=== PATIENT | female | born 1955 | race Caucasian/White ===

== ENCOUNTER → 2016-10-24 | Outpatient (CLI) | payer OTHER ==
--- NOTE | 2016-10-25 11:03 | ECHOF ---
Referral Reason:I27.0 Pulmonary Hypertension,R22.41 Juan Jose Leg Swelli MEASUREMENTS -------- HEIGHT: 170.2 cm WEIGHT: 81.6 kg BP: 148/86 RVIDd: 2.7 cm (< 3.3) IVSd: 1.3 cm (0.6 - 1.1) LVIDd: 3.9 cm (3.9 - 5.3) LVPWd: 1.3 cm (0.6 - 1.1) IVSs: 1.7 cm LVIDs: 2.5 cm LVPWs: 1.6 cm LA Diam: 3.2 cm (2.7 - 3.8) LAESV Index (A-L): 19.38 ml/m Ao Diam: 3.1 cm (2.0 - 3.7) AV Cusp: 1.8 cm (1.5 - 2.6) MV E Twan: 0.81 m/s MV DecT: 331 ms MV A Twan: 1.01 m/s MV E/A Ratio: 0.80 FINDINGS -------- Sinus rhythm. This was a technically difficult study with suboptimal views. The left ventricular size is normal. There is borderline concentric left ventricular hypertrophy. Overall left ventricular systolic function is normal with, an EF between 55 - 60 %. The right ventricle is normal in size and function. Normal LA size by volume 22+/-6 ml/m2. The right atrium is normal in size. The aortic valve was not well visualized. Mild mitral annular calcification present. The tricuspid valve was not well visualized. The pulmonic valve was not well visualized. The aortic root size is normal. Echo free space may represent effusion or a pericardial fat pad. CONCLUSIONS -------- 1. Sinus rhythm. 2. Mild mitral annular calcification present. 3. The tricuspid valve was not well visualized. 4. The pulmonic valve was not well visualized. 5. The aortic root size is normal. 6. Echo free space may represent effusion or a pericardial fat pad. 7. This was a technically difficult study with suboptimal views. 8. The left ventricular size is normal. 9. There is borderline concentric left ventricular hypertrophy. 10. Overall left ventricular systolic function is normal with, an EF between 55 - 60 %. 11. The right ventricle is normal in size and function. 12. Normal LA size by volume 22+/-6 ml/m2. 13. The right atrium is normal in size. 14. The aortic valve was not well visualized. LOADER HELPER: Barbie Jackson RDCS
== END | disposition home or self-care (01) ==
LOC: RADECHMAIN 14:57
PROVIDERS: ATTEND Internal Medicine
DX: I05.9 Rheumatic mitral valve disease, unspecified (principal); I27.0 Primary pulmonary hypertension
CPT/HCPCS: 93306

== ENCOUNTER 2016-10-31 00:13 | Emergency (ER) | payer OTHER ==
[2016-10-31] MEDS ORDERED: HYDROcodone/APAP 5-325MG 1 EACH TAB PO STA (01:20)
--- NOTE | 2016-10-31 01:23 | ED ---
Lower Extremity Injury HPI - General Chief Complaint: Extremity Injury, Lower Stated Complaint: Hip/leg pain, swollen feet Time Seen by Provider: 10/31/16 00:34 Source: patient, RN notes reviewed Mode of arrival: wheelchair Limitations: no limitations - History of Present Illness Initial Comments: Patient is a 61-year-old female since emergency room for evaluation. Patient states that about a year ago she fell and injured her left hip. Patient states about 4 weeks ago she began having increasing pain in her left hip. Patient states she went and saw her primary care provider and they told her she had a "cracked hip". Patient states that her primary care provider will not write her for pain medications. Patient states the pain is been getting worse with walking. Patient also states having increased bilateral leg swelling. Patient states that she is on 40 mg of Lasix per day. Patient denies chest pain, shortness of breath, headache, dizziness. Patient states that both of her legs feel very swollen and hard. Patient states it is very uncomfortable to walk. Patient denies any numbness or tingling going down her feet. - Related Data Home Medications Medication Instructions Recorded Confirmed Albuterol Inhaler [Ventolin Hfa 2 puff INHALATION RT-Q6H PRN 12/21/13 10/31/16 Inhaler] metFORMIN HCL 500 mg PO BID 12/21/13 10/31/16 Ranitidine HCl [Zantac] 300 mg PO BID 01/19/14 10/31/16 Gabapentin [Neurontin] 100 mg PO BID 05/30/15 10/31/16 Simvastatin 20 mg PO HS 05/30/15 10/31/16 Furosemide [Lasix] 20 mg PO DAILY 08/02/15 10/31/16 Lisinopril [Zestril] 30 mg PO BID 08/02/15 10/31/16 Previous Rx's Medication Instructions Recorded Ferrous Sulfate [Feosol] 325 mg PO DAILY #30 tab 06/08/15 Folic Acid 1 mg PO DAILY@1200 #30 tab 06/08/15 Multivitamins, Thera [Multivitamin 1 each PO DAILY@1200 #30 tab 06/08/15 (formulary)] Thiamine [Vitamin B-1] 100 mg PO DAILY@1200 #30 tab 06/08/15 traMADol HCl [Ultram] 50 mg PO Q6H PRN #20 tab 06/08/15 Naproxen [Naprosyn] 500 mg PO Q12HR PRN #20 tab 10/31/16 Allergies Allergy/AdvReac Type Severity Reaction Status Date / Time aspirin AdvReac nose bleeds Verified 10/31/16 00:24 Review of Systems ROS Statement: Those systems with pertinent positive or pertinent negative responses have been documented in the HPI. ROS Other: All systems not noted in ROS Statement are negative. 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 She denies any medical marijuana, marijuana or street drug use. She denies any alcohol use. Patient has no pets in the home and she denies any recent travel. Past Drug Use History: None Reported General Exam - General Exam Comments Initial Comments: Sitting in exam room, no distress. Limitations: no limitations General appearance: alert, in no apparent distress Head exam: Present: atraumatic, normocephalic, normal inspection Eye exam: Present: normal appearance ENT exam: Present: normal exam Neck exam: Present: normal inspection Respiratory exam: Present: normal lung sounds bilaterally. Absent: respiratory distress Cardiovascular Exam: Present: regular rate, normal rhythm, normal heart sounds Extremities exam: Present: pedal edema (Bilateral pitting pedal edema) Back exam: Present: normal inspection Neurological exam: Present: alert, oriented X3, CN II-XII intact, normal gait Psychiatric exam: Present: normal affect, normal mood Skin exam: Present: warm, dry, intact, normal color. Absent: rash Course Vital Signs 10/31/16 10/31/16 00:21 03:30 Temperature 98.1 F 97.7 F Pulse Rate 94 76 Respiratory 18 20 Rate Blood Pressure 194/88 167/77 O2 Sat by Pulse 97 96 Oximetry Medical Decision Making - Medical Decision Making Patient is a 61-year-old female presents emergency room for evaluation of chronic left hip pain and bilateral leg edema. Labs show no concerning findings. Chest x-ray shows no acute findings. Will send patient home with Cari and advised her to follow-up with her primary care provider. Advised patient to continue taking Lasix as directed. Advised patient to elevate both of her legs. Patient states she understands everything that was discussed with her. Return parameters discussed. Case discussed with Dr. Wilson. - Lab Data Result diagrams: 10/31/16 01:39 10/31/16 01:39 Lab Results 10/31/16 10/31/16 10/31/16 Range/Units 01:39 01:39 01:39 WBC 7.1 (3.8-10.6) k/uL RBC 4.55 (3.80-5.40) m/uL Hgb 14.1 (11.4-16.0) gm/dL Hct 42.1 (34.0-46.0) % MCV 92.6 (80.0-100.0) fL MCH 31.1 (25.0-35.0) pg MCHC 33.5 (31.0-37.0) g/dL RDW 14.5 (11.5-15.5) % Plt Count 257 (150-450) k/uL Neutrophils % 73 % Lymphocytes % 18 % Monocytes % 5 % Eosinophils % 2 % Basophils % 1 % Neutrophils # 5.2 (1.3-7.7) k/uL Lymphocytes # 1.3 (1.0-4.8) k/uL Monocytes # 0.3 (0-1.0) k/uL Eosinophils # 0.2 (0-0.7) k/uL Basophils # 0.0 (0-0.2) k/uL PT (9.0-12.0) sec INR (<1.1) APTT (22.0-30.0) sec Sodium 134 L (137-145) mmol/L Potassium 4.1 (3.5-5.1) mmol/L Chloride 97 L (98-107) mmol/L Carbon Dioxide 26 (22-30) mmol/L Anion Gap 11 mmol/L BUN 13 (7-17) mg/dL Creatinine 0.70 (0.52-1.04) mg/dL Est GFR (MDRD) Af Amer >60 (>60 ml/min/1.73 sqM) Est GFR (MDRD) Non-Af >60 (>60 ml/min/1.73 sqM) Glucose 298 H (74-99) mg/dL Calcium 9.3 (8.4-10.2) mg/dL Magnesium 1.9 (1.6-2.3) mg/dL Total Bilirubin 0.5 (0.2-1.3) mg/dL AST 12 L (14-36) U/L ALT 27 (9-52) U/L Alkaline Phosphatase 74 (38-126) U/L Total Creatine Kinase 65 (30-135) U/L CK-MB (CK-2) 2.5 H* (0.0-2.4) ng/mL CK-MB (CK-2) Rel Index 3.8 Troponin I <0.012 (0.000-0.034) ng/mL NT-Pro-B Natriuret Pep pg/mL Total Protein 6.8 (6.3-8.2) g/dL Albumin 4.2 (3.5-5.0) g/dL 10/31/16 10/31/16 Range/Units 01:39 01:39 WBC (3.8-10.6) k/uL RBC (3.80-5.40) m/uL Hgb (11.4-16.0) gm/dL Hct (34.0-46.0) % MCV (80.0-100.0) fL MCH (25.0-35.0) pg MCHC (31.0-37.0) g/dL RDW (11.5-15.5) % Plt Count (150-450) k/uL Neutrophils % % Lymphocytes % % Monocytes % % Eosinophils % % Basophils % % Neutrophils # (1.3-7.7) k/uL Lymphocytes # (1.0-4.8) k/uL Monocytes # (0-1.0) k/uL Eosinophils # (0-0.7) k/uL Basophils # (0-0.2) k/uL PT 9.7 (9.0-12.0) sec INR 0.9 (<1.1) APTT 24.1 (22.0-30.0) sec Sodium (137-145) mmol/L Potassium (3.5-5.1) mmol/L Chloride (98-107) mmol/L Carbon Dioxide (22-30) mmol/L Anion Gap mmol/L BUN (7-17) mg/dL Creatinine (0.52-1.04) mg/dL Est GFR (MDRD) Af Amer (>60 ml/min/1.73 sqM) Est GFR (MDRD) Non-Af (>60 ml/min/1.73 sqM) Glucose (74-99) mg/dL Calcium (8.4-10.2) mg/dL Magnesium (1.6-2.3) mg/dL Total Bilirubin (0.2-1.3) mg/dL AST (14-36) U/L ALT (9-52) U/L Alkaline Phosphatase (38-126) U/L Total Creatine Kinase (30-135) U/L CK-MB (CK-2) (0.0-2.4) ng/mL CK-MB (CK-2) Rel Index Troponin I (0.000-0.034) ng/mL NT-Pro-B Natriuret Pep 104 pg/mL Total Protein (6.3-8.2) g/dL Albumin (3.5-5.0) g/dL - Radiology Data Radiology results: report reviewed, image reviewed Disposition Clinical Impression: Left hip pain, Bilateral leg edema Disposition: HOME SELF-CARE Instructions: Leg Edema (ED) Additional Instructions: Continue taking Lasix as directed. Elevate both legs. Please follow up with primary care provider in 1-2 days. If any new symptom arises or symptoms worsen , return to ER as soon as possible. Prescriptions: Naproxen [Naprosyn] 500 mg PO Q12HR PRN #20 tab PRN Reason: Pain Referrals: Huma Edgar MD [Primary Care Provider] - 1-2 days Time of Disposition: 03:01
[2016-10-31 01:50] LABS: Basophils % (A) 1 %; CH 32.6; CHCM 35.4; Eosinophils # (A) 0.2 k/uL (0-0.7); Eosinophils % (A) 2 %; HCT 42.1 % (34.0-46.0); HDW 3.21; HGB 14.1 gm/dL (11.4-16.0); Luc # (Auto) 0.12; Luc % (Auto) 2; Lymphocytes # (A) 1.3 k/uL (1.0-4.8); Lymphocytes % (A) 18 %; MCH 31.1 pg (25.0-35.0); MCHC 33.5 g/dL (31.0-37.0); MCV 92.6 fL (80.0-100.0); Mean Platelet Volume 6.5; Monocytes # (A) 0.3 k/uL (0-1.0); Monocytes % (A) 5 %; Neutrophils # (A) 5.2 k/uL (1.3-7.7); Neutrophils % (A) 73 %; RBC 4.55 m/uL (3.80-5.40); RDW 14.5 % (11.5-15.5); WBC 7.1 k/uL (3.8-10.6); WBC (Perox) 7.18
[2016-10-31 01:59] LABS: ALT 27 U/L (9-52); AST 12 U/L (14-36); Alkaline Phosphatase 74 U/L (38-126); Anion Gap 11 mmol/L; Blood Urea Nitrogen 13 mg/dL (7-17); Calcium 9.3 mg/dL (8.4-10.2); Carbon Dioxide 26 mmol/L (22-30); Chloride 97 mmol/L (98-107); Glucose 298 mg/dL (74-99); INR 0.9 (<1.1); Magnesium 1.9 mg/dL (1.6-2.3); Non-African American GFR(MDRD) >60 (>60 ml/min/1.73 sqM); Partial Thromboplastin Time 24.1 sec (22.0-30.0); Potassium 4.1 mmol/L (3.5-5.1); Prothrombin Time 9.7 sec (9.0-12.0); Sodium 134 mmol/L (137-145); Total Bilirubin 0.5 mg/dL (0.2-1.3); Total Protein 6.8 g/dL (6.3-8.2)
[2016-10-31 02:14] LABS: Creatine Kinase 65 U/L (30-135)
[2016-10-31 02:26] LABS: Creatine Kinase MB 2.5 ng/mL (0.0-2.4); Troponin I <0.012 ng/mL (0.000-0.034)
--- NOTE | 2016-10-31 02:28 | XR ---
EXAM: XR Chest, 2 Views CLINICAL HISTORY: Reason: Chest Pain TECHNIQUE: Frontal and lateral views of the chest. COMPARISON: CXR 06/06/15 FINDINGS: Lungs: Unremarkable. No consolidation. Pleural space: Unremarkable. No pneumothorax. Heart: Unremarkable. Borderline cardiomegaly, unchanged. Mediastinum: Unremarkable. Bones/joints: Unremarkable. IMPRESSION: No acute findings. Borderline cardiomegaly, unchanged.
[2016-10-31 03:32] VITALS: BP 167/77; PULSE 76; RESP 20; TEMP 97.7
== END 2016-10-31 03:32 | disposition home or self-care (01) ==
LOC: EC 00:13
DX: M25.552 Pain in left hip (principal); R60.0 Localized edema; E78.5 Hyperlipidemia, unspecified; I10 Essential (primary) hypertension; E11.40 Type 2 diabetes mellitus with diabetic neuropathy, unspecified; I25.10 Atherosclerotic heart disease of native coronary artery without angina pectoris; K21.9 Gastro-esophageal reflux disease without esophagitis; F17.200 Nicotine dependence, unspecified, uncomplicated; Z79.84 Long term (current) use of oral hypoglycemic drugs; Z79.899 Other long term (current) drug therapy; Z88.6 Allergy status to analgesic agent
CPT/HCPCS: 36415; 71020; 80053; 82550; 82553; 83735; 83880; 84484; 85025; 85610; 85730; 93005; 99284

== ENCOUNTER → 2016-11-11 | Outpatient (CLI) | payer OTHER ==
--- NOTE | 2016-11-11 13:54 | US ---
EXAMINATION TYPE: US venous doppler duplex LE BI DATE OF EXAM: 11/11/2016 1:33 PM COMPARISON: NONE CLINICAL HISTORY: L leg pain M79.662, R leg pain M79.661. Bilateral leg swelling. Patients states nicole ving a type of vaginal surgery with cyst removed resulting in large amount of scar tissue. SIDE PERFORMED: Bilateral TECHNIQUE: The lower extremity deep venous system is examined utilizing real time linear array sonog shayy with graded compression, doppler sonography and color-flow sonography. VESSELS IMAGED: External Iliac Vein (EIV) Common Femoral Vein Deep Femoral Vein Greater Saphenous Vein * Femoral Vein Popliteal Vein Small Saphenous Vein * Proximal Calf Veins (* superficial vessels) Suboptimal exam due to patient unable to lay still due to hip pain Right Leg: Appears negative for DVT, suboptimal visualization of GSV Left Leg: Appears negative for DVT No popliteal fossa lesion was identified. IMPRESSION: THIS EXAMINATION IS NEGATIVE FOR DVT IN BOTH LEGS.
== END | disposition home or self-care (01) ==
LOC: RADUSWWP 12:53
PROVIDERS: ATTEND Internal Medicine
DX: M79.661 Pain in right lower leg (principal); R22.43 Localized swelling, mass and lump, lower limb, bilateral; M79.662 Pain in left lower leg
CPT/HCPCS: 93970

== ENCOUNTER → 2016-12-05 | Outpatient (CLI) | payer OTHER ==
[2016-12-05 14:28] LABS: Blood Urea Nitrogen 12 mg/dL (7-17); Non-African American GFR(MDRD) >60 (>60 ml/min/1.73 sqM)
== END | disposition home or self-care (01) ==
LOC: LABWHC1 13:51
PROVIDERS: ATTEND Orthopaedic Surgery
DX: N28.9 Disorder of kidney and ureter, unspecified (principal)
CPT/HCPCS: 36415; 82565; 84520

== ENCOUNTER 2017-10-27 21:38 | Emergency (ER) | payer OTHER ==
[2017-10-27 21:43] VITALS: RESP 16
--- NOTE | 2017-10-27 21:58 | ED ---
Fall HPI - General Chief Complaint: Fall Stated Complaint: fall/foot pain Time Seen by Provider: 10/27/17 21:45 Source: patient, family, RN notes reviewed Mode of arrival: wheelchair - History of Present Illness Initial Comments: This is a 62-year-old female who presents to the emergency department with chief complaint of fall injury. Patient states that last Friday she fell. She denies any injuries at that time. She states that yesterday she fell down a couple steps but was able to catch herself and since that time has been experiencing right ankle pain. She is unsure if she twisted her ankle. Pain is made worse with bearing weight. She denies any other injuries or trauma. Denies fever, chills, chest pain, shortness of breath, abdominal pain, nausea or vomiting, constipation or diarrhea, dysuria or hematuria, numbness or tingling, headache or vision changes. - Related Data Home Medications Medication Instructions Recorded Confirmed Albuterol Inhaler [Ventolin Hfa 2 puff INHALATION RT-Q6H PRN 12/21/13 10/31/16 Inhaler] metFORMIN HCL 500 mg PO BID 12/21/13 10/31/16 Ranitidine HCl [Zantac] 300 mg PO BID 01/19/14 10/31/16 Gabapentin [Neurontin] 100 mg PO BID 05/30/15 10/31/16 Simvastatin 20 mg PO HS 05/30/15 10/31/16 Furosemide [Lasix] 20 mg PO DAILY 08/02/15 10/31/16 Lisinopril [Zestril] 30 mg PO BID 08/02/15 10/31/16 Previous Rx's Medication Instructions Recorded Ferrous Sulfate [Feosol] 325 mg PO DAILY #30 tab 06/08/15 Folic Acid 1 mg PO DAILY@1200 #30 tab 06/08/15 Multivitamins, Thera [Multivitamin 1 each PO DAILY@1200 #30 tab 06/08/15 (formulary)] Thiamine [Vitamin B-1] 100 mg PO DAILY@1200 #30 tab 06/08/15 traMADol HCl [Ultram] 50 mg PO Q6H PRN #20 tab 06/08/15 Naproxen [Naprosyn] 500 mg PO Q12HR PRN #20 tab 10/31/16 Cephalexin [Keflex] 500 mg PO Q12HR #20 cap 10/27/17 Sulfamethox-Tmp 800-160Mg [Bactrim 1 tab PO Q12HR #20 tab 10/27/17 DS 800-160 mg] Allergies Allergy/AdvReac Type Severity Reaction Status Date / Time aspirin AdvReac nose bleeds Verified 10/27/17 21:43 Review of Systems ROS Statement: Those systems with pertinent positive or pertinent negative responses have been documented in the HPI. ROS Other: All systems not noted in ROS Statement are negative. Past Medical History Past Medical History: Coronary Artery Disease (CAD), Diabetes Mellitus, GERD/ Reflux, Hyperlipidemia, Hypertension Additional Past Medical History / Comment(s): Diabetic neuropathy to bilateral upper and lower extremities, postmenopausal vaginal bleeding, necrotizing fasciitis the right thigh status post skin grafts at [facility] History of Any Multi-Drug Resistant Organisms: None Reported Past Surgical History: Tubal Ligation Additional Past Surgical History / Comment(s): recent skin grafts in nida groin Past Anesthesia/Blood Transfusion Reactions: No Reported Reaction Past Psychological History: No Psychological Hx Reported Smoking Status: Current every day smoker Past Alcohol Use History: None Reported Past Drug Use History: None Reported General Exam - General Exam Comments Initial Comments: General: Awake and alert, well-developed; in no apparent distress. HEENT: Head atraumatic, normocephalic. Pupils are equal, round and reactive to light. Extraocular movements intact. Oropharynx moist without erythema or exudate. Neck: Supple. Normal ROM. Cardiovascular: Regular rate and rhythm. No murmurs, rubs or gallops. Chest symmetrical. Respiratory: Lungs clear to auscultation bilaterally. No wheezes, rales or rhonchi. Normal respiratory effort with no use of accessory muscles. Musculoskeletal: Limited range of motion of the right ankle due to pain. There is soft tissue swelling, erythema, warmth and tenderness medial aspect of the right foot/ankle. Sensation is intact. Pedal pulses are 2+ equal and palpable bilaterally. Skin: [place], warm and dry with redness, warmth and swelling of right foot as noted above. Neurological: Alert and oriented x3. CN II-XII grossly intact. Speech is fluent and answers are appropriate. No focal neuro deficits. Psychiatric: Normal mood and affect. No overt signs of depression or anxiety noted. Limitations: no limitations Course Vital Signs 10/27/17 21:39 Temperature 97.3 F L Pulse Rate 83 Respiratory 16 Rate Blood Pressure 136/62 O2 Sat by Pulse 98 Oximetry Medical Decision Making - Medical Decision Making This is a 62-year-old female who presents to the emergency department chief complaint of right ankle injury. Patient states that she fell down a couple steps yesterday but was able to brace herself. She states that since that time she has been experiencing right ankle pain. X-ray was obtained and revealed no acute fractures or dislocations. No evidence of osteomyelitis. Patient does have a history of diabetic neuropathy. I had patient remove her socks and shoes and noticed an area of erythema, tenderness, swelling and warmth to the medial aspect of the right foot/ankle. Patient will be started on Keflex and Bactrim. Recommended following up with her primary care provider within the next couple of days for close monitoring of resolution. Strongly advised patient to check both of her feet regularly to monitor for any wounds or signs of infection. Patient's vital signs are stable and she is in no acute distress. She'll be discharged home at this time. She is in agreement with plan and voices understanding. All questions were answered. - Radiology Data Radiology results: report reviewed X-ray right ankle impression: No acute abnormality of the right ankle. X-ray right foot impression: Degenerative hypertrophic spurring. No fracture seen. Disposition Clinical Impression: Cellulitis in diabetic foot Disposition: HOME SELF-CARE Condition: Good Instructions: Foot Care for People with Diabetes (ED), Cellulitis (ED) Additional Instructions: Please take medications as prescribed. Please check your feet regularly for any signs of infections or open wounds. Please follow up with primary care provider within 1-2 days. Return to emergency department if symptoms should worsen or any concerns arise. Prescriptions: Cephalexin [Keflex] 500 mg PO Q12HR #20 cap Sulfamethox-Tmp 800-160Mg [Bactrim DS 800-160 mg] 1 tab PO Q12HR #20 tab Is patient prescribed a controlled substance at d/c from ED?: No Referrals: Huma Edgar MD [Primary Care Provider] - 1-2 days Time of Disposition: 22:59
--- NOTE | 2017-10-27 22:38 | XR ---
EXAMINATION TYPE: XR ankle complete RT DATE OF EXAM: 10/27/2017 COMPARISON: NONE HISTORY: Pain TECHNIQUE: 3 views FINDINGS: Ankle mortise is anatomic. There is minor spurring of the posterior malleolus. There is a s mall Achilles calcaneal spur. I see no fracture nor dislocation. IMPRESSION: No acute abnormality of the right ankle.
--- NOTE | 2017-10-27 22:39 | XR ---
EXAMINATION TYPE: XR foot complete RT DATE OF EXAM: 10/27/2017 COMPARISON: NONE HISTORY: Pain TECHNIQUE: 3 views FINDINGS: Metatarsals are intact. I see no fracture nor dislocation. There are no erosions. There is a small Achilles calcaneal spur. There is spurring of the posterior malleolus. IMPRESSION: Degenerative hypertrophic spurring. No fracture seen.
[2017-10-27] MEDS ORDERED: CEPHALEXIN 500 MG CAP PO STA (22:47)
[2017-10-27] MEDS ORDERED: SULFAMETHOX-TMP 800-160MG 1 EACH TAB PO STA (22:47)
[2017-10-27 23:08] VITALS: BP 129/66; PULSE 74; TEMP 97.7
== END 2017-10-27 23:07 | disposition home or self-care (01) ==
LOC: EC 21:38
DX: L03.115 Cellulitis of right lower limb (principal); E11.9 Type 2 diabetes mellitus without complications; E11.40 Type 2 diabetes mellitus with diabetic neuropathy, unspecified; I25.10 Atherosclerotic heart disease of native coronary artery without angina pectoris; K21.9 Gastro-esophageal reflux disease without esophagitis; E78.5 Hyperlipidemia, unspecified; I10 Essential (primary) hypertension; F17.200 Nicotine dependence, unspecified, uncomplicated; Z79.84 Long term (current) use of oral hypoglycemic drugs; Z79.899 Other long term (current) drug therapy; Z88.6 Allergy status to analgesic agent
CPT/HCPCS: 99283

== ENCOUNTER → 2018-12-03 | Outpatient (CLI) | payer MEDICARE, OTHER ==
--- NOTE | 2018-12-03 15:00 | US ---
EXAMINATION TYPE: US venous doppler duplex LE RT DATE OF EXAM: 12/03/2018 2:48 PM COMPARISON: US 2017 CLINICAL HISTORY: M79.661 Pain in right leg; R22.41 Swelling, rt leg. Right leg pain SIDE PERFORMED: Right TECHNIQUE: The lower extremity deep venous system is examined utilizing real time linear array sonog shayy with graded compression, doppler sonography and color-flow sonography. VESSELS IMAGED: External Iliac Vein (EIV) Common Femoral Vein Deep Femoral Vein Greater Saphenous Vein * Femoral Vein Popliteal Vein Small Saphenous Vein * Proximal Calf Veins (* superficial vessels) Right Leg: Appears negative for DVT IMPRESSION: 1. No diagnostic evidence of DVT as visualized.
== END | disposition home or self-care (01) ==
LOC: RADUSWWP 14:25
PROVIDERS: ATTEND Internal Medicine
DX: M79.661 Pain in right lower leg (principal); R22.41 Localized swelling, mass and lump, right lower limb; Z88.5 Allergy status to narcotic agent

== ENCOUNTER 2018-12-31 12:01 | Inpatient (IN) | payer MEDICARE, OTHER ==
[2018-12-31] MEDS ORDERED: SODIUM CHLORIDE 0.9% 500 ML 500 ML IV STA (13:08)
[2018-12-31] MEDS ORDERED: HYDROmorphone 1 MG/ML 1 ML SYRINGE IVP STA (13:08)
[2018-12-31] MEDS ORDERED: KETOROLAC 60 MG/2 ML VIAL IVP STA (13:08)
[2018-12-31 13:18] LABS: Basophils # (A) 0.1 k/uL (0-0.2); Basophils % (A) 1 %; Eosinophils # (A) 0.4 k/uL (0-0.7); Eosinophils % (A) 4 %; HCT 33.8 % (34.0-46.0); HGB 11.6 gm/dL (11.4-16.0); Lymphocytes # (A) 1.2 k/uL (1.0-4.8); Lymphocytes % (A) 14 %; MCH 30.2 pg (25.0-35.0); MCHC 34.4 g/dL (31.0-37.0); Mean Platelet Volume 6.7; Monocytes # (A) 0.5 k/uL (0-1.0); Monocytes % (A) 5 %; Neutrophils # (A) 6.8 k/uL (1.3-7.7); Neutrophils % (A) 75 %; Platelet Count 391 k/uL (150-450); Poikilocytosis Slight; RBC 3.85 m/uL (3.80-5.40); RDW 15.1 % (11.5-15.5); WBC 9.2 k/uL (3.8-10.6)
--- NOTE | 2018-12-31 13:19 | ED ---
General Adult HPI - General Chief complaint: Extremity Injury, Lower Stated complaint: Side/Back pain from fall in july Time Seen by Provider: 12/31/18 12:10 Source: patient, family, RN notes reviewed Mode of arrival: wheelchair Limitations: no limitations - History of Present Illness Initial comments: This is a 63-year-old female presents emergency Department complaining of right hip pain. Patient states she felt a couple times a day because of her neuropathy. Patient states she often lands on the right hip but it is now been hurting for one week and she can barely walk or move because the pain. Patient denies any injury to her head or neck however. Patient denies any chest pain or abdominal pain. Patient denies any back pain. Patient denies any other extremity pain besides her hip. Patient does states she's become weaker and is falling much more frequently. Patient states she has fallen upwards of 2-3 times a day. Patient does not mind being worked up for weakness at this time. According to the granddaughter the granddaughter has had her set up with other appointments but the grandmother refuses to go. Patient denies any chest pain or palpitations patient denies shortness of breath per patient denies any recent fever chills or cough - Related Data Home Medications Medication Instructions Recorded Confirmed metFORMIN HCL 500 mg PO DAILY 12/21/13 12/31/18 Ranitidine HCl [Zantac] 300 mg PO BID 01/19/14 12/31/18 Simvastatin 20 mg PO HS 05/30/15 12/31/18 Furosemide [Lasix] 20 mg PO BID 08/02/15 12/31/18 Cetirizine HCl [Zyrtec] 10 mg PO DAILY 12/31/18 12/31/18 Ferrous Sulfate [Feosol] 325 mg PO DAILY@1200 12/31/18 12/31/18 Furosemide [Lasix] 20 mg PO BID 12/31/18 12/31/18 Gabapentin [Neurontin] 300 mg PO BID 12/31/18 12/31/18 Lisinopril 30 mg PO DAILY 12/31/18 12/31/18 Metolazone [Zaroxolyn] 2.5 mg PO DAILY 12/31/18 12/31/18 Multivitamins, Thera [Multivitamin 1 tab PO DAILY@1200 12/31/18 12/31/18 (formulary)] Potassium Chloride [K-Tab ER] 10 meq PO DAILY 12/31/18 12/31/18 Triamcinolone 0.1% Cream [Kenalog 1 applicatio TOPICAL TID 12/31/18 12/31/18 0.1% Cream] amLODIPine [Norvasc] 5 mg PO DAILY 12/31/18 12/31/18 traZODone HCL 50 - 100 mg PO HS 12/31/18 12/31/18 Previous Rx's Medication Instructions Recorded Folic Acid 1 mg PO DAILY@1200 #30 tab 06/08/15 Thiamine [Vitamin B-1] 100 mg PO DAILY@1200 #30 tab 06/08/15 Naproxen [Naprosyn] 500 mg PO Q12HR PRN #20 tab 10/31/16 Allergies Allergy/AdvReac Type Severity Reaction Status Date / Time aspirin AdvReac nose bleeds Verified 12/31/18 13:17 Review of Systems ROS Statement: Those systems with pertinent positive or pertinent negative responses have been documented in the HPI. ROS Other: All systems not noted in ROS Statement are negative. Past Medical History Past Medical History: Coronary Artery Disease (CAD), Diabetes Mellitus, GERD/Reflux, Hyperlipidemia, Hypertension Additional Past Medical History / Comment(s): Diabetic neuropathy to bilateral upper and lower extremities, postmenopausal vaginal bleeding, necrotizing fasciitis the right thigh status post skin grafts at History of Any Multi-Drug Resistant Organisms: None Reported Past Surgical History: Tubal Ligation Additional Past Surgical History / Comment(s): recent skin grafts in nida groin Past Anesthesia/Blood Transfusion Reactions: No Reported Reaction Past Psychological History: No Psychological Hx Reported Smoking Status: Current every day smoker Past Alcohol Use History: None Reported Past Drug Use History: None Reported General Exam - General Exam Comments Initial Comments: GENERAL: Patient is well-developed and well-nourished. Patient is nontoxic and well- hydrated and is in moderate distress. Patient does look somewhat disheveled. ENT: Neck is soft and supple. No significant lymphadenopathy is noted. Oropharynx is clear. Moist mucous membranes. Neck has full range of motion without eliciting any pain. EYES: The sclera were anicteric and conjunctiva were pink and moist. Extraocular mov ements were intact and pupils were equal round and reactive to light. Eyelids were unremarkable. PULMONARY: Unlabored respirations. Good breath sounds bilaterally. No audible rales rhonchi or wheezing was noted. CARDIOVASCULAR: There is a regular rate and rhythm without any murmurs gallops or rubs. ABDOMEN: Soft and nontender with normal bowel sounds. SKIN: Skin is clear with no lesions or rashes and otherwise unremarkable. NEUROLOGIC: Patient is alert and oriented x3. Cranial nerves II through XII are grossly intact. Motor and sensory are also intact. Normal speech, volume and content. Symmetrical smile. MUSCULOSKELETAL: Patient has significant right lateral and posterior hip pain to palpation. Patient also has significant pain with range of motion of that hip. The leg does not appear shortened. LYMPHATICS: No significant lymphadenopathy is noted PSYCHIATRIC: Normal psychiatric evaluation. Limitations: no limitations Course Vital Signs 12/31/18 12/31/18 12/31/18 12:07 13:30 14:17 Temperature 98.7 F Pulse Rate 92 81 73 Respiratory 18 18 18 Rate Blood Pressure 130/74 127/90 134/68 O2 Sat by Pulse 97 96 98 Oximetry 12/31/18 12/31/18 15:19 16:11 Temperature 97.4 F L Pulse Rate 64 61 Respiratory 18 16 Rate Blood Pressure 128/67 121/63 O2 Sat by Pulse 99 97 Oximetry Medical Decision Making - Medical Decision Making EKG shows sinus rhythm with occasional PAC at 90 bpm CA interval is 178 QRSs 80 QT interval 374 QTC is 457. His EKG shows no ST segment elevation or depression or T wave abnormalities are noted. - Lab Data Result diagrams: 12/31/18 12:48 12/31/18 12:48 Lab Results 12/31/18 12/31/18 12/31/18 Range/Units 12:48 12:48 12:48 WBC 9.2 (3.8-10.6) k/uL RBC 3.85 (3.80-5.40) m/uL Hgb 11.6 (11.4-16.0) gm/dL Hct 33.8 L (34.0-46.0) % MCV 88.0 (80.0-100.0) fL MCH 30.2 (25.0-35.0) pg MCHC 34.4 (31.0-37.0) g/dL RDW 15.1 (11.5-15.5) % Plt Count 391 (150-450) k/uL Neutrophils % 75 % Lymphocytes % 14 % Monocytes % 5 % Eosinophils % 4 % Basophils % 1 % Neutrophils # 6.8 (1.3-7.7) k/uL Lymphocytes # 1.2 (1.0-4.8) k/uL Monocytes # 0.5 (0-1.0) k/uL Eosinophils # 0.4 (0-0.7) k/uL Basophils # 0.1 (0-0.2) k/uL Poikilocytosis Slight PT (9.0-12.0) sec INR (<1.2) APTT (22.0-30.0) sec Sodium 124 L (137-145) mmol/L Potassium 4.1 (3.5-5.1) mmol/L Chloride 80 L (98-107) mmol/L Carbon Dioxide 31 H (22-30) mmol/L Anion Gap 13 mmol/L BUN 40 H (7-17) mg/dL Creatinine 0.94 (0.52-1.04) mg/dL Est GFR (CKD-EPI)AfAm 74 (>60 ml/min/1.73 sqM) Est GFR (CKD-EPI)NonAf 64 (>60 ml/min/1.73 sqM) Glucose 184 H (74-99) mg/dL Plasma Lactic Acid [place] 1.3 (0.7-2.0) mmol/L Calcium 9.9 (8.4-10.2) mg/dL Magnesium 1.6 (1.6-2.3) mg/dL Total Bilirubin 0.7 (0.2-1.3) mg/dL AST 11 L (14-36) U/L ALT 15 (9-52) U/L Alkaline Phosphatase 75 (38-126) U/L Troponin I (0.000-0.034) ng/mL Total Protein 7.6 (6.3-8.2) g/dL Albumin 4.6 (3.5-5.0) g/dL Urine Color Urine Appearance (Clear) Urine pH (5.0-8.0) Ur Specific [place] (1.001-1.035) Urine Protein (Negative) Urine Glucose (UA) (Negative) Urine Ketones (Negative) Urine Blood (Negative) Urine Nitrite (Negative) Urine Bilirubin (Negative) Urine Urobilinogen (<2.0) mg/dL Ur Leukocyte Esterase (Negative) Urine WBC (0-5) /hpf Ur Squamous Epith Cells (0-4) /hpf Urine Bacteria (None) /hpf Urine Mucus (None) /hpf 12/31/18 12/31/18 12/31/18 Range/Units 12:48 12:48 13:46 WBC (3.8-10.6) k/uL RBC (3.80-5.40) m/uL Hgb (11.4-16.0) gm/dL Hct (34.0-46.0) % MCV (80.0-100.0) fL MCH (25.0-35.0) pg MCHC (31.0-37.0) g/dL RDW (11.5-15.5) % Plt Count (150-450) k/uL Neutrophils % % Lymphocytes % % Monocytes % % Eosinophils % % Basophils % % Neutrophils # (1.3-7.7) k/uL Lymphocytes # (1.0-4.8) k/uL Monocytes # (0-1.0) k/uL Eosinophils # (0-0.7) k/uL Basophils # (0-0.2) k/uL Poikilocytosis PT 10.1 (9.0-12.0) sec INR 0.9 (<1.2) APTT 25.4 (22.0-30.0) sec Sodium (137-145) mmol/L Potassium (3.5-5.1) mmol/L Chloride (98-107) mmol/L Carbon Dioxide (22-30) mmol/L Anion Gap mmol/L BUN (7-17) mg/dL Creatinine (0.52-1.04) mg/dL Est GFR (CKD-EPI)AfAm (>60 ml/min/1.73 sqM) Est GFR (CKD-EPI)NonAf (>60 ml/min/1.73 sqM) Glucose (74-99) mg/dL Plasma Lactic Acid [place] (0.7-2.0) mmol/L Calcium (8.4-10.2) mg/dL Magnesium (1.6-2.3) mg/dL Total Bilirubin (0.2-1.3) mg/dL AST (14-36) U/L ALT (9-52) U/L Alkaline Phosphatase (38-126) U/L Troponin I <0.012 (0.000-0.034) ng/mL Total Protein (6.3-8.2) g/dL Albumin (3.5-5.0) g/dL Urine Color Light Yellow Urine Appearance Cloudy H (Clear) Urine pH 6.5 (5.0-8.0) Ur Specific [place] 1.009 (1.001-1.035) Urine Protein Negative (Negative) Urine Glucose (UA) Negative (Negative) Urine Ketones Negative (Negative) Urine Blood Negative (Negative) Urine Nitrite Positive H (Negative) Urine Bilirubin Negative (Negative) Urine Urobilinogen <2.0 (<2.0) mg/dL Ur Leukocyte Esterase Moderate H (Negative) Urine WBC 28 H (0-5) /hpf Ur Squamous Epith Cells 1 (0-4) /hpf Urine Bacteria Moderate H (None) /hpf Urine Mucus Rare H (None) /hpf Disposition Clinical Impression: Hip pain, Multiple falls, Urinary tract infection, Hyponatremia Disposition: ADMITTED IP TO THIS HOSP Referrals: Huma Edgar MD [Primary Care Provider] - 1-2 days Time of Disposition: 16:48
[2018-12-31 13:26] LABS: INR 0.9 (<1.2); Partial Thromboplastin Time 25.4 sec (22.0-30.0); Prothrombin Time 10.1 sec (9.0-12.0)
[2018-12-31] MEDS ORDERED: NYSTATIN 100,000 UNIT/GM POWD 15 GM TOPICAL STA (13:28)
[2018-12-31 13:31] LABS: Albumin 4.6 g/dL (3.5-5.0); Calcium 9.9 mg/dL (8.4-10.2); Magnesium 1.6 mg/dL (1.6-2.3); Potassium 4.1 mmol/L (3.5-5.1); Total Bilirubin 0.7 mg/dL (0.2-1.3); Total Protein 7.6 g/dL (6.3-8.2)
[2018-12-31 14:11] LABS: Appearance,Urine Cloudy (Clear); Bacteria,Urine Moderate /hpf; Bilirubin,Urine Negative (Negative); Blood,Urine Negative (Negative); Color,Urine Light Yellow; Glucose,Urine (UA) Negative (Negative); Ketones,Urine Negative (Negative); Leukocyte Esterase,Urine Moderate (Negative); Mucus,Urine Rare /hpf; Nitrite,Urine Positive (Negative); PH, Urine 6.5 (5.0-8.0); Protein,Urine Negative (Negative); Specific Gravity,Urine 1.009 (1.001-1.035); Squamous Epithelial Cell,Urine 1 /hpf (0-4); Urobilinogen,Urine <2.0 mg/dL (<2.0); WBC,Urine 28 /hpf (0-5)
--- NOTE | 2018-12-31 14:21 | XR ---
EXAMINATION TYPE: XR chest 2V DATE OF EXAM: 12/31/2018 COMPARISON: 10/31/2016 HISTORY: Weakness TECHNIQUE: Frontal and lateral views of the chest are obtained. FINDINGS: There is no focal air space opacity, pleural effusion, or pneumothorax seen. The cardiac silhouette size is within normal limits. The osseous structures are intact. Mild multilevel degener ative changes of the spine. IMPRESSION: No acute cardiopulmonary process.
[2018-12-31] MEDS ORDERED: cefTRIAXone IN SWFI 1,000 MG/10 ML SYRINGE IVP STA (14:23)
--- NOTE | 2018-12-31 14:27 | XR ---
EXAMINATION TYPE: XR Hip RT and AP Pelvis DATE OF EXAM: 12/31/2018 COMPARISON: NONE HISTORY: Right hip pain after fall approximately 4 weeks ago TECHNIQUE: A single AP view of the pelvis is obtained. Two views of the right hip are obtained. FINDINGS: There is no acute fracture/dislocation evident in the pelvis. The hip and sacroiliac join ts appear symmetric with mild joint space narrowing of the femoral acetabular joint and mild degenera tive change of the sacroiliac joints. The overlying soft tissue appears unremarkable. Two views of right hip show no acute fracture or dislocation. No focal lytic or sclerotic lesion see n in the proximal right femur. The overlying soft tissue is unremarkable. Rounded calcified structu re in the right medial proximal femoral soft tissues may relate to a phlebolith, artifact, or benign soft tissue lesion as this is smoothly marginated and well circumscribed. IMPRESSION: There is no acute fracture or dislocation in the pelvis or right hip.
[2018-12-31] MEDS ORDERED: HYDROmorphone 0.5 MG/0.5 ML SYRINGE IVP STA (15:16)
--- NOTE | 2018-12-31 15:52 | CT ---
EXAMINATION TYPE: CT hip RT wo con DATE OF EXAM: 12/31/2018 COMPARISON: 12/31/2018 plain films HISTORY: Fall in July, right hip pain since. CT DLP: 638.9 mGycm Automated exposure control for dose reduction was used. FINDINGS: Attention is paid to the right hip. The proximal right femur within the [id number] appears normal. Femoral neck and femoral head are intact. The femoral head articulates with the acetabulum. Some ana nt space narrowing appears to be present. The remaining osseous structures within the [id number] a ppear unremarkable. The bowel visualized appear unremarkable. Vascular calcification is within the il iac vessels. Urinary bladder is unremarkable. Uterus and ovaries are not identified. Superficial soft tissues appear normal. Muscular density appears unremarkable. IMPRESSION: 1. MILD OSTEOARTHRITIC DEGENERATIVE CHANGE RIGHT HIP.
[2018-12-31] MEDS ORDERED: AZITHROMYCIN 500 MG in SODIUM CHLORIDE 0.9% 250 ML IVPB STA (15:57)
[2018-12-31] MEDS ORDERED: PNEUMONIA PROTOCOL UTILIZED 1 EACH MISC PO PRN (15:57)
[2018-12-31] MEDS: SODIUM CHLORIDE 0.9% 1,000 ML IV SCH ×2 (16:09→21:55)
[2018-12-31] MEDS: HYDROmorphone 0.5 MG/0.5 ML SYRINGE IVP PRN ×2 (18:31→21:58)
[2018-12-31] MEDS: SODIUM CHLORIDE 0.9% 1,000 ML IV ONE ×2 (20:28→22:29)
[2018-12-31 20:37] LABS: Glucose,Whole Blood 150 mg/dL (75-99)
[2018-12-31] MEDS: INSULIN ASPART (NovoLOG) 100 UNIT/ML VIAL SQ SCH (20:55)
[2018-12-31] MEDS: FAMOTIDINE 20 MG TAB PO SCH (20:55)
[2018-12-31] MEDS: ATORVASTATIN 10 MG TAB PO SCH (20:55)
[2018-12-31] MEDS: GABAPENTIN 300 MG CAP PO SCH (20:55)
[2018-12-31] MEDS: TRIAMCINOLONE 0.1% CREAM 80 GM TUBE TOPICAL SCH (22:01)
[2019-01-01] MEDS: HYDROmorphone 0.5 MG/0.5 ML SYRINGE IVP PRN ×3 (04:18→23:07)
[2019-01-01 06:54] LABS: Glucose,Whole Blood 182 mg/dL (75-99)
[2019-01-01 08:17] LABS: Appearance,Urine Clear (Clear); Bacteria,Urine Rare /hpf; Bilirubin,Urine Negative (Negative); Blood,Urine Negative (Negative); Color,Urine Light Yellow; Glucose,Urine (UA) Negative (Negative); Ketones,Urine Negative (Negative); Leukocyte Esterase,Urine Large (Negative); Nitrite,Urine Negative (Negative); PH, Urine 7.5 (5.0-8.0); Protein,Urine Negative (Negative); RBC,Urine 1 /hpf (0-5); Specific Gravity,Urine 1.007 (1.001-1.035); Squamous Epithelial Cell,Urine 1 /hpf (0-4); Urobilinogen,Urine <2.0 mg/dL (<2.0); WBC,Urine 18 /hpf (0-5)
[2019-01-01] MEDS: amLODIPine 5 MG TAB PO SCH (09:06)
[2019-01-01] MEDS: GABAPENTIN 300 MG CAP PO SCH ×2 (09:06→20:05)
[2019-01-01] MEDS: FAMOTIDINE 20 MG TAB PO SCH ×2 (09:06→20:05)
[2019-01-01] MEDS: INSULIN ASPART (NovoLOG) 100 UNIT/ML VIAL SQ SCH ×4 (09:06→23:02)
[2019-01-01] MEDS: TRIAMCINOLONE 0.1% CREAM 80 GM TUBE TOPICAL SCH ×3 (09:33→23:04)
[2019-01-01 11:32] LABS: Calcium 9.4 mg/dL (8.4-10.2); Potassium 4.3 mmol/L (3.5-5.1)
[2019-01-01 11:39] LABS: Anisocytosis Slight; Basophils % (A) 1 %; Eosinophils # (A) 0.2 k/uL (0-0.7); Eosinophils % (A) 3 %; HCT 34.4 % (34.0-46.0); HGB 11.6 gm/dL (11.4-16.0); Lymphocytes # (A) 1.1 k/uL (1.0-4.8); Lymphocytes % (A) 14 %; MCH 30.2 pg (25.0-35.0); MCHC 33.9 g/dL (31.0-37.0); Mean Platelet Volume 6.8; Monocytes # (A) 0.4 k/uL (0-1.0); Monocytes % (A) 5 %; Neutrophils % (A) 76 %; Platelet Count 387 k/uL (150-450); Poikilocytosis Slight; RBC 3.86 m/uL (3.80-5.40); WBC 7.9 k/uL (3.8-10.6)
[2019-01-01 11:40] LABS: Glucose,Whole Blood 161 mg/dL (75-99)
[2019-01-01 12:43] LABS: Hemoglobin A1C 6.1 % (4.0-6.0)
[2019-01-01] MEDS: MULTIVITAMINS, THERA 1 EACH TAB PO SCH (12:43)
[2019-01-01] MEDS: THIAMINE 100 MG TAB PO SCH (12:43)
[2019-01-01] MEDS: FOLIC ACID 1 MG TAB PO SCH (12:43)
[2019-01-01 13:37] VITALS: BMI 29.7
[2019-01-01] MEDS ORDERED: AZITHROMYCIN 500 MG TAB PO SCH (15:58)
[2019-01-01 16:42] LABS: Glucose,Whole Blood 150 mg/dL (75-99)
--- NOTE | 2019-01-01 16:44 | P.HPIM ---
History of Present Illness H&P Date: 12/31/18 Chief Complaint: Fall Patient is 63-year-old female with a known history of hypertension, diabetes, diabetic peripheral neuropathy, GERD and nicotine addiction came to ER with complaints of right hip pain and multiple falls since July this year. Patient has been feeling very weak and unable to walk due to pain. Denied any head injury. Denied any complaints of chest pain or shortness of breath. Denied any back pain. According to the granddaughter the granddaughter has had her set up with other appointments but the grandmother refuses to go. Patient denies any fever chills or cough. No recent illnesses. No sick contacts. Otherwise patient does smoke an daily basis. Patient does take Lasix and Zaroxolyn for leg swelling. Denied any history of CHF. EKG showed sinus rhythm. X-ray right hip showed mild osteoarthritic degenerative change right hip. X-ray of the pelvis showed no acute fracture or dislocation. Chest x-ray showed no acute cardio pulmonary process. Sodium 124, chloride 80, bicarb 31, BUN 40 and creatinine 0.94 his B A1c 6.1 UA showed cloudy and positive nitrate and moderate leukocytes esterase and WBC cells 28. Review of Systems Constitutional: Patient denies any fever or chills . Generalized weakness and malaise. Abdomen: Patient denied nausea vomiting and diarrhea and abdominal pain. Cardiovascular: Patient denies any chest pain or short of breath no palpitations. Respiratory: patient denied any cough is from production. No shortness of breath Neurologic: Patient denied any numbness or tingling headache. Musculoskeletal: Patient denies any complaints of joint swelling or deformity. Right hip pain Skin: Negative Psychiatric: Negative Endocrine: No heat or cold intolerance. No recent weight gain. Genitourinary: No dysuria or hematuria. All other 14 point ROS negative except the above Past Medical History Past Medical History: Coronary Artery Disease (CAD), Diabetes Mellitus, GERD/Reflux, Hyperlipidemia, Hypertension Additional Past Medical History / Comment(s): Diabetic neuropathy to bilateral upper and lower extremities, postmenopausal vaginal bleeding, necrotizing fasciitis the right thigh status post skin grafts at History of Any Multi-Drug Resistant Organisms: None Reported Past Surgical History: Tubal Ligation Additional Past Surgical History / Comment(s): recent skin grafts in nida groin Past Anesthesia/Blood Transfusion Reactions: No Reported Reaction Past Psychological History: No Psychological Hx Reported Smoking Status: Current every day smoker Past Alcohol Use History: None Reported Additional Past Alcohol Use History / Comment(s): Patient is a smoker of 2 packs per day since she was 14 years of age. She denies any medical marijuana, marijuana or street drug use. She denies any alcohol use. Patient has no pets in the home and she denies any recent travel. Past Drug Use History: None Reported - Past Family History Mother Family Medical History: Dementia Medications and Allergies Home Medications Medication Instructions Recorded Confirmed Type metFORMIN HCL 500 mg PO DAILY 12/21/13 12/31/18 History Ranitidine HCl [Zantac] 300 mg PO BID 01/19/14 12/31/18 History Simvastatin 20 mg PO HS 05/30/15 12/31/18 History Folic Acid 1 mg PO DAILY@1200 #30 tab 06/08/15 12/31/18 Rx Thiamine [Vitamin B-1] 100 mg PO DAILY@1200 #30 tab 06/08/15 12/31/18 Rx Furosemide [Lasix] 20 mg PO BID 08/02/15 12/31/18 History Naproxen [Naprosyn] 500 mg PO Q12HR PRN #20 tab 10/31/16 12/31/18 Rx Cetirizine HCl [Zyrtec] 10 mg PO DAILY 12/31/18 12/31/18 History Ferrous Sulfate [Feosol] 325 mg PO DAILY@1200 12/31/18 12/31/18 History Furosemide [Lasix] 20 mg PO BID 12/31/18 12/31/18 History Gabapentin [Neurontin] 300 mg PO BID 12/31/18 12/31/18 History Lisinopril 30 mg PO DAILY 12/31/18 12/31/18 History Metolazone [Zaroxolyn] 2.5 mg PO DAILY 12/31/18 12/31/18 History Multivitamins, Thera [Multivitamin 1 tab PO DAILY@1200 12/31/18 12/31/18 History (formulary)] Potassium Chloride [K-Tab ER] 10 meq PO DAILY 12/31/18 12/31/18 History Triamcinolone 0.1% Cream [Kenalog 1 applicatio TOPICAL TID 12/31/18 12/31/18 History 0.1% Cream] amLODIPine [Norvasc] 5 mg PO DAILY 12/31/18 12/31/18 History traZODone HCL 50 - 100 mg PO HS 12/31/18 12/31/18 History Allergies Allergy/AdvReac Type Severity Reaction Status Date / Time aspirin AdvReac nose bleeds Verified 12/31/18 13:17 Physical Exam Vitals: Vital Signs Temp Pulse Pulse Resp BP BP Pulse Ox 01/01/19 14:24 98.2 F 63 15 123/65 95 01/01/19 07:00 97.6 F 70 16 122/72 94 L 01/01/19 03:53 15 01/01/19 02:40 98.1 F 77 18 141/68 94 L 12/31/18 23:57 16 12/31/18 19:35 98.1 F 71 18 124/66 97 12/31/18 17:41 98.3 F 83 20 144/72 98 12/31/18 17:32 64 18 150/72 98 Intake and Output 01/01/19 01/01/19 01/01/19 06:59 14:59 22:59 Intake Total 1700 420 Output Total 1999 850 Balance -300 -430 Intake: Intake, IV Titration 1650 Amount Sodium Chloride 0.9% 1, 1650 000 ml @ 150 mls/hr IV . Q6H40M [facility] Rx#:[id number] Oral 50 420 Output: Urine 1999 850 Other: Voiding Method Indwelling Catheter Indwelling Catheter # Voids 3 Weight 86.183 kg PHYSICAL EXAMINATION: Patient is lying in the bed comfortably, no acute distress, awake alert and oriented.. HEENT: Normocephalic. Neck is supple. Pupils reactive. Nostrils clear. Oral cavity is moist. Ears reveal no drainage. Neck reveals no JVD, carotid bruits, or thyromegaly. CHEST EXAMINATION: Trachea is central. Symmetrical expansion. Lung bean clear to auscultation and percussion. CARDIAC: Normal S1, S2 with no gallops. No murmurs ABDOMEN: Soft. Bowel sounds normal. No organomegaly. No abdominal bruits. Extremities: reveal no edema. No clubbing or cyanosis Neurologically awake, alert, oriented x3 with well-coordinated movements. No focal deficits noted Skin: No rash or skin lesions. Psychiatric: Coperative. Nonsuicidal Musculoskeletal: No joint swelling or deformity. Normal range of motion. Results CBC & Chem 7: 01/01/19 11:03 01/01/19 11:03 Labs: Abnormal Lab Results - Last 24 Hours (Table) 12/31/18 12/31/18 01/01/19 Range/Units 12:48 20:36 06:52 RDW (11.5-15.5) % Sodium (137-145) mmol/L Chloride (98-107) mmol/L Carbon Dioxide (22-30) mmol/L BUN (7-17) mg/dL Glucose (74-99) mg/dL POC Glucose (mg/dL) 150 H 182 H (75-99) mg/dL Hemoglobin A1c 6.1 H (4.0-6.0) % Ur Leukocyte Esterase (Negative) Urine WBC (0-5) /hpf Urine Bacteria (None) /hpf 01/01/19 01/01/19 01/01/19 Range/Units 07:55 11:03 11:03 RDW 16.0 H (11.5-15.5) % Sodium 130 L (137-145) mmol/L Chloride 91 L (98-107) mmol/L Carbon Dioxide 31 H (22-30) mmol/L BUN 24 H (7-17) mg/dL Glucose 145 H (74-99) mg/dL POC Glucose (mg/dL) (75-99) mg/dL Hemoglobin A1c (4.0-6.0) % Ur Leukocyte Esterase Large H (Negative) Urine WBC 18 H (0-5) /hpf Urine Bacteria Rare H (None) /hpf 01/01/19 Range/Units 11:38 RDW (11.5-15.5) % Sodium (137-145) mmol/L Chloride (98-107) mmol/L Carbon Dioxide (22-30) mmol/L BUN (7-17) mg/dL Glucose (74-99) mg/dL POC Glucose (mg/dL) 161 H (75-99) mg/dL Hemoglobin A1c (4.0-6.0) % Ur Leukocyte Esterase (Negative) Urine WBC (0-5) /hpf Urine Bacteria (None) /hpf Thrombosis Risk Factor Assmnt - DVT/VTE Prophylaxis DVT/VTE Prophylaxis: Pharmacologic Prophylaxis ordered - Choose All That Apply Any of the Below Risk Factors Present?: Yes Each Factor Represents 1 point: Obesity (BMI >25) Other Risk Factors: Yes Each Risk Factor Represents 2 Points: Age 61-74 years Thrombosis Risk Factor Assessment Total Risk Factor Score: 3 Thrombosis Risk Factor Assessment Level: Moderate Risk Assessment and Plan Assessment: Acute urinary tract infection Generalized weakness and falls likely due to dehydration and volume depletion a long with electrolyte imbalance and peripheral neuropathy Hyponatremia 124 Prerenal azotemia Diabetes type 2 with his B A1c 6.1 Diabetic peripheral neuropathy GERD Her bulimia Hypertension DVT prophylaxis Nicotine addiction Plan: Patient be continued on IV hydration with normal saline. Continue with antibiotics in the form of ceftriaxone. Will hold Lasix and Zaroxolyn. Continue with other blood pressure medications. Follow-up urine culture reports. Continue with Neurontin. Further admissions based on the clinical course. Prognosis is guarded. PT OT will be consulted. Follow-up repeat labs tomorrow. Time with Patient: Greater than 30
[2019-01-01] MEDS: ATORVASTATIN 10 MG TAB PO SCH (20:05)
[2019-01-01 20:31] LABS: Glucose,Whole Blood 165 mg/dL (75-99)
[2019-01-01 22:55] LABS: Glucose,Whole Blood 133 mg/dL (75-99)
[2019-01-01] MEDS: HEPARIN SODIUM,PORCINE 5,000 UNIT/ML 1 ML VIAL SQ SCH (23:05)
--- NOTE | 2019-01-02 01:24 | P.PN ---
Subjective Progress Note Date: 12/31/18 Principal diagnosis: Acute urinary tract infection Dehydration and volume depletion Hyponatremia Hypovolemic Patient is 63-year-old female with a known history of hypertension, diabetes, diabetic peripheral neuropathy, GERD and nicotine addiction came to ER with complaints of right hip pain and multiple falls since July this year. Patient has been feeling very weak and unable to walk due to pain. Denied any head injury. Denied any complaints of chest pain or shortness of breath. Denied any back pain. According to the granddaughter the granddaughter has had her set up with other appointments but the grandmother refuses to go. Patient denies any fever chills or cough. No recent illnesses. No sick contacts. Otherwise patient does smoke an daily basis. Patient does take Lasix and Zaroxolyn for leg swelling. Denied any history of CHF. EKG showed sinus rhythm. X-ray right hip showed mild osteoarthritic degenerative change right hip. X-ray of the pelvis showed no acute fracture or dislocation. Chest x-ray showed no acute cardio pulmonary process. Sodium 124, chloride 80, bicarb 31, BUN 40 and creatinine 0.94 his B A1c 6.1 UA showed cloudy and positive nitrate and moderate leukocytes esterase and WBC cells 28. 01/01/2019 Patient denied any complaints of chest pain or shortness of breath. Weakness is better. PT OT will be consulted. Otherwise sodium level improved to 1:30 today. Dehydration is improving. Blood cultures are negative. Patient is being continued on ceftriaxone for urinary tract infection. Urine culture was not sent from ER. Lasix and Zaroxolyn has been held at this time. No complaints of leg swelling. No nausea vomiting or abdominal pain. No diarrhea. Follow-up TSH level. All other review of systems negative except the above. Anticipate discharge in next 24-48 hours. Current medications reviewed. Objective - Vital Signs Vital signs: Vital Signs Temp 98.3 F 12/31/18 17:41 Pulse 83 12/31/18 17:41 Resp 20 12/31/18 17:41 BP 144/72 12/31/18 17:41 Pulse Ox 98 12/31/18 17:41 Intake & Output 12/31/18 12/31/18 01/01/19 06:59 18:59 06:59 Weight 86.183 kg - Exam PHYSICAL EXAMINATION: Patient is lying in the bed comfortably, no acute distress, awake alert and oriented.. HEENT: Normocephalic. Neck is supple. Pupils reactive. Nostrils clear. Oral cavity is moist. Ears reveal no drainage. Neck reveals no JVD, carotid bruits, or thyromegaly. CHEST EXAMINATION: Trachea is central. Symmetrical expansion. Lung bean clear to auscultation and percussion. CARDIAC: Normal S1, S2 with no gallops. No murmurs ABDOMEN: Soft. Bowel sounds normal. No organomegaly. No abdominal bruits. Extremities: reveal no edema. No clubbing or cyanosis Neurologically awake, alert, oriented x3 with well-coordinated movements. No focal deficits noted Skin: No rash or skin lesions. Psychiatric: Coperative. Nonsuicidal Musculoskeletal: No joint swelling or deformity. Normal range of motion. - Labs CBC & Chem 7: 01/01/19 11:03 01/01/19 11:03 Labs: Abnormal Lab Results - Last 24 Hours (Table) 12/31/18 12/31/18 12/31/18 Range/Units 12:48 12:48 13:46 Hct 33.8 L (34.0-46.0) % Sodium 124 L (137-145) mmol/L Chloride 80 L (98-107) mmol/L Carbon Dioxide 31 H (22-30) mmol/L BUN 40 H (7-17) mg/dL Glucose 184 H (74-99) mg/dL POC Glucose (mg/dL) (75-99) mg/dL AST 11 L (14-36) U/L Urine Appearance Cloudy H (Clear) Urine Nitrite Positive H (Negative) Ur Leukocyte Esterase Moderate H (Negative) Urine WBC 28 H (0-5) /hpf Urine Bacteria Moderate H (None) /hpf Urine Mucus Rare H (None) /hpf 12/31/18 Range/Units 20:36 Hct (34.0-46.0) % Sodium (137-145) mmol/L Chloride (98-107) mmol/L Carbon Dioxide (22-30) mmol/L BUN (7-17) mg/dL Glucose (74-99) mg/dL POC Glucose (mg/dL) 150 H (75-99) mg/dL AST (14-36) U/L Urine Appearance (Clear) Urine Nitrite (Negative) Ur Leukocyte Esterase (Negative) Urine WBC (0-5) /hpf Urine Bacteria (None) /hpf Urine Mucus (None) /hpf Assessment and Plan Assessment: Acute urinary tract infection Generalized weakness and falls likely due to dehydration and volume depletion along with electrolyte imbalance and peripheral neuropathy Hyponatremia 124--130 Prerenal azotemia improving Diabetes type 2 with his B A1c 6.1 Diabetic peripheral neuropathy GERD Her bulimia Hypertension DVT prophylaxis Nicotine addiction Plan: Patient be continued on IV hydration with normal saline. Continue with antibiotics in the form of ceftriaxone. Will hold Lasix and Zaroxolyn. Continue with other blood pressure medications. Follow-up urine culture reports. Continue with Neurontin. Further admissions based on the clinical course. Prognosis is guarded. PT OT will be consulted. Follow-up repeat labs tomorrow. Time with Patient: Greater than 30
[2019-01-02] MEDS: HYDROmorphone 0.5 MG/0.5 ML SYRINGE IVP PRN ×5 (02:02→23:11)
[2019-01-02 06:37] LABS: Basophils % (A) 1 %; Eosinophils # (A) 0.3 k/uL (0-0.7); Eosinophils % (A) 5 %; HCT 32.3 % (34.0-46.0); HGB 10.6 gm/dL (11.4-16.0); Lymphocytes # (A) 1.3 k/uL (1.0-4.8); Lymphocytes % (A) 21 %; MCH 29.5 pg (25.0-35.0); MCHC 32.7 g/dL (31.0-37.0); MCV 90.2 fL (80.0-100.0); Mean Platelet Volume 6.3; Monocytes # (A) 0.3 k/uL (0-1.0); Monocytes % (A) 5 %; Neutrophils # (A) 4.2 k/uL (1.3-7.7); Neutrophils % (A) 67 %; Platelet Count 378 k/uL (150-450); Poikilocytosis Slight; RBC 3.59 m/uL (3.80-5.40); RDW 15.3 % (11.5-15.5); WBC 6.3 k/uL (3.8-10.6)
[2019-01-02 07:09] LABS: Glucose,Whole Blood 132 mg/dL (75-99)
[2019-01-02 07:34] LABS: African American GFR (CKD) >90 (>60 ml/min/1.73 sqM); Anion Gap 7 mmol/L; Blood Urea Nitrogen 16 mg/dL (7-17); Calcium 9.2 mg/dL (8.4-10.2); Carbon Dioxide 30 mmol/L (22-30); Chloride 94 mmol/L (98-107); Glucose 131 mg/dL (74-99); Potassium 4.1 mmol/L (3.5-5.1); Sodium 131 mmol/L (137-145)
[2019-01-02] MEDS: INSULIN ASPART (NovoLOG) 100 UNIT/ML VIAL SQ SCH ×4 (07:37→20:16)
[2019-01-02] MEDS: HEPARIN SODIUM,PORCINE 5,000 UNIT/ML 1 ML VIAL SQ SCH ×3 (08:52→23:10)
[2019-01-02] MEDS: FOLIC ACID 1 MG TAB PO SCH (08:53)
[2019-01-02] MEDS: LISINOPRIL 10 MG TAB PO SCH (08:53)
[2019-01-02] MEDS: FAMOTIDINE 20 MG TAB PO SCH ×2 (08:53→20:15)
[2019-01-02] MEDS: MULTIVITAMINS, THERA 1 EACH TAB PO SCH (08:54)
[2019-01-02] MEDS: THIAMINE 100 MG TAB PO SCH (08:56)
[2019-01-02] MEDS: GABAPENTIN 300 MG CAP PO SCH ×2 (08:56→20:14)
[2019-01-02] MEDS: amLODIPine 5 MG TAB PO SCH (08:57)
[2019-01-02] MEDS: TRIAMCINOLONE 0.1% CREAM 80 GM TUBE TOPICAL SCH ×3 (08:57→21:52)
[2019-01-02 12:13] LABS: Glucose,Whole Blood 130 mg/dL (75-99)
--- NOTE | 2019-01-02 13:42 | P.PN ---
Subjective Acute urinary tract infection Dehydration and volume depletion Hyponatremia Hypovolemic Patient is 63-year-old female with a known history of hypertension, diabetes, diabetic peripheral neuropathy, GERD and nicotine addiction came to ER with comp laints of right hip pain and multiple falls since July this year. Patient has been feeling very weak and unable to walk due to pain. Denied any head injury. Denied any complaints of chest pain or shortness of breath. Denied any back pain. According to the granddaughter the granddaughter has had her set up with other appointments but the grandmother refuses to go. Patient denies any fever chills or cough. No recent illnesses. No sick contacts. Otherwise patient does smoke an daily basis. Patient does take Lasix and Zaroxolyn for leg swelling. Denied any history of CHF. EKG showed sinus rhythm. X-ray right hip showed mild osteoarthritic degenerative change right hip. X-ray of the pelvis showed no acute fracture or dislocation. Chest x-ray showed no acute cardio pulmonary process. Sodium 124, chloride 80, bicarb 31, BUN 40 and creatinine 0.94 his B A1c 6.1 UA showed cloudy and positive nitrate and moderate leukocytes esterase and WBC cells 28. 01/01/2019 Patient denied any complaints of chest pain or shortness of breath. Weakness is better. PT OT will be consulted. Otherwise sodium level improved to 1:30 today. Dehydration is improving. Blood cultures are negative. Patient is being continued on ceftriaxone for urinary tract infection. Urine culture was not sent from ER. Lasix and Zaroxolyn has been held at this time. No complaints of leg swelling. No nausea vomiting or abdominal pain. No diarrhea. Follow-up TSH level. All other review of systems negative except the above. 01/02/2019 Patient is awake and oriented. No chest pain or dyspnea. She still have Harris catheter which can be discontinued today and check bladder scan frequently. Then a medically stable. No leukocytosis. TSH within normal limits. Sodium 131. Continue with gentle hydration. Objective - Vital Signs Vital signs: Vital Signs Temp 98.9 F 01/02/19 07:00 Pulse 62 01/02/19 07:00 Resp 16 01/02/19 07:00 BP 136/72 01/02/19 07:00 Pulse Ox 98 01/02/19 07:00 Intake & Output 01/01/19 01/02/19 01/02/19 18:59 06:59 18:59 Intake Total 660 450 240 Output Total 850 3050 Balance -190 -2600 240 Weight 86.183 kg Intake: Intake, IV Titration 450 Amount Sodium Chloride 0.9% 1, 450 000 ml @ 75 mls/hr IV . [id number] ONE Rx#:[id number] Oral 660 240 Output: Urine 850 3050 Other: Voiding Method Indwelling Catheter Indwelling Catheter # Voids 3 3 - Exam GENERAL: The patient is alert and oriented x3, not in any acute distress. Well developed, well nourished. HEENT: Pupils are round and equally reacting to light. EOMI. No scleral icterus. No conjunctival pallor. Normocephalic, atraumatic. No pharyngeal erythema. No thyromegaly. CARDIOVASCULAR: S1 and S2 present. No murmurs, rubs, or gallops. PULMONARY: Chest is clear to auscultation, no wheezing or crackles. ABDOMEN: Soft, nontender, nondistended, normoactive bowel sounds. No palpable organomegaly. Harris catheter is in a Place MUSCULOSKELETAL: No joint swelling or deformity. EXTREMITIES: No cyanosis, clubbing, or pedal edema. Bilateral lower extremity small ulcers. NEUROLOGICAL: Gross neurological examination did not reveal any focal deficits. SKIN: No rashes. - Labs CBC & Chem 7: 01/02/19 06:01 01/02/19 06:01 Labs: Abnormal Lab Results - Last 24 Hours (Table) 01/01/19 01/01/19 01/01/19 Range/Units 16:40 20:29 22:54 RBC (3.80-5.40) m/uL Hgb (11.4-16.0) gm/dL Hct (34.0-46.0) % Sodium (137-145) mmol/L Chloride (98-107) mmol/L Glucose (74-99) mg/dL POC Glucose (mg/dL) 150 H 165 H 133 H (75-99) mg/dL 01/02/19 01/02/19 01/02/19 Range/Units 06:01 06:01 07:05 RBC 3.59 L (3.80-5.40) m/uL Hgb 10.6 L (11.4-16.0) gm/dL Hct 32.3 L (34.0-46.0) % Sodium 131 L (137-145) mmol/L Chloride 94 L (98-107) mmol/L Glucose 131 H (74-99) mg/dL POC Glucose (mg/dL) 132 H (75-99) mg/dL 01/02/19 Range/Units 12:11 RBC (3.80-5.40) m/uL Hgb (11.4-16.0) gm/dL Hct (34.0-46.0) % Sodium (137-145) mmol/L Chloride (98-107) mmol/L Glucose (74-99) mg/dL POC Glucose (mg/dL) 130 H (75-99) mg/dL Microbiology - Last 24 Hours (Table) 12/31/18 14:45 Blood Culture - Preliminary Blood No Growth after 24 hours Assessment and Plan Assessment: Acute urinary tract infection Generalized weakness and falls likely due to dehydration and volume depletion along with electrolyte imbalance and peripheral neuropathy. Improved Hyponatremia 124-131 Prerenal azotemia improving Diabetes type 2 with his B A1c 6.1 Diabetic peripheral neuropathy GERD Her bulimia Hypertension DVT prophylaxis Nicotine addiction Plan: This is a pleasant 63 years old female who presents with UTI and fall. Continue with ceftriaxone. Follow-up blood culture results. Urine culture has not been sent.Labs and medication were reviewed.. Continue same treatment. Continue with symptomatic treatment. Resume home medication. Monitor lytes and vitals. DVT and GI prophylaxis. Further recommendations of the clinical course of the patient DVT prophylaxis: Subcutaneous heparin GI Prophylaxis: Pepcid PT/OT: Home with family versus home health care Prognosis is guarded
[2019-01-02] MEDS: SODIUM CHLORIDE 0.9% 1,000 ML IV SCH (13:54)
[2019-01-02 16:56] LABS: Glucose,Whole Blood 160 mg/dL (75-99)
[2019-01-02 20:12] LABS: Glucose,Whole Blood 132 mg/dL (75-99)
[2019-01-02] MEDS: ATORVASTATIN 10 MG TAB PO SCH (20:14)
[2019-01-02 22:11] LABS: Glucose,Whole Blood 125 mg/dL (75-99)
[2019-01-03] MEDS: HYDROmorphone 0.5 MG/0.5 ML SYRINGE IVP PRN ×2 (02:42→05:45)
[2019-01-03 07:05] LABS: Glucose,Whole Blood 140 mg/dL (75-99)
[2019-01-03] MEDS: INSULIN ASPART (NovoLOG) 100 UNIT/ML VIAL SQ SCH (07:30)
[2019-01-03 07:36] LABS: Calcium 9.2 mg/dL (8.4-10.2); Potassium 4.4 mmol/L (3.5-5.1)
[2019-01-03] MEDS ORDERED: amLODIPine 5 MG TAB PO SCH (09:00)
[2019-01-03] MEDS: THIAMINE 100 MG TAB PO SCH (09:08)
[2019-01-03] MEDS: FOLIC ACID 1 MG TAB PO SCH (09:08)
[2019-01-03] MEDS: MULTIVITAMINS, THERA 1 EACH TAB PO SCH (09:08)
[2019-01-03] MEDS: HEPARIN SODIUM,PORCINE 5,000 UNIT/ML 1 ML VIAL SQ SCH (09:08)
[2019-01-03] MEDS: GABAPENTIN 300 MG CAP PO SCH (09:08)
[2019-01-03] MEDS: TRIAMCINOLONE 0.1% CREAM 80 GM TUBE TOPICAL SCH (09:09)
[2019-01-03] MEDS: FAMOTIDINE 20 MG TAB PO SCH (09:09)
[2019-01-03] MEDS: LISINOPRIL 10 MG TAB PO SCH (09:09)
[2019-01-03] MEDS: SODIUM CHLORIDE 0.9% 1,000 ML IV SCH (09:11)
[2019-01-03 09:48] VITALS: BP 133/72; PULSE 55; RESP 12; TEMP 98.1
--- NOTE | 2019-01-03 10:24 | P.DS ---
Providers Date of admission: 12/31/18 16:54 Attending physician: Chuy Santiago Primary care physician: Herve Salinas [facility] Course: Diagnoses: Acute urinary tract infection Generalized weakness and falls likely due to dehydration and volume depletion along with electrolyte imbalance and peripheral neuropathy. Improved Hyponatremia 124-131 Prerenal azotemia improving Diabetes type 2 with his B A1c 6.1 Diabetic peripheral neuropathy GERD Her bulimia Hypertension DVT prophylaxis Nicotine addiction Hospital course: Patient is 63-year-old female with a known history of hypertension, diabetes, diabetic peripheral neuropathy, GERD and nicotine addiction came to ER with complaints of fall, right hip pain, dehydration and generalized weakness.X-ray right hip showed mild osteoarthritic degenerative change right hip. X-ray of the pelvis showed no acute fracture or dislocation. Patient found to have acute urinary tract infection. Patient Lasix 20 mg twice a day and Zaroxolyn 2.5 mg daily were stopped. Patient was treated with IV hydration, ceftriaxone. Patient was hyponatremic on admission was sodium 124, went up to 132 with hydration. Patient showed interval improvement and she is back to her baseline. Her Harris catheter placed on admission was removed. Post void residual was 0. Patient was able to void with no problems. No suprapubic pain or dysuria or change in frequency. On the day of discharge patient denies chest pain, dyspnea , abdominal pain or nausea vomiting. No weakness or numbness. Physical therapy evaluated the patient and recommended home with possible home care. Problems and management plan were discussed with the patient and he verbalized understanding and acceptance. Patient was found stable and can be discharged home however he needs follow-up as an outpatient. Patient was instructed to follow up with her PCP Dr. Oswald in one week and she agrees. Patient she wants to make her own appointments. Gen: patient is a AAOx3, no distress CVS: S1-S2, RRR, no murmur Lungs: B/L CTA, no wheezing Abdomen: soft, no distention, no tenderness, positive bowel sounds Extremity: no leg edema or induration Time spent more than 35 minutes Plan - Discharge Summary Discharge Rx Participant: No New Discharge Prescriptions: No Action metFORMIN HCL 500 mg PO DAILY Ranitidine HCl [Zantac] 300 mg PO BID Simvastatin 20 mg PO HS Folic Acid 1 mg PO DAILY@1200 #30 tab Thiamine [Vitamin B-1] 100 mg PO DAILY@1200 #30 tab Furosemide [Lasix] 20 mg PO BID Naproxen [Naprosyn] 500 mg PO Q12HR PRN #20 tab PRN Reason: Pain Ferrous Sulfate [Feosol] 325 mg PO DAILY@1200 Gabapentin [Neurontin] 300 mg PO BID Lisinopril 30 mg PO DAILY Multivitamins, Thera [Multivitamin (formulary)] 1 tab PO DAILY@1200 Furosemide [Lasix] 20 mg PO BID amLODIPine [Norvasc] 5 mg PO DAILY Potassium Chloride [K-Tab ER] 10 meq PO DAILY Metolazone [Zaroxolyn] 2.5 mg PO DAILY Cetirizine HCl [Zyrtec] 10 mg PO DAILY traZODone HCL 50 - 100 mg PO HS Triamcinolone 0.1% Cream [Kenalog 0.1% Cream] 1 applicatio TOPICAL TID Discharge Medication List metFORMIN HCL 500 mg PO DAILY 12/21/13 [History] Ranitidine HCl [Zantac] 300 mg PO BID 01/19/14 [History] Simvastatin 20 mg PO HS 05/30/15 [History] Folic Acid 1 mg PO DAILY@1200 #30 tab 06/08/15 [Rx] Thiamine [Vitamin B-1] 100 mg PO DAILY@1200 #30 tab 06/08/15 [Rx] Ferrous Sulfate [Feosol] 325 mg PO DAILY@1200 12/31/18 [History] Gabapentin [Neurontin] 300 mg PO BID 12/31/18 [History] Lisinopril 30 mg PO DAILY 12/31/18 [History] Multivitamins, Thera [Multivitamin (formulary)] 1 tab PO DAILY@1200 12/31/18 [History] Triamcinolone 0.1% Cream [Kenalog 0.1% Cream] 1 applicatio TOPICAL TID 12/31/18 [History] traZODone HCL 50 - 100 mg PO HS 12/31/18 [History] Cefuroxime Axetil [Ceftin] 500 mg PO BID 3 Days #6 tab 01/03/19 [Rx] amLODIPine [Norvasc] 10 mg PO DAILY #60 tab 01/03/19 [Rx] Follow up Appointment(s)/Referral(s): [facility], [NON-STAFF] - Huma Edgar MD [Primary Care Provider] - 1-2 days
== END 2019-01-03 11:50 | disposition home or self-care (01) | DRG 690 ==
LOC: EC 12:01 → 4SSUR 16:54
PROVIDERS: ADMIT Internal Medicine; ATTEND Internal Medicine
DX: N39.0 Urinary tract infection, site not specified (principal); E87.1 Hypo-osmolality and hyponatremia; F50.2 Bulimia nervosa; W19.XXXA Unspecified fall, initial encounter; F17.200 Nicotine dependence, unspecified, uncomplicated; E11.42 Type 2 diabetes mellitus with diabetic polyneuropathy; E78.5 Hyperlipidemia, unspecified; E86.0 Dehydration; E86.1 Hypovolemia; I10 Essential (primary) hypertension; I25.10 Atherosclerotic heart disease of native coronary artery without angina pectoris; K21.9 Gastro-esophageal reflux disease without esophagitis; M19.90 Unspecified osteoarthritis, unspecified site; R29.6 Repeated falls; M25.551 Pain in right hip; Z79.84 Long term (current) use of oral hypoglycemic drugs; Z79.899 Other long term (current) drug therapy; Z91.81 History of falling
CPT/HCPCS: 36415; 71046; 73502; 80048; 80053; 81001; 83036; 83605; 83735; 84443; 84484; 85025; 85610; 85730; 87040; 93005; 96374; 96375; 96376; 99285

== ENCOUNTER → 2019-01-07 | Outpatient (CLI) | payer MEDICARE, OTHER ==
--- NOTE | 2019-01-07 10:15 | ECHOF ---
Referral Reason:R60.9 Edema MEASUREMENTS -------- HEIGHT: 170.2 cm WEIGHT: 86.2 kg BP: RVIDd: 3.3 cm (< 3.3) IVSd: 1.2 cm (0.6 - 1.1) LVIDd: 3.9 cm (3.9 - 5.3) LVPWd: 1.3 cm (0.6 - 1.1) IVSs: 2.2 cm LVIDs: 2.4 cm LVPWs: 1.8 cm LAESV Index (A-L): 23.62 ml/m Ao Diam: 3.3 cm (2.0 - 3.7) AV Cusp: 2.0 cm (1.5 - 2.6) LA Diam: 3.4 cm (2.7 - 3.8) MV EXCURSION: 15.965 mm (> 18.000) MV EF SLOPE: 95 mm/s (70 - 150) EPSS: 0.3 cm MV E Twan: 1.13 m/s MV DecT: 307 ms MV A Twan: 1.10 m/s MV E/A Ratio: 1.02 RAP: 5.00 mmHg RVSP: 10.49 mmHg FINDINGS -------- Sinus rhythm. This was a technically good study. The left ventricular size is normal. There is mild concentric left ventricular hypertrophy. Overa ll left ventricular systolic function is normal with, an EF between 55 - 60 %. The right ventricle is mildly enlarged. The left atrial size is normal. Normal LA size by volume 22+/-6 ml/m2. The right atrial size is normal. Interatrial and interventricular septum intact. The aortic valve is trileaflet and appears structurally normal. The mitral valve is normal. No mitral regurgitation. The tricuspid valve appears structurally normal. Trace tricuspid regurgitation present. Right rd tricular systolic pressure is normal at < 35 mmHg. There is no pulmonic regurgitation present. The aortic root size is normal. IVC Not well visulized. There is no pericardial effusion. CONCLUSIONS -------- 1. Sinus rhythm. 2. This was a technically good study. 3. The left ventricular size is normal. 4. There is mild concentric left ventricular hypertrophy. 5. Overall left ventricular systolic function is normal with, an EF between 55 - 60 %. 6. The right ventricle is mildly enlarged. 7. The left atrial size is normal. 8. Normal LA size by volume 22+/-6 ml/m2. 9. The right atrial size is normal. 10. Interatrial and interventricular septum intact. 11. The aortic valve is trileaflet and appears structurally normal. 12. The mitral valve is normal. 13. No mitral regurgitation. 14. The tricuspid valve appears structurally normal. 15. Trace tricuspid regurgitation present. 16. Right ventricular systolic pressure is normal at < 35 mmHg. 17. There is no pulmonic regurgitation present. 18. The aortic root size is normal. 19. IVC Not well visulized. 20. There is no pericardial effusion. CLASSIFICATION COUNSELOR: Mely Melo RDCS
== END | disposition home or self-care (01) ==
LOC: RADECHMAIN 08:23
PROVIDERS: ATTEND Internal Medicine
DX: I51.7 Cardiomegaly (principal); R60.9 Edema, unspecified; Z88.8 Allergy status to other drugs, medicaments and biological substances
CPT/HCPCS: 93306

== ENCOUNTER 2019-01-15 20:24 | Emergency (ER) | payer MEDICARE, OTHER ==
[2019-01-15 20:52] VITALS: BP 104/64; PULSE 79; RESP 20; TEMP 97.6
[2019-01-15] MEDS ORDERED: KETOROLAC 30 MG/ML 1 ML VIAL IM STA (21:19)
--- NOTE | 2019-01-15 22:51 | XR ---
PROCEDURE: XR Hip Complete RT - 2V DATE AND TIME: 01/15/2019 9:41 PM CLINICAL INDICATION: PHH; Pain TECHNIQUE: Department protocol COMPARISON: None FINDINGS: There is no fracture or malalignment. No focal skeletal lesions. Degenerative joint changes are appreciated. The soft tissues are unremarkable. IMPRESSION: Osteoarthritis.
--- NOTE | 2019-01-15 23:09 | ED ---
Extremity Problem HPI - General Chief complaint: Extremity Problem,Nontraumatic Stated complaint: Hip Pain Source: patient Mode of arrival: wheelchair Limitations: no limitations - History of Present Illness Initial comments: Patient is 63-year-old female presenting to emergency Department with right hip pain. Patient reports the pain started approximately 2 weeks ago and has not resolved. Patient reports the pain is exacerbated with any movement of the right leg and alleviated with rest. Patient reports a traumatic injury to the right hip in July after fall. Patient reports the pain is a 10 and throbbing. Patient reports taking [id number] analgesics with minimal improvement. Patient denies edema, erythema or skin discoloration at the site of tenderness. - Related Data Home Medications Medication Instructions Recorded Confirmed metFORMIN HCL 500 mg PO DAILY 12/21/13 01/15/19 Ranitidine HCl [Zantac] 300 mg PO BID 01/19/14 01/15/19 Simvastatin 20 mg PO HS 05/30/15 01/15/19 Ferrous Sulfate [Feosol] 325 mg PO DAILY@1200 12/31/18 01/15/19 Gabapentin [Neurontin] 300 mg PO BID 12/31/18 01/15/19 Lisinopril 30 mg PO DAILY 12/31/18 01/15/19 Multivitamins, Thera [Multivitamin 1 tab PO DAILY@1200 12/31/18 01/15/19 (formulary)] Triamcinolone 0.1% Cream [Kenalog 1 applicatio TOPICAL TID 12/31/18 01/15/19 0.1% Cream] traZODone HCL 50 - 100 mg PO HS 12/31/18 01/15/19 Previous Rx's Medication Instructions Recorded Folic Acid 1 mg PO DAILY@1200 #30 tab 06/08/15 Thiamine [Vitamin B-1] 100 mg PO DAILY@1200 #30 tab 06/08/15 Cefuroxime Axetil [Ceftin] 500 mg PO BID 3 Days #6 tab 01/03/19 amLODIPine [Norvasc] 10 mg PO DAILY #60 tab 01/03/19 Allergies Allergy/AdvReac Type Severity Reaction Status Date / Time aspirin AdvReac nose bleeds Verified 12/31/18 13:17 Review of Systems ROS Statement: Those systems with pertinent positive or pertinent negative responses have been documented in the HPI. ROS Other: All systems not noted in ROS Statement are negative. Past Medical History Past Medical History: Coronary Artery Disease (CAD), Diabetes Mellitus, GERD/Reflux, Hyperlipidemia, Hypertension Additional Past Medical History / Comment(s): Diabetic neuropathy to bilateral upper and lower extremities, postmenopausal vaginal bleeding, necrotizing fasciitis the right thigh status post skin grafts at [facility] History of Any Multi-Drug Resistant Organisms: None Reported Past Surgical History: Tubal Ligation Additional Past Surgical History / Comment(s): recent skin grafts in nida groin Past Anesthesia/Blood Transfusion Reactions: No Reported Reaction Past Psychological History: No Psychological Hx Reported Smoking Status: Current every day smoker Past Alcohol Use History: None Reported Past Drug Use History: None Reported - Past Family History Mother Family Medical History: Dementia General Exam Limitations: no limitations General appearance: alert, in no apparent distress, obese Head exam: Present: atraumatic, normocephalic, normal inspection Eye exam: Present: normal appearance, PERRL, EOMI Pupils: Present: normal accommodation ENT exam: Present: normal exam, mucous membranes moist, normal external ear exam Neck exam: Present: normal inspection, full ROM Respiratory exam: Present: normal lung sounds bilaterally Cardiovascular Exam: Present: regular rate, normal rhythm, normal heart sounds GI/Abdominal exam: Present: other (Skin graft along the right groin area) Extremities exam: Present: normal inspection, tenderness (Tenderness along the right hip with palpation.), other (+2 dorsalis pedis and posterior tibialis bilaterally). Absent: full ROM (Limited range of motion due to pain. Pain with hip flexion and extension abduction.), calf tenderness Back exam: Present: normal inspection, full ROM Neurological exam: Present: alert, oriented X3 Psychiatric exam: Present: normal affect, normal mood Skin exam: Present: warm, intact, normal color Course Vital Signs 01/15/19 20:48 Temperature 97.6 F Pulse Rate 79 Respiratory 20 Rate Blood Pressure 104/64 O2 Sat by Pulse 98 Oximetry Medical Decision Making - Medical Decision Making Patient is 63-year-old female presents emergency Department with right hip pain. Patient was given Toradol for pain control. X-ray of the right hip is indicative of osteoarthritis, otherwise unremarkable. Based on history, physical examination and imaging I suspect the patient to have an acute flareup of her pre-existing arthritis. Patient advised to alternate Tylenol and ibuprofen for pain control. Patient advised to alternate between cold and warm compress on the right hip. Patient advised to follow-up with orthopedics for further management. Strict return parameters were thoroughly discussed with patient was understanding and agreeable. Case discussed with physician. Disposition Clinical Impression: Osteoarthritis Disposition: HOME SELF-CARE Condition: Stable Instructions (If sedation given, give patient instructions): Osteoarthritis (DC) Additional Instructions: Please follow up with the primary care regarding a referral for physical therapy. Alternate between Tylenol and ibuprofen for pain control. Please return to emergency department if symptoms worsen. Is patient prescribed a controlled substance at d/c from ED?: No Referrals: Huma Edgar MD [Primary Care Provider] - 1-2 days Jamil Gallardo DO [Doctor of Osteopathic Medicine] - 1-2 days Time of Disposition: 23:09
== END 2019-01-15 23:26 | disposition home or self-care (01) ==
LOC: EC 20:24
DX: M16.11 Unilateral primary osteoarthritis, right hip (principal); I25.10 Atherosclerotic heart disease of native coronary artery without angina pectoris; E11.40 Type 2 diabetes mellitus with diabetic neuropathy, unspecified; K21.9 Gastro-esophageal reflux disease without esophagitis; E78.5 Hyperlipidemia, unspecified; I10 Essential (primary) hypertension; F17.200 Nicotine dependence, unspecified, uncomplicated; Z79.84 Long term (current) use of oral hypoglycemic drugs; Z79.899 Other long term (current) drug therapy; Z88.6 Allergy status to analgesic agent
CPT/HCPCS: 73502; 96372; 99283

== ENCOUNTER 2019-03-06 14:50 | Inpatient (IN) | payer MEDICARE, OTHER ==
[2019-03-06] MEDS ORDERED: SODIUM CHLORIDE 0.9% 500 ML 500 ML IV STA ×2 (16:38→19:00)
[2019-03-06] MEDS ORDERED: PANTOPRAZOLE 40 MG/10 ML VIAL IVP STA (16:38)
--- NOTE | 2019-03-06 16:53 | ED ---
General Adult HPI - General Chief complaint: Extremity Injury, Lower Stated complaint: Vaginal bleeding Time Seen by Provider: 03/06/19 16:03 Source: patient, RN notes reviewed Mode of arrival: ambulatory Limitations: no limitations - History of Present Illness Initial comments: 63-year-old female with a past medical history of coronary artery disease, diabetes myelitis, GERD, hyperlipidemia, hypertension, postmenopausal vaginal bleeding, necrotizing fasciitis of the right thigh with skin grafts one year ago presents to the emergency department for a chief complaint of vaginal bleeding. Patient states this started yesterday. States that she has had vaginal bleeding before. Denies any abdominal pain but does admit to right hip pain. States th at this has been consistent since July when she was hospitalized for a fall but and did not break her right hip. States that this worsened a few months ago. States that she saw her doctor who told her nothing was wrong with her hip and it was not broken.Patient has no other complaints at this time including shortness of breath, chest pain, abdominal pain, nausea or vomiting, headache, or visual changes. - Related Data Home Medications Medication Instructions Recorded Confirmed metFORMIN HCL 500 mg PO DAILY 12/21/13 03/06/19 Ranitidine HCl [Zantac] 300 mg PO BID 01/19/14 03/06/19 Simvastatin 20 mg PO HS 05/30/15 03/06/19 Lisinopril 30 mg PO DAILY 12/31/18 03/06/19 Triamcinolone 0.1% Cream [Kenalog 1 applic TOPICAL DAILY PRN 12/31/18 03/06/19 0.1% Cream] traZODone HCL 50 - 100 mg PO HS 12/31/18 03/06/19 Albuterol Inhaler [Ventolin Hfa 2 puff INHALATION RT-QID PRN 03/06/19 03/06/19 Inhaler] Cetirizine HCl [Zyrtec] 10 mg PO DAILY 03/06/19 03/06/19 Furosemide [Lasix] 20 mg PO DAILY 03/06/19 03/06/19 Metolazone [Zaroxolyn] 2.5 mg PO DAILY 03/06/19 03/06/19 Naproxen [Naprosyn] 500 mg PO BID PRN 03/06/19 03/06/19 Nystatin [Nystop] 1 applic TOPICAL BID PRN 03/06/19 03/06/19 Potassium Chloride ER [K-Dur 10] 10 meq PO DAILY 03/06/19 03/06/19 amLODIPine [Norvasc] 5 mg PO DAILY 03/06/19 03/06/19 Allergies Allergy/AdvReac Type Severity Reaction Status Date / Time aspirin AdvReac nose bleeds Verified 03/06/19 17:14 Review of Systems ROS Statement: Those systems with pertinent positive or pertinent negative responses have been documented in the HPI. ROS Other: All systems not noted in ROS Statement are negative. Past Medical History Past Medical History: Coronary Artery Disease (CAD), Diabetes Mellitus, GERD/Reflux, Hyperlipidemia, Hypertension Additional Past Medical History / Comment(s): Diabetic neuropathy to bilateral upper and lower extremities, postmenopausal vaginal bleeding, necrotizing fasciitis the right thigh status post skin grafts at [facility] History of Any Multi-Drug Resistant Organisms: None Reported Past Surgical History: Tubal Ligation Additional Past Surgical History / Comment(s): recent skin grafts in nida groin Past Anesthesia/Blood Transfusion Reactions: No Reported Reaction Past Psychological History: No Psychological Hx Reported Smoking Status: Current every day smoker Past Alcohol Use History: None Reported Past Drug Use History: None Reported - Past Family History Mother Family Medical History: Dementia General Exam Limitations: no limitations General appearance: alert, in no apparent distress Head exam: Present: atraumatic, normocephalic, normal inspection Eye exam: Present: normal appearance, PERRL, EOMI. Absent: scleral icterus, conjunctival injection, periorbital swelling ENT exam: Present: normal exam, mucous membranes moist Neck exam: Present: normal inspection, full ROM. Absent: tenderness, meningismus, lymphadenopathy Respiratory exam: Present: normal lung sounds bilaterally. Absent: respiratory distress, wheezes, rales, rhonchi, stridor Cardiovascular Exam: Present: regular rate, normal rhythm, normal heart sounds. Absent: systolic murmur, diastolic murmur, rubs, gallop, clicks Rectal exam: Present: normal rectal tone, heme (+) stool, bloody stool, hemorrhoids. Absent: mass External exam: Absent: normal external exam (Patient has had surgery for skin grafting in this area.), erythema, swelling, lesions, lacerations, ecchymosis Speculum exam: Present: normal speculum exam. Absent: erythema, vaginal discharge, cervical discharge, vaginal bleeding (No vaginal bleeding noted), foreign body, tissue, laceration Extremities exam: Present: full ROM (Full range of motion of the right hip.), no rmal capillary refill (Capillary refill less than 2 seconds, DP pulse 2+ in the right lower extremity.), other (Patient has skin graft noted to the right groin. This does appear to have a possible overlying fungal component but does not appear infected.). Absent: calf tenderness Course Vital Signs 03/06/19 03/06/19 15:13 18:49 Temperature 97.9 F 97.9 F Pulse Rate 90 82 Respiratory 18 18 Rate Blood Pressure 120/69 108/48 O2 Sat by Pulse 98 98 Oximetry Medical Decision Making - Medical Decision Making 63-year-old female with a past medical history of CAD, DM, GERD, hyperlipidemia, hypertension, necrotizing fasciitis with skin grafts over a year ago presents for vaginal bleeding. However on exam patient does not have any vaginal bleeding but does have rectal bleeding. There are hemorrhoids noted however and do not see bleeding from hemorrhoids specifically. No abdominal pain. Is complaining of right hip pain which is chronic. CT negative for acute fracture and denies any acute falls. CBC is unremarkable. There is a mild cytosis however hemoglobin is within normal limits at 13.3. Occult blood is positive. CMP does show hyponatremia of 114 with a hyperchloremia of 70. Patient was given a 500 mL bag of 0.9% normal saline. Discussed case with Mimi of Dr. Albert's group who will accept patient. Agrees to administer another 500 mL bag of normal saline as well as start patient on a 75 mL maintenance drip. Requests GI be consulted. - Lab Data Result diagrams: 03/06/19 16:58 03/06/19 16:58 Lab Results 03/06/19 03/06/19 03/06/19 Range/Units 16:40 16:58 16:58 WBC 13.7 H (3.8-10.6) k/uL RBC 4.18 (3.80-5.40) m/uL Hgb 13.3 (11.4-16.0) gm/dL Hct 35.0 (34.0-46.0) % MCV 83.7 D (80.0-100.0) fL MCH 31.9 (25.0-35.0) pg MCHC 38.1 H (31.0-37.0) g/dL RDW 15.0 (11.5-15.5) % Plt Count 323 (150-450) k/uL Neutrophils % 90 % Lymphocytes % 3 % Monocytes % 4 % Eosinophils % 1 % Basophils % 2 % Neutrophils # 12.3 H (1.3-7.7) k/uL Lymphocytes # 0.4 L (1.0-4.8) k/uL Monocytes # 0.5 (0-1.0) k/uL Eosinophils # 0.1 (0-0.7) k/uL Basophils # 0.3 H (0-0.2) k/uL Manual Slide Review Performed Hyperchromasia Moderate PT (9.0-12.0) sec INR (<1.2) APTT (22.0-30.0) sec Sodium 114 L* (137-145) mmol/L Potassium 3.8 (3.5-5.1) mmol/L Chloride 70 L* (98-107) mmol/L Carbon Dioxide 28 (22-30) mmol/L Anion Gap 16 mmol/L BUN 36 H (7-17) mg/dL Creatinine 0.93 (0.52-1.04) mg/dL Est GFR (CKD-EPI)AfAm 75 (>60 ml/min/1.73 sqM) Est GFR (CKD-EPI)NonAf 65 (>60 ml/min/1.73 sqM) Glucose 137 H (74-99) mg/dL Calcium 9.7 (8.4-10.2) mg/dL Total Bilirubin 1.3 (0.2-1.3) mg/dL AST 22 (14-36) U/L ALT 11 (9-52) U/L Alkaline Phosphatase 80 (38-126) U/L Troponin I (0.000-0.034) ng/mL Total Protein 8.3 H (6.3-8.2) g/dL Albumin 5.0 (3.5-5.0) g/dL Stool Occult Blood Positive H (Negative) Blood Type Blood Type Recheck Bld Type Recheck Status Antibody Screen Spec Expiration Date 03/06/19 03/06/19 03/06/19 Range/Units 16:58 16:58 16:58 WBC (3.8-10.6) k/uL RBC (3.80-5.40) m/uL Hgb (11.4-16.0) gm/dL Hct (34.0-46.0) % MCV (80.0-100.0) fL MCH (25.0-35.0) pg MCHC (31.0-37.0) g/dL RDW (11.5-15.5) % Plt Count (150-450) k/uL Neutrophils % % Lymphocytes % % Monocytes % % Eosinophils % % Basophils % % Neutrophils # (1.3-7.7) k/uL Lymphocytes # (1.0-4.8) k/uL Monocytes # (0-1.0) k/uL Eosinophils # (0-0.7) k/uL Basophils # (0-0.2) k/uL Manual Slide Review Hyperchromasia PT 10.3 (9.0-12.0) sec INR 1.0 (<1.2) APTT 30.4 H (22.0-30.0) sec Sodium (137-145) mmol/L Potassium (3.5-5.1) mmol/L Chloride (98-107) mmol/L Carbon Dioxide (22-30) mmol/L Anion Gap mmol/L BUN (7-17) mg/dL Creatinine (0.52-1.04) mg/dL Est GFR (CKD-EPI)AfAm (>60 ml/min/1.73 sqM) Est GFR (CKD-EPI)NonAf (>60 ml/min/1.73 sqM) Glucose (74-99) mg/dL Calcium (8.4-10.2) mg/dL Total Bilirubin (0.2-1.3) mg/dL AST (14-36) U/L ALT (9-52) U/L Alkaline Phosphatase (38-126) U/L Troponin I <0.012 (0.000-0.034) ng/mL Total Protein (6.3-8.2) g/dL Albumin (3.5-5.0) g/dL Stool Occult Blood (Negative) Blood Type A Positive Blood Type Recheck A Pos Bld Type Recheck Status No Antibody Screen NEGATIVE Spec Expiration Date 03/09/2019 - 2357 Disposition Clinical Impression: Hyponatremia, Hypochloremia, Chronic pain of right hip, GI bleed Disposition: ADMITTED IP TO THIS HOSP Condition: Good Is patient prescribed a controlled substance at d/c from ED?: No Referrals: Huma Edgar MD [Primary Care Provider] - 1-2 days Time of Disposition: 19:13
[2019-03-06 17:13] LABS: Basophils # (A) 0.3 k/uL (0-0.2); Basophils % (A) 2 %; Eosinophils # (A) 0.1 k/uL (0-0.7); Eosinophils % (A) 1 %; HGB 13.3 gm/dL (11.4-16.0); Hyperchromasia Moderate; Lymphocytes # (A) 0.4 k/uL (1.0-4.8); Lymphocytes % (A) 3 %; MCH 31.9 pg (25.0-35.0); Mean Platelet Volume 6.9; Monocytes # (A) 0.5 k/uL (0-1.0); Monocytes % (A) 4 %; Neutrophils # (A) 12.3 k/uL (1.3-7.7); Neutrophils % (A) 90 %; Platelet Count 323 k/uL (150-450); RBC 4.18 m/uL (3.80-5.40); WBC 13.7 k/uL (3.8-10.6)
--- NOTE | 2019-03-06 17:25 | XR ---
EXAMINATION TYPE: AP view pelvis and 2 views right hip DATE OF EXAM: 03/06/2019 COMPARISON: 12/31/2018 HISTORY: 63 year-old female chronic pain, no recent fall or injury FINDINGS: Marked osteopenia, portable exam, large patient body habitus also limits the evaluation. Mild superol ateral joint space narrowing on both sides. Degenerative changes lower lumbar spine. Suggestion of so me degenerative subarticular sclerosis at both SI joints. Allowing for the above-mentioned limitation s, no discrete fracture is identified. IMPRESSION: Multiple exam limitations. Mild degenerative change of both hips. Suggestion of some underlying osteo arthrosis of the bilateral SI joints as well. No displaced fracture.
[2019-03-06 17:30] LABS: Calcium 9.7 mg/dL (8.4-10.2); Potassium 3.8 mmol/L (3.5-5.1); Total Bilirubin 1.3 mg/dL (0.2-1.3); Total Protein 8.3 g/dL (6.3-8.2)
[2019-03-06 17:35] LABS: Partial Thromboplastin Time 30.4 sec (22.0-30.0); Prothrombin Time 10.3 sec (9.0-12.0)
[2019-03-06 17:45] LABS: MCHC 38.1 g/dL (31.0-37.0); MCV 83.7 fL (80.0-100.0)
[2019-03-06] MEDS ORDERED: NALOXONE 0.4 MG/ML 1 ML VIAL IV PRN (19:01)
[2019-03-06] MEDS ORDERED: NYSTATIN 100,000 UNIT/GM POWD 15 GM TOPICAL PRN (19:08)
[2019-03-06 20:46] LABS: Calcium 9.4 mg/dL (8.4-10.2); Potassium 3.2 mmol/L (3.5-5.1)
[2019-03-06] MEDS ORDERED: MORPHINE SULFATE 4 MG/ML SYRINGE IVP STA (21:09)
[2019-03-06] MEDS ORDERED: MORPHINE SULFATE 4 MG/ML SYRINGE IVP PRN (21:10)
[2019-03-06] MEDS: SODIUM CHLORIDE 0.9% 1,000 ML IV SCH (21:16)
[2019-03-06 23:31] LABS: Anisocytosis Slight; HCT 33.6 % (34.0-46.0); HGB 12.3 gm/dL (11.4-16.0); Hyperchromasia Moderate; MCH 31.3 pg (25.0-35.0); MCHC 36.6 g/dL (31.0-37.0); MCV 85.6 fL (80.0-100.0); Mean Platelet Volume 6.6; Platelet Count 300 k/uL (150-450); RBC 3.92 m/uL (3.80-5.40); RDW 16.6 % (11.5-15.5)
[2019-03-06] MEDS: ATORVASTATIN 10 MG TAB PO SCH (23:48)
[2019-03-06] MEDS: FAMOTIDINE 20 MG TAB PO SCH (23:48)
[2019-03-07 00:23] LABS: Lymphocytes # (M) 0.51 k/uL (1.0-4.8); Monocytes # (M) 0.17 k/uL (0-1.0); Neutrophils % (M) 96 %; Nucleated Red Blood Cells 0 /100 WBC (0-0); Total Cells Counted 100
[2019-03-07 06:14] LABS: Glucose,Whole Blood 159 mg/dL (75-99)
[2019-03-07] MEDS: INSULIN ASPART (NovoLOG) 100 UNIT/ML VIAL SQ SCH ×4 (06:15→20:20)
[2019-03-07 06:38] LABS: Anisocytosis Slight; HCT 30.5 % (34.0-46.0); HGB 10.9 gm/dL (11.4-16.0); Hyperchromasia Moderate; MCH 30.7 pg (25.0-35.0); MCHC 35.7 g/dL (31.0-37.0); Mean Platelet Volume 6.8; Platelet Count 247 k/uL (150-450); RBC 3.55 m/uL (3.80-5.40); RDW 16.8 % (11.5-15.5); WBC 11.4 k/uL (3.8-10.6)
[2019-03-07 06:47] LABS: Calcium 8.7 mg/dL (8.4-10.2)
[2019-03-07 07:11] LABS: Eosinophils # (M) 0.11 k/uL (0-0.7); Lymphocytes # (M) 0.11 k/uL (1.0-4.8); Monocytes # (M) 0.23 k/uL (0-1.0); Neutrophils % (M) 96 %; Nucleated Red Blood Cells 0 /100 WBC (0-0); Total Cells Counted 100
[2019-03-07] MEDS: SODIUM CHLORIDE 0.9% 1,000 ML IV SCH ×2 (08:13→20:23)
[2019-03-07] MEDS: POTASSIUM CHLORIDE ER 10 MEQ TAB.ER.PRT PO SCH (08:14)
[2019-03-07] MEDS: FAMOTIDINE 20 MG TAB PO SCH (08:14)
[2019-03-07] MEDS ORDERED: Potassium Replacement Protocol 1 EACH MISC MISCELLANE PRN (08:38)
[2019-03-07] MEDS ORDERED: LISINOPRIL 10 MG TAB PO SCH (09:00)
[2019-03-07] MEDS ORDERED: metFORMIN 500 MG TAB PO SCH (09:00)
[2019-03-07] MEDS ORDERED: METOLAZONE 2.5 MG TAB PO SCH (09:00)
[2019-03-07] MEDS ORDERED: FUROSEMIDE 20 MG TAB PO SCH (09:00)
[2019-03-07] MEDS ORDERED: amLODIPine 5 MG TAB PO SCH (09:00)
[2019-03-07] MEDS: POTASSIUM CHLORIDE ER 20 MEQ TAB.ER PO SCH ×2 (09:01→09:41)
--- NOTE | 2019-03-07 09:51 | P.HPIM ---
History of Present Illness 63-year-old the female was brought in because of confusion and possible GI bleed although patient denied any GI bleed it was noted from the ER the patient had 3 for episodes of GI bleed patient denied any such episodes patient is alert and oriented 2-3, do not know her baseline mental status patient lives with her boyfriend found to have severe hyponatremia with a serum sodium of 115, patient denied any fever chills nausea vomiting diarrhea patient denied any dysuria patient was noted to have hematuria with nursing staff I'll obtain a UA as per the ER physician exam patient doesn't have any vaginal bleed. Patient appears to have psychiatric issues but not on any antipsychotic medications patient is on diuretic therapy with the metolazone and Lasix. Patient is also on lisinopril has prerenal function with a creatinine of 1.23 baseline 0.7. Review of Systems I REVIEW OF SYSTEMS: CONSTITUTIONAL: No fever, no malaise, no fatigue. HEENT: No recent visual problems or hearing problems. Denied any sore throat. CARDIOVASCULAR: No chest pain, orthopnea, PND, no palpitations, no syncope. PULMONARY: No shortness of breath, no cough, no hemoptysis. GASTROINTESTINAL: No diarrhea, no nausea, no vomiting, no abdominal pain. NEUROLOGICAL: No headaches, no weakness, no numbness. HEMATOLOGICAL: Denies any bleeding or petechiae. GENITOURINARY: Denies any burning micturition, frequency, or urgency. MUSCULOSKELETAL/RHEUMATOLOGICAL: Denies any joint pain, swelling, or any muscle pain. ENDOCRINE: Denies any polyuria or polydipsia. The rest of the 14-point review of systems is negative. Past Medical History Past Medical History: Coronary Artery Disease (CAD), Diabetes Mellitus, GERD/Reflux, Hyperlipidemia, Hypertension Additional Past Medical History / Comment(s): Diabetic neuropathy to bilateral upper and lower extremities, postmenopausal vaginal bleeding, necrotizing fasciitis the right thigh status post skin grafts at [facility] in 2017 History of Any Multi-Drug Resistant Organisms: None Reported Past Surgical History: Tubal Ligation Additional Past Surgical History / Comment(s): recent skin grafts in nida groin Past Anesthesia/Blood Transfusion Reactions: No Reported Reaction Past Psychological History: No Psychological Hx Reported Smoking Status: Current every day smoker Past Alcohol Use History: None Reported Additional Past Alcohol Use History / Comment(s): Patient is a smoker of 1/2 pack per day since she was 14 years of age. She denies any medical marijuana, marijuana or street drug use. She denies any alcohol use. Patient has no pets in the home and she denies any recent travel. Past Drug Use History: None Reported - Past Family History Mother Family Medical History: Dementia Medications and Allergies Home Medications Medication Instructions Recorded Confirmed Type metFORMIN HCL 500 mg PO DAILY 12/21/13 03/06/19 History Ranitidine HCl [Zantac] 300 mg PO BID 01/19/14 03/06/19 History Simvastatin 20 mg PO HS 05/30/15 03/06/19 History Lisinopril 30 mg PO DAILY 12/31/18 03/06/19 History Triamcinolone 0.1% Cream [Kenalog 1 applic TOPICAL DAILY PRN 12/31/18 03/06/19 History 0.1% Cream] traZODone HCL 50 - 100 mg PO HS 12/31/18 03/06/19 History Albuterol Inhaler [Ventolin Hfa 2 puff INHALATION RT-QID PRN 03/06/19 03/06/19 History Inhaler] Cetirizine HCl [Zyrtec] 10 mg PO DAILY 03/06/19 03/06/19 History Furosemide [Lasix] 20 mg PO DAILY 03/06/19 03/06/19 History Metolazone [Zaroxolyn] 2.5 mg PO DAILY 03/06/19 03/06/19 History Naproxen [Naprosyn] 500 mg PO BID PRN 03/06/19 03/06/19 History Nystatin [Nystop] 1 applic TOPICAL BID PRN 03/06/19 03/06/19 History Potassium Chloride ER [K-Dur 10] 10 meq PO DAILY 03/06/19 03/06/19 History amLODIPine [Norvasc] 5 mg PO DAILY 03/06/19 03/06/19 History Allergies Allergy/AdvReac Type Severity Reaction Status Date / Time aspirin AdvReac nose bleeds Verified 03/06/19 17:14 Physical Exam Vitals: Vital Signs Temp Pulse Pulse Resp BP BP Pulse Ox 03/07/19 08:00 98.0 F 81 20 89/47 100 03/07/19 03:46 77 18 03/07/19 03:45 97.6 F 77 18 108/60 97 03/07/19 00:00 97.9 F 63 18 110/64 95 03/06/19 22:56 97.8 F 63 19 98/63 94 L 03/06/19 21:21 78 18 107/52 97 03/06/19 18:49 97.9 F 82 18 108/48 98 03/06/19 17:10 82 16 114/55 99 03/06/19 15:13 97.9 F 90 18 120/69 98 Intake and Output 03/06/19 03/07/19 03/07/19 22:59 06:59 14:59 Intake Total 240 Balance 240 Intake: Oral 240 Other: Voiding Method Toilet # Bowel Movements 1 3 Weight 86.183 kg 80.9 kg PHYSICAL EXAMINATION: GENERAL: The patient is alert and oriented x2-3, not in any acute distress. Well developed, well nourished. HEENT: Pupils are round and equally reacting to light. EOMI. No scleral icterus. No conjunctival pallor. Normocephalic, atraumatic. No pharyngeal erythema. No thyromegaly. CARDIOVASCULAR: S1 and S2 present. No murmurs, rubs, or gallops. PULMONARY: Significant expiratory wheezing with mildly diminished air entry into bilateral lung bean. ABDOMEN: Soft, nontender, nondistended, normoactive bowel sounds. No palpable organomegaly. MUSCULOSKELETAL: No joint swelling or deformity. EXTREMITIES: No cyanosis, clubbing, or pedal edema. NEUROLOGICAL: Gross neurological examination did not reveal any focal deficits. Does have significant generalized weakness SKIN: No rashes. Results CBC & Chem 7: 03/07/19 06:22 03/07/19 06:22 Labs: Abnormal Lab Results - Last 24 Hours (Table) 03/06/19 03/06/19 03/06/19 Range/Units 16:40 16:58 16:58 WBC 13.7 H (3.8-10.6) k/uL RBC (3.80-5.40) m/uL Hgb (11.4-16.0) gm/dL Hct (34.0-46.0) % MCHC 38.1 H (31.0-37.0) g/dL RDW (11.5-15.5) % Neutrophils # 12.3 H (1.3-7.7) k/uL Neutrophils # (Manual) (1.3-7.7) k/uL Lymphocytes # 0.4 L (1.0-4.8) k/uL Lymphocytes # (Manual) (1.0-4.8) k/uL Basophils # 0.3 H (0-0.2) k/uL APTT (22.0-30.0) sec Sodium 114 L* (137-145) mmol/L Potassium (3.5-5.1) mmol/L Chloride 70 L* (98-107) mmol/L BUN 36 H (7-17) mg/dL Creatinine (0.52-1.04) mg/dL Glucose 137 H (74-99) mg/dL POC Glucose (mg/dL) (75-99) mg/dL Total Protein 8.3 H (6.3-8.2) g/dL Stool Occult Blood Positive H (Negative) 03/06/19 03/06/19 03/06/19 Range/Units 16:58 20:22 22:55 WBC 17.0 H (3.8-10.6) k/uL RBC (3.80-5.40) m/uL Hgb (11.4-16.0) gm/dL Hct 33.6 L (34.0-46.0) % MCHC (31.0-37.0) g/dL RDW 16.6 H (11.5-15.5) % Neutrophils # (1.3-7.7) k/uL Neutrophils # (Manual) 16.32 H (1.3-7.7) k/uL Lymphocytes # (1.0-4.8) k/uL Lymphocytes # (Manual) 0.51 L (1.0-4.8) k/uL Basophils # (0-0.2) k/uL APTT 30.4 H (22.0-30.0) sec Sodium 117 L* (137-145) mmol/L Potassium 3.2 L (3.5-5.1) mmol/L Chloride 75 L (98-107) mmol/L BUN 35 H (7-17) mg/dL Creatinine 1.11 H (0.52-1.04) mg/dL Glucose 132 H (74-99) mg/dL POC Glucose (mg/dL) (75-99) mg/dL Total Protein (6.3-8.2) g/dL Stool Occult Blood (Negative) 03/07/19 03/07/19 03/07/19 Range/Units 06:13 06:22 06:22 WBC 11.4 H (3.8-10.6) k/uL RBC 3.55 L (3.80-5.40) m/uL Hgb 10.9 L (11.4-16.0) gm/dL Hct 30.5 L (34.0-46.0) % MCHC (31.0-37.0) g/dL RDW 16.8 H (11.5-15.5) % Neutrophils # (1.3-7.7) k/uL Neutrophils # (Manual) 10.94 H (1.3-7.7) k/uL Lymphocytes # (1.0-4.8) k/uL Lymphocytes # (Manual) 0.11 L (1.0-4.8) k/uL Basophils # (0-0.2) k/uL APTT (22.0-30.0) sec Sodium 117 L* (137-145) mmol/L Potassium 3.0 L (3.5-5.1) mmol/L Chloride 79 L (98-107) mmol/L BUN 36 H (7-17) mg/dL Creatinine 1.23 H (0.52-1.04) mg/dL Glucose 135 H (74-99) mg/dL POC Glucose (mg/dL) 159 H (75-99) mg/dL Total Protein (6.3-8.2) g/dL Stool Occult Blood (Negative) Thrombosis Risk Factor Assmnt - Choose All That Apply Any of the Below Risk Factors Present?: Yes Each Factor Represents 1 point: Obesity (BMI >25) Other Risk Factors: Yes Each Risk Factor Represents 2 Points: Age 61-74 years Other congenital or acquired thrombophilia - If yes, enter type in comment: No Thrombosis Risk Factor Assessment Total Risk Factor Score: 3 Thrombosis Risk Factor Assessment Level: Moderate Risk Assessment and Plan Plan: Metabolic encephalopathy: Secondary to significant electrolyte abnormalities. Morphine will be discontinued. Patient is severely hyponatremic probably hyponatremia from a diuretic therapy patient will be started on IV fluids at 1 25 mL per hour. -Hypovolemic hyponatremia: Management as mentioned above, no further workup for hyponatremia will be done unless patient's serum sodium doesn't improve with IV fluids. Patient had normal ejection fraction the past -Hematuria, possible will monitor and depending and U\A Will opt pain urology consultation if needed -Coronary artery disease -COPD with continued nicotine use patient will be started on inhalational treat ments along with inhaled steroids. She doesn't improve patient will be started on oral steroids Hypogastrics visual reflux disease -Hyperlipidemia -Hypertension patient is presently hypotensive antidepressive medications will be discontinued -Acute renal failure secondary to prerenal azotemia as well as hypotension lisinopril will be discontinued can you with IV fluids monitor kidney function. DVT prophylaxis early ambulation because of her Hematuria will hold on subcutaneous heparin
[2019-03-07] MEDS ORDERED: IPRATROPIUM-ALBUTEROL 3 ML NEB INHALATION PRN (10:18)
[2019-03-07 11:51] LABS: Glucose,Whole Blood 134 mg/dL (75-99)
[2019-03-07 12:17] LABS: Appearance,Urine Turbid (Clear); Bacteria,Urine Many /hpf; Bilirubin,Urine Negative (Negative); Blood,Urine Large (Negative); Color,Urine Red; Glucose,Urine (UA) Negative (Negative); Ketones,Urine Negative (Negative); Leukocyte Esterase,Urine Large (Negative); Nitrite,Urine Negative (Negative); Protein,Urine 2+ (Negative); RBC,Urine 156 /hpf (0-5); Specific Gravity,Urine 1.017 (1.001-1.035); Urobilinogen,Urine <2.0 mg/dL (<2.0)
[2019-03-07 16:27] LABS: Albumin 3.8 g/dL (3.5-5.0); Calcium 8.7 mg/dL (8.4-10.2); Potassium 3.5 mmol/L (3.5-5.1); Total Bilirubin 0.6 mg/dL (0.2-1.3); Total Protein 6.3 g/dL (6.3-8.2)
[2019-03-07 16:54] LABS: Glucose,Whole Blood 121 mg/dL (75-99)
[2019-03-07 20:19] LABS: Glucose,Whole Blood 137 mg/dL (75-99)
[2019-03-07] MEDS: ATORVASTATIN 10 MG TAB PO SCH (20:20)
[2019-03-07] MEDS: IPRATROPIUM-ALBUTEROL 3 ML NEB INHALATION PRN (20:28)
[2019-03-07] MEDS: BUDESONIDE 0.5 MG/2 ML NEBU INHALATION SCH (20:28)
[2019-03-08] MEDS: SODIUM CHLORIDE 0.9% 1,000 ML IV SCH ×3 (02:52→21:25)
[2019-03-08] MEDS: ACETAMINOPHEN TAB 325 MG TAB PO PRN ×3 (02:52→19:44)
[2019-03-08 05:53] LABS: Anisocytosis Slight; HCT 30.9 % (34.0-46.0); HGB 10.9 gm/dL (11.4-16.0); Hyperchromasia Slight; MCH 30.9 pg (25.0-35.0); MCHC 35.3 g/dL (31.0-37.0); MCV 87.5 fL (80.0-100.0); Mean Platelet Volume 6.6; Platelet Count 291 k/uL (150-450); RBC 3.53 m/uL (3.80-5.40); RDW 16.8 % (11.5-15.5); WBC 6.3 k/uL (3.8-10.6)
[2019-03-08 06:04] LABS: African American GFR (CKD) >90 (>60 ml/min/1.73 sqM); Anion Gap 7 mmol/L; Blood Urea Nitrogen 24 mg/dL (7-17); Calcium 9.2 mg/dL (8.4-10.2); Carbon Dioxide 28 mmol/L (22-30); Chloride 88 mmol/L (98-107); Glucose 127 mg/dL (74-99); Potassium 3.9 mmol/L (3.5-5.1); Sodium 123 mmol/L (137-145)
[2019-03-08 06:26] LABS: Glucose,Whole Blood 150 mg/dL (75-99)
[2019-03-08] MEDS: INSULIN ASPART (NovoLOG) 100 UNIT/ML VIAL SQ SCH ×4 (06:33→21:15)
[2019-03-08] MEDS: IPRATROPIUM-ALBUTEROL 3 ML NEB INHALATION PRN (08:23)
[2019-03-08] MEDS: BUDESONIDE 0.5 MG/2 ML NEBU INHALATION SCH ×2 (08:23→19:51)
[2019-03-08] MEDS: POTASSIUM CHLORIDE ER 10 MEQ TAB.ER.PRT PO SCH (08:37)
[2019-03-08 11:22] LABS: Hemoglobin A1C 5.7 % (4.0-6.0)
[2019-03-08 12:14] LABS: Glucose,Whole Blood 140 mg/dL (75-99)
[2019-03-08] MEDS: HYDROPHILIC CREAM 180 GM TUBE TOPICAL SCH (14:18)
[2019-03-08 17:17] LABS: Glucose,Whole Blood 136 mg/dL (75-99)
[2019-03-08] MEDS: ATORVASTATIN 10 MG TAB PO SCH (19:44)
[2019-03-08 21:10] LABS: Glucose,Whole Blood 129 mg/dL (75-99)
[2019-03-08] MEDS: GABAPENTIN 100 MG CAP PO SCH (21:21)
[2019-03-08] MEDS: NICOTINE 21MG/24HR PATCH TRANSDERM SCH (21:21)
[2019-03-08 21:25] LABS: Anisocytosis Slight; HCT 27.6 % (34.0-46.0); HGB 9.9 gm/dL (11.4-16.0); Hyperchromasia Slight; MCH 31.3 pg (25.0-35.0); MCHC 35.8 g/dL (31.0-37.0); MCV 87.5 fL (80.0-100.0); Mean Platelet Volume 7.1; Platelet Count 289 k/uL (150-450); RBC 3.15 m/uL (3.80-5.40); RDW 16.6 % (11.5-15.5); WBC 4.9 k/uL (3.8-10.6)
[2019-03-08 21:51] LABS: Appearance,Urine Cloudy (Clear); Bilirubin,Urine Negative (Negative); Blood,Urine Large (Negative); Color,Urine Light Red; Glucose,Urine (UA) Negative (Negative); Ketones,Urine Negative (Negative); Leukocyte Esterase,Urine Large (Negative); Nitrite,Urine Negative (Negative); PH, Urine 6.5 (5.0-8.0); Protein,Urine 1+ (Negative); RBC,Urine >182 /hpf (0-5); Specific Gravity,Urine 1.014 (1.001-1.035); WBC,Urine >182 /hpf (0-5)
[2019-03-08] MEDS: MELATONIN 5 MG TABLET PO SCH (22:21)
[2019-03-09] MEDS: ACETAMINOPHEN TAB 325 MG TAB PO PRN ×3 (03:26→17:49)
[2019-03-09 05:55] LABS: Anisocytosis Slight; Basophils % (A) 1 %; Eosinophils # (A) 0.3 k/uL (0-0.7); Eosinophils % (A) 6 %; HCT 27.9 % (34.0-46.0); HGB 9.9 gm/dL (11.4-16.0); Lymphocytes # (A) 0.9 k/uL (1.0-4.8); Lymphocytes % (A) 20 %; MCH 31.2 pg (25.0-35.0); MCHC 35.4 g/dL (31.0-37.0); MCV 88.1 fL (80.0-100.0); Monocytes # (A) 0.2 k/uL (0-1.0); Monocytes % (A) 5 %; Neutrophils # (A) 2.9 k/uL (1.3-7.7); Neutrophils % (A) 67 %; Platelet Count 275 k/uL (150-450); RBC 3.17 m/uL (3.80-5.40); RDW 16.3 % (11.5-15.5); WBC 4.3 k/uL (3.8-10.6)
[2019-03-09 06:02] LABS: Glucose,Whole Blood 164 mg/dL (75-99)
[2019-03-09 06:06] LABS: African American GFR (CKD) >90 (>60 ml/min/1.73 sqM); Anion Gap 9 mmol/L; Blood Urea Nitrogen 17 mg/dL (7-17); Calcium 8.9 mg/dL (8.4-10.2); Carbon Dioxide 26 mmol/L (22-30); Chloride 90 mmol/L (98-107); Glucose 164 mg/dL (74-99); Potassium 3.6 mmol/L (3.5-5.1); Sodium 125 mmol/L (137-145)
[2019-03-09] MEDS: INSULIN ASPART (NovoLOG) 100 UNIT/ML VIAL SQ SCH ×4 (06:23→21:50)
[2019-03-09] MEDS: BUDESONIDE 0.5 MG/2 ML NEBU INHALATION SCH ×2 (07:51→19:04)
--- NOTE | 2019-03-09 08:03 | P.CON ---
Consult Note - . Consult date: 03/08/19 Assessment/Plan:: This is a 63-year-old pleasant female with a nonhealing ulceration to the sacrum. Patient states that the ulcerations started at home she has been utilizing barrier cream that her home care nurse instructed her to apply to sit e. Patient states that she has seen wound care in the past for the same ulceration however she did not like that they scraped the wound at each visit. Patient denies any drainage from the site fever or chills. Patient does complain of tenderness to the area. She utilizes a cushion at home to sit on. Patient's past medical history includes coronary artery disease, diabetes mellitus, acid reflux, hyperlipidemia, hypertension, diabetic neuropathy to bilateral upper and lower extremities, necrotizing fasciitis to the right thigh status post skin grafts at [facility] in 2017. Patient is a current every day smoker she smokes currently half a pack a day since she was 14. Review Of Systems: Constitutional: No fever, no chills, no night sweats. No weight change. No weakness, fatigue or lethargy. No daytime sleepiness. Integumentary: Reports wounds, no lesions. No rash or pruritus. No unusual bruising. No change in hair or nails. General Appearance: Alert, cooperative, no distress, appears older stated age. Skin: Nonhealing ulceration to coccyx approximately 0.5 x 0.3 x 0.1 cm, nonhealing ulceration to right gluteus approximately 0.8 x 0.8 x 0.1 cm, nonhealing ulceration to the left gluteus approximately 0.6 x 0.5 x 0.1 cm, wound that shows granulation minimal exudate border and skin is attached. No redness or drainage noted. Skin turgor is decreased. Assessment/plan: 1. Nonhealing ulceration with pressure component Limited to skin breakdown stage II. Apply triad and foam border dressing daily. Continue to offload utilizing a Roho like cushion. Turn every 2 hours as needed. Increase protein. Discussed with patient coming to the wound care center on outpatient basis once discharged from the hospital. Thank you for the consultation. Any questions please contact the wound care center. DNP note has been reviewed and discussed with Dr. Marshall and the impression and plan of care has been directed as dictated.
[2019-03-09] MEDS: GABAPENTIN 100 MG CAP PO SCH ×3 (08:41→20:06)
[2019-03-09] MEDS: HYDROPHILIC CREAM 180 GM TUBE TOPICAL SCH (08:41)
[2019-03-09] MEDS: POTASSIUM CHLORIDE ER 10 MEQ TAB.ER.PRT PO SCH (08:41)
[2019-03-09] MEDS: NICOTINE 21MG/24HR PATCH TRANSDERM SCH (08:41)
[2019-03-09 11:45] LABS: Glucose,Whole Blood 139 mg/dL (75-99)
[2019-03-09 16:46] LABS: Glucose,Whole Blood 147 mg/dL (75-99)
[2019-03-09] MEDS: SODIUM CHLORIDE 0.9% 1,000 ML IV SCH (17:48)
[2019-03-09] MEDS: ATORVASTATIN 10 MG TAB PO SCH (20:06)
[2019-03-09] MEDS: MELATONIN 5 MG TABLET PO SCH (20:07)
[2019-03-09 21:04] LABS: Glucose,Whole Blood 142 mg/dL (75-99)
--- NOTE | 2019-03-09 21:54 | CONS ---
CONSULTATION DATE OF DICTATION: 03/09/2019 REASON FOR CONSULTATION: GI bleed. HISTORY OF PRESENT ILLNESS: The patient is a 63-year-old white female who was admitted to the hospital because of hematuria. Apparently while in the hospital she had a couple of episodes of bright red blood per rectum, and hence we were consulted because of this issue. The patient is a very poor historian. She states that she has been having intermittent rectal bleeding on and off for the last several months' duration. She had hemorrhoid surgery about 2 years ago and since then she thinks her bleeding has been more consistent. She denies any rectal pain. She also has been having hematuria intermittently Following admission to the hospital she had some mild confusion and was subsequently diagnosed with severe hyponatremia/electrolyte abnormalities and is being treated for that. She reports no abdominal pain. No nausea, no vomiting. No prior history of EGD or colonoscopy in the past. She takes Motrin on a regular basis. PAST MEDICAL HISTORY: Past medical history is significant for: 1. Coronary artery disease. 2. Diabetes mellitus. 3. GERD. 4. Hypertension. 5. Hyperlipidemia. 6. Diabetic neuropathy. PAST SURGICAL HISTORY: 1. Tubal ligation. 2. Surgery for necrotizing fasciitis of the right thigh at [facility] in 2017. MEDICATIONS: Medications at home include: 1. Metformin. 2. Zantac. 3. Simvastatin. 4. Lisinopril. 5. Trazodone. 6. Ventolin. 7. Zyrtec. 8. Lasix. 9. Zaroxolyn. 10.Naproxen. 11.Nystatin. 12.Potassium chloride. 13.Amlodipine. ALLERGIES: ASPIRIN. SOCIAL HISTORY: No smoking. No alcohol use. FAMILY HISTORY: Unremarkable. REVIEW OF SYSTEMS: CARDIOPULMONARY: She denies any chest pain or shortness of breath. GENITOURINARY: No dysuria or hematuria. MUSCULOSKELETAL: Unremarkable. SKIN: Unremarkable. ENDOCRINE: Unremarkable. PSYCHIATRIC: Unremarkable. NEUROLOGY: Unremarkable. ENT/VISION: Unremarkable. CONSTITUTIONAL: No recent weight loss. No fever, chills, night sweats. PHYSICAL EXAMINATION: She appears comfortable. No apparent distress. VITAL SIGNS: Stable. Blood pressure is 138/61, pulse rate 60, temperature 97.7. HEENT examination unremarkable. Conjunctivae pink. Sclerae anicteric. Oral cavity no lesions. NECK: No JVD or lymph node enlargement. CHEST: Clear to auscultation. HEART: Regular rate and rhythm. ABDOMEN: Soft. Bowel sounds are positive. No organomegaly. EXTREMITIES: No pedal edema. SKIN: No rashes. NEUROLOGIC: Alert and oriented x3. No focal deficits. LABS: Labs done at the time of admission to the hospital showed that hemoglobin was 12.3, WBC 17, platelets normal. Today hemoglobin is 9.9, WBC 4.3. Platelets are 275. Sodium has improved to 125. Originally it was 117. Basic metabolic panel is within normal limits. Stool occult blood was positive. IMPRESSION: 1. Intermittent rectal bleeding on and off for the last several months' duration. She was told she had hemorrhoids several years ago, for which she underwent surgery a couple of years ago. No prior history of colonoscopy in the past. Hemoglobin dropped from 12.2 to 9.9 g/dL. 2. Electrolyte abnormalities with severe hyponatremia, gradually improving. 3. Hematuria. 4. History of coronary artery disease. RECOMMENDATIONS: 1. I had a lengthy discussion with the patient regarding endoscopic evaluation with a colonoscopy on an outpatient basis as part of evaluation of intermittent rectal bleeding for the last several months' duration. At this time the patient refuses to have any endoscopic intervention. 2. Continue with symptomatic and supportive care. 3. Patient was advised to follow up in the office in case she changes her mind to have any outpatient evaluation. Thank you for this consultation. GARRETT / NIYA: [id number] /
--- NOTE | 2019-03-09 23:22 | P.PN ---
Subjective Progress Note Date: 03/08/19 Principal diagnosis: Acute metabolic encephalopathy Hyponatremia 63-year-old the female was brought in because of confusion and possible GI bleed although patient denied any GI bleed it was noted from the ER the patient had 3 for episodes of GI bleed patient denied any such episodes patient is alert and oriented 2-3, do not know her baseline mental status patient lives with her boyfriend found to have severe hyponatremia with a serum sodium of 115, patient denied any fever chills nausea vomiting diarrhea patient denied any dysuria patient was noted to have hematuria with nursing staff I'll obtain a UA as per the ER physician exam patient doesn't have any vaginal bleed. Patient appears to have psychiatric issues but not on any antipsychotic medications patient is on diuretic therapy with the metolazone and Lasix. Patient is also on lisinopril has prerenal function with a creatinine of 1.23 baseline 0.7. 03/08/2019 Patient is complaining of rectal bleeding. Hemoglobin is 9.9 dropped from 10.3 yesterday. Otherwise sodium level improved to 123 today. Patient is being Treated on IV hydration normal saline. Encourage oral intake. Urinalysis showed greater than 182 of WBC and RBC. Follow-up urine culture report. Patient does not have any fever or chills. No leukocytosis. No complaints of abdominal pain. Mentation is improving and patient is able to sit on the side of the bed today. No complaints of chest pain or shortness of breath. Gastroenterology service will be consulted if the patient continues to have rectal bleeding, most likely from hemorrhoids. Current medications reviewed. Objective - Vital Signs Vital signs: Vital Signs Temp 98.4 F 03/08/19 19:48 Pulse 73 03/08/19 19:48 Resp 19 03/08/19 19:48 BP 127/70 03/08/19 19:48 Pulse Ox 97 03/08/19 19:48 Intake & Output 03/08/19 03/08/19 03/09/19 06:59 18:59 06:59 Intake Total 10 1180 Output Total 1550 1050 Balance -1540 130 Weight 81 kg Intake: IV 10 Invasive Line 1 10 Oral 1180 Output: Urine 1550 1050 Other: Voiding Method Toilet Bedside Commode Bedside Commode # Voids 2 1 - Exam PHYSICAL EXAMINATION: GENERAL: The patient is alert and oriented x2-3, not in any acute distress. Well developed, well nourished. HEENT: Pupils are round and equally reacting to light. EOMI. No scleral icterus. No conjunctival pallor. Normocephalic, atraumatic. No pharyngeal erythema. No thyromegaly. CARDIOVASCULAR: S1 and S2 present. No murmurs, rubs, or gallops. PULMONARY: Significant expiratory wheezing with mildly diminished air entry into bilateral lung bean. ABDOMEN: Soft, nontender, nondistended, normoactive bowel sounds. No palpable organomegaly. MUSCULOSKELETAL: No joint swelling or deformity. EXTREMITIES: No cyanosis, clubbing, or pedal edema. NEUROLOGICAL: Gross neurological examination did not reveal any focal deficits. Does have significant generalized weakness SKIN: No rashes. - Labs CBC & Chem 7: 03/09/19 05:40 03/09/19 05:40 Labs: Abnormal Lab Results - Last 24 Hours (Table) 03/08/19 03/08/19 03/08/19 Range/Units 05:25 05:25 06:20 RBC 3.53 L (3.80-5.40) m/uL Hgb 10.9 L (11.4-16.0) gm/dL Hct 30.9 L (34.0-46.0) % RDW 16.8 H (11.5-15.5) % Sodium 123 L (137-145) mmol/L Chloride 88 L (98-107) mmol/L BUN 24 H (7-17) mg/dL Glucose 127 H (74-99) mg/dL POC Glucose (mg/dL) 150 H (75-99) mg/dL Urine Appearance (Clear) Urine Protein (Negative) Urine Blood (Negative) Ur Leukocyte Esterase (Negative) Urine RBC (0-5) /hpf Urine WBC (0-5) /hpf 03/08/19 03/08/19 03/08/19 Range/Units 12:01 17:16 20:57 RBC 3.15 L (3.80-5.40) m/uL Hgb 9.9 L (11.4-16.0) gm/dL Hct 27.6 L (34.0-46.0) % RDW 16.6 H (11.5-15.5) % Sodium (137-145) mmol/L Chloride (98-107) mmol/L BUN (7-17) mg/dL Glucose (74-99) mg/dL POC Glucose (mg/dL) 140 H 136 H (75-99) mg/dL Urine Appearance (Clear) Urine Protein (Negative) Urine Blood (Negative) Ur Leukocyte Esterase (Negative) Urine RBC (0-5) /hpf Urine WBC (0-5) /hpf 03/08/19 03/08/19 Range/Units 21:08 21:40 RBC (3.80-5.40) m/uL Hgb (11.4-16.0) gm/dL Hct (34.0-46.0) % RDW (11.5-15.5) % Sodium (137-145) mmol/L Chloride (98-107) mmol/L BUN (7-17) mg/dL Glucose (74-99) mg/dL POC Glucose (mg/dL) 129 H (75-99) mg/dL Urine Appearance Cloudy H (Clear) Urine Protein 1+ H (Negative) Urine Blood Large H (Negative) Ur Leukocyte Esterase Large H (Negative) Urine RBC >182 H (0-5) /hpf Urine WBC >182 H (0-5) /hpf Microbiology - Last 24 Hours (Table) 03/07/19 11:30 Urine Culture - Preliminary Urine,Voided Gram Neg Bacilli Assessment and Plan Assessment: Acute Metabolic encephalopathy: Secondary to significant electrolyte abnormalities. Morphine was discontinued. Patient is severely hyponatremic probably hyponatremia from a diuretic therapy patient will be started on IV fluids at 125 mL---75 ml per hour. -Hypovolemic hyponatremia: Management as mentioned above, no further workup for hyponatremia will be done unless patient's serum sodium doesn't improve with IV fluids. Patient had normal ejection fraction the past -Rectal bleeding likely due to hemorrhoidal bleed. Patient is having intermittent bright red blood per rectum. -Acute blood loss anemia secondary to above -Coronary artery disease -COPD with continued nicotine use patient will be started on inhalational treatments along with inhaled steroids. She doesn't improve patient will be started on oral steroids -GERD -Hyperlipidemia -Hypertension patient is presently hypotensive. Hypertension medications will be discontinued -Acute renal failure secondary to prerenal azotemia as well as hypotension and lisinopril will be discontinued. Improved now. DVT prophylaxis early ambulation because of her Time with Patient: Greater than 30
--- NOTE | 2019-03-09 23:27 | P.PN ---
Subjective Progress Note Date: 03/09/19 Principal diagnosis: Acute metabolic encephalopathy Hyponatremia 63-year-old the female was brought in because of confusion and possible GI bleed although patient denied any GI bleed it was noted from the ER the patient had 3 for episodes of GI bleed patient denied any such episodes patient is alert and oriented 2-3, do not know her baseline mental status patient lives with her boyfriend found to have severe hyponatremia with a serum sodium of 115, patient denied any fever chills nausea vomiting diarrhea patient denied any dysuria patient was noted to have hematuria with nursing staff I'll obtain a UA as per the ER physician exam patient doesn't have any vaginal bleed. Patient appears to have psychiatric issues but not on any antipsychotic medications patient is on diuretic therapy with the metolazone and Lasix. Patient is also on lisinopril has prerenal function with a creatinine of 1.23 baseline 0.7. 03/08/2019 Patient is complaining of rectal bleeding. Hemoglobin is 9.9 dropped from 10.3 yesterday. Otherwise sodium level improved to 123 today. Patient is being Treated on IV hydration normal saline. Encourage oral intake. Urinalysis showed greater than 182 of WBC and RBC. Follow-up urine culture report. Patient does not have any fever or chills. No leukocytosis. No complaints of abdominal pain. Mentation is improving and patient is able to sit on the side of the bed today. No complaints of chest pain or shortness of breath. Gastroenterology service will be consulted if the patient continues to have rectal bleeding, most likely from hemorrhoids. 03/09/2019 Patient is more awake and alert and oriented today. Denied any rectal bleeding today. Hemoglobin is fairly stable at 9.9. GI recommends outpatient follow-up for colonoscopy. Otherwise urine culture showed ESBL E. coli. ID service will be consulted. No complaints of fever or chills. No nausea vomiting or abdominal pain. No leukocytosis. Patient will be continued on PT OT. IV hydration. Sodium level improved to 125 today. Potassium was is following as well. plans of chest pain or shortness of breath. no diarrhea. no nausea vomiting. Current medications reviewed. Objective - Vital Signs Vital signs: Vital Signs Temp 97.2 F L 03/09/19 08:00 Pulse 71 03/09/19 15:00 Resp 18 03/09/19 04:00 BP 180/70 03/09/19 15:00 Pulse Ox 97 03/09/19 15:00 Intake & Output 03/09/19 03/09/19 03/10/19 06:59 18:59 06:59 Intake Total 3000 Output Total 300 Balance 3000 -300 Weight 83.1 kg Intake: Intake, IV Titration 600 Amount Sodium Chloride 0.9% 1, 600 000 ml @ 75 mls/hr IV . [id number] [facility] Rx#:[id number] Oral 2400 Output: Urine 300 Other: Voiding Method Toilet Toilet Bedside Commode Bedside Commode # Voids 2 1 1 - Exam PHYSICAL EXAMINATION: GENERAL: The patient is alert and oriented x2-3, not in any acute distress. Well developed, well nourished. HEENT: Pupils are round and equally reacting to light. EOMI. No scleral icterus. No conjunctival pallor. Normocephalic, atraumatic. No pharyngeal erythema. No thyromegaly. CARDIOVASCULAR: S1 and S2 present. No murmurs, rubs, or gallops. PULMONARY: Significant expiratory wheezing with mildly diminished air entry into bilateral lung bean. ABDOMEN: Soft, nontender, nondistended, normoactive bowel sounds. No palpable organomegaly. MUSCULOSKELETAL: No joint swelling or deformity. EXTREMITIES: No cyanosis, clubbing, or pedal edema. NEUROLOGICAL: Gross neurological examination did not reveal any focal deficits. Does have significant generalized weakness SKIN: No rashes. - Labs CBC & Chem 7: 03/09/19 05:40 03/09/19 05:40 Labs: Abnormal Lab Results - Last 24 Hours (Table) 03/08/19 03/08/19 03/08/19 Range/Units 20:57 21:08 21:40 RBC 3.15 L (3.80-5.40) m/uL Hgb 9.9 L (11.4-16.0) gm/dL Hct 27.6 L (34.0-46.0) % RDW 16.6 H (11.5-15.5) % Lymphocytes # (1.0-4.8) k/uL Sodium (137-145) mmol/L Chloride (98-107) mmol/L Glucose (74-99) mg/dL POC Glucose (mg/dL) 129 H (75-99) mg/dL Urine Appearance Cloudy H (Clear) Urine Protein 1+ H (Negative) Urine Blood Large H (Negative) Ur Leukocyte Esterase Large H (Negative) Urine RBC >182 H (0-5) /hpf Urine WBC >182 H (0-5) /hpf 03/09/19 03/09/19 03/09/19 Range/Units 05:40 05:40 06:01 RBC 3.17 L (3.80-5.40) m/uL Hgb 9.9 L (11.4-16.0) gm/dL Hct 27.9 L (34.0-46.0) % RDW 16.3 H (11.5-15.5) % Lymphocytes # 0.9 L (1.0-4.8) k/uL Sodium 125 L (137-145) mmol/L Chloride 90 L (98-107) mmol/L Glucose 164 H (74-99) mg/dL POC Glucose (mg/dL) 164 H (75-99) mg/dL Urine Appearance (Clear) Urine Protein (Negative) Urine Blood (Negative) Ur Leukocyte Esterase (Negative) Urine RBC (0-5) /hpf Urine WBC (0-5) /hpf 03/09/19 03/09/19 Range/Units 11:43 16:44 RBC (3.80-5.40) m/uL Hgb (11.4-16.0) gm/dL Hct (34.0-46.0) % RDW (11.5-15.5) % Lymphocytes # (1.0-4.8) k/uL Sodium (137-145) mmol/L Chloride (98-107) mmol/L Glucose (74-99) mg/dL POC Glucose (mg/dL) 139 H 147 H (75-99) mg/dL Urine Appearance (Clear) Urine Protein (Negative) Urine Blood (Negative) Ur Leukocyte Esterase (Negative) Urine RBC (0-5) /hpf Urine WBC (0-5) /hpf Microbiology - Last 24 Hours (Table) 03/07/19 11:30 Urine Culture - Final Urine,Voided Escherichia coli Assessment and Plan Assessment: - Acute urinary tract infection with ESBL E. coli Acute Metabolic encephalopathy: Secondary to significant electrolyte abnormalities and infection. Morphine was discontinued. Patient is severely hyponatremic probably hyponatremia from a diuretic therapy patient will be started on IV fluids at 125 mL---75 ml per hour. -Hypovolemic hyponatremia: Management as mentioned above, no further workup for hyponatremia will be done unless patient's serum sodium doesn't improve with IV fluids. Patient had normal ejection fraction the past -Rectal bleeding likely due to hemorrhoidal bleed. Patient is having inter mittent bright red blood per rectum. -Acute blood loss anemia secondary to above -Coronary artery disease -COPD with continued nicotine use patient will be started on inhalational treatments along with inhaled steroids. She doesn't improve patient will be started on oral steroids -GERD -Hyperlipidemia -Hypertension patient is presently hypotensive. Hypertension medications will be discontinued -Acute renal failure secondary to prerenal azotemia as well as hypotension and lisinopril will be discontinued. Improved now. DVT prophylaxis early ambulation because of her Time with Patient: Greater than 30
[2019-03-10] MEDS ORDERED: LEVOFLOXACIN 500MG-D5W PMX 500 MG in DEXTROSE/WATER 1 100ML.BAG IVPB SCH
[2019-03-10] MEDS: ACETAMINOPHEN TAB 325 MG TAB PO PRN ×4 (00:15→17:28)
[2019-03-10 02:04] LABS: Glucose,Whole Blood 244 mg/dL (75-99)
[2019-03-10] MEDS ORDERED: ONDANSETRON 4 MG/2 ML VIAL IVP PRN (05:31)
[2019-03-10] MEDS: amLODIPine 5 MG TAB PO SCH ×2 (05:55→09:33)
[2019-03-10] MEDS: SODIUM CHLORIDE 0.9% 1,000 ML IV SCH ×2 (05:55→16:04)
[2019-03-10 06:16] LABS: Basophils # (A) 0.1 k/uL (0-0.2); Basophils % (A) 1 %; Eosinophils # (A) 0.2 k/uL (0-0.7); Eosinophils % (A) 4 %; HCT 29.2 % (34.0-46.0); HGB 10.1 gm/dL (11.4-16.0); Lymphocytes # (A) 0.9 k/uL (1.0-4.8); Lymphocytes % (A) 18 %; MCH 30.5 pg (25.0-35.0); MCHC 34.7 g/dL (31.0-37.0); MCV 87.7 fL (80.0-100.0); Mean Platelet Volume 6.9; Monocytes # (A) 0.3 k/uL (0-1.0); Monocytes % (A) 6 %; Neutrophils # (A) 3.5 k/uL (1.3-7.7); Neutrophils % (A) 68 %; Platelet Count 311 k/uL (150-450); RBC 3.33 m/uL (3.80-5.40); RDW 15.1 % (11.5-15.5); WBC 5.2 k/uL (3.8-10.6)
[2019-03-10 06:28] LABS: African American GFR (CKD) >90 (>60 ml/min/1.73 sqM); Anion Gap 10 mmol/L; Blood Urea Nitrogen 14 mg/dL (7-17); Carbon Dioxide 27 mmol/L (22-30); Chloride 89 mmol/L (98-107); Glucose 141 mg/dL (74-99); Sodium 126 mmol/L (137-145)
[2019-03-10 06:29] LABS: Glucose,Whole Blood 159 mg/dL (75-99)
[2019-03-10] MEDS: INSULIN ASPART (NovoLOG) 100 UNIT/ML VIAL SQ SCH ×4 (07:00→20:49)
[2019-03-10] MEDS: BUDESONIDE 0.5 MG/2 ML NEBU INHALATION SCH ×2 (07:47→20:35)
[2019-03-10] MEDS: HYDROPHILIC CREAM 180 GM TUBE TOPICAL SCH (09:30)
[2019-03-10] MEDS: POTASSIUM CHLORIDE ER 10 MEQ TAB.ER.PRT PO SCH (09:30)
[2019-03-10] MEDS: GABAPENTIN 100 MG CAP PO SCH ×3 (09:30→20:49)
[2019-03-10] MEDS: NICOTINE 21MG/24HR PATCH TRANSDERM SCH (09:31)
[2019-03-10 11:53] LABS: Glucose,Whole Blood 174 mg/dL (75-99)
[2019-03-10] MEDS: PHENAZOPYRIDINE 100 MG TAB PO SCH ×3 (12:45→20:49)
[2019-03-10 14:12] VITALS: BMI 29.0
[2019-03-10] MEDS: ERTAPENEM 1 GM in SODIUM CHLORIDE 0.9% 50 ML IVPB SCH (15:20)
[2019-03-10 17:05] LABS: Glucose,Whole Blood 132 mg/dL (75-99)
[2019-03-10] MEDS: MELATONIN 5 MG TABLET PO SCH (20:32)
[2019-03-10] MEDS: ATORVASTATIN 10 MG TAB PO SCH (20:33)
[2019-03-10 20:42] LABS: Glucose,Whole Blood 213 mg/dL (75-99)
[2019-03-10] MEDS ORDERED: LEVOFLOXACIN 500 MG TAB PO SCH (22:00)
[2019-03-10] MEDS ORDERED: HYDROcodone/APAP 5-325MG 1 EACH TAB PO STA (23:34)
[2019-03-11 07:07] LABS: Glucose,Whole Blood 165 mg/dL (75-99)
[2019-03-11] MEDS: PHENAZOPYRIDINE 100 MG TAB PO SCH ×3 (07:31→21:34)
[2019-03-11] MEDS: NICOTINE 21MG/24HR PATCH TRANSDERM SCH (07:32)
[2019-03-11] MEDS: GABAPENTIN 100 MG CAP PO SCH ×3 (07:32→21:34)
[2019-03-11] MEDS: POTASSIUM CHLORIDE ER 10 MEQ TAB.ER.PRT PO SCH (07:32)
[2019-03-11] MEDS: amLODIPine 5 MG TAB PO SCH (07:32)
[2019-03-11] MEDS: SODIUM CHLORIDE 0.9% 1,000 ML IV SCH ×2 (07:33→21:33)
[2019-03-11] MEDS: INSULIN ASPART (NovoLOG) 100 UNIT/ML VIAL SQ SCH ×4 (07:33→21:36)
[2019-03-11] MEDS: ACETAMINOPHEN TAB 325 MG TAB PO PRN ×3 (07:40→22:44)
[2019-03-11] MEDS: BUDESONIDE 0.5 MG/2 ML NEBU INHALATION SCH ×2 (07:55→20:07)
[2019-03-11] MEDS: IPRATROPIUM-ALBUTEROL 3 ML NEB INHALATION PRN (07:55)
[2019-03-11] MEDS: HYDROPHILIC CREAM 180 GM TUBE TOPICAL SCH (10:44)
[2019-03-11] MEDS: ERTAPENEM 1 GM in SODIUM CHLORIDE 0.9% 50 ML IVPB SCH (10:44)
[2019-03-11 11:43] LABS: Glucose,Whole Blood 168 mg/dL (75-99)
--- NOTE | 2019-03-11 13:08 | P.CONS ---
History of Present Illness - Reason for Consult Consult date: 03/10/19 ESBL E.coli UTI Requesting physician: Chuy Santiago - Chief Complaint Blood in her pads x 1 day - History of Present Illness Patient is a 63-year female presented to the ER at [facility] on 03/06/2019 after apparently the patient noticed blood clots in her parents thought to be more of a vagina bleeding the patient denies having any suprapubic or flank pain no nausea no vomiting no abdominal pain and no diarrhea with the symptoms and the patient was evaluated by their physician on arrival to the ER the patient was afebrile patient did have elevated white count of 17,000 patient white count has subsequent normalized and is down to 6.3 as of 03/08/2019 patient did have a positive UA with large blood large leukocyte Estrace and more than 182 WBC, the patient did not receive an antibiotics initially, though she was started on Levaquin 03/09/2019, after the urine culture finalized with ESBL E. coli infectious was consulted for further recommendation regarding antibiotic therapy. At the time of my evaluation today the patient is afebrile patient has any further bleeding vaginally and no hematuria occasional burning but no suprapubic or flank pain no nausea no vomiting no abdominal pain and no diarrhea Review of Systems Positive point has been mentioned in HPI rest of the systems are negative Past Medical History Past Medical History: Coronary Artery Disease (CAD), Diabetes Mellitus, GERD/Reflux, Hyperlipidemia, Hypertension Additional Past Medical History / Comment(s): Diabetic neuropathy to bilateral upper and lower extremities, postmenopausal vaginal bleeding, necrotizing fasciitis the right thigh status post skin grafts at [facility] in 2017 History of Any Multi-Drug Resistant Organisms: ESBL Year Discovered:: 03/07/19 MDRO Source:: ESBL URINE Past Surgical History: Tubal Ligation Additional Past Surgical History / Comment(s): recent skin grafts in nida groin Past Anesthesia/Blood Transfusion Reactions: No Reported Reaction Past Psychological History: No Psychological Hx Reported Smoking Status: Current every day smoker Past Alcohol Use History: None Reported Additional Past Alcohol Use History / Comment(s): Patient is a smoker of 1/2 pack per day since she was 14 years of age. She denies any medical marijuana, marijuana or street drug use. She denies any alcohol use. Patient has no pets in the home and she denies any recent travel. Past Drug Use History: None Reported - Past Family History Mother Family Medical History: Dementia Medications and Allergies Home Medications Medication Instructions Recorded Confirmed Type metFORMIN HCL 500 mg PO DAILY 12/21/13 03/06/19 History Ranitidine HCl [Zantac] 300 mg PO BID 01/19/14 03/06/19 History Simvastatin 20 mg PO HS 05/30/15 03/06/19 History Lisinopril 30 mg PO DAILY 12/31/18 03/06/19 History Triamcinolone 0.1% Cream [Kenalog 1 applic TOPICAL DAILY PRN 12/31/18 03/06/19 History 0.1% Cream] traZODone HCL 50 - 100 mg PO HS 12/31/18 03/06/19 History Albuterol Inhaler [Ventolin Hfa 2 puff INHALATION RT-QID PRN 03/06/19 03/06/19 History Inhaler] Cetirizine HCl [Zyrtec] 10 mg PO DAILY 03/06/19 03/06/19 History Furosemide [Lasix] 20 mg PO DAILY 03/06/19 03/06/19 History Metolazone [Zaroxolyn] 2.5 mg PO DAILY 03/06/19 03/06/19 History Naproxen [Naprosyn] 500 mg PO BID PRN 03/06/19 03/06/19 History Nystatin [Nystop] 1 applic TOPICAL BID PRN 03/06/19 03/06/19 History Potassium Chloride ER [K-Dur 10] 10 meq PO DAILY 03/06/19 03/06/19 History amLODIPine [Norvasc] 5 mg PO DAILY 03/06/19 03/06/19 History Allergies Allergy/AdvReac Type Severity Reaction Status Date / Time aspirin AdvReac nose bleeds Verified 03/06/19 17:14 Physical Exam Vitals: Vital Signs Temp Pulse Pulse Resp BP Pulse Ox 03/10/19 07:58 66 03/10/19 07:47 62 03/10/19 07:00 97.8 F 58 L 130/60 96 03/10/19 00:00 64 16 03/09/19 23:00 98.6 F 81 16 148/68 100 03/09/19 15:00 71 180/70 97 Intake and Output 03/09/19 03/10/19 03/10/19 22:59 06:59 14:59 Intake Total 1200 1660 Output Total 300 1900 Balance 900 -240 Intake: Intake, IV Titration 700 Amount Levofloxacin 500Mg-D5w 100 Pmx 500 mg In Dextrose/ Water 1 100ml.bag @ 100 mls/hr IVPB Q24H [facility] Rx#: [id number] Sodium Chloride 0.9% 1, 600 000 ml @ 75 mls/hr IV . [id number] [facility] Rx#:[id number] Oral 1200 960 Output: Urine 300 1900 Other: Voiding Method Toilet Toilet Toilet Bedside Commode Bedside Commode Bedside Commode # Voids 1 10 Weight 84 kg 84 kg GENERAL DESCRIPTION: Elderly female lying in bed, no distress. No tachypnea or accessory muscle of respiration use. HEENT: Shows Pallor , no scleral icterus. Oral mucous membrane is dry. No pharyngeal erythema or thrush NECK: Trachea central, no thyromegaly. LUNGS: Unlabored breathing. Clear to auscultation anteriorly. No wheeze or crackle. HEART: S1, S2, regular rate and rhythm. No loud murmur ABDOMEN: Soft, no tenderness , guarding or rigidity, no organomegaly EXTREMITIES: No edema of feet. SKIN: No rash, no masses palpable. NEUROLOGICAL: The patient is awake, alert, oriented x3, mood and affect normal. Results CBC & Chem 7: 03/10/19 05:49 03/10/19 05:49 Labs: Abnormal Lab Results - Last 24 Hours (Table) 03/09/19 03/09/19 03/10/19 Range/Units 16:44 21:02 02:03 RBC (3.80-5.40) m/uL Hgb (11.4-16.0) gm/dL Hct (34.0-46.0) % Lymphocytes # (1.0-4.8) k/uL Sodium (137-145) mmol/L Chloride (98-107) mmol/L Glucose (74-99) mg/dL POC Glucose (mg/dL) 147 H 142 H 244 H (75-99) mg/dL 03/10/19 03/10/19 03/10/19 Range/Units 05:49 05:49 06:18 RBC 3.33 L (3.80-5.40) m/uL Hgb 10.1 L (11.4-16.0) gm/dL Hct 29.2 L (34.0-46.0) % Lymphocytes # 0.9 L (1.0-4.8) k/uL Sodium 126 L (137-145) mmol/L Chloride 89 L (98-107) mmol/L Glucose 141 H (74-99) mg/dL POC Glucose (mg/dL) 159 H (75-99) mg/dL 03/10/19 Range/Units 11:52 RBC (3.80-5.40) m/uL Hgb (11.4-16.0) gm/dL Hct (34.0-46.0) % Lymphocytes # (1.0-4.8) k/uL Sodium (137-145) mmol/L Chloride (98-107) mmol/L Glucose (74-99) mg/dL POC Glucose (mg/dL) 174 H (75-99) mg/dL Microbiology - Last 24 Hours (Table) 03/07/19 11:30 Urine Culture - Final Urine,Voided Escherichia coli Assessment and Plan Assessment: 1-patient who did have a positive urine culture with ESBL E. coli with a question of possible colonizer versus mild cystitis in this patient who did have a mild urinary symptoms clinically doubt deep infection such as pyelonephritis the patient is nontoxic with no flank or suprapubic pain and no fever white count admission elevated could have been reactive as a white count did improve without getting treatment for this UTI (1) UTI due to extended-spectrum beta lactamase (ESBL) producing Escherichia coli Current Visit: Yes Status: Acute Code(s): N39.0 - URINARY TRACT INFECTION, SITE NOT SPECIFIED; B96.29 - OTH ESCHERICHIA COLI THE CAUSE OF DISEASES CLASSD ELSWHR; Z16.12 - EXTENDED SPECTRUM BETA LACTAMASE (ESBL) RESISTANCE SNOMED Code(s): 312726875 Plan: 1-discontinue the Levaquin 2-Invanz 1 g daily while waiting for the repeat urine culture to finalize We will follow on clinical condition and cultures to further adjust medication if needed Thank you for this consultation will follow this patient along with you Time with Patient: Greater than 30
[2019-03-11 17:11] LABS: Glucose,Whole Blood 128 mg/dL (75-99)
[2019-03-11 21:01] LABS: Glucose,Whole Blood 160 mg/dL (75-99)
[2019-03-11] MEDS: MELATONIN 5 MG TABLET PO SCH (21:34)
[2019-03-11] MEDS: ATORVASTATIN 10 MG TAB PO SCH (21:34)
--- NOTE | 2019-03-11 22:51 | P.PN ---
Subjective Progress Note Date: 03/10/19 Principal diagnosis: Acute metabolic encephalopathy Hyponatremia 63-year-old the female was brought in because of confusion and possible GI bleed although patient denied any GI bleed it was noted from the ER the patient had 3 for episodes of GI bleed patient denied any such episodes patient is alert and oriented 2-3, do not know her baseline mental status patient lives with her boyfriend found to have severe hyponatremia with a serum sodium of 115, patient denied any fever chills nausea vomiting diarrhea patient denied any dysuria patient was noted to have hematuria with nursing staff I'll obtain a UA as per the ER physician exam patient doesn't have any vaginal bleed. Patient appears to have psychiatric issues but not on any antipsychotic medications patient is on diuretic therapy with the metolazone and Lasix. Patient is also on lisinopril has prerenal function with a creatinine of 1.23 baseline 0.7. 03/08/2019 Patient is complaining of rectal bleeding. Hemoglobin is 9.9 dropped from 10.3 yesterday. Otherwise sodium level improved to 123 today. Patient is being Treated on IV hydration normal saline. Encourage oral intake. Urinalysis showed greater than 182 of WBC and RBC. Follow-up urine culture report. Patient does not have any fever or chills. No leukocytosis. No complaints of abdominal pain. Mentation is improving and patient is able to sit on the side of the bed today. No complaints of chest pain or shortness of breath. Gastroenterology service will be consulted if the patient continues to have rectal bleeding, most likely from hemorrhoids. 03/09/2019 Patient is more awake and alert and oriented today. Denied any rectal bleeding today. Hemoglobin is fairly stable at 9.9. GI recommends outpatient follow-up for colonoscopy. Otherwise urine culture showed ESBL E. coli. ID service will be consulted. No complaints of fever or chills. No nausea vomiting or abdominal pain. No leukocytosis. Patient will be continued on PT OT. IV hydration. Sodium level improved to 125 today. Potassium was is following as well. plans of chest pain or shortness of breath. no diarrhea. no nausea vomiting. 03/10/2019 Patient is awake alert and oriented 3. Currently tolerating oral diet. Patient is being continued on ertapenem due to ESBL E. coli urinary tract infection. No fever no chills. No leukocytosis. Patient is still having increased frequency of urination. Sodium level is 126. Patient is encouraged with solid diet increase. IV fluids have been discontinued. No chest pain or shortness of breath. No headache or dizziness or lightheadedness. No abdominal pain nausea vomiting Current medications reviewed. Objective - Vital Signs Vital signs: Vital Signs Temp 97.4 F L 03/10/19 20:28 Pulse 68 03/10/19 20:28 Resp 16 03/10/19 20:28 BP 131/68 03/10/19 20:28 Pulse Ox 95 03/10/19 20:28 Intake & Output 03/10/19 03/10/19 03/11/19 06:59 18:59 06:59 Intake Total 1900 180 Output Total 2200 1000 Balance -300 -820 Weight 84 kg 84 kg Intake: Intake, IV Titration 700 Amount Levofloxacin 500Mg-D5w 100 Pmx 500 mg In Dextrose/ Water 1 100ml.bag @ 100 mls/hr IVPB Q24H [facility] Rx#: [id number] Sodium Chloride 0.9% 1, 600 000 ml @ 75 mls/hr IV . [id number] [facility] Rx#:[id number] Oral 1200 180 Output: Urine 2200 1000 Other: Voiding Method Toilet Toilet Bedside Commode # Voids 10 # Bowel Movements 1 - Exam PHYSICAL EXAMINATION: GENERAL: The patient is alert and oriented x2-3, not in any acute distress. Well developed, well nourished. HEENT: Pupils are round and equally reacting to light. EOMI. No scleral icterus. No conjunctival pallor. Normocephalic, atraumatic. No pharyngeal erythema. No thyromegaly. CARDIOVASCULAR: S1 and S2 present. No murmurs, rubs, or gallops. PULMONARY: Significant expiratory wheezing with mildly diminished air entry into bilateral lung bean. ABDOMEN: Soft, nontender, nondistended, normoactive bowel sounds. No palpable organomegaly. MUSCULOSKELETAL: No joint swelling or deformity. EXTREMITIES: No cyanosis, clubbing, or pedal edema. NEUROLOGICAL: Gross neurological examination did not reveal any focal deficits. Does have significant generalized weakness SKIN: No rashes. - Labs CBC & Chem 7: 03/10/19 05:49 03/10/19 05:49 Labs: Abnormal Lab Results - Last 24 Hours (Table) 03/09/19 03/10/1919 Range/Units 21:02 02:03 05:49 RBC 3.33 L (3.80-5.40) m/uL Hgb 10.1 L (11.4-16.0) gm/dL Hct 29.2 L (34.0-46.0) % Lymphocytes # 0.9 L (1.0-4.8) k/uL Sodium (137-145) mmol/L Chloride (98-107) mmol/L Glucose (74-99) mg/dL POC Glucose (mg/dL) 142 H 244 H (75-99) mg/dL 03/10/19 03/10/19 03/10/19 Range/Units 05:49 06:18 11:52 RBC (3.80-5.40) m/uL Hgb (11.4-16.0) gm/dL Hct (34.0-46.0) % Lymphocytes # (1.0-4.8) k/uL Sodium 126 L (137-145) mmol/L Chloride 89 L (98-107) mmol/L Glucose 141 H (74-99) mg/dL POC Glucose (mg/dL) 159 H 174 H (75-99) mg/dL 03/10/19 03/10/19 Range/Units 17:03 20:41 RBC (3.80-5.40) m/uL Hgb (11.4-16.0) gm/dL Hct (34.0-46.0) % Lymphocytes # (1.0-4.8) k/uL Sodium (137-145) mmol/L Chloride (98-107) mmol/L Glucose (74-99) mg/dL POC Glucose (mg/dL) 132 H 213 H (75-99) mg/dL Microbiology - Last 24 Hours (Table) 03/07/19 11:30 Urine Culture - Final Urine,Voided Escherichia coli Assessment and Plan Assessment: - Acute urinary tract infection with ESBL E. coli Acute Metabolic encephalopathy: Secondary to significant electrolyte abnormalities and infection. Morphine was discontinued. Patient is severely hyponatremic probably hyponatremia from a diuretic therapy patient will be started on IV fluids at 125 mL---75 ml per hour. IV fluids have been discontinued currently. -Hypovolemic hyponatremia: Management as mentioned above, no further workup for hyponatremia will be done unless patient's serum sodium doesn't improve with IV fluids. Patient had normal ejection fraction the past -Rectal bleeding likely due to hemorrhoidal bleed. Patient is having int ermittent bright red blood per rectum. -Acute blood loss anemia secondary to above -Coronary artery disease -COPD with continued nicotine use patient will be started on inhalational treatments along with inhaled steroids. She doesn't improve patient will be started on oral steroids -GERD -Hyperlipidemia -Hypertension patient is presently hypotensive. Hypertension medications will be discontinued -Acute renal failure secondary to prerenal azotemia as well as hypotension and lisinopril will be discontinued. Improved now. DVT prophylaxis early ambulation because of her Time with Patient: Greater than 30
--- NOTE | 2019-03-11 22:56 | P.PN ---
Subjective Progress Note Date: 03/11/19 Principal diagnosis: Acute metabolic encephalopathy Hyponatremia 63-year-old the female was brought in because of confusion and possible GI bleed although patient denied any GI bleed it was noted from the ER the patient had 3 for episodes of GI bleed patient denied any such episodes patient is alert and oriented 2-3, do not know her baseline mental status patient lives with her boyfriend found to have severe hyponatremia with a serum sodium of 115, patient denied any fever chills nausea vomiting diarrhea patient denied any dysuria patient was noted to have hematuria with nursing staff I'll obtain a UA as per the ER physician exam patient doesn't have any vaginal bleed. Patient appears to have psychiatric issues but not on any antipsychotic medications patient is on diuretic therapy with the metolazone and Lasix. Patient is also on lisinopril has prerenal function with a creatinine of 1.23 baseline 0.7. 03/08/2019 Patient is complaining of rectal bleeding. Hemoglobin is 9.9 dropped from 10.3 yesterday. Otherwise sodium level improved to 123 today. Patient is being Treated on IV hydration normal saline. Encourage oral intake. Urinalysis showed greater than 182 of WBC and RBC. Follow-up urine culture report. Patient does not have any fever or chills. No leukocytosis. No complaints of abdominal pain. Mentation is improving and patient is able to sit on the side of the bed today. No complaints of chest pain or shortness of breath. Gastroenterology service will be consulted if the patient continues to have rectal bleeding, most likely from hemorrhoids. 03/09/2019 Patient is more awake and alert and oriented today. Denied any rectal bleeding today. Hemoglobin is fairly stable at 9.9. GI recommends outpatient follow-up for colonoscopy. Otherwise urine culture showed ESBL E. coli. ID service will be consulted. No complaints of fever or chills. No nausea vomiting or abdominal pain. No leukocytosis. Patient will be continued on PT OT. IV hydration. Sodium level improved to 125 today. Potassium was is following as well. plans of chest pain or shortness of breath. no diarrhea. no nausea vomiting. 03/10/2019 Patient is awake alert and oriented 3. Currently tolerating oral diet. Patient is being continued on ertapenem due to ESBL E. coli urinary tract infection. No fever no chills. No leukocytosis. Patient is still having increased frequency of urination. Sodium level is 126. Patient is encouraged with solid diet increase. IV fluids have been discontinued. No chest pain or shortness of breath. No headache or dizziness or lightheadedness. No abdominal pain nausea vomiting 03/11/2019 Patient is awake alert oriented 3. Tolerating oral diet. Will recheck. Sodium level tomorrow. Otherwise patient is being continued on antibiotics in the form of ertapenem. ID is on board. Encourage oral diet. PT OT. Final ID recommendations regarding antibiotic course. Urinary frequency improved compared to yesterday. No fever no chills. No chest pain or shortness of breath. No nausea vomiting or abdominal pain. No other acute overnight issues. Current medications reviewed. Active Medications Acetaminophen (Tylenol Tab) 650 mg PO Q6HR PRN PRN Reason: Fever and/ or Pain Last Admin: 03/11/19 22:44 Dose: 650 mg Documented by: Albuterol/Ipratropium (Duoneb 0.5 Mg-3 Mg/3 Ml Soln) 3 ml INHALATION RT-Q4H PRN PRN Reason: Cough Last Admin: 03/11/19 07:55 Dose: 3 ml Documented by: Amlodipine Besylate (Norvasc) 5 mg PO DAILY [facility] Last Admin: 03/11/19 07:32 Dose: 5 mg Documented by: Atorvastatin Calcium (Lipitor) 10 mg PO HS [facility] Last Admin: 03/11/19 21:34 Dose: 10 mg Documented by: Budesonide (Pulmicort) 0.5 mg INHALATION RT-BID [facility] Last Admin: 03/11/19 20:07 Dose: Not Given Documented by: Gabapentin (Neurontin) 100 mg PO TID [facility] Last Admin: 03/11/19 21:34 Dose: 100 mg Documented by: Ertapenem 1 gm/ Sodium (Chloride) 50 mls @ 100 mls/hr IVPB DAILY [facility]; Protocol Last Admin: 03/11/19 10:44 Dose: 100 mls/hr Documented by: Insulin Aspart (Novolog) 0 unit SQ ACHS [facility]; Protocol Last Admin: 03/11/19 21:36 Dose: 1 unit Documented by: Melatonin (Melatonin) 5 mg PO HS [facility] Last Admin: 03/11/19 21:34 Dose: 5 mg Documented by: Miscellaneous Information (Potassium Per Protocol) 1 each MISCELLANE DAILY PRN; Protocol PRN Reason: Per Protocol Multi-Ingred Cream/Lotion/Oil/Oint (Triad Cream) 1 applic TOPICAL DAILY [facility] Last Admin: 03/11/19 10:44 Dose: 1 applic Documented by: Naloxone HCl (Narcan) 0.2 mg IV Q2M PRN PRN Reason: Opioid Reversal Nicotine (Habitrol 21mg/24hr Patch) 1 patch TRANSDERM DAILY [facility] Last Admin: 03/11/19 07:32 Dose: 1 patch Documented by: Nystatin (Mycostatin Powder) 1 applic TOPICAL BID PRN PRN Reason: Skin Irritation Last Admin: 03/11/19 07:37 Dose: 1 applic Documented by: Ondansetron HCl (Zofran) 4 mg IVP Q6HR PRN PRN Reason: Nausea And Vomiting Last Admin: 03/10/19 05:55 Dose: 4 mg Documented by: Phenazopyridine HCl (Pyridium) 100 mg PO TID [facility] Last Admin: 03/11/19 21:34 Dose: 100 mg Documented by: Potassium Chloride (K-Dur 10) 10 meq PO DAILY [facility] Last Admin: 03/11/19 07:32 Dose: 10 meq Documented by: Objective - Vital Signs Vital signs: Vital Signs Temp 99.8 F H 03/11/19 14:43 Pulse 90 03/11/19 14:43 Resp 17 03/11/19 14:43 BP 158/73 03/11/19 14:43 Pulse Ox 97 03/11/19 14:43 Intake & Output 03/11/19 03/11/19 03/12/19 06:59 18:59 06:59 Intake Total 236 Output Total 100 Balance -100 236 Intake: Oral 236 Output: Urine 100 Other: Voiding Method Bedside Commode Bedside Commode # Voids 1 1 # Bowel Movements 1 - Exam PHYSICAL EXAMINATION: GENERAL: The patient is alert and oriented x2-3, not in any acute distress. Well developed, well nourished. HEENT: Pupils are round and equally reacting to light. EOMI. No scleral icterus. No conjunctival pallor. Normocephalic, atraumatic. No pharyngeal erythema. No thyromegaly. CARDIOVASCULAR: S1 and S2 present. No murmurs, rubs, or gallops. PULMONARY: Significant expiratory wheezing with mildly diminished air entry into bilateral lung bean. ABDOMEN: Soft, nontender, nondistended, normoactive bowel sounds. No palpable organomegaly. MUSCULOSKELETAL: No joint swelling or deformity. EXTREMITIES: No cyanosis, clubbing, or pedal edema. NEUROLOGICAL: Gross neurological examination did not reveal any focal deficits. Does have significant generalized weakness SKIN: No rashes. - Labs CBC & Chem 7: 03/10/19 05:49 03/10/19 05:49 Labs: Abnormal Lab Results - Last 24 Hours (Table) 03/11/19 03/11/19 03/11/19 Range/Units 07:05 11:41 17:08 POC Glucose (mg/dL) 165 H 168 H 128 H (75-99) mg/dL 03/11/19 Range/Units 21:00 POC Glucose (mg/dL) 160 H (75-99) mg/dL Microbiology - Last 24 Hours (Table) 03/10/19 14:34 Blood Culture - Preliminary Blood No Growth after 24 hours Assessment and Plan Assessment: - Acute urinary tract infection with ESBL E. coli Acute Metabolic encephalopathy: Secondary to significant electrolyte abnormalities and infection. Morphine was discontinued. Patient is severely hyponatremic probably hyponatremia from a diuretic therapy patient will be started on IV fluids at 125 mL---75 ml per hour. IV fluids have been disc ontinued currently. -Hypovolemic hyponatremia: Management as mentioned above, no further workup for hyponatremia will be done unless patient's serum sodium doesn't improve with IV fluids. Patient had normal ejection fraction the past -Rectal bleeding likely due to hemorrhoidal bleed. Patient is having intermittent bright red blood per rectum. -Acute blood loss anemia secondary to above -Coronary artery disease -COPD with continued nicotine use patient will be started on inhalational treatments along with inhaled steroids. She doesn't improve patient will be started on oral steroids -GERD -Hyperlipidemia -Hypertension patient is presently hypotensive. Hypertension medications will be discontinued -Acute renal failure secondary to prerenal azotemia as well as hypotension and lisinopril will be discontinued. Improved now. DVT prophylaxis early ambulation because of her Time with Patient: Greater than 30
--- NOTE | 2019-03-11 23:59 | PN ---
PROGRESS NOTE DATE OF SERVICE: 03/11/2019 REASON FOR FOLLOWUP: ESBL E coli urinary tract infection. INTERVAL HISTORY: The patient is currently afebrile. The patient has been breathing comfortably. Denies having any chest pain or any cough. No abdominal pain. No further hematuria or bleeding per rectum. No diarrhea. PHYSICAL EXAMINATION: Blood pressure is 158/73 with a pulse of 90, temperature 99.8. She is 97% on room air. General description is an elderly female lying in bed in no distress. RESPIRATORY SYSTEM: Unlabored breathing. Clear to auscultation anteriorly. HEART: S1, S2. Regular rate and rhythm. ABDOMEN: Soft. No tenderness. LABS: No new labs have been obtained today. Repeat UA was positive culture apparently not done. DIAGNOSTIC IMPRESSION AND PLAN: Patient with extended-spectrum beta-lactamase Escherichia coli urinary tract infection, possible cystitis. She will receive her third dose of Invanz tomorrow, which should be more than enough. No need for any systemic antibiotic therapy at discharge. Continue with supportive care. MMODL / IJN: [id number] /
[2019-03-12] MEDS: HYDROcodone/APAP 5-325MG 1 EACH TAB PO PRN ×2 (01:42→07:27)
[2019-03-12 07:00] LABS: Glucose,Whole Blood 150 mg/dL (75-99)
[2019-03-12] MEDS: BUDESONIDE 0.5 MG/2 ML NEBU INHALATION SCH (07:13)
[2019-03-12] MEDS: PHENAZOPYRIDINE 100 MG TAB PO SCH (07:26)
[2019-03-12] MEDS: NICOTINE 21MG/24HR PATCH TRANSDERM SCH (07:26)
[2019-03-12] MEDS: amLODIPine 5 MG TAB PO SCH (07:27)
[2019-03-12] MEDS: GABAPENTIN 100 MG CAP PO SCH (07:27)
[2019-03-12] MEDS: POTASSIUM CHLORIDE ER 10 MEQ TAB.ER.PRT PO SCH (07:28)
[2019-03-12] MEDS: ERTAPENEM 1 GM in SODIUM CHLORIDE 0.9% 50 ML IVPB SCH (07:28)
[2019-03-12] MEDS: INSULIN ASPART (NovoLOG) 100 UNIT/ML VIAL SQ SCH ×2 (07:28→13:14)
[2019-03-12] MEDS: HYDROPHILIC CREAM 180 GM TUBE TOPICAL SCH (07:35)
[2019-03-12 11:36] LABS: Glucose,Whole Blood 159 mg/dL (75-99)
[2019-03-12 12:07] LABS: African American GFR (CKD) >90 (>60 ml/min/1.73 sqM); Anion Gap 10 mmol/L; Blood Urea Nitrogen 15 mg/dL (7-17); Calcium 9.6 mg/dL (8.4-10.2); Carbon Dioxide 25 mmol/L (22-30); Chloride 94 mmol/L (98-107); Glucose 115 mg/dL (74-99); Potassium 5.2 mmol/L (3.5-5.1); Sodium 129 mmol/L (137-145)
[2019-03-12 13:03] LABS: Anisocytosis Slight; Basophils # (A) 0.1 k/uL (0-0.2); Basophils % (A) 2 %; Eosinophils # (A) 0.3 k/uL (0-0.7); Eosinophils % (A) 4 %; HCT 29.6 % (34.0-46.0); HGB 10.3 gm/dL (11.4-16.0); Lymphocytes # (A) 1.3 k/uL (1.0-4.8); Lymphocytes % (A) 19 %; MCH 31.4 pg (25.0-35.0); MCHC 34.8 g/dL (31.0-37.0); MCV 90.4 fL (80.0-100.0); Mean Platelet Volume 7.2; Monocytes # (A) 0.5 k/uL (0-1.0); Monocytes % (A) 7 %; Neutrophils # (A) 4.5 k/uL (1.3-7.7); Neutrophils % (A) 66 %; Platelet Count 376 k/uL (150-450); RBC 3.28 m/uL (3.80-5.40); RDW 16.7 % (11.5-15.5); WBC 6.7 k/uL (3.8-10.6)
[2019-03-12 14:01] VITALS: BP 159/70; PULSE 80; RESP 16; TEMP 98.1
--- NOTE | 2019-03-12 16:42 | PN ---
PROGRESS NOTE DATE OF SERVICE: 03/12/2019 REASON FOR FOLLOWUP: ESBL E coli urinary tract infection. INTERVAL HISTORY: The patient is currently afebrile. The patient has been breathing comfortably. Denies having any chest pain or shortness of breath or cough. No nausea, vomiting, abdominal pain or diarrhea. She has been insisting on going home. PHYSICAL EXAMINATION: Her blood pressure is 159/70 with a pulse of 80, temperature 98.1. She is 97% on room air. General description is an elderly female up in the bed in no distress. RESPIRATORY SYSTEM: Unlabored breathing. Clear to auscultation anteriorly. HEART: S1, S2. Regular rate and rhythm. ABDOMEN: Soft. No tenderness. LABS: Hemoglobin is 10.8, white count 6.7, BUN of 15, creatinine 0.49. Blood cultures have been negative. DIAGNOSTIC IMPRESSION AND PLAN: Patient with a positive blood culture with extended-spectrum beta-lactamase Escherichia coli cystitis, adequately treated. She has received about 3 days of IV Invanz. No need for antibiotic on discharge. Continue supportive care. MMODL / IJN: [id number] /
== END 2019-03-12 15:18 | disposition home health service (06) | DRG 640 ==
LOC: EC 14:50 → 3SCARD 19:40 → 4MS4W 03-10 15:27
PROVIDERS: ADMIT Hospitalist; ATTEND Hospitalist
DX: E87.1 Hypo-osmolality and hyponatremia (principal); G93.41 Metabolic encephalopathy; D62 Acute posthemorrhagic anemia; N17.9 Acute kidney failure, unspecified; N30.91 Cystitis, unspecified with hematuria; B96.20 Unspecified Escherichia coli [E. coli] as the cause of diseases classified elsewhere; E11.40 Type 2 diabetes mellitus with diabetic neuropathy, unspecified; E78.5 Hyperlipidemia, unspecified; E86.1 Hypovolemia; E87.8 Other disorders of electrolyte and fluid balance, not elsewhere classified; F17.210 Nicotine dependence, cigarettes, uncomplicated; G89.29 Other chronic pain; I10 Essential (primary) hypertension; I25.10 Atherosclerotic heart disease of native coronary artery without angina pectoris; J44.9 Chronic obstructive pulmonary disease, unspecified; K21.9 Gastro-esophageal reflux disease without esophagitis; K64.9 Unspecified hemorrhoids; Z16.12 Extended spectrum beta lactamase (ESBL) resistance; Z79.84 Long term (current) use of oral hypoglycemic drugs; Z79.899 Other long term (current) drug therapy; Z88.6 Allergy status to analgesic agent; T50.2X5A Adverse effect of carbonic-anhydrase inhibitors, benzothiadiazides and other diuretics, initial encounter; L89.152 Pressure ulcer of sacral region, stage 2
CPT/HCPCS: 36415; 73502; 80048; 80053; 81001; 82272; 83036; 83605; 84484; 85025; 85027; 85610; 85730; 86850; 86900; 86901; 87040; 87077; 87086; 87186; 93005; 94640; 96361; 96374; 96375; 99285

== ENCOUNTER 2019-05-23 19:23 | Emergency (ER) | payer MEDICARE, OTHER ==
[2019-05-23 19:28] VITALS: TEMP 98.7
[2019-05-23] MEDS ORDERED: LIDOCAINE 5% PATCH TOPICAL STA (19:52)
[2019-05-23] MEDS ORDERED: Acetaminophen-Codeine 300-30mg TAB PO STA (19:52)
--- NOTE | 2019-05-23 20:25 | XR ---
EXAMINATION TYPE: XR pelvis AP view DATE OF EXAM: 05/23/2019 COMPARISON: 03/06/2019 HISTORY: Pain TECHNIQUE: Single view FINDINGS: Pelvic ring is intact. The proximal femurs are intact. Sacroiliac joints appear intact. IMPRESSION: No fracture seen.
--- NOTE | 2019-05-23 21:20 | ED ---
Back Pain HPI - General Source: EMS Limitations: no limitations <Charles Morfin - Last Filed: 05/24/19 00:48> <Debra Yoo - Last Filed: 05/31/19 20:51> - General Chief Complaint: Back Pain/Injury Stated Complaint: Rt Buttock Pain Time Seen by Provider: 05/23/19 19:29 - History of Present Illness Initial Comments: Patient is 63-year-old female presenting to the emergency room with a chief complaint of sacral pain. Patient reports 10 months ago she injured her sacral after fall. She had imaging performed that yielded no fractures although her pain continues to prevail. Patient reports the pain comes on and off since the incident occurred. He states the pain has been exacerbated over the last week as it radiates along the posterior aspect of her right upper leg. Patient also reports it caused her to limit her ambulation which eventually created a pressure ulcer in the region. She states a home nurse has been taking care of her for the last several weeks. Patient states the nurse stopped coming for the last 2 weeks because the ulcer had healed. Patient denies any night sweats fevers or chills. Patient denies saddle anesthesia, urinary bowel incontinence. (Charles Morfin) - Related Data Home Medications Medication Instructions Recorded Confirmed metFORMIN HCL 500 mg PO DAILY 12/21/13 05/31/19 Ranitidine HCl [Zantac] 300 mg PO BID 01/19/14 05/31/19 Simvastatin 20 mg PO HS 05/30/15 05/31/19 Lisinopril 30 mg PO DAILY 12/31/18 05/31/19 Triamcinolone 0.1% Cream [Kenalog 1 applic TOPICAL DAILY PRN 12/31/18 05/31/19 0.1% Cream] traZODone HCL 50 - 100 mg PO HS 12/31/18 05/31/19 Albuterol Inhaler [Ventolin Hfa 2 puff INHALATION RT-QID PRN 03/06/19 05/31/19 Inhaler] amLODIPine [Norvasc] 5 mg PO DAILY 03/06/19 05/31/19 Ferrous Sulfate [Feosol] 325 mg PO DAILY 05/31/19 05/31/19 Folic Acid 1 mg PO DAILY 05/31/19 05/31/19 Gabapentin [Neurontin] 300 mg PO BID 05/31/19 05/31/19 Multivitamins, Thera [Multivitamin 1 tab PO DAILY 05/31/19 05/31/19 (formulary)] Thiamine [Vitamin B-1] 100 mg PO DAILY 05/31/19 05/31/19 Allergies Allergy/AdvReac Type Severity Reaction Status Date / Time aspirin AdvReac nose bleeds Verified 05/31/19 10:42 Review of Systems ROS Other: All systems not noted in ROS Statement are negative. <Charles Morfin - Last Filed: 05/24/19 00:48> ROS Other: All systems not noted in ROS Statement are negative. <Debra Yoo - Last Filed: 05/31/19 20:51> ROS Statement: Those systems with pertinent positive or pertinent negative responses have been documented in the HPI. Past Medical History Past Medical History: Coronary Artery Disease (CAD), Diabetes Mellitus, GERD/Reflux, Hyperlipidemia, Hypertension Additional Past Medical History / Comment(s): Diabetic neuropathy to bilateral upper and lower extremities, postmenopausal vaginal bleeding, necrotizing fasciitis the right thigh status post skin grafts at [facility] in 2017 History of Any Multi-Drug Resistant Organisms: ESBL Date of last positivie culture/infection: 03/07/19 MDRO Source:: ESBL URINE Past Surgical History: Tubal Ligation Additional Past Surgical History / Comment(s): recent skin grafts in nida groin Past Anesthesia/Blood Transfusion Reactions: No Reported Reaction Past Psychological History: No Psychological Hx Reported Smoking Status: Current every day smoker Past Alcohol Use History: None Reported Past Drug Use History: None Reported - Past Family History Mother Family Medical History: Dementia <Charles Morfin - Last Filed: 05/24/19 00:48> General Exam Limitations: no limitations General appearance: alert, in no apparent distress Head exam: Present: atraumatic, normocephalic, normal inspection Eye exam: Present: normal appearance Pupils: Present: normal accommodation ENT exam: Present: normal exam, mucous membranes moist Neck exam: Present: normal inspection, full ROM Respiratory exam: Present: normal lung sounds bilaterally Cardiovascular Exam: Present: regular rate, normal rhythm, normal heart sounds Extremities exam: Present: normal inspection, full ROM Back exam: Present: full ROM, tenderness (Tenderness at the coccyx. Positive leg raise test). Absent: normal inspection (Pressure ulcer that is healing well. No apparent trauma to the sacrum.), CVA tenderness (R), CVA tenderness (L) Neurological exam: Present: alert, oriented X3 Psychiatric exam: Present: normal affect, normal mood Skin exam: Present: warm, dry, intact, normal color <Charles Morfin - Last Filed: 05/24/19 00:48> Course Vital Signs 05/23/19 05/23/19 19:24 21:57 Temperature 98.7 F Pulse Rate 80 Respiratory 22 Rate Blood Pressure 159/93 139/79 O2 Sat by Pulse 99 Oximetry Medical Decision Making <Charles Morfin - Last Filed: 05/24/19 00:48> <Debra Yoo - Last Filed: 05/31/19 20:51> - Medical Decision Making Patient is 63-year-old female presenting to emergency Department with a chief complaint of sacral pain. X-ray of the region is negative. On exam patient does have tenderness at the coccyx appears to be radiating along the posterior aspect of the right leg. Patient does have a positive leg raise test. Also a healing pressure ulcer is evident on exam. No signs of infection. Patient given a Tylenol 3 tablet and a Lidoderm patch. Patient reports improvement of symptoms. I suspect the symptoms to be related to a sacral radiculopathy which is causing radiation of the pain along the posterior aspect of the right leg. Patient advised to follow-up with orthopedics and further management. Strict return parameters were thoroughly discussed the patient was understanding and agreeable. Patient advised to take [id number] analgesics for improvement. Case discussed with physician. (Charles Morfin) I was available for consultation in the emergency department. The history and physical exam were done by the midlevel provider. I was consulted for this patients care. I reviewed the case with the midlevel provider and based on their presentation of the patient, I agree with the assessment, medical decision making and plan of care as documented. The patient did not demonstrate any signs of cauda equina or focal neurologic deficit throughout evaluation. Patient was able to ambulate upon discharge. Return parameters were discussed. Chart was dictated using Canvas dictation software. Attempts were made to correct any dictation errors however some typographical errors may persist. (Debra Yoo) Disposition Is patient prescribed a controlled substance at d/c from ED?: No Time of Disposition: 21:20 <Charles Morfin - Last Filed: 05/24/19 00:48> <Debra Yoo - Last Filed: 05/31/19 20:51> Clinical Impression: Coccygeal pain, chronic Disposition: HOME SELF-CARE Condition: Stable Instructions (If sedation given, give patient instructions): Acute Low Back Pain (ED) Additional Instructions: Please follow up with primary care and obtain referral for physical therapy. Please return to emergency department if symptoms worsen. Alternate between Tylenol and ibuprofen every 4-6 hours for pain control. Please return to emergency department if symptoms worsen. Referrals: Huma Edgar MD [Primary Care Provider] - 1-2 days Colin Dewey PAC [PHYSICIAN LINE LEAD] - 1-2 days
[2019-05-23 21:59] VITALS: BP 139/79; PULSE 80; RESP 22
== END 2019-05-23 21:58 | disposition home or self-care (01) ==
LOC: EC 19:23
DX: M53.3 Sacrococcygeal disorders, not elsewhere classified (principal); G89.29 Other chronic pain; L89.159 Pressure ulcer of sacral region, unspecified stage; I25.10 Atherosclerotic heart disease of native coronary artery without angina pectoris; E11.42 Type 2 diabetes mellitus with diabetic polyneuropathy; K21.9 Gastro-esophageal reflux disease without esophagitis; E78.5 Hyperlipidemia, unspecified; I10 Essential (primary) hypertension; F17.200 Nicotine dependence, unspecified, uncomplicated; Z88.6 Allergy status to analgesic agent; Z79.84 Long term (current) use of oral hypoglycemic drugs; Z79.899 Other long term (current) drug therapy; Z87.828 Personal history of other (healed) physical injury and trauma
CPT/HCPCS: 72170; 99283

== ENCOUNTER 2019-05-30 15:31 | Inpatient (IN) | payer MEDICARE, OTHER ==
[2019-05-30] MEDS ORDERED: SODIUM CHLORIDE 0.9% 1,000 ML IV STA (16:32)
[2019-05-30] MEDS ORDERED: ONDANSETRON 4 MG/2 ML VIAL IVP STA (16:32)
[2019-05-30] MEDS ORDERED: MORPHINE SULFATE 4 MG/ML SYRINGE IV STA (16:32)
[2019-05-30] MEDS ORDERED: KETOROLAC 30 MG/ML 1 ML VIAL IVP STA (16:32)
--- NOTE | 2019-05-30 16:55 | ED ---
Back Pain HPI - General Chief Complaint: Back Pain/Injury Stated Complaint: Back Pain Time Seen by Provider: 05/30/19 16:09 Source: patient, EMS, RN notes reviewed, old records reviewed Limitations: no limitations - History of Present Illness Initial Comments: Patient is a 63-year-old female presents emergency department today with inability to take care of himself at home. She's been dealing with some back pain and right-sided leg pain. She reports unable to walk due to the pain and numbness in her bilateral lower extremities. She denies any septic falls but feels that she is weak on her legs and her boyfriend's house and help carry her. Patient is a heavy smoker. She reports she's had a history of infection in her legs which required skin grafts in the past. She also states that she's had no saddle anesthesias. She does report a history of incontinence in the past and does have to wear depends. - Related Data Home Medications Medication Instructions Recorded Confirmed metFORMIN HCL 500 mg PO DAILY 12/21/13 03/06/19 Ranitidine HCl [Zantac] 300 mg PO BID 01/19/14 03/06/19 Simvastatin 20 mg PO HS 05/30/15 03/06/19 Lisinopril 30 mg PO DAILY 12/31/18 03/06/19 Triamcinolone 0.1% Cream [Kenalog 1 applic TOPICAL DAILY PRN 12/31/18 03/06/19 0.1% Cream] traZODone HCL 50 - 100 mg PO HS 12/31/18 03/06/19 Albuterol Inhaler [Ventolin Hfa 2 puff INHALATION RT-QID PRN 03/06/19 03/06/19 Inhaler] Cetirizine HCl [Zyrtec] 10 mg PO DAILY 03/06/19 03/06/19 Nystatin [Nystop] 1 applic TOPICAL BID PRN 03/06/19 03/06/19 amLODIPine [Norvasc] 5 mg PO DAILY 03/06/19 03/06/19 Allergies Allergy/AdvReac Type Severity Reaction Status Date / Time aspirin AdvReac nose bleeds Verified 03/06/19 17:14 Review of Systems ROS Statement: Those systems with pertinent positive or pertinent negative responses have been documented in the HPI. ROS Other: All systems not noted in ROS Statement are negative. Past Medical History Past Medical History: Coronary Artery Disease (CAD), Diabetes Mellitus, GERD/Reflux, Hyperlipidemia, Hypertension Additional Past Medical History / Comment(s): Diabetic neuropathy to bilateral upper and lower extremities, postmenopausal vaginal bleeding, necrotizing fasciitis the right thigh status post skin grafts at [facility] in 2017 History of Any Multi-Drug Resistant Organisms: ESBL Date of last positivie culture/infection: 03/07/19 MDRO Source:: ESBL URINE Past Surgical History: Tubal Ligation Additional Past Surgical History / Comment(s): recent skin grafts in nida groin Past Anesthesia/Blood Transfusion Reactions: No Reported Reaction Past Psychological History: No Psychological Hx Reported Smoking Status: Current every day smoker Past Alcohol Use History: None Reported Past Drug Use History: None Reported - Past Family History Mother Family Medical History: Dementia General Exam Limitations: no limitations Head exam: Present: atraumatic Eye exam: Present: normal appearance, PERRL, EOMI. Absent: scleral icterus, conjunctival injection, periorbital swelling ENT exam: Present: normal exam, mucous membranes moist Neck exam: Present: normal inspection. Absent: tenderness, meningismus, lymphadenopathy Respiratory exam: Present: normal lung sounds bilaterally. Absent: respiratory distress, wheezes, rales, rhonchi, stridor Cardiovascular Exam: Present: regular rate, normal rhythm, normal heart sounds. Absent: systolic murmur, diastolic murmur, rubs, gallop, clicks GI/Abdominal exam: Present: soft, normal bowel sounds. Absent: distended, tenderness, guarding, rebound, rigid Extremities exam: Present: normal inspection, full ROM, normal capillary refill, other (Reports history of neuropathy. She does have dorsalis pedis pulses bilaterally. Patient has tenderness over her lumbar spine and right buttocks.). Absent: tenderness, pedal edema, joint swelling, calf tenderness Back exam: Present: normal inspection Neurological exam: Present: alert, oriented X3, CN II-XII intact Course Vital Signs 05/30/19 15:34 Temperature 98.0 F Pulse Rate 98 Respiratory 18 Rate Blood Pressure 160/89 O2 Sat by Pulse 100 Oximetry Medical Decision Making - Medical Decision Making Patient is a 63-year-old female presents for his pharmacy of failure to thrive, multiple falls due to back pain. She seen her determine one week ago but has not been able to follow-up with back specialist. This Was performed today due to this right-sided back pain with complaints of numbness and tingling down the leg and there is evidence of L3 compression fracture age indeterminate. She reports she's never been told this before. Patient's labwork was reviewed relatively unremarkable. Urinalysis is pending. Patient's family states she is unable to walk at home or report daily activities due to this back pain. She denies any saddle anesthesia this time but does wear depends for chronic inc ontinence. Rectal tone is normal. - Lab Data Result diagrams: 05/30/19 16:58 05/30/19 16:58 Lab Results 05/30/19 05/30/19 05/30/19 Range/Units 16:58 16:58 16:58 WBC 7.8 (3.8-10.6) k/uL RBC 4.24 (3.80-5.40) m/uL Hgb 11.8 (11.4-16.0) gm/dL Hct 36.0 (34.0-46.0) % MCV 84.9 (80.0-100.0) fL MCH 27.9 (25.0-35.0) pg MCHC 32.9 (31.0-37.0) g/dL RDW 15.2 (11.5-15.5) % Plt Count 432 (150-450) k/uL Neutrophils % 75 % Lymphocytes % 14 % Monocytes % 5 % Eosinophils % 4 % Basophils % 1 % Neutrophils # 5.9 (1.3-7.7) k/uL Lymphocytes # 1.1 (1.0-4.8) k/uL Monocytes # 0.4 (0-1.0) k/uL Eosinophils # 0.3 (0-0.7) k/uL Basophils # 0.0 (0-0.2) k/uL Poikilocytosis Slight PT 10.2 (9.0-12.0) sec INR 0.9 (<1.2) APTT 25.6 (22.0-30.0) sec Sodium 133 L (137-145) mmol/L Potassium 3.5 (3.5-5.1) mmol/L Chloride 96 L (98-107) mmol/L Carbon Dioxide 27 (22-30) mmol/L Anion Gap 10 mmol/L BUN 20 H (7-17) mg/dL Creatinine 0.85 (0.52-1.04) mg/dL Est GFR (CKD-EPI)AfAm 84 (>60 ml/min/1.73 sqM) Est GFR (CKD-EPI)NonAf 72 (>60 ml/min/1.73 sqM) Glucose 115 H (74-99) mg/dL Calcium 10.0 (8.4-10.2) mg/dL Total Bilirubin 0.7 (0.2-1.3) mg/dL AST 12 L (14-36) U/L ALT 8 L (9-52) U/L Alkaline Phosphatase 104 (38-126) U/L Total Protein 7.7 (6.3-8.2) g/dL Albumin 4.5 (3.5-5.0) g/dL Amylase 41 (30-110) U/L Lipase 40 (23-300) U/L - Radiology Data Radiology results: report reviewed CT of lumbar spine shows age-indeterminate compression fracture of L3 without retropulsion. Mild height loss at T11 is also noted. Multilevel degenerative changes within L2 through L3 and L3-L4 with there is 7 grade anterolisthesis and likely severe spinal Stenosis due to distant ration of acid arthropathy. Multilevel neural foraminal impingement. CT of the pelvis shows mild bilateral femoral acetabular arthropathy. Sent fluid level in from the umbilical pole measuring area. Sigmoid diverticulosis without evidence of diverticulitis. Chest x-ray shows diffuse interstitial prominence is mildly exaggerated by low lung volumes. This can be seen and bronchitis reactive airway disease or atypical pneumonia. Fluid overload is possible but less likely. Disposition Clinical Impression: Hip pain, Compression fracture of L3 vertebra, Intractable pain, Multiple falls Disposition: ADMITTED IP TO THIS HOSP Condition: Stable Is patient prescribed a controlled substance at d/c from ED?: No Referrals: Huma Edgar MD [Primary Care Provider] - 1-2 days Time of Disposition: 19:08
[2019-05-30 17:13] LABS: Basophils % (A) 1 %; Eosinophils # (A) 0.3 k/uL (0-0.7); Eosinophils % (A) 4 %; HGB 11.8 gm/dL (11.4-16.0); Lymphocytes # (A) 1.1 k/uL (1.0-4.8); Lymphocytes % (A) 14 %; MCH 27.9 pg (25.0-35.0); MCHC 32.9 g/dL (31.0-37.0); MCV 84.9 fL (80.0-100.0); Mean Platelet Volume 6.4; Monocytes # (A) 0.4 k/uL (0-1.0); Monocytes % (A) 5 %; Neutrophils # (A) 5.9 k/uL (1.3-7.7); Neutrophils % (A) 75 %; Platelet Count 432 k/uL (150-450); Poikilocytosis Slight; RBC 4.24 m/uL (3.80-5.40); RDW 15.2 % (11.5-15.5); WBC 7.8 k/uL (3.8-10.6)
[2019-05-30 17:22] LABS: INR 0.9 (<1.2); Partial Thromboplastin Time 25.6 sec (22.0-30.0); Prothrombin Time 10.2 sec (9.0-12.0)
[2019-05-30 17:28] LABS: Albumin 4.5 g/dL (3.5-5.0); Potassium 3.5 mmol/L (3.5-5.1); Total Bilirubin 0.7 mg/dL (0.2-1.3); Total Protein 7.7 g/dL (6.3-8.2)
--- NOTE | 2019-05-30 18:01 | XR ---
EXAMINATION TYPE: XR chest 2V DATE OF EXAM: 05/30/2019 COMPARISON: 12/31/2018 HISTORY: Cough. History of tobacco abuse. TECHNIQUE: Frontal and lateral views of the chest are obtained. FINDINGS: Low lung volumes exaggerate the pulmonary vasculature. Slight diffuse interstitial prominen ce. There is no focal air space opacity, pleural effusion, or pneumothorax seen. The cardiac silhoue tte size is within normal limits. The osseous structures are intact. Mild multilevel degenerative c hanges of the spine. IMPRESSION: Diffuse interstitial prominence is mild and exaggerated by low lung volumes. This can be seen in bronchitis, reactive airway disease or atypical pneumonia. Fluid overload is possible but le ss likely.
--- NOTE | 2019-05-30 18:11 | CT ---
EXAMINATION TYPE: CT pelvis wo con DATE OF EXAM: 05/30/2019 COMPARISON: CT of the right hip dated 12/31/2018 HISTORY: back pain, no known injury CT DLP: 369.7 mGycm Automated exposure control for dose reduction was used. FINDINGS: There is an infraumbilical fat filled hernia also containing a small amount of fluid. No bowel enters the hernia defect. Numerous sigmoid diverticula are seen without pericolonic fat stranding. No dilat ed large or small bowel. Atheromatous changes of the abdominal aorta and its branches. Gluteal muscul ar atrophy is seen. Sacroiliac joints demonstrate mild opposing surface sclerosis from degenerative c hange without widening or fracture. There is mild cephalad joint space narrowing and acetabular roof sclerosis of the hips. Degenerative disc disease of the lumbar spine will be discussed in the lumbar spine radiograph of the same date. IMPRESSION: 1. MILD BILATERAL FEMORAL ACETABULAR ARTHROPATHY. 2. FAT AND FLUID-FILLED INFRAUMBILICAL POLE VENTRAL HERNIA. 3. SIGMOID DIVERTICULOSIS WITHOUT EVIDENCE OF DIVERTICULITIS.
--- NOTE | 2019-05-30 18:23 | CT ---
EXAMINATION TYPE: CT lumbar spine wo con DATE OF EXAM: 05/30/2019 5:51 PM COMPARISON: None HISTORY: Back pain CT DLP: 1375.8 mGycm Automated exposure control for dose reduction was used. Unenhanced CT of the lumbar spine was performed. Bone and soft tissue window settings are submitted as well as coronal and sagittal reconstructions. Findings: 5 lumbar type vertebral bodies. Grade 1 anterolisthesis of L2 over L3 and L3 over L4 is likely degene rative in etiology. There is mild age-indeterminate loss of L3 along the anterior superior endplates; no fracture line extension through the posterior cortex, to the posterior elements, or osseous retro pulsion. There is also mild height loss of T11 anteriorly, also age indeterminate. Multilevel disc degeneration with vacuum disc phenomenon at L2-L3 and L3-L4 and intradiscal calcifica tion at L4-L5; mild disc height loss at these levels. Advanced facet arthropathy from L2-S1. Combinat ion of disc bulge with facet arthropathy and ligamentum flavum hypertrophy/calcification contributes to severe spinal canal stenosis at L2-L3 and L3-L4. Multilevel neural foraminal impingement, at least moderate in degree at L4-L5 and L5-S1 on the left. Aortoiliac vascular calcifications. IMPRESSION: 1. Age-indeterminate compression fracture of L3 without retropulsion. Mild height loss of T11 is also noted, age indeterminate. 2. Multilevel degenerative changes, greatest in degree at L2-L3 and L3-L4 where there is degenerative grade 1 anterolisthesis and likely severe spinal canal stenosis due to disc degeneration and facet a rthropathy. Multilevel neural foraminal impingement.
[2019-05-30] MEDS ORDERED: IBUPROFEN 400 MG TAB PO PRN (19:08)
[2019-05-30] MEDS ORDERED: NALOXONE 0.4 MG/ML 1 ML VIAL IV PRN (19:08)
[2019-05-30] MEDS ORDERED: ONDANSETRON 4 MG/2 ML VIAL IVP PRN (19:08)
[2019-05-30] MEDS ORDERED: ACETAMINOPHEN TAB 325 MG TAB PO PRN (19:08)
[2019-05-30] MEDS ORDERED: HYDROmorphone 1 MG/ML 1 ML SYRINGE IVP STA (19:10)
[2019-05-30] MEDS ORDERED: methylPREDNISolone SOD SUCCI 125 MG/2 ML VIAL IV STA (19:10)
[2019-05-30] MEDS: SODIUM CHLORIDE 0.9% 1,000 ML IV SCH (19:29)
[2019-05-30 19:37] LABS: Appearance,Urine Turbid (Clear); Bacteria,Urine Moderate /hpf; Bilirubin,Urine Negative (Negative); Blood,Urine Moderate (Negative); Color,Urine Yellow; Glucose,Urine (UA) Negative (Negative); Ketones,Urine Negative (Negative); Leukocyte Esterase,Urine Large (Negative); Nitrite,Urine Positive (Negative); PH, Urine 6.5 (5.0-8.0); Protein,Urine 1+ (Negative); RBC,Urine 30 /hpf (0-5); Specific Gravity,Urine 1.018 (1.001-1.035); Squamous Epithelial Cell,Urine 47 /hpf (0-4)
[2019-05-31] MEDS: MORPHINE SULFATE 4 MG/ML SYRINGE IV PRN ×5 (00:28→21:43)
[2019-05-31] MEDS: SODIUM CHLORIDE 0.9% 1,000 ML IV SCH ×2 (05:13→17:54)
[2019-05-31] MEDS ORDERED: DIAZEPAM 5 MG TAB PO PRN (07:47)
[2019-05-31] MEDS ORDERED: PANTOPRAZOLE 40 MG/10 ML VIAL IV SCH (09:00)
--- NOTE | 2019-05-31 11:07 | MR ---
EXAMINATION TYPE: MR lumbar spine wo con DATE OF EXAM: 05/31/2019 COMPARISON: CT scan 05/30/2019 HISTORY: Back pain TECHNIQUE: T1 and T2 axial and sagittal images of the lumbar spine are submitted. FINDINGS: There is no abnormal signal seen within the visualized spinal cord or paraspinal soft tissu es. Bladder is markedly distended mild thickening of the adrenal glands is a nonspecific finding. Aor ta of normal caliber. Multilevel severe degenerative disc disease with vacuum disc at L2-3 and L3-4. Severe degenerative disc disease L4-5 and moderate changes at L5-S1. Simple appearing right renal cys t noted. Cortical loss involving the right kidney noted. At L1-2 there is no disc herniation or canal stenosis. No foraminal encroachment. Mild hypertrophic c hanges facets. At L2-3 there is severe degenerative disc disease with advanced facet arthropathy and ligamentum flav um hypertrophy. Central disc broad-based protrusion results in severe canal stenosis. There is severe right-sided foraminal encroachment Moderate left foraminal encroachment. Greater disc protrusion laterally to the right. Minimal anterol isthesis L2 on L3. At L3-4 there is advanced facet arthropathy with broad-based disc protrusion and ligamentum flavum hy pertrophy result in moderate to severe canal stenosis and bilateral foraminal encroachment. Grade 1 a nterolisthesis L3 on L4. Chronic superior endplate compression fracture of L3 stable. At L4-5 there is marked facet arthropathy. No evidence of disc herniation. No Canal stenosis. Moderat e left foraminal encroachment. Mild broad-based central disc bulging. At L5-S1 there is facet arthropathy. There is disc bulging greater paracentrally and laterally to lef t with mild to moderate left foraminal encroachment. IMPRESSION: 1. Chronic appearing mild superior endplate compression fracture L3 with advanced hypertrophic change s and facet arthropathy and disc bulging resulting in moderate to severe canal stenosis. Grade 1 ante rolisthesis. 2. Severe canal stenosis severe right-sided foraminal encroachment and moderate left foraminal encroa chment L2-L3 due to hypertrophic changes and central broad-based disc protrusion. 3. Multilevel severe degenerative disc disease and facet arthropathy. 4. Multilevel foraminal encroachment. 5. Bladder is markedly distended.
[2019-05-31 11:28] LABS: Glucose,Whole Blood 120 mg/dL (75-99)
[2019-05-31] MEDS: INSULIN ASPART (NovoLOG) 100 UNIT/ML VIAL SQ SCH ×3 (11:45→21:41)
--- NOTE | 2019-05-31 12:40 | P.CNOR ---
History of Present Illness - HPI Consult date: 05/31/19 Consult reason: low back pain, other History of present illness: Patient is a 63-year-old female with multiple medical issues in his hospital in regards to intractable low back pain and lower extremity radiculopathy. The patient says that she has had back pain for years but it worsened after she fell back in July. She says she has pain primarily at her lower back and into her lower extremities bilaterally. She says is slightly worse on the right and left. The pain extends over her thighs and lateral thighs and down to her shins. She says she has not had any treatment for this at all in the past. She denies taking any anti-inflammatories or medications. She says that over the past few weeks she has been having significant worsening with any sort of mobilization particularly over the past 2 weeks. She says that she is essentially unable to ambulate at this point. She feels that she is weak but is mainly due to her pain. She normally lives at home and ambulate with her boyfriend's walker but she has been having decreased ability to do this. She denies any changes in bowel bladder function. Denies any nausea or vomiting. Denies any chest pain shortness of breath. This has falling at home back in July she denies any other trauma or injury. Review of Systems As stated in HPI. Denies any bowel or bladder changes. Denies any fevers chills. Denies any trauma other than falling at home in July. Denies any chest pain shortness breath Past Medical History Past Medical History: Coronary Artery Disease (CAD), Diabetes Mellitus, GERD/Reflux, Hyperlipidemia, Hypertension Additional Past Medical History / Comment(s): Diabetic neuropathy to bilateral upper and lower extremities, postmenopausal vaginal bleeding, necrotizing fasciitis the right thigh status post skin grafts at [facility] in 2017 History of Any Multi-Drug Resistant Organisms: ESBL Year Discovered:: 03/07/19 MDRO Source:: ESBL URINE Past Surgical History: Hysterectomy, Tubal Ligation Additional Past Surgical History / Comment(s): recent skin grafts in nida groin Past Anesthesia/Blood Transfusion Reactions: No Reported Reaction Past Psychological History: No Psychological Hx Reported Smoking Status: Current every day smoker Past Alcohol Use History: None Reported Additional Past Alcohol Use History / Comment(s): Patient is a smoker of 1/2 pack per day since she was 14 years of age. She denies any medical marijuana, marijuana or street drug use. She denies any alcohol use. Patient has no pets in the home and she denies any recent travel. Past Drug Use History: None Reported - Past Family History Mother Family Medical History: Dementia Medications and Allergies Home Medications Medication Instructions Recorded Confirmed Type metFORMIN HCL 500 mg PO DAILY 12/21/13 05/31/19 History Ranitidine HCl [Zantac] 300 mg PO BID 01/19/14 05/31/19 History Simvastatin 20 mg PO HS 05/30/15 05/31/19 History Lisinopril 30 mg PO DAILY 12/31/18 05/31/19 History Triamcinolone 0.1% Cream [Kenalog 1 applic TOPICAL DAILY PRN 12/31/18 05/31/19 History 0.1% Cream] traZODone HCL 50 - 100 mg PO HS 12/31/18 05/31/19 History Albuterol Inhaler [Ventolin Hfa 2 puff INHALATION RT-QID PRN 03/06/19 05/31/19 History Inhaler] amLODIPine [Norvasc] 5 mg PO DAILY 03/06/19 05/31/19 History Ferrous Sulfate [Feosol] 325 mg PO DAILY 05/31/19 05/31/19 History Folic Acid 1 mg PO DAILY 05/31/19 05/31/19 History Gabapentin [Neurontin] 300 mg PO BID 05/31/19 05/31/19 History Multivitamins, Thera [Multivitamin 1 tab PO DAILY 05/31/19 05/31/19 History (formulary)] Thiamine [Vitamin B-1] 100 mg PO DAILY 05/31/19 05/31/19 History Allergies Allergy/AdvReac Type Severity Reaction Status Date / Time aspirin AdvReac nose bleeds Verified 05/31/19 10:42 Physical Examination Osteopathic Statement: *. No significant issues noted on an osteopathic structural exam other than those noted in the History and Physical/Consult. - L Spine: dermatomal strength & reflexes bilateral Strength: hip flexion: 5/5 (At her back she has pain with motion and mobilization in her back but she is able to turn to her side. Her lower extremity is she is able to lift her legs up off the bed independently though she is somewhat reluctant to do so. She has 5 out of 5 strength with dorsi flexion plantar flexion and EHL hip flexion and knee extension. Calves and thighs soft nontender. Her hips are nontender with internal and external rotation. Sensory is intact.) Results - Labs Labs: Abnormal Lab Results - Last 24 Hours (Table) 05/30/19 05/30/19 12 Range/Units 16:58 19:18 11:26 Sodium 133 L (137-145) mmol/L Chloride 96 L (98-107) mmol/L BUN 20 H (7-17) mg/dL Glucose 115 H (74-99) mg/dL POC Glucose (mg/dL) 120 H (75-99) mg/dL AST 12 L (14-36) U/L ALT 8 L (9-52) U/L Urine Appearance Turbid H (Clear) Urine Protein 1+ H (Negative) Urine Blood Moderate H (Negative) Urine Nitrite Positive H (Negative) Ur Leukocyte Esterase Large H (Negative) Urine RBC 30 H (0-5) /hpf Urine WBC 150 H (0-5) /hpf Ur Squamous Epith Cells 47 H (0-4) /hpf Urine Bacteria Moderate H (None) /hpf Microbiology - Last 24 Hours (Table) 05/30/19 19:18 Urine Culture - Preliminary Urine,Voided H & H 05/30/19 Range/Units 16:58 Hgb 11.8 (11.4-16.0) gm/dL Hct 36.0 (34.0-46.0) % Coagulation 05/30/19 Range/Units 16:58 INR 0.9 (<1.2) Result Diagrams: 05/30/19 16:58 05/30/19 16:58 - Diagnostic results Lumbar MRI with/without contrast: report reviewed, image reviewed (Lumbar MRI without contrast and lumbar CT are reviewed. I reviewed the reports as well. She has evidence of chronic compression deformity at L3 with about 25% height loss shows has evidence of spondylolisthesis grade 1 at L3 4 she has evidence of severe stenosis L2-3 and L3 4 with bilateral foraminal stenosis. There are some degenerative disc disease L4 5 as well. And some facet arthrosis L4 5 L5-S1.) CT Scan - lumbar: report reviewed Assessment and Plan Assessment: Acute on chronic exacerbation of low back pain and lower extremity radiculopathy Severe spinal stenosis with neurogenic claudication Subjective lower extremity weakness due to pain Chronic compression deformity L3 due to a fall in July Degenerative spondylosis Global deconditioning History of coronary artery disease hypertension and diabetes Plan: Acute on chronic exacerbation of low back pain and lower extremity radiculopathy Severe spinal stenosis with neurogenic claudication Subjective lower extremity weakness due to pain Chronic compression deformity L3 due to a fall in July Degenerative spondylosis Global deconditioning History of coronary artery disease hypertension and diabetes The patient has had worsening of her ability to mobilize and ambulate due to her spinal stenosis and radiculopathy. She is still having the ability to use her legs but she has significant pain with it. She does not seem to have a focal neurologic deficit. She does have severe stenosis L2-3 and L3 4 which are the primary cause of her symptoms. There is a compression deformity at L3 which appears to be chronic and I think it is stable. The time of her fracture may have exacerbated her spondylosis in her lumbar spine leading to further deconditioning and decreased mobility. She may have some benefit with acute conservative treatment. I would like to see if she has some benefit with IV steroid medication. This may be followed with oral tapering dose. We will start her on Friday medical today. She can have some benefit with formal physical therapy we will have therapy see her to increase her mobilization and ambulation. I do not think she requires lumbar spine brace at this point as the fracture appears to be chronic. She may have some benefit with interventional pain management. This may give her the most quick improvement and would like to have interventional pain management see her for the possibly of epidural steroid injections. I discussed this with her and her and they seem agreeable. I tried to answer the questions best my ability. The patient would be a candidate for surgical intervention if all other conservative measures were to fail. We would not plan acute surgical intervention on this admission if she can avoid it. We will see if conservative measures and interventional pain management allows her to have some improvement prior to considering acute surgical intervention. Time with Patient: Greater than 30
[2019-05-31] MEDS ORDERED: TRIAMCINOLONE 0.1% CREAM 80 GM TUBE TOPICAL PRN (12:46)
[2019-05-31] MEDS ORDERED: ALBUTEROL NEBULIZED 2.5 MG/3 ML INHALATION PRN (12:46)
[2019-05-31] MEDS: metFORMIN 500 MG TAB PO SCH (13:11)
[2019-05-31] MEDS: NICOTINE 21MG/24HR PATCH TRANSDERM SCH (13:11)
--- NOTE | 2019-05-31 13:34 | P.CNOR ---
History of Present Illness - [facility] Consult date: 05/31/19 Requesting physician: Lisa Griggs Consult reason: fracture (Age-indeterminate T11 and L3 fractures), low back dilcia n, other (Inability ambulate due to weakness) History of present illness: Patient is a very pleasant 63-year-old female who is seen at bedside for intractable low back pain and bilateral lower extremity weakness. Patient states since July 2018 she has continued to worsen in terms of ambulation. She is unable to perform active range of motion without a walking aid. She has been using a walker. She has significant weakness with the bilateral lower extremities greater on the right than the left. She has sustained numerous falls. She presented to the hospital due to her significant difficulty with ambulation and weakness. She states she has significant changes in sensation over the right lower extremity to wear her whole leg feels numb. She has a history of previous skin grafting over the left thigh. She has had CT imaging of the lumbar spine performed. She does admit to claustrophobia. She states she would be willing to try a lumbar MRI if her head does not have to be closed within a machine. She does admit to significant skin changes due to chronic picking over the upper extremities and lower extremities. She also has a history of incontinence which she states has been ongoing for the past couple years. Patient has a medical history which includes coronary artery disease, diabetes mellitus, hyperlipidemia, hypertension, diabetic neuropathy, and current every day smoker. Past Medical History Past Medical History: Coronary Artery Disease (CAD), Diabetes Mellitus, GERD/Reflux, Hyperlipidemia, Hypertension Additional Past Medical History / Comment(s): Diabetic neuropathy to bilateral upper and lower extremities, postmenopausal vaginal bleeding, necrotizing fasciitis the right thigh status post skin grafts at [facility] in 2017 History of Any Multi-Drug Resistant Organisms: ESBL Year Discovered:: 03/07/19 MDRO Source:: ESBL URINE Past Surgical History: Hysterectomy, Tubal Ligation Additional Past Surgical History / Comment(s): recent skin grafts in nida groin Past Anesthesia/Blood Transfusion Reactions: No Reported Reaction Past Psychological History: No Psychological Hx Reported Smoking Status: Current every day smoker Past Alcohol Use History: None Reported Additional Past Alcohol Use History / Comment(s): Patient is a smoker of 1/2 pack per day since she was 14 years of age. She denies any medical marijuana, marijuana or street drug use. She denies any alcohol use. Patient has no pets in the home and she denies any recent travel. Past Drug Use History: None Reported - Past Family History Mother Family Medical History: Dementia Medications and Allergies Home Medications Medication Instructions Recorded Confirmed Type metFORMIN HCL 500 mg PO DAILY 12/21/13 05/31/19 History Ranitidine HCl [Zantac] 300 mg PO BID 01/19/14 05/31/19 History Simvastatin 20 mg PO HS 05/30/15 05/31/19 History Lisinopril 30 mg PO DAILY 12/31/18 05/31/19 History Triamcinolone 0.1% Cream [Kenalog 1 applic TOPICAL DAILY PRN 12/31/18 05/31/19 History 0.1% Cream] traZODone HCL 50 - 100 mg PO HS 12/31/18 05/31/19 History Albuterol Inhaler [Ventolin Hfa 2 puff INHALATION RT-QID PRN 03/06/19 05/31/19 History Inhaler] amLODIPine [Norvasc] 5 mg PO DAILY 03/06/19 05/31/19 History Ferrous Sulfate [Feosol] 325 mg PO DAILY 05/31/19 05/31/19 History Folic Acid 1 mg PO DAILY 05/31/19 05/31/19 History Gabapentin [Neurontin] 300 mg PO BID 05/31/19 05/31/19 History Multivitamins, Thera [Multivitamin 1 tab PO DAILY 05/31/19 05/31/19 History (formulary)] Thiamine [Vitamin B-1] 100 mg PO DAILY 05/31/19 05/31/19 History Allergies Allergy/AdvReac Type Severity Reaction Status Date / Time aspirin AdvReac nose bleeds Verified 05/31/19 10:42 Physical Examination Physical exam: Patient is awake, alert, and oriented 3 Vital signs stable Good chest excursion with deep inspiration and expiration Abdomen soft nontender Examination of lumbar spine reveals skin is intact with no abrasions, lacerations, or bruises; no erythema, purulence or signs of infection Evidence of significant weakness of bilateral lower extremities Patient is unable to perform active dorsiflexion, plantarflexion, and extensor hallucis longus on the right Patient is unable to perform active dorsiflexion and extensor hallucis longus on the left Patient is able to perform limited hip flexion bilaterally with weakness greater on the right than the left Evidence of skin changes over the left anterior thigh following previous skin grafting Evidence of multiple scars and scant over the bilateral upper extremities and lower extremities from chronic picking of skin No lower extremity hyperreflexia bilaterally Changes in sensation to palpation over the right lower extremity over the thigh, knee, calf, ankle, and foot No signs or symptoms of DVT; no calf pain No pain with internal and external rotation of the hips bilaterally Results Pertinent studies: CT of the lumbar spine taken on 05/30/2019: Indeterminate compression fracture deformities of T11 and L3; L2-3 and L3 4 spondylolisthesis with degenerative disc disease, facet arthropathy, ligamentum flavum hypertrophy resulting in severe spinal canal stenosis; L4-5 intradiscal calcification with left neural foraminal impingement; L5-S1 left neural foraminal impingement CT of the pelvis taken on 05/30/2019: Mild bilateral femoral acetabular arthropathy; fat and fluid filled infraumbilical pole ventral hernia; sigmoid diverticulosis without evidence of diverticulitis - Labs Labs: Abnormal Lab Results - Last 24 Hours (Table) 05/30/19 05/30/19 Range/Units 16:58 19:18 Sodium 133 L (137-145) mmol/L Chloride 96 L (98-107) mmol/L BUN 20 H (7-17) mg/dL Glucose 115 H (74-99) mg/dL AST 12 L (14-36) U/L ALT 8 L (9-52) U/L Urine Appearance Turbid H (Clear) Urine Protein 1+ H (Negative) Urine Blood Moderate H (Negative) Urine Nitrite Positive H (Negative) Ur Leukocyte Esterase Large H (Negative) Urine RBC 30 H (0-5) /hpf Urine WBC 150 H (0-5) /hpf Ur Squamous Epith Cells 47 H (0-4) /hpf Urine Bacteria Moderate H (None) /hpf Microbiology - Last 24 Hours (Table) 05/30/19 19:18 Urine Culture - Preliminary Urine,Voided H & H 05/30/19 Range/Units 16:58 Hgb 11.8 (11.4-16.0) gm/dL Hct 36.0 (34.0-46.0) % Coagulation 05/30/19 Range/Units 16:58 INR 0.9 (<1.2) Result Diagrams: 05/30/19 16:58 05/30/19 16:58 Assessment and Plan Assessment: Assessment: Intractable low back pain T11 and L3 compression fracture deformities of indeterminate age Significant bilateral lower extremity weakness L2-3 and L3-4 spinal canal stenosis and spondylolisthesis Lumbar facet arthropathy Chronic bladder incontinence Inability to ambulate due to weakness Coronary artery disease Diabetes mellitus Hyperlipidemia Hypertension Diabetic neuropathy Current every day smoker (1) Wedge compression fracture of eleventh thoracic vertebra Current Visit: Yes Status: Acute Code(s): S22.080A - WEDGE COMPRESSION FRACTURE OF T11-T12 VERTEBRA, INIT SNOMED Code(s): 155130303 (2) Lumbar spinal stenosis Current Visit: Yes Status: Acute Code(s): M48.061 - SPINAL STENOSIS, LUMBAR REGION WITHOUT NEUROGENIC DONTE SNOMED Code(s): 13064559 (3) Spondylolisthesis, lumbar region Current Visit: Yes Status: Acute Code(s): M43.16 - SPONDYLOLISTHESIS, LUMBAR REGION SNOMED Code(s): 988248416682737 (4) Lower extremity weakness Current Visit: Yes Status: Acute Code(s): R29.898 - OTH SYMPTOMS AND SIGNS INVOLVING THE MUSCULOSKELETAL SYSTEM SNOMED Code(s): 979838667 (5) Lumbar facet arthropathy Current Visit: Yes Status: Acute Code(s): M47.816 - SPONDYLOSIS W/O MYELOPATHY OR RADICULOPATHY, LUMBAR REGION SNOMED Code(s): 262876471 (6) Bladder incontinence Current Visit: Yes Status: Acute Code(s): R32 - UNSPECIFIED URINARY INCONTINENCE SNOMED Code(s): 765989179 (7) Coronary artery disease Current Visit: Yes Status: Acute Code(s): I25.10 - ATHSCL HEART DISEASE OF [place] CORONARY ARTERY W/O ANG PCTRS SNOMED Code(s): 74276498 (8) Unable to ambulate Current Visit: Yes Status: Acute Code(s): R26.2 - DIFFICULTY IN WALKING, NOT ELSEWHERE CLASSIFIED SNOMED Code(s): 131110241 (9) Diabetic neuropathy Current Visit: Yes Status: Acute Code(s): E11.40 - TYPE 2 DIABETES MELLITUS WITH DIABETIC NEUROPATHY, UNSP SNOMED Code(s): 807527928 (10) Current every day smoker Current Visit: Yes Status: Acute Code(s): F17.200 - NICOTINE DEPENDENCE, UNSPECIFIED, UNCOMPLICATED SNOMED Code(s): 164051781 (11) Compression fracture of L3 vertebra Current Visit: Yes Status: Acute Code(s): S32.030A - WEDGE COMPRESSION FRACTURE OF THIRD LUMBAR VERTEBRA, INIT SNOMED Code(s): 398346454 (12) Intractable pain Current Visit: Yes Status: Acute Code(s): R52 - PAIN, UNSPECIFIED SNOMED Code(s): 77105240 (13) Multiple falls Current Visit: Yes Status: Acute Code(s): R29.6 - REPEATED FALLS SNOMED Code(s): 604956682 (14) Diabetes Current Visit: No Status: Acute Code(s): E11.9 - TYPE 2 DIABETES MELLITUS WITHOUT COMPLICATIONS SNOMED Code(s): 58843735 Plan: Plan: 1. After physical examination the patient, further discussion the patient, reviewing imaging, we currently planned to obtain an MRI of the lumbar spine for further evaluation. Patient does have significant bilateral lower extremity weakness which she is unable to perform any active dorsiflexion, plantarflexion, extensor hallucis longus on the right and is unable to perform dorsiflexion and extensor hallucis longus on the left. Patient also has significant changes in sensation over the lower extremities greater on the right and left she also has intractable low back pain and has a history of multiple falls. Reviewing imaging also shows evidence of age-indeterminate T11 and L3 compression fracture deformities. Patient does admit to difficulty with claustrophobia. We'll plan order Valium 5 mg 1-2 tabs prior to her scheduled lumbar MRI. Following the completion of the MRI, we will discuss further treatment options including possible bracing for fracture, consultation with pain management, we've the possibility of surgical intervention. 2. Patient will continue be seen by medicine and other medical providers for her other medical diagnoses Time with Patient: Greater than 30 (Including obtaining history, physical examination, reviewing of imaging, and dictation.)
[2019-05-31] MEDS: KETOROLAC 30 MG/ML 1 ML VIAL IVP PRN (15:41)
--- NOTE | 2019-05-31 15:45 | P.HPIM ---
History of Present Illness 63-year-old female came in at the complaints of severe low back pain like sensation radiating to both legs and some bilateral lower extremity weakness going on for some time. Patient denied any loss of bowel or bladder continence. Patient had numerous falls because of this and patient had MRI which showed severe lumbar spinal stenosis. Patient is admitted for pain management patient is receiving nonsteroidal anti-inflammatories along with steroids for inflammation in the back along with opiates for severe back pain, patient director of event management is being consulted for possible epidural steroid injection. Physical therapy outpatient Therapy were consulted. Patient probably will need placement to subacute rehabilitation patient lives with her who is also sick and can't take care of. Patient denied any fever ch ills dysuria. Review of Systems REVIEW OF SYSTEMS: CONSTITUTIONAL: No fever, no malaise, no fatigue. HEENT: No recent visual problems or hearing problems. Denied any sore throat. CARDIOVASCULAR: No chest pain, orthopnea, PND, no palpitations, no syncope. PULMONARY: No shortness of breath, no cough, no hemoptysis. GASTROINTESTINAL: No diarrhea, no nausea, no vomiting, no abdominal pain. NEUROLOGICAL: No headaches, no weakness, no numbness. HEMATOLOGICAL: Denies any bleeding or petechiae. GENITOURINARY: Denies any burning micturition, frequency, or urgency. MUSCULOSKELETAL/RHEUMATOLOGICAL: As mentioned in HPI ENDOCRINE: Denies any polyuria or polydipsia. The rest of the 14-point review of systems is negative. Past Medical History Past Medical History: Coronary Artery Disease (CAD), Diabetes Mellitus, GERD/Re flux, Hyperlipidemia, Hypertension Additional Past Medical History / Comment(s): Diabetic neuropathy to bilateral upper and lower extremities, postmenopausal vaginal bleeding, necrotizing fasciitis the right thigh status post skin grafts at [facility] in 2017 History of Any Multi-Drug Resistant Organisms: ESBL Date of last positivie culture/infection: 03/07/19 MDRO Source:: ESBL URINE Past Surgical History: Hysterectomy, Tubal Ligation Additional Past Surgical History / Comment(s): recent skin grafts in nida groin Past Anesthesia/Blood Transfusion Reactions: No Reported Reaction Past Psychological History: No Psychological Hx Reported Smoking Status: Current every day smoker Past Alcohol Use History: None Reported Additional Past Alcohol Use History / Comment(s): Patient is a smoker of 1/2 pack per day since she was 14 years of age. She denies any medical marijuana, marijuana or street drug use. She denies any alcohol use. Patient has no pets in the home and she denies any recent travel. Past Drug Use History: None Reported - Past Family History Mother Family Medical History: Dementia Medications and Allergies Home Medications Medication Instructions Recorded Confirmed Type metFORMIN HCL 500 mg PO DAILY 12/21/13 05/31/19 History Ranitidine HCl [Zantac] 300 mg PO BID 01/19/14 05/31/19 History Simvastatin 20 mg PO HS 05/30/15 05/31/19 History Lisinopril 30 mg PO DAILY 12/31/18 05/31/19 History Triamcinolone 0.1% Cream [Kenalog 1 applic TOPICAL DAILY PRN 12/31/18 05/31/19 History 0.1% Cream] traZODone HCL 50 - 100 mg PO HS 12/31/18 05/31/19 History Albuterol Inhaler [Ventolin Hfa 2 puff INHALATION RT-QID PRN 03/06/19 05/31/19 History Inhaler] amLODIPine [Norvasc] 5 mg PO DAILY 03/06/19 05/31/19 History Ferrous Sulfate [Feosol] 325 mg PO DAILY 05/31/19 05/31/19 History Folic Acid 1 mg PO DAILY 05/31/19 05/31/19 History Gabapentin [Neurontin] 300 mg PO BID 05/31/19 05/31/19 History Multivitamins, Thera [Multivitamin 1 tab PO DAILY 05/31/19 05/31/19 History (formulary)] Thiamine [Vitamin B-1] 100 mg PO DAILY 05/31/19 05/31/19 History Allergies Allergy/AdvReac Type Severity Reaction Status Date / Time aspirin AdvReac nose bleeds Verified 05/31/19 10:42 Physical Exam Vitals: Vital Signs Temp Pulse Pulse Resp BP BP Pulse Ox 05/31/19 14:43 98.1 F 70 16 146/64 94 L 05/31/19 07:00 98.1 F 66 17 150/66 94 L 05/31/19 00:20 97.5 F L 65 135/61 92 L 05/30/19 20:45 97.9 F 71 18 147/63 99 05/30/19 19:40 69 18 129/69 97 Intake and Output 05/31/19 05/31/19 05/31/19 06:59 14:59 22:59 Intake Total 100 800 Output Total 600 Balance 100 200 Intake: IV 800 Sodium Chloride 0.9% 1, 800 000 ml @ 100 mls/hr IV . Q10H [facility] Rx#:[id number] Oral 100 Output: Urine 600 Other: Weight 81.647 kg PHYSICAL EXAMINATION: GENERAL: The patient is alert and oriented x3, not in any acute distress. Well developed, well nourished. HEENT: Pupils are round and equally reacting to light. EOMI. No scleral icterus. No conjunctival pallor. Normocephalic, atraumatic. No pharyngeal erythema. No thyromegaly. CARDIOVASCULAR: S1 and S2 present. No murmurs, rubs, or gallops. PULMONARY: Chest is clear to auscultation, no wheezing or crackles. ABDOMEN: Soft, nontender, nondistended, normoactive bowel sounds. No palpable organomegaly. MUSCULOSKELETAL: Deferred to orthopedic surgery EXTREMITIES: No cyanosis, clubbing, or pedal edema. NEUROLOGICAL: Gross neurological examination did not reveal any focal deficits. SKIN: No rashes. Results CBC & Chem 7: 05/30/19 16:58 05/30/19 16:58 Labs: Abnormal Lab Results - Last 24 Hours (Table) 05/30/19 05/30/19 05/31/19 Range/Units 16:58 19:18 11:26 Sodium 133 L (137-145) mmol/L Chloride 96 L (98-107) mmol/L BUN 20 H (7-17) mg/dL Glucose 115 H (74-99) mg/dL POC Glucose (mg/dL) 120 H (75-99) mg/dL AST 12 L (14-36) U/L ALT 8 L (9-52) U/L Urine Appearance Turbid H (Clear) Urine Protein 1+ H (Negative) Urine Blood Moderate H (Negative) Urine Nitrite Positive H (Negative) Ur Leukocyte Esterase Large H (Negative) Urine RBC 30 H (0-5) /hpf Urine WBC 150 H (0-5) /hpf Ur Squamous Epith Cells 47 H (0-4) /hpf Urine Bacteria Moderate H (None) /hpf Microbiology - Last 24 Hours (Table) 05/30/19 19:18 Urine Culture - Preliminary Urine,Voided Thrombosis Risk Factor Assmnt - Choose All That Apply Each Risk Factor Represents 2 Points: Age 61-74 years Thrombosis Risk Factor Assessment Total Risk Factor Score: 2 Thrombosis Risk Factor Assessment Level: Low Risk Assessment and Plan Plan: Abdomen intractable lower back pain with severe radiculopathy and lumbar spinal stenosis 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 -Coronary artery disease: Resume her home medications -Type 2 diabetes mellitus patient is on metformin which will be resumed patient on systemic steroids because of which have blood sugars are expected to follow- up which relieved treated with sliding scale insulin -Gastroesophageal reflux disease -Hypertension -Hyperlipidemia 5 continued nicotine use: Counseling was provided Above-mentioned chronic medical problems patient will resume and continue Appropriate home medications
--- NOTE | 2019-05-31 15:55 | P.PAINCN ---
History of Present Illness - Reason for Consult Consult date: 05/31/19 - History of Present Illness This is a 63-year-old patient referred by Dr. Madden with a chief complaint of chronic pain in low back radiating to bilateral lower extremities. Pain has been present since the patient slipped and landed on her left side in July 2018. Since then, the pain has been worsening and over the last few days she has been unable to ambulate. She has been using a cane at home and her boyfriend often helps her ambulate. She has not sought treatment for this before. Pain is located in middle of low back, radiating to bilateral legsthighs, calves and feet, right worse than left, in a nondermatomal distribution. She also endorses bilateral lower extremity numbness, again a nondermatomal distribution. She does state that she has neuropathy in her feet. She does endorse subjective right leg weakness, primarily pain limited. Patient denies bowel/bladder incontinence, or any other signs or symptoms of cauda equina syndrome. There are no signs of acute intoxication, and no indications of medication diversion or overuse. Pain is rated as 9/10, down from 10/10 on admission. Patient states that current medications are helping somewhat. In addition to above, 13-point review of systems is also negative for chest pain, shortness of breath, changes in vision, changes in hearing, new onset weakness, abdominal pain, diarrhea, extreme fatigue, malaise, fever, skin changes or bowel or bladder incontinence. Past Medical History Past Medical History: Coronary Artery Disease (CAD), Diabetes Mellitus, GERD/Reflux, Hyperlipidemia, Hypertension Additional Past Medical History / Comment(s): Diabetic neuropathy to bilateral upper and lower extremities, postmenopausal vaginal bleeding, necrotizing fasciitis the right thigh status post skin grafts at [facility] in 2017 History of Any Multi-Drug Resistant Organisms: ESBL Year Discovered:: 03/07/19 MDRO Source:: ESBL URINE Past Surgical History: Hysterectomy, Tubal Ligation Additional Past Surgical History / Comment(s): recent skin grafts in nida groin Past Anesthesia/Blood Transfusion Reactions: No Reported Reaction Past Psychological History: No Psychological Hx Reported Smoking Status: Current every day smoker Past Alcohol Use History: None Reported Additional Past Alcohol Use History / Comment(s): Patient is a smoker of 1/2 pack per day since she was 14 years of age. She denies any medical marijuana, marijuana or street drug use. She denies any alcohol use. Patient has no pets in the home and she denies any recent travel. Past Drug Use History: None Reported - Past Family History Mother Family Medical History: Dementia Medications and Allergies Home Medications Medication Instructions Recorded Confirmed Type metFORMIN HCL 500 mg PO DAILY 12/21/13 05/31/19 History Ranitidine HCl [Zantac] 300 mg PO BID 01/19/14 05/31/19 History Simvastatin 20 mg PO HS 05/30/15 05/31/19 History Lisinopril 30 mg PO DAILY 12/31/18 05/31/19 History Triamcinolone 0.1% Cream [Kenalog 1 applic TOPICAL DAILY PRN 12/31/18 05/31/19 History 0.1% Cream] traZODone HCL 50 - 100 mg PO HS 12/31/18 05/31/19 History Albuterol Inhaler [Ventolin Hfa 2 puff INHALATION RT-QID PRN 03/06/19 05/31/19 History Inhaler] amLODIPine [Norvasc] 5 mg PO DAILY 03/06/19 05/31/19 History Ferrous Sulfate [Feosol] 325 mg PO DAILY 05/31/19 05/31/19 History Folic Acid 1 mg PO DAILY 05/31/19 05/31/19 History Gabapentin [Neurontin] 300 mg PO BID 05/31/19 05/31/19 History Multivitamins, Thera [Multivitamin 1 tab PO DAILY 05/31/19 05/31/19 History (formulary)] Thiamine [Vitamin B-1] 100 mg PO DAILY 05/31/19 05/31/19 History Allergies Allergy/AdvReac Type Severity Reaction Status Date / Time aspirin AdvReac nose bleeds Verified 05/31/19 10:42 Physical Exam Vitals: Vital Signs Temp Pulse Pulse Resp BP BP Pulse Ox 05/31/19 14:43 98.1 F 70 16 146/64 94 L 05/31/19 07:00 98.1 F 66 17 150/66 94 L 05/31/19 00:20 97.5 F L 65 135/61 92 L 05/30/19 20:45 97.9 F 71 18 147/63 99 05/30/19 19:40 69 18 129/69 97 Intake and Output 05/31/19 05/31/19 05/31/19 06:59 14:59 22:59 Intake Total 100 800 Output Total 600 Balance 100 200 Intake: IV 800 Sodium Chloride 0.9% 1, 800 000 ml @ 100 mls/hr IV . Q10H [facility] Rx#:[id number] Oral 100 Output: Urine 600 Other: Weight 81.647 kg Physical exam: Vital Signs: Reviewed in EMR GENERAL: Well appearing, lying in bed PSYCH: Mood and affect is appropriate. Awake, alert, and oriented SKIN: Skin color, texture, turgor normal, no rashes or lesions HEENT: Normocephalic, atraumatic. EOM intact CV: No pedal edema RESP: Respirations are unlabored, no audible wheezing GI: Abdomen non-distended MUSCULOSKELETAL: Right-sided lower extremity strength is reduced throughout, 4/5, seems to be pain limited. Left lower extremity strength is intact. No atrophy or tone abnormalities are noted. Lumbar spine: Straight leg raising in the sitting position is negative for radicular pain. Tenderness to palpation over the lumbar spine and paraspinous muscles, right greater than left. Extremities: Peripheral joint ROM is full and pain free without obvious instability or laxity in all four extremities. No edema or skin discolorations noted. NEUR: Reduced sensation to light touch noted in entire right lower extremity. Cranial nerves are grossly intact. Results Results: Imaging: MRI lumbar spine done at [facility] on 05/31/2019 shows chronic appearing mild superior endplate compression fractures of L3 with advanced hypertrophic changes resulting in moderate to severe canal stenosis at L3-4. Severe canal stenosis with severe right and moderate left neuroforaminal encroachment at L2-3. Multilevel severe degenerative disc disease and facet arthropathy, multilevel foraminal encroachment. CBC & Chem 7: 05/30/19 16:58 05/30/19 16:58 Labs: Abnormal Lab Results - Last 24 Hours (Table) 05/30/19 05/30/19 05/31/19 Range/Units 16:58 19:18 11:26 Sodium 133 L (137-145) mmol/L Chloride 96 L (98-107) mmol/L BUN 20 H (7-17) mg/dL Glucose 115 H (74-99) mg/dL POC Glucose (mg/dL) 120 H (75-99) mg/dL AST 12 L (14-36) U/L ALT 8 L (9-52) U/L Urine Appearance Turbid H (Clear) Urine Protein 1+ H (Negative) Urine Blood Moderate H (Negative) Urine Nitrite Positive H (Negative) Ur Leukocyte Esterase Large H (Negative) Urine RBC 30 H (0-5) /hpf Urine WBC 150 H (0-5) /hpf Ur Squamous Epith Cells 47 H (0-4) /hpf Urine Bacteria Moderate H (None) /hpf Microbiology - Last 24 Hours (Table) 05/30/19 19:18 Urine Culture - Preliminary Urine,Voided Assessment and Plan Assessment: Assessment: 1. Spinal stenosis 2. Degenerative disc disease lumbar spine 3. Lumbar spondylosis 4. Chronic compression fracture of L3 vertebra 5. Lumbar radiculopathy Plan: Plan: 1. Procedures: We will schedule the patient to have an L3-4 lumbar epidural steroid injection, right paramedian approach. This [facility] done while the [facility], on 06/01/2019. Please hold prophylactic anticoagulation and nothing by mouth midnight. 2. Investigations: MRI lumbar spine reviewed 3. Medications: Per primary care physician. Continue current regimen. Disposition: For above-mentioned procedure Thank you for allowing us to participate in the care of this patient. Time with Patient: Less than 30 PQRS Measure Charge Sheet PQRS Narrative: Smoking Status Current every day smoker Blood Pressure [Right Arm] 146/64 Blood Pressure 129/69 Pain Intensity [Generalized] 5 Pain Intensity 9 Pain Scale Used Non Verbal Pain Indicator Scale Used Non Verbal Pain Indicator Home Medications: Ambulatory Orders metFORMIN HCL 500 mg PO DAILY 12/21/13 Ranitidine HCl [Zantac] 300 mg PO BID 01/19/14 Simvastatin 20 mg PO HS 05/30/15 Lisinopril 30 mg PO DAILY 12/31/18 Triamcinolone 0.1% Cream [Kenalog 0.1% Cream] 1 applic TOPICAL DAILY PRN 12/31/18 traZODone HCL 50 - 100 mg PO HS 12/31/18 Albuterol Inhaler [Ventolin Hfa Inhaler] 2 puff INHALATION RT-QID PRN 03/06/19 amLODIPine [Norvasc] 5 mg PO DAILY 03/06/19 Ferrous Sulfate [Feosol] 325 mg PO DAILY 05/31/19 Folic Acid 1 mg PO DAILY 05/31/19 Gabapentin [Neurontin] 300 mg PO BID 05/31/19 Multivitamins, Thera [Multivitamin (formulary)] 1 tab PO DAILY 05/31/19 Thiamine [Vitamin B-1] 100 mg PO DAILY 05/31/19
[2019-05-31 16:36] LABS: Glucose,Whole Blood 170 mg/dL (75-99)
[2019-05-31] MEDS: HEPARIN SODIUM,PORCINE 5,000 UNIT/ML 1 ML VIAL SQ SCH ×2 (16:39→16:50)
[2019-05-31 20:23] LABS: Glucose,Whole Blood 146 mg/dL (75-99)
[2019-05-31] MEDS: FAMOTIDINE 20 MG TAB PO SCH ×2 (21:35→21:41)
[2019-05-31] MEDS: ATORVASTATIN 10 MG TAB PO SCH (21:39)
[2019-05-31] MEDS: GABAPENTIN 300 MG CAP PO SCH (21:39)
[2019-05-31] MEDS: methylPREDNISolone SOD SUCCI 125 MG/2 ML VIAL IV SCH (21:45)
[2019-06-01 07:07] LABS: Glucose,Whole Blood 151 mg/dL (75-99)
[2019-06-01 07:39] LABS: African American GFR (CKD) >90 (>60 ml/min/1.73 sqM); Anion Gap 8 mmol/L; Blood Urea Nitrogen 15 mg/dL (7-17); Calcium 9.2 mg/dL (8.4-10.2); Carbon Dioxide 22 mmol/L (22-30); Chloride 105 mmol/L (98-107); Glucose 137 mg/dL (74-99); Non-African American GFR(CKD) >90 (>60 ml/min/1.73 sqM); Potassium 4.1 mmol/L (3.5-5.1); Sodium 135 mmol/L (137-145)
[2019-06-01] MEDS: SODIUM CHLORIDE 0.9% 1,000 ML IV SCH ×3 (08:26→23:50)
[2019-06-01] MEDS: INSULIN ASPART (NovoLOG) 100 UNIT/ML VIAL SQ SCH ×5 (08:37→20:22)
[2019-06-01] MEDS: THIAMINE 100 MG TAB PO SCH (08:39)
[2019-06-01] MEDS: MORPHINE SULFATE 4 MG/ML SYRINGE IV PRN ×4 (08:43→22:13)
[2019-06-01] MEDS: PANTOPRAZOLE 40 MG TABLET PO SCH (08:43)
[2019-06-01] MEDS: LACTATED RINGERS 1,000 ML IV SCH (08:53)
[2019-06-01] MEDS: FAMOTIDINE 20 MG TAB PO SCH ×2 (08:53→20:23)
[2019-06-01] MEDS: GABAPENTIN 300 MG CAP PO SCH ×2 (08:54→20:22)
[2019-06-01] MEDS: FOLIC ACID 1 MG TAB PO SCH (08:54)
[2019-06-01] MEDS: metFORMIN 500 MG TAB PO SCH (10:25)
[2019-06-01] MEDS: methylPREDNISolone SOD SUCCI 125 MG/2 ML VIAL IV SCH ×2 (10:32→20:22)
[2019-06-01] MEDS: amLODIPine 5 MG TAB PO SCH (10:33)
[2019-06-01] MEDS: NICOTINE 21MG/24HR PATCH TRANSDERM SCH (10:33)
[2019-06-01] MEDS: LISINOPRIL 20 MG TAB PO SCH (10:33)
[2019-06-01 11:22] LABS: Glucose,Whole Blood 101 mg/dL (75-99)
--- NOTE | 2019-06-01 11:41 | P.PCN ---
Date of Procedure: 06/01/19 Procedure(s) Performed: PREOPERATIVE DIAGNOSIS: 1- Lumbar Degenerative Disc Diseases 2-Lumbar spondylosis with Facet arthropathy without myelopathy. 3-lumbar spinal stenosis. 4-lumbar radiculopathy. 5-lumbar compression fracture POSTOPERATIVE DIAGNOSIS: Same as preop diagnosis PROCEDURE 1. Lumbar epidural steroid injection under fluoroscopic guidance at the L3-4 level. (Fluoroscopy imaging was available in radiology department) 2. Lumbar epidurogram. ANESTHESIA: Local with 1% lidocaine 3 ml and , moderate sedation with intravenous Versed 1 mg ,and fentanyle 100 Mcg EBL: Minimal PROCEDURE INDICATION: The patient with low back pain and radiculitis symptoms un responsive to conservative treatment. Fluoroscopy was used to optimize visualization of the needle placement and to maximize safety. PROCEDURE DESCRIPTION / TECHNIQUE: The patient was seen and identified in the preoperative area. Risks, benefits, complications including but not limited to infections ,bleeding ,allergic reaction to the medications ,nerve damage and not complete pain releife , and alternatives were discussed with the patient. The patient agreed to proceed with the procedure and signed the consent. IV was started, and vital signs were stable. Patient was taken to the OR and time out was completed. The patient was placed in the prone position on procedure table and a pillow was placed under the abdomen to reduce lumbar lordosis. The lumbosacral area was prepped and draped in the usual sterile fashion.ere closely monitored during the procedure. Conscious sedation was used during the procedure to decrease patients anxiety. Vital signs was monitered during the entire procedure. Using anterior-posterior fluoroscopy, the L3-4 interlaminar space was identified and the skin over this site was marked and then infiltrated with 1% lidocaine subcutaneously. Subsequently, a 20-gauge Tuohy epidural needle was inserted and advanced toward the epidural space using the ``Loss of resistance technique and guided by AP and lateral fluoroscopy. The correct needle position in the epidural space was verified with the injection of 2 mL of the water soluble contrast dye Isovue 200 contrast and observing an excellent epidurogram with the epidural spread of the dye, after negative aspiration for blood and CSF and in the absence of paresthesias. Again after negative aspiration, a 5 ml mixture containing 40 mg of Depo-medrol , and 2 ml of preservative free Normal Saline, and 2 ml of preservative free lidocaine 1% solution was injected and a washout of epidurogram was seen. Needle was withdrawn intact, skin was cleansed, and bandages were applied. COMPLICATIONS: None DISPOSITION / PLANS: The patient was placed in a supine position and transferred to the recovery area in a stable condition for observation. There was no evidence of lower extremity motor or sensory deficit after the procedure. Patient was discharged from the recovery room after meeting discharge criteria. Home discharge instructions were given to the patient by the staff. The patient was reexamined prior to discharge. The patient will schedule a follow up in the clinic in 2-4 weeks.
--- NOTE | 2019-06-01 11:55 | FL ---
EXAMINATION TYPE: FL guided pain mgmt statistic DATE OF EXAM: 06/01/2019 HISTORY: Flouroscopy time 5 seconds of fluoroscopy provided. IMPRESSION: 1. Fluoroscopy time.
[2019-06-01 12:10] LABS: Glucose,Whole Blood 100 mg/dL (75-99)
[2019-06-01] MEDS: KETOROLAC 30 MG/ML 1 ML VIAL IVP PRN (14:26)
[2019-06-01] MEDS: HEPARIN SODIUM,PORCINE 5,000 UNIT/ML 1 ML VIAL SQ SCH ×2 (15:46→23:57)
--- NOTE | 2019-06-01 15:49 | P.PN ---
Subjective 63-year-old female came in at the complaints of severe low back pain like sensation radiating to both legs and some bilateral lower extremity weakness going on for some time. Patient denied any loss of bowel or bladder continence. Patient had numerous falls because of this and patient had MRI which showed severe lumbar spinal stenosis. 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 Physical therapy outpatient Therapy were consulted. Patient probably will need placement to subacute rehabilitation patient lives with her who is also sick and can't take care of. Patient denied any fever chills dysuria. 06/01/2019 Patient had an epidural injection with which her symptoms significantly improved patient remains on IV steroids which we probably can cut down tomorrow patient will be discharged to subacute rehabilitation on . Patient pain is much better now still has some pain Constitutional: Denied any fatigue denied any fever. Cardio vascular: denied any chest pain, palpitations Gastrointestinal denied any nausea vomiting Pulmonary: Denied any shortness of breath cough Neurologic denied any new focal deficits All inpatient medications were reviewed and appropriate changes in these med ications as dictated in the interval history and assessment and plan. Objective - Vital Signs Vital signs: Vital Signs Temp 98.5 F 06/01/19 12:05 Pulse 60 06/01/19 13:50 Resp 16 06/01/19 12:05 BP 189/73 06/01/19 13:50 Pulse Ox 92 L 06/01/19 13:50 Intake & Output 05/31/19 06/01/19 06/01/19 18:59 06:59 18:59 Intake Total 800 Output Total 1200 700 Balance -400 -700 Intake: IV 800 Sodium Chloride 0.9% 1, 800 000 ml @ 100 mls/hr IV . Q10H [facility]CLUDES THE [facility] Rx#:[id number] Output: Urine 1200 700 Other: Voiding Method Bedside Commode # Voids 1 - Exam PHYSICAL EXAMINATION: GENERAL: The patient is alert and oriented x3, not in any acute distress. Well developed, well nourished. HEENT: Pupils are round and equally reacting to light. EOMI. No scleral icterus. No conjunctival pallor. Normocephalic, atraumatic. No pharyngeal erythema. No thyromegaly. CARDIOVASCULAR: S1 and S2 present. No murmurs, rubs, or gallops. PULMONARY: Chest is clear to auscultation, no wheezing or crackles. ABDOMEN: Soft, nontender, nondistended, normoactive bowel sounds. No palpable organomegaly. MUSCULOSKELETAL: Deferred to orthopedic surgery EXTREMITIES: No cyanosis, clubbing, or pedal edema. NEUROLOGICAL: Gross neurological examination did not reveal any focal deficits. SKIN: No rashes. - Labs CBC & Chem 7: 05/30/19 16:58 06/01/19 07:00 Labs: Abnormal Lab Results - Last 24 Hours (Table) 05/31/19 05/31/19 06/01/19 Range/Units 16:34 20:21 06:55 Sodium (137-145) mmol/L Glucose (74-99) mg/dL POC Glucose (mg/dL) 170 H 146 H 151 H (75-99) mg/dL 06/01/19 06/01/19 06/01/19 Range/Units 07:00 11:20 11:58 Sodium 135 L (137-145) mmol/L Glucose 137 H (74-99) mg/dL POC Glucose (mg/dL) 101 H 100 H (75-99) mg/dL Microbiology - Last 24 Hours (Table) 05/30/19 19:18 Urine Culture - Preliminary Urine,Voided Gram Neg Bacilli Assessment and Plan Plan: Abdomen intractable lower back pain with severe radiculopathy and lumbar spinal stenosis 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 continue with the IV steroids along with nonsteroidal anti-inflammatories along with GI prophylaxis patient will be started on DVT prophylaxis as well physical therapy and occupational therapy evaluated the patient patient was discharged to subacute rehabilitation on Friday patient received epidural steroid injection -Coronary artery disease: Resumed her home medications -Type 2 diabetes mellitus patient is on metformin which will be resumed patient on systemic steroids because of which have blood sugars are expected to follow- up which relieved treated with sliding scale insulin -Gastroesophageal reflux disease -Hypertension -Hyperlipidemia 5 continued nicotine use: Counseling was provided Above-mentioned chronic medical problems patient will resume and continue Appropriate home medications
[2019-06-01 17:04] LABS: Glucose,Whole Blood 188 mg/dL (75-99)
[2019-06-01 20:05] LABS: Glucose,Whole Blood 181 mg/dL (75-99)
[2019-06-01] MEDS: ATORVASTATIN 10 MG TAB PO SCH (20:22)
[2019-06-01] MEDS: ERTAPENEM 1 GM in SODIUM CHLORIDE 0.9% 50 ML IVPB SCH (21:29)
[2019-06-02] MEDS ORDERED: amLODIPine 5 MG TAB PO STA (00:16)
[2019-06-02] MEDS: MORPHINE SULFATE 4 MG/ML SYRINGE IV PRN ×5 (02:35→20:41)
[2019-06-02] MEDS: KETOROLAC 30 MG/ML 1 ML VIAL IVP PRN ×2 (04:14→10:26)
[2019-06-02 07:30] LABS: Glucose,Whole Blood 139 mg/dL (75-99)
[2019-06-02] MEDS: FOLIC ACID 1 MG TAB PO SCH (07:58)
[2019-06-02] MEDS: THIAMINE 100 MG TAB PO SCH (07:58)
[2019-06-02] MEDS: FAMOTIDINE 20 MG TAB PO SCH ×2 (07:58→20:38)
[2019-06-02] MEDS: PANTOPRAZOLE 40 MG TABLET PO SCH (07:58)
[2019-06-02] MEDS: methylPREDNISolone SOD SUCCI 125 MG/2 ML VIAL IV SCH ×2 (07:58→20:39)
[2019-06-02] MEDS: GABAPENTIN 300 MG CAP PO SCH ×2 (07:58→20:38)
[2019-06-02] MEDS: LISINOPRIL 20 MG TAB PO SCH (07:58)
[2019-06-02] MEDS: amLODIPine 5 MG TAB PO SCH (07:58)
[2019-06-02] MEDS: metFORMIN 500 MG TAB PO SCH (07:58)
[2019-06-02] MEDS: LACTATED RINGERS 1,000 ML IV SCH (07:59)
[2019-06-02] MEDS: INSULIN ASPART (NovoLOG) 100 UNIT/ML VIAL SQ SCH ×4 (07:59→20:39)
[2019-06-02] MEDS: NICOTINE 21MG/24HR PATCH TRANSDERM SCH (07:59)
[2019-06-02] MEDS: HEPARIN SODIUM,PORCINE 5,000 UNIT/ML 1 ML VIAL SQ SCH ×2 (08:06→17:29)
[2019-06-02] MEDS: SODIUM CHLORIDE 0.9% 1,000 ML IV SCH ×2 (08:08→17:26)
[2019-06-02 12:05] LABS: Glucose,Whole Blood 167 mg/dL (75-99)
--- NOTE | 2019-06-02 15:27 | P.PN ---
Subjective Progress Note Date: 06/02/19 Principal diagnosis: 63-year-old female came in at the complaints of severe low back pain like sensation radiating to both legs and some bilateral lower extremity weakness going on for some time. Patient denied any loss of bowel or bladder continence. Patient had numerous falls because of this and patient had MRI which showed severe lumbar spinal stenosis. Patient is admitted for pain management patient is receiving nonsteroidal anti-inflammatories along with steroids for inflammation in the back along with opiates for severe back pain, patient asset management lead is being consulted for possible epidural steroid injection. Physical therapy outpatient Therapy were consulted. Patient probably will need placement to subacute rehabilitation patient lives with her who is also sick and can't take care of. Patient denied any fever chills dysuria. 06/01/2019 Patient had an epidural injection with which her symptoms significantly improved patient remains on IV steroids which we probably can cut down tomorrow patient will be discharged to subacute rehabilitation on . Patient pain is much better now still has some pain Constitutional: Denied any fatigue denied any fever. Cardio vascular: denied any chest pain, palpitations Gastrointestinal denied any nausea vomiting Pulmonary: Denied any shortness of breath cough Neurologic denied any new focal deficits All inpatient medications were reviewed and appropriate changes in these medications as dictated in the interval history and assessment and plan. 06/02/2019 Patient is lying in bed and appears to be in some mild acute distress. Patient continues to have lower back pain and states that she has had no relief after the steroid injection. Patient states that she gets minor relief with the Ultram. [place] [facility] [place] will continue with steroids at this time and will transition to oral as she will continue with the prednisone taper in the outpatient setting. Discussed with the patient at length about getting up with physical therapy and getting out of bed and patient states that the pain is too severe to sit in the chair. Discussed with the patient that lying in bed will escalate the pain and she should be increasing her activity. Patient denies any chest pain, shortness of breath, or palpitations. Patient is afebrile. She denies any nausea or vomiting and has been tolerating diet. Patient denies any urinary symptoms such as burning or frequency. Urine culture showing ESBL which is most likely due to contamination as the patient is clinically not having any symptoms of urinary tract infection. Will repeat urinalysis. Infectious disease was consulted and appreciate the input. Objective - Vital Signs Vital signs: Vital Signs Temp 98.5 F 06/02/19 07:33 Pulse 61 06/02/19 07:33 Resp 16 06/02/19 07:33 BP 173/83 06/02/19 07:33 Pulse Ox 97 06/02/19 07:33 Intake & Output 06/01/19 06/02/19 06/02/19 18:59 06:59 18:59 Intake Total 240 740 Output Total 1400 Balance -1160 740 Intake: Intake, IV Titration 500 Amount Sodium Chloride 0.9% 1, 500 000 ml @ 100 mls/hr IV . Q10H TILA Rx#:[id number] Oral 240 240 Output: Urine 1400 Other: Voiding Method Bedside Commode Bedside Commode # Voids 2 - Exam GENERAL: The patient is alert and oriented x3, not in any acute distress. Well developed, well nourished. HEENT: Pupils are round and equally reacting to light. EOMI. No scleral icterus. No conjunctival pallor. Normocephalic, atraumatic. No pharyngeal erythema. No thyromegaly. CARDIOVASCULAR: S1 and S2 present. No murmurs, rubs, or gallops. PULMONARY: Chest is clear to auscultation, no wheezing or crackles. ABDOMEN: Soft, nontender, nondistended, normoactive bowel sounds. No palpable organomegaly. MUSCULOSKELETAL: Deferred to orthopedic surgery EXTREMITIES: No cyanosis, clubbing, or pedal edema. NEUROLOGICAL: Gross neurological examination did not reveal any focal deficits. SKIN: No rashes. - Labs CBC & Chem 7: 05/30/19 16:58 06/01/19 07:00 Labs: Abnormal Lab Results - Last 24 Hours (Table) 06/01/19 06/01/19 06/02/19 Range/Units 16:53 20:03 07:18 POC Glucose (mg/dL) 188 H 181 H 139 H (75-99) mg/dL 06/02/19 Range/Units 11:54 POC Glucose (mg/dL) 167 H (75-99) mg/dL Microbiology - Last 24 Hours (Table) 05/30/19 19:18 Urine Culture - Final Urine,Voided Escherichia coli Assessment and Plan Assessment: - intractable lower back pain with severe radiculopathy and lumbar spinal stenosis high-grade: medicaid eligibility specialist as mentioned above continue with the IV steroids along with nonsteroidal anti-inflammatories along with GI prophylaxis patient will be started on DVT prophylaxis as well physical therapy and occupational therapy evaluated the patient patient was discharged to subacute rehabilitation. on Friday patient received epidural steroid injection -Coronary artery disease: Resumed her home medications -Type 2 diabetes mellitus patient is on metformin which will be resumed. patient is on systemic steroids because of which have blood sugars are expected to follow-up and will treat with sliding scale insulin -Gastroesophageal reflux disease -Hypertension -Hyperlipidemia -continued nicotine use: Counseling was provided Above-mentioned chronic medical problems patient will resume and continue Appropriate home medications
[2019-06-02 15:45] LABS: Appearance,Urine Cloudy (Clear); Bacteria,Urine Rare /hpf; Bilirubin,Urine Negative (Negative); Blood,Urine Moderate (Negative); Color,Urine Yellow; Glucose,Urine (UA) 1+ (Negative); Ketones,Urine Negative (Negative); Leukocyte Esterase,Urine Large (Negative); Mucus,Urine Rare /hpf; Nitrite,Urine Negative (Negative); PH, Urine 6.5 (5.0-8.0); Protein,Urine 1+ (Negative); RBC,Urine 5 /hpf (0-5); Squamous Epithelial Cell,Urine 2 /hpf (0-4); Urobilinogen,Urine <2.0 mg/dL (<2.0)
[2019-06-02 17:31] LABS: Glucose,Whole Blood 238 mg/dL (75-99)
[2019-06-02 20:24] LABS: Glucose,Whole Blood 207 mg/dL (75-99)
[2019-06-02] MEDS: ATORVASTATIN 10 MG TAB PO SCH (20:38)
[2019-06-02] MEDS: ERTAPENEM 1 GM in SODIUM CHLORIDE 0.9% 50 ML IVPB SCH (20:39)
[2019-06-03] MEDS: HEPARIN SODIUM,PORCINE 5,000 UNIT/ML 1 ML VIAL SQ SCH ×2 (00:19→08:02)
[2019-06-03] MEDS: MORPHINE SULFATE 4 MG/ML SYRINGE IV PRN ×3 (00:20→12:00)
[2019-06-03] MEDS: KETOROLAC 30 MG/ML 1 ML VIAL IVP PRN (02:10)
[2019-06-03] MEDS: SODIUM CHLORIDE 0.9% 1,000 ML IV SCH (02:57)
[2019-06-03 07:34] LABS: Glucose,Whole Blood 162 mg/dL (75-99)
[2019-06-03] MEDS: LACTATED RINGERS 1,000 ML IV SCH (07:42)
[2019-06-03] MEDS: methylPREDNISolone SOD SUCCI 125 MG/2 ML VIAL IV SCH (08:00)
[2019-06-03] MEDS: INSULIN ASPART (NovoLOG) 100 UNIT/ML VIAL SQ SCH ×2 (08:04→12:19)
[2019-06-03] MEDS: FAMOTIDINE 20 MG TAB PO SCH (08:05)
[2019-06-03] MEDS: NICOTINE 21MG/24HR PATCH TRANSDERM SCH (08:05)
[2019-06-03] MEDS: GABAPENTIN 300 MG CAP PO SCH (08:05)
[2019-06-03] MEDS: LISINOPRIL 20 MG TAB PO SCH (08:06)
[2019-06-03] MEDS: THIAMINE 100 MG TAB PO SCH (08:06)
[2019-06-03] MEDS: amLODIPine 5 MG TAB PO SCH (08:06)
[2019-06-03] MEDS: PANTOPRAZOLE 40 MG TABLET PO SCH (08:06)
[2019-06-03] MEDS: metFORMIN 500 MG TAB PO SCH (08:06)
[2019-06-03] MEDS: FOLIC ACID 1 MG TAB PO SCH (08:06)
[2019-06-03 08:32] VITALS: BP 162/80; PULSE 58; RESP 16; TEMP 98.7
--- NOTE | 2019-06-03 11:28 | P.DS ---
Providers Date of admission: 05/31/19 13:52 Expected date of discharge: 06/03/19 Attending physician: Glenys Albert Consults: 05/30/19 19:08 Consult Physician Stat Consulting Provider: Patricia Madden Consult Reason/Comments: L3 compression fx, intractable back pain Do you want consulting provider notified?: Yes 05/31/19 12:31 Consult Physician Urgent Consulting Provider: Justice Archer Consult Reason/Comments: Possible epidural steroid injection for spinal stenosis lower extremity rad Do you want consulting provider notified?: Yes 05/31/19 12:32 Consult to Anesthesia Routine Consulting Provider: Anesthesia,Services Consult Reason/Comments: Regarding possible epidural steroid injection with pain management 06/01/19 21:23 Consult Physician Routine Consulting Provider: Veronica Rodriguez Consult Reason/Comments: echoli esbl in urine Do you want consulting provider notified?: Yes, Notify in am Primary care physician: Herve Salinas [facility] Course: Final diagnosis - intractable lower back pain with severe radiculopathy and lumbar spinal stenosis high-grade -Coronary artery disease -Type 2 diabetes mellitus -Gastroesophageal reflux disease -Hypertension -Hyperlipidemia -continued nicotine use: Counseling was provided Discharge disposition Patient is being discharged in a stable condition with guarded prognosis to [facility] for continued PT/OT therapy. Patient will continue a prednisone taper along with pain management in the outpatient setting. She will follow-up with primary care provider upon discharge. Total time taken is 35 minutes. History of present illness 63-year-old female came in at the complaints of severe low back pain like sensation radiating to both legs and some bilateral lower extremity weakness going on for some time. Patient denied any loss of bowel or bladder continence. Patient had numerous falls because of this and patient had MRI which showed severe lumbar spinal stenosis. Patient is admitted for pain management patient is receiving nonsteroidal anti-inflammatories along with steroids for inflammation in the back along with opiates for severe back pain, patient case management social worker is being consulted for possible epidural steroid injection. Physical therapy outpatient Therapy were consulted. Patient probably will need placement to subacute rehabilitation patient lives with her who is also sick and can't take care of. Patient denied any fever chills dysuria. 06/01/2019 Patient had an epidural injection with which her symptoms significantly improved patient remains on IV steroids which we probably can cut down tomorrow patient will be discharged to subacute rehabilitation on . Patient pain is much better now still has some pain Constitutional: Denied any fatigue denied any fever. Cardio vascular: denied any chest pain, palpitations Gastrointestinal denied any nausea vomiting Pulmonary: Denied any shortness of breath cough Neurologic denied any new focal deficits All inpatient medications were reviewed and appropriate changes in these medications as dictated in the interval history and assessment and plan. 06/02/2019 Patient is lying in bed and appears to be in some mild acute distress. Patient continues to have lower back pain and states that she has had no relief after the steroid injection. Patient states that she gets minor relief with the Ultram. Patient awaiting authorization for rehab at [facility] or [facility]. Patient will continue with steroids at this time and will transition to oral as she will continue with the prednisone taper in the outpatient setting. Discussed with the patient at length about getting up with physical therapy and getting out of bed and patient states that the pain is too severe to sit in the chair. Discussed with the patient that lying in bed will escalate the pain and she should be increasing her activity. Patient denies any chest pain, shortness of breath, or palpitations. Patient is afebrile. She denies any nausea or vomiting and has been tolerating diet. Patient denies any urinary symptoms such as burning or frequency. Urine culture showing ESBL which is most likely due to contamination as the patient is clinically not having any symptoms of urinary tract infection. Will repeat urinalysis. Infectious disease was consulted and appreciate the input. 06/03/2019 Patient is sitting up in the chair in no acute distress. Family is at the bedside. Patient will be going to [facility] on the [address] for continued PT/OT therapy. Patient will continue on a prednisone taper in the outpatient setting and will follow-up with her primary care provider upon discharge. [facility] in the outpatient setting. Patient received a steroid injection and states that she will not be returning for another one as it did not help at all. Discussed with the patient again about continuing to increase her activity as tolerated and that this will help with the back pain. Currently patient denies any chest pain, shortness of breath, or palpitations. Patient is afebrile. Patient denies any nausea or vomiting and has been tolerating diet. Patient will continue to have blood glucose monitored before meals at bedtime and treat with sliding scale accordingly. Patient's condition is stable and is ready for discharge today. On exam vital signs are stable. Temp is 98.7F, pulse 58, respirations are 16, blood pressure is 162/80, oxygen saturation is 96% on room air. Cardio S1, S2 are present. Respiratory system shows diminished breath sounds at the bases otherwise clear to auscultation. Abdomen is soft, obese, nontender. Nervous system shows no focal deficits and gait is steady. Please refer to medication reconciliation sheet for a list of medications. Patient Condition at Discharge: Stable Plan - Discharge Summary Discharge Rx Participant: Yes New Discharge Prescriptions: New Nicotine 21Mg/24Hr Patch [Habitrol] 1 patch TRANSDERM DAILY patch Ibuprofen [Motrin] 400 mg PO Q6HR PRN tab PRN Reason: Mild Pain Or Fever > 100.5 INSULIN ASPART (NovoLOG) [NovoLOG (formulary)] 0 unit SQ ACHS vial predniSONE 10 mg PO DIRECTED #30 tab Pantoprazole [Protonix] 40 mg PO AC-BRKFST tablet. Acetaminophen Tab [Tylenol] 650 mg PO Q6HR PRN tab PRN Reason: Mild Pain Or Fever > 100.5 traMADol HCL [Ultram] 50 mg PO Q6HR PRN 1 Days #12 tab PRN Reason: Pain Lisinopril [Zestril] 20 mg PO DAILY tab Continue metFORMIN HCL 500 mg PO DAILY Ranitidine HCl [Zantac] 300 mg PO BID Simvastatin 20 mg PO HS traZODone HCL 50 - 100 mg PO HS Triamcinolone 0.1% Cream [Kenalog 0.1% Cream] 1 applic TOPICAL DAILY PRN PRN Reason: Skin Irritation Albuterol Inhaler [Ventolin Hfa Inhaler] 2 puff INHALATION RT-QID PRN PRN Reason: Shortness Of Breath amLODIPine [Norvasc] 5 mg PO DAILY Multivitamins, Thera [Multivitamin (formulary)] 1 tab PO DAILY Thiamine [Vitamin B-1] 100 mg PO DAILY Ferrous Sulfate [Iron (65 MG Elemental)] 325 mg PO DAILY Folic Acid 1 mg PO DAILY Gabapentin [Neurontin] 300 mg PO BID #6 cap Discontinued Lisinopril 30 mg PO DAILY Discharge Medication List metFORMIN HCL 500 mg PO DAILY 12/21/13 [History] Ranitidine HCl [Zantac] 300 mg PO BID 01/19/14 [History] Simvastatin 20 mg PO HS 05/30/15 [History] Triamcinolone 0.1% Cream [Kenalog 0.1% Cream] 1 applic TOPICAL DAILY PRN 12/31/18 [History] traZODone HCL 50 - 100 mg PO HS 12/31/18 [History] Albuterol Inhaler [Ventolin Hfa Inhaler] 2 puff INHALATION RT-QID PRN 03/06/19 [History] amLODIPine [Norvasc] 5 mg PO DAILY 03/06/19 [History] Ferrous Sulfate [Iron (65 MG Elemental)] 325 mg PO DAILY 05/31/19 [History] Folic Acid 1 mg PO DAILY 05/31/19 [History] Multivitamins, Thera [Multivitamin (formulary)] 1 tab PO DAILY 05/31/19 [History] Thiamine [Vitamin B-1] 100 mg PO DAILY 05/31/19 [History] Acetaminophen Tab [Tylenol] 650 mg PO Q6HR PRN tab 06/03/19 [Rx] Gabapentin [Neurontin] 300 mg PO BID #6 cap 06/03/19 [Rx] INSULIN ASPART (NovoLOG) [NovoLOG (formulary)] 0 unit SQ ACHS vial 06/03/19 [Rx] Ibuprofen [Motrin] 400 mg PO Q6HR PRN tab 06/03/19 [Rx] Lisinopril [Zestril] 20 mg PO DAILY tab 06/03/19 [Rx] Nicotine 21Mg/24Hr Patch [Habitrol] 1 patch TRANSDERM DAILY patch 06/03/19 [Rx] Pantoprazole [Protonix] 40 mg PO AC-BRKFST tablet. 06/03/19 [Rx] predniSONE 10 mg PO DIRECTED #30 tab 06/03/19 [Rx] traMADol HCL [Ultram] 50 mg PO Q6HR PRN 1 Days #12 tab 06/03/19 [Rx] Follow up Appointment(s)/Referral(s): Huma Edgar MD [Primary Care Provider] - 1-2 days Winston Cervantes PAC [PHYSICIAN [facility] [employer]] - 07/16/19 10:30 am (Patient may follow-up with Winston Cervantes PA-C or Dr. Tej Madden at [facility] in 4-6 weeks following discharge. ) [facility] [place], [NON-STAFF] - As Needed Patient Instructions/Handouts: Epidural Steroid Injection (DC) Activity/Diet/Wound Care/Special Instructions: Patient is going to [facility] [place] activity as tolerated continue current diet continue monitoring blood sugars before meals at bedtime and treat with sliding scale Continue PT/OT Follow up with primary care provider upon discharge Discharge/Stand Alone Forms: [facility] Diary, [facility] Instructions Discharge Disposition: TRANSFER TO SNF/ECF
[2019-06-03] MEDS: ERTAPENEM 1 GM in SODIUM CHLORIDE 0.9% 50 ML IVPB SCH (11:57)
[2019-06-03 12:05] LABS: Glucose,Whole Blood 204 mg/dL (75-99)
--- NOTE | 2019-06-03 12:44 | PN ---
PROGRESS NOTE DATE OF SERVICE: 06/03/2019 REASON FOR FOLLOWUP: Positive urine culture with ESBL E coli. INTERVAL HISTORY: The patient is currently afebrile. Patient is breathing comfortably. The patient denies having any chest pain or any cough. Complaining of low back pain, no worsening. No burning or frequency of urine. No diarrhea. PHYSICAL EXAMINATION: Blood pressure 162/80 with the pulse of 58, temperature 98.7. She is 96% on room air. General description is an elderly female up in the chair in no distress. RESPIRATORY SYSTEM: Unlabored breathing, clear to auscultation anteriorly. HEART: S1, S2. Regular rate and rhythm. ABDOMEN: Soft, no tenderness. LABS: Repeat urine shows large leukocyte esterase though white count is down. DIAGNOSTIC IMPRESSION AND PLAN: Patient with positive culture with ESBL and Escherichia coli with question of possible contamination versus mild cystitis. She will receive her third dose of IV that should be more than enough for a cystitis as clinically doubt deep infection and no antibiotic on discharge. MMODL / IJN: [id number] /
--- NOTE | 2019-06-04 14:54 | P.CONS ---
History of Present Illness - Reason for Consult Consult date: 06/02/19 Positive urine culture was ESBL Requesting physician: Israel Hong - Chief Complaint Intractable back pain 2 days - History of Present Illness Patient is a 63 year female presented to the ER at [facility] on 05/30/2019 with a chief complaints of worsening back pain and inability to take care of herself at home patient described the pain to the back area has significantly increased intensity of almost 10 out of 10 with radiation to the right leg patient been complaining of unable to walk due to the pain and numbness in bilateral lower extremity the patient denies any history of any trauma or any fever or chills, patient had did have a lumbar spine CT, followed by MRI which shows chronic-appearing mild superior endplate compression fracture L3 with advanced hypertrophic trophic changes and facet arthroplasty this pulsating severe canal stenosis and severe right-sided foraminal encroachment at L2-L3 level patient does have mildly distended bladder, patient also noticed a markedly distended bladder, patient has been evaluated by orthopedic services patient did have a normal white count on admission 7.89 has been repeated since then and no fever during this admission, the patient did have a UA obtained on admission which shows large leukocyte esterase 150 WBC and moderate bacteria, and his cultures have been finalized last night with ESBL E. coli patient was started on intravenous infection disease was consulted for further recommendation regarding antibiotic therapy. Patient currently denies having any fever or any chills the patient denies having any suprapubic or flank pain patient denies having any burning today has slight frequency but no urgency or hesitancy and no hematuria no diarrhea Review of Systems Positive point has been mentioned in the HPI rest of the systems are negative Past Medical History Past Medical History: Coronary Artery Disease (CAD), Diabetes Mellitus, GERD/Reflux, Hyperlipidemia, Hypertension Additional Past Medical History / Comment(s): Diabetic neuropathy to bilateral upper and lower extremities, postmenopausal vaginal bleeding, necrotizing fasciitis the right thigh status post skin grafts at [facility] in 2017 History of Any Multi-Drug Resistant Organisms: ESBL Year Discovered:: 05/30/19 ESBL E.coli MDRO Source:: ESBL URINE Past Surgical History: Hysterectomy, Tubal Ligation Additional Past Surgical History / Comment(s): recent skin grafts in [place] groin Past Anesthesia/Blood Transfusion Reactions: No Reported Reaction Past Psychological History: No Psychological Hx Reported Smoking Status: Current every day smoker Past Alcohol Use History: None Reported Additional Past Alcohol Use History / Comment(s): Patient is a smoker of 1/2 pack per day since she was 14 years of age. She denies any medical marijuana, marijuana or street drug use. She denies any alcohol use. Patient has no pets in the home and she denies any recent travel. Past Drug Use History: None Reported - Past Family History Mother Family Medical History: Dementia Medications and Allergies Home Medications Medication Instructions Recorded Confirmed Type metFORMIN HCL 500 mg PO DAILY 12/21/13 05/31/19 History Ranitidine HCl [Zantac] 300 mg PO BID 01/19/14 05/31/19 History Simvastatin 20 mg PO HS 05/30/15 05/31/19 History Triamcinolone 0.1% Cream [Kenalog 1 applic TOPICAL DAILY PRN 12/31/18 05/31/19 History 0.1% Cream] traZODone HCL 50 - 100 mg PO HS 12/31/18 05/31/19 History Albuterol Inhaler [Ventolin Hfa 2 puff INHALATION RT-QID PRN 03/06/19 05/31/19 History Inhaler] amLODIPine [Norvasc] 5 mg PO DAILY 03/06/19 05/31/19 History Ferrous Sulfate [Iron (65 MG 325 mg PO DAILY 05/31/19 05/31/19 History Elemental)] Folic Acid 1 mg PO DAILY 05/31/19 05/31/19 History Multivitamins, Thera [Multivitamin 1 tab PO DAILY 05/31/19 05/31/19 History (formulary)] Thiamine [Vitamin B-1] 100 mg PO DAILY 05/31/19 05/31/19 History Acetaminophen Tab [Tylenol] 650 mg PO Q6HR PRN tab 06/03/19 Rx Gabapentin [Neurontin] 300 mg PO BID #6 cap 06/03/19 Rx INSULIN ASPART (NovoLOG) [NovoLOG 0 unit SQ ACHS vial 06/03/19 Rx (formulary)] Ibuprofen [Motrin] 400 mg PO Q6HR PRN tab 06/03/19 Rx Lisinopril [Zestril] 20 mg PO DAILY tab 06/03/19 Rx Nicotine 21Mg/24Hr Patch [Habitrol] 1 patch TRANSDERM DAILY patch 06/03/19 Rx Pantoprazole [Protonix] 40 mg PO AC-BRKFST tablet. 06/03/19 Rx predniSONE 10 mg PO DIRECTED #30 tab 06/03/19 Rx traMADol HCL [Ultram] 50 mg PO Q6HR PRN 1 Days #12 tab 06/03/19 Rx Allergies Allergy/AdvReac Type Severity Reaction Status Date / Time aspirin AdvReac nose bleeds Verified 05/31/19 10:42 Physical Exam Vitals: Vital Signs Temp Pulse Resp BP Pulse Ox 06/02/19 07:33 98.5 F 61 16 173/83 97 06/02/19 00:09 98.2 F 67 14 194/81 95 06/01/19 19:20 98.5 F 74 16 172/73 98 06/01/19 16:18 97.9 F 70 17 170/75 96 06/01/19 13:50 60 189/73 92 L 06/01/19 13:35 65 190/84 94 L 06/01/19 13:20 54 L 187/75 94 L 06/01/19 13:05 64 182/82 93 L 06/01/19 12:50 57 L 190/77 89 L 06/01/19 12:35 64 168/84 92 L 06/01/19 12:20 54 L 183/81 92 L 06/01/19 12:05 98.5 F 58 L 16 181/77 95 Intake and Output 06/01/19 06/02/19 06/02/19 22:59 06:59 14:59 Intake Total 240 Output Total 600 800 Balance -360 -800 Intake: Oral 240 Output: Urine 600 800 Other: Voiding Method Bedside Commode Bedside Commode GENERAL DESCRIPTION: An elderly female up in the chair, no distress. No tachypnea or accessory muscle of respiration use. HEENT: Shows Pallor , no scleral icterus. Oral mucous membrane is dry. No pharyngeal erythema or thrush NECK: Trachea central, no thyromegaly. LUNGS: Unlabored breathing. Clear to auscultation anteriorly. No wheeze or crackle. HEART: S1, S2, regular rate and rhythm. No loud murmur ABDOMEN: Soft, no tenderness , guarding or rigidity, no organomegaly EXTREMITIES: No edema of feet. SKIN: No rash, no masses palpable. NEUROLOGICAL: The patient is awake, alert, oriented x3, mood and affect normal. Results CBC & Chem 7: 05/30/19 16:58 06/01/19 07:00 Labs: Abnormal Lab Results - Last 24 Hours (Table) 06/01/19 06/01/19 06/01/19 Range/Units 11:58 16:53 20:03 POC Glucose (mg/dL) 100 H 188 H 181 H (75-99) mg/dL 06/02/19 Range/Units 07:18 POC Glucose (mg/dL) 139 H (75-99) mg/dL Microbiology - Last 24 Hours (Table) 05/30/19 19:18 Urine Culture - Final Urine,Voided Escherichia coli Assessment and Plan Assessment: 1-patient with positive urine culture with ESBL E. coli in this patient who did has significant urinary symptoms except slight frequency but denies having any suprapubic or flank pain with no fever or white count with a question of possible contamination versus mild cystitis (1) UTI due to extended-spectrum beta lactamase (ESBL) producing Escherichia coli Status: Acute Code(s): N39.0 - URINARY TRACT INFECTION, SITE NOT SPECIFIED; B96.29 - OTH ESCHERICHIA COLI THE CAUSE OF DISEASES CLASSD ELSWHR; Z16.12 - EXTENDED SPECTRUM BETA LACTAMASE (ESBL) RESISTANCE SNOMED Code(s): 944091900 Plan: 1-we will try to obtain a clean catch UA and urine culture 2-Invanz 1 g daily while waiting for the cultures to finalize We will follow on clinical condition and cultures to further adjust medication if needed Thank you for this consultation will follow this patient with you
== END 2019-06-03 13:21 | DRG 552 ==
LOC: EC 15:31 → 4SSUR 18:44 → OBSVTOIN 05-31 13:52
PROVIDERS: ADMIT Hospitalist; ATTEND Hospitalist
PROC: 3E0S33Z Introduction of Anti-inflammatory into Epidural Space, Percutaneous Approach (ICD-10-PCS; principal; 2019-06-01 11:00)
PROC: 3E0S3BZ Introduction of Anesthetic Agent into Epidural Space, Percutaneous Approach (ICD-10-PCS; principal; 2019-06-01 11:00)
DX: M47.16 Other spondylosis with myelopathy, lumbar region (principal); S22.080A Wedge compression fracture of T11-T12 vertebra, initial encounter for closed fracture; N39.0 Urinary tract infection, site not specified; Z16.12 Extended spectrum beta lactamase (ESBL) resistance; M48.061 Spinal stenosis, lumbar region without neurogenic claudication; B96.20 Unspecified Escherichia coli [E. coli] as the cause of diseases classified elsewhere; E11.40 Type 2 diabetes mellitus with diabetic neuropathy, unspecified; E66.9 Obesity, unspecified; Z68.28 Body mass index [BMI] 28.0-28.9, adult; E78.5 Hyperlipidemia, unspecified; F17.200 Nicotine dependence, unspecified, uncomplicated; F40.240 Claustrophobia; I10 Essential (primary) hypertension; I25.10 Atherosclerotic heart disease of native coronary artery without angina pectoris; K21.9 Gastro-esophageal reflux disease without esophagitis; M43.16 Spondylolisthesis, lumbar region; M47.26 Other spondylosis with radiculopathy, lumbar region; M51.16 Intervertebral disc disorders with radiculopathy, lumbar region; R29.6 Repeated falls; R32 Unspecified urinary incontinence; R62.7 Adult failure to thrive; Z79.4 Long term (current) use of insulin; Z79.899 Other long term (current) drug therapy; Z90.710 Acquired absence of both cervix and uterus; Z91.81 History of falling; Z71.6 Tobacco abuse counseling
CPT/HCPCS: 36415; 62323; 71046; 72131; 72148; 72192; 80048; 80053; 81001; 82150; 83690; 85025; 85610; 85730; 87077; 87086; 87186; 96361; 96374; 96375; 99152; 99285

== ENCOUNTER 2020-11-14 20:35 | Emergency (ER) | payer MEDICARE, OTHER ==
[2020-11-14 20:44] VITALS: BP 174/76; PULSE 71; RESP 18; TEMP 98.1
[2020-11-14] MEDS ORDERED: CEPHALEXIN 500MG STARTER PACK 4 CAP BTL PO STA (20:58)
[2020-11-14] MEDS ORDERED: NYSTATIN 100,000 UNIT/GM POWD 15 GM TOPICAL STA (20:58)
--- NOTE | 2020-11-14 21:01 | ED ---
Skin/Abscess/FB HPI - General Chief complaint: Skin/Abscess/Foreign Body Stated complaint: R Leg injury Time Seen by Provider: 11/14/20 20:46 Source: patient Mode of arrival: ambulatory Limitations: no limitations - History of Present Illness Initial comments: 65-year-old female patient presents to the emergency department today for evaluation of wound to the right lower leg. Patient states on Friday she hit it on her wheelchair causing a skin tear. States for the last 24 hours the wound has been draining clear fluid. States that this morning he did seem like there was pus collection over the wound. She denies any fever or chills. She has neuropathy and does not feel her lower legs. Denies nausea or vomiting. States she feels well otherwise. She is also reporting rash to the right groin region. States it has been red and itchy. States there is also a smell. Patient denies any recent rash, cough, shortness of breath, chest pain, abdominal pain, diarrhea, constipation, back pain, numbness, tingling, dizziness, weakness, hematuria, dysuria, urinary urgency, urinary frequency, headache, visual changes, or any other complaints. - Related Data Home Medications Medication Instructions Recorded Confirmed metFORMIN HCL 500 mg PO DAILY 12/21/13 05/31/19 Ranitidine HCl [Zantac] 300 mg PO BID 01/19/14 05/31/19 Simvastatin 20 mg PO HS 05/30/15 05/31/19 Triamcinolone 0.1% Cream [Kenalog 1 applic TOPICAL DAILY PRN 12/31/18 05/31/19 0.1% Cream] traZODone HCL 50 - 100 mg PO HS 12/31/18 05/31/19 Albuterol Inhaler (Mhu) [Ventolin 2 puff INHALATION RT-QID PRN 03/06/19 05/31/19 Hfa Inhaler (Mhu)] amLODIPine [Norvasc] 5 mg PO DAILY 03/06/19 05/31/19 Ferrous Sulfate [Iron (65 MG 325 mg PO DAILY 05/31/19 05/31/19 Elemental)] Folic Acid 1 mg PO DAILY 05/31/19 05/31/19 Multivitamins, Thera [Multivitamin 1 tab PO DAILY 05/31/19 05/31/19 (formulary)] Thiamine [Vitamin B-1] 100 mg PO DAILY 05/31/19 05/31/19 Previous Rx's Medication Instructions Recorded Acetaminophen Tab [Tylenol] 650 mg PO Q6HR PRN tab 06/03/19 Gabapentin [Neurontin] 300 mg PO BID #6 cap 06/03/19 INSULIN ASPART (NovoLOG) [NovoLOG 0 unit SQ ACHS vial 06/03/19 (formulary)] Ibuprofen [Motrin] 400 mg PO Q6HR PRN tab 06/03/19 Nicotine 21Mg/24Hr Patch [Habitrol] 1 patch TRANSDERM DAILY patch 06/03/19 Pantoprazole [Protonix] 40 mg PO AC-BRKFST tablet. 06/03/19 lisinopriL [Zestril] 20 mg PO DAILY tab 06/03/19 predniSONE 10 mg PO DIRECTED #30 tab 06/03/19 traMADol HCL [Ultram] 50 mg PO Q6HR PRN 1 Days #12 tab 06/03/19 Cephalexin [Keflex] 500 mg PO Q6H #40 cap 11/14/20 Nystatin 100,000 Unit/gm Powd 1 applic TOPICAL TID #15 gm 11/14/20 [Mycostatin Powder] Allergies Allergy/AdvReac Type Severity Reaction Status Date / Time aspirin AdvReac nose bleeds Verified 11/14/20 20:44 Review of Systems ROS Statement: Those systems with pertinent positive or pertinent negative responses have been documented in the HPI. ROS Other: All systems not noted in ROS Statement are negative. Past Medical History Past Medical History: Coronary Artery Disease (CAD), Diabetes Mellitus, GERD/Reflux, Hyperlipidemia, Hypertension Additional Past Medical History / Comment(s): Diabetic neuropathy to bilateral upper and lower extremities, postmenopausal vaginal bleeding, necrotizing fasciitis the right thigh status post skin grafts at in 2017 History of Any Multi-Drug Resistant Organisms: MRSA Date of last positivie culture/infection: 03/07/19 MDRO Source:: ESBL URINE Past Surgical History: Hysterectomy, Tubal Ligation Additional Past Surgical History / Comment(s): recent skin grafts in nida groin Past Anesthesia/Blood Transfusion Reactions: No Reported Reaction Past Psychological History: No Psychological Hx Reported Smoking Status: Current every day smoker Past Alcohol Use History: None Reported Past Drug Use History: None Reported - Past Family History Mother Family Medical History: Dementia General Exam Limitations: no limitations General appearance: alert, in no apparent distress, other (This is a well- developed, well-nourished adult female patient in no acute distress. Vital signs upon presentation temperature 98.1F, pulse 71, respirations 18, blood pressure 174/76, pulse ox 97% on room air.) Eye exam: Present: normal appearance, PERRL, EOMI. Absent: scleral icterus, conjunctival injection, periorbital swelling ENT exam: Present: normal exam, normal oropharynx, mucous membranes moist Respiratory exam: Present: normal lung sounds bilaterally. Absent: respiratory distress, wheezes, rales, rhonchi, stridor Cardiovascular Exam: Present: regular rate, normal rhythm, normal heart sounds. Absent: systolic murmur, diastolic murmur, rubs, gallop, clicks Extremities exam: Present: full ROM, normal capillary refill, other (Right lower leg skin tear, drainage of serous fluid. mild surrounding erythema. No warmth. No purulent drainage.). Absent: tenderness, pedal edema, joint swelling, calf tenderness Neurological exam: Present: alert, oriented X3, CN II-XII intact Psychiatric exam: Present: normal affect, normal mood Skin exam: Present: warm, dry, intact, normal color. Absent: rash Course Vital Signs 11/14/20 20:42 Temperature 98.1 F Pulse Rate 71 Respiratory 18 Rate Blood Pressure 174/76 O2 Sat by Pulse 97 Oximetry Medical Decision Making - Medical Decision Making 65-year-old female patient presented to the emergency department today for evaluation of draining wound to the right lower leg. Physical examination did reveal skin tear with serous drainage. Mild surrounding erythema. She is afebrile, vitals. Examination of the right groin did reveal erythema and moist skin. This is consistent with yeast infection. She'll be treated with Keflex for infection to the right leg wound and then nystatin for the East infection. She is instructed to follow-up the primary care physician for recheck in 1-2 days. Return parameters were discussed in detail. She verbalizes understanding and agrees with this plan. My attending is Dr. Wang. Disposition Clinical Impression: Skin tear, Leg wound, right, Cutaneous candidiasis Disposition: HOME SELF-CARE Condition: Good Instructions (If sedation given, give patient instructions): Skin Tear (ED), Skin Yeast Infection (ED) Additional Instructions: Take medications as directed. Use powder to the right abdominal fold twice daily. Follow-up with the primary care physician for recheck in 1-2 days. Return for any new, worsening, or concerning symptoms. Prescriptions: Cephalexin [Keflex] 500 mg PO Q6H #40 cap Nystatin 100,000 Unit/gm Powd [Mycostatin Powder] 1 applic TOPICAL TID #15 gm Is patient prescribed a controlled substance at d/c from ED?: No Referrals: Huma Edgar MD [REFERRING] - 1-2 days Time of Disposition: 21:01
== END 2020-11-14 21:25 | disposition home or self-care (01) ==
LOC: EC 20:35
DX: S81.801A Unspecified open wound, right lower leg, initial encounter (principal); B37.2 Candidiasis of skin and nail; E11.40 Type 2 diabetes mellitus with diabetic neuropathy, unspecified; E78.5 Hyperlipidemia, unspecified; F17.200 Nicotine dependence, unspecified, uncomplicated; I10 Essential (primary) hypertension; I25.10 Atherosclerotic heart disease of native coronary artery without angina pectoris; Z79.4 Long term (current) use of insulin; Z90.710 Acquired absence of both cervix and uterus; Z98.51 Tubal ligation status; X58.XXXA Exposure to other specified factors, initial encounter
CPT/HCPCS: 87070; 87205; 99283

== ENCOUNTER 2021-01-08 20:32 | Inpatient (IN) | payer MEDICARE, OTHER ==
--- NOTE | 2021-01-08 21:46 | ED ---
Chest Pain HPI - General Chief Complaint: Chest Pain Stated Complaint: Chest pain,SOB Time Seen by Provider: 01/08/21 21:22 Source: patient, RN notes reviewed, old records reviewed Mode of arrival: ambulatory Limitations: no limitations - History of Present Illness Initial Comments: This is a 65-year-old female to the ER for evaluation. Patient history of debility and frequent falls. Patient of fall today and experienced some chest pain after some shortness of breath. Patient has strong history of COPD denies heart history does continue to smoke. No significant trauma nor falls. Patient does have increased swelling over lower extremities. No recent fevers cough or congestion. Patient nursing travel history or recent inpatient hospitalization MD Complaint: chest pain, other (Chest pain shortness of breath after fall) -: hour(s) Onset: during exertion Pain Location: substernal Pain Radiation: none Severity: moderate Severity scale (1-10): 4 Quality: tightness Consistency: intermittent Improves With: nothing Worsens With: exertion, inspiration, palpation Anginal Symptoms: dyspnea Other Symptoms: cough, palpitations Treatments Prior to Arrival: none - Related Data Home Medications Medication Instructions Recorded Confirmed Albuterol Sulfate [Ventolin HFA] 2 puff INHALATION RT-DAILY PRN 01/08/21 01/08/21 Atorvastatin Calcium [Lipitor] 40 mg PO DAILY 01/08/21 01/08/21 Carvedilol [Coreg] 12.5 mg PO BID 01/08/21 01/08/21 FLUoxetine HCL [Sarafem] 20 mg PO DAILY 01/08/21 01/08/21 Furosemide [Lasix] 40 mg PO DAILY 01/08/21 01/08/21 Ibuprofen [Advil] 400 mg PO Q8HR PRN 01/08/21 01/08/21 Omeprazole 20 mg PO DAILY 01/08/21 01/08/21 Ticagrelor [Brilinta] 90 mg PO BID 01/08/21 01/08/21 Zzzquil 1 tab PO HS PRN 01/08/21 01/08/21 amLODIPine [Norvasc] 10 mg PO DAILY 01/08/21 01/08/21 lisinopriL 40 mg PO DAILY 01/08/21 01/08/21 metFORMIN HCL ER [Glucophage Xr] 500 mg PO DAILY 01/08/21 01/08/21 Allergies Allergy/AdvReac Type Severity Reaction Status Date / Time aspirin AdvReac nose bleeds Verified 01/08/21 22:06 Review of Systems ROS Statement: Those systems with pertinent positive or pertinent negative responses have been documented in the HPI. ROS Other: All systems not noted in ROS Statement are negative. EKG Findings - EKG Comments: EKG Findings:: EKG is sinus rhythm 65 OH 106 QRS 82 QTC 461 Past Medical History Past Medical History: Coronary Artery Disease (CAD), Diabetes Mellitus, GERD/Reflux, Hyperlipidemia, Hypertension Additional Past Medical History / Comment(s): Diabetic neuropathy to bilateral upper and lower extremities, postmenopausal vaginal bleeding, necrotizing fasciitis the right thigh status post skin grafts at [facility] in 2017 History of Any Multi-Drug Resistant Organisms: MRSA Date of last positivie culture/infection: 03/07/19 MDRO Source:: ESBL URINE Past Surgical History: Hysterectomy, Tubal Ligation Additional Past Surgical History / Comment(s): recent skin grafts in nida groin Past Anesthesia/Blood Transfusion Reactions: No Reported Reaction Past Psychological History: No Psychological Hx Reported Smoking Status: Current every day smoker Past Alcohol Use History: None Reported Past Drug Use History: None Reported - Past Family History Mother Family Medical History: Dementia General Exam Limitations: no limitations General appearance: alert, in no apparent distress, anxious Head exam: Present: atraumatic, normocephalic, normal inspection Eye exam: Present: normal appearance, PERRL, EOMI. Absent: scleral icterus, conjunctival injection, periorbital swelling ENT exam: Present: normal exam, mucous membranes moist Neck exam: Present: normal inspection. Absent: tenderness, meningismus, lymphadenopathy Respiratory exam: Present: wheezes, decreased breath sounds, prolonged expiratory. Absent: respiratory distress, rales, rhonchi, stridor Cardiovascular Exam: Present: regular rate, normal rhythm, normal heart sounds. Absent: systolic murmur, diastolic murmur, rubs, gallop, clicks GI/Abdominal exam: Present: soft, normal bowel sounds. Absent: distended, tenderness, guarding, rebound, rigid Extremities exam: Present: normal inspection, full ROM, normal capillary refill. Absent: tenderness, pedal edema, joint swelling, calf tenderness Back exam: Present: normal inspection Neurological exam: Present: alert, oriented X3, CN II-XII intact Psychiatric exam: Present: normal affect, normal mood Skin exam: Present: warm, dry, intact, normal color. Absent: rash Course Vital Signs 01/08/21 01/08/21 01/08/21 20:54 21:18 21:59 Temperature 98.0 F Pulse Rate 63 65 Pulse Rate [ 62 Pulse Oximetery ] Respiratory 17 18 Rate Blood Pressure 177/68 177/88 O2 Sat by Pulse 95 98 Oximetry 01/08/21 01/08/21 01/08/21 23:07 23:14 23:26 Temperature Pulse Rate 63 65 71 Pulse Rate [ Pulse Oximetery ] Respiratory 23 18 Rate Blood Pressure 168/58 O2 Sat by Pulse 97 Oximetry - Reevaluation(s) Reevaluation #1: 01/08/21 23:42 Medical records reviewed Reevaluation #2: 01/08/21 23:42 Patient does have some improvement pain control and management Reevaluation #3: 01/08/21 23:42 Patient still shortness of breath Reevaluation #4: 01/08/21 23:42 Informed results and questions answered - Consultations Consultation #1: Spoke with Dr. Singh who agrees to admit patient Chest Pain MDM - MDM 65 female mechanical fall chest pain after. Patient be admitted for chest pain observation with COPD complicated by interstitial pneumonia. Disposition Clinical Impression: Multiple falls, COPD with exacerbation, Lower extremity weakness, Community acquired pneumonia Disposition: ADMITTED IP TO THIS HOSP Condition: Fair Is patient prescribed a controlled substance at d/c from ED?: No Referrals: Briana Mcgrath DO [Primary Care Provider] - 1-2 days
[2021-01-08 21:55] LABS: ALT 8 U/L (4-34); AST 14 U/L (14-36); African American GFR (CKD) >90 (>60 ml/min/1.73 sqM); Albumin 4.6 g/dL (3.5-5.0); Alkaline Phosphatase 134 U/L (38-126); Anion Gap 12 mmol/L; Blood Urea Nitrogen 11 mg/dL (7-17); Calcium 9.3 mg/dL (8.4-10.2); Carbon Dioxide 25 mmol/L (22-30); Chloride 101 mmol/L (98-107); Glucose 126 mg/dL (74-99); Magnesium 1.5 mg/dL (1.6-2.3); Non-African American GFR(CKD) 88 (>60 ml/min/1.73 sqM); Potassium 3.4 mmol/L (3.5-5.1); Sodium 138 mmol/L (137-145); Total Bilirubin 0.6 mg/dL (0.2-1.3); Total Protein 7.6 g/dL (6.3-8.2)
--- NOTE | 2021-01-08 21:59 | XR ---
EXAMINATION TYPE: XR chest 2V DATE OF EXAM: 01/08/2021 COMPARISON: 05/30/2019 HISTORY: Abdominal pain TECHNIQUE: 2 views FINDINGS: There is no heart failure nor confluent pneumonic infiltrate. There is some coarsening of t he interstitial markings. There is no pleural effusion. Bony thorax is intact. Pulmonary vascularity is normal. IMPRESSION: Increased interstitial markings compared to old exam could relate to some mild interstiti al pneumonia. No obvious heart failure.
[2021-01-08 22:06] LABS: Anisocytosis Slight; Basophils # (A) 0.1 k/uL (0-0.2); Basophils % (A) 1 %; Eosinophils # (A) 0.2 k/uL (0-0.7); Eosinophils % (A) 2 %; HCT 37.3 % (34.0-46.0); HGB 12.3 gm/dL (11.4-16.0); Lymphocytes # (A) 1.3 k/uL (1.0-4.8); Lymphocytes % (A) 19 %; MCH 25.9 pg (25.0-35.0); MCV 78.4 fL (80.0-100.0); Mean Platelet Volume 7.2; Microcytosis Slight; Monocytes # (A) 0.4 k/uL (0-1.0); Monocytes % (A) 6 %; Neutrophils # (A) 4.6 k/uL (1.3-7.7); Neutrophils % (A) 71 %; Platelet Count 341 k/uL (150-450); RBC 4.75 m/uL (3.80-5.40); RDW 17.6 % (11.5-15.5); WBC 6.6 k/uL (3.8-10.6)
[2021-01-08 22:11] LABS: INR 0.9 (<1.2); Prothrombin Time 10.2 sec (9.0-12.0)
[2021-01-08 22:22] LABS: Partial Thromboplastin Time 20.6 sec (22.0-30.0)
[2021-01-08] MEDS ORDERED: IPRATROPIUM-ALBUTEROL 3 ML NEB INHALATION STA (22:34)
[2021-01-08] MEDS ORDERED: POTASSIUM BICARBONATE/CIT AC 20 MEQ TABLET.EFF PO ONE (22:34)
[2021-01-08] MEDS ORDERED: MORPHINE SULFATE 2 MG/ML SYRINGE IVP PRN (22:34)
[2021-01-08] MEDS ORDERED: methylPREDNISolone SOD SUCCI 125 MG/2 ML VIAL IV STA (22:34)
[2021-01-08] MEDS ORDERED: MAGNESIUM OXIDE 400 MG TAB PO STA (22:34)
[2021-01-08] MEDS ORDERED: MORPHINE SULFATE 2 MG/ML SYRINGE IVP STA (22:34)
[2021-01-08] MEDS: MAGNESIUM SULFATE-D5W PMX 1 GM in DEXTROSE/WATER 1 100ML.BAG IVPB SCH (23:10)
[2021-01-09] MEDS: methylPREDNISolone SOD SUCCI 125 MG/2 ML VIAL IV SCH ×4 (00:22→20:47)
[2021-01-09] MEDS: MAGNESIUM SULFATE-D5W PMX 1 GM in DEXTROSE/WATER 1 100ML.BAG IVPB SCH (00:24)
[2021-01-09] MEDS: SODIUM CHLORIDE 0.9% 1,000 ML IV SCH ×3 (00:36→20:46)
[2021-01-09 07:29] LABS: Glucose,Whole Blood 210 mg/dL (75-99)
[2021-01-09] MEDS: ALBUTEROL NEBULIZED 2.5 MG/3 ML INHALATION SCH ×4 (07:53→19:47)
[2021-01-09] MEDS: amLODIPine 10 MG TAB PO SCH (09:50)
[2021-01-09] MEDS: lisinopriL 20 MG TAB PO SCH (09:50)
[2021-01-09] MEDS: PANTOPRAZOLE 40 MG TABLET PO SCH (09:50)
[2021-01-09] MEDS: FUROSEMIDE 40 MG TAB PO SCH (09:51)
[2021-01-09] MEDS: ATORVASTATIN 40 MG TAB PO SCH (09:51)
[2021-01-09] MEDS: TICAGRELOR 90 MG TAB PO SCH ×2 (09:52→20:49)
[2021-01-09] MEDS: FLUoxetine HCL 20 MG CAP PO SCH (09:52)
[2021-01-09] MEDS: carvediloL 12.5 MG TAB PO SCH ×2 (10:39→17:47)
[2021-01-09] MEDS ORDERED: Magnesium Replacement Protocol 1 EACH MISC MISCELLANE PRN (11:02)
[2021-01-09] MEDS ORDERED: Potassium Replacement Protocol 1 EACH MISC MISCELLANE PRN (11:02)
[2021-01-09 11:31] LABS: Potassium 3.7 mmol/L (3.5-5.1)
[2021-01-09 11:54] LABS: Glucose,Whole Blood 210 mg/dL (75-99)
[2021-01-09] MEDS: IPRATROPIUM-ALBUTEROL 3 ML NEB INHALATION PRN ×2 (13:43→23:18)
[2021-01-09 17:06] LABS: Glucose,Whole Blood 186 mg/dL (75-99)
[2021-01-09] MEDS: INSULIN ASPART (NovoLOG) 100 UNIT/ML VIAL SQ SCH ×2 (17:47→20:47)
[2021-01-09] MEDS ORDERED: cloNIDine HCL 0.1 MG TAB PO STA (19:46)
[2021-01-09 20:33] LABS: Glucose,Whole Blood 176 mg/dL (75-99)
--- NOTE | 2021-01-09 23:13 | P.HPIM ---
History of Present Illness H&P Date: 01/09/21 Chief Complaint: chest pain Melany Desir is a 65 yo F with PMH of COPD, HTN, HLD, neuropathy and leg weakness who presented to the ED with chest tightness and pain. She states that she has been very weak and trying to see her PCP to discuss options for her rehab. She complains that over the past few days she has developed a cough and then the day of admission she tripped and fell and subsequently had chest pain. Thus she came to the ED. On presentation BP 177/68, labs unremarkable, trop negative, EKG NSR. CXR with increased interstitial markings. Review of Systems All systems: negative Constitutional: Reports weakness, Denies chills, Denies fever Eyes: denies blurred vision, denies pain Ears, nose, mouth and throat: Denies headache, Denies sore throat Cardiovascular: Reports chest pain, Denies shortness of breath Respiratory: Denies cough Gastrointestinal: Denies abdominal pain, Denies diarrhea, Denies nausea, Denies vomiting Genitourinary: Denies dysuria, Denies hematuria Musculoskeletal: Denies myalgias Integumentary: Denies pruritus, Denies rash Neurological: Denies numbness, Denies weakness Psychiatric: Denies anxiety, Denies depression Endocrine: Denies fatigue, Denies weight change Past Medical History Past Medical History: Coronary Artery Disease (CAD), Diabetes Mellitus, GERD/Reflux, Hyperlipidemia, Hypertension Additional Past Medical History / Comment(s): Diabetic neuropathy to bilateral upper and lower extremities, postmenopausal vaginal bleeding, necrotizing fasciitis the right thigh status post skin grafts at [facility] in [facility] History of Any Multi-Drug Resistant Organisms: MRSA Date of last positivie culture/infection: 03/07/19 MDRO Source:: ESBL URINE Past Surgical History: Hysterectomy, Tubal Ligation Additional Past Surgical History / Comment(s): recent skin grafts in nida groin/thigh areas Past Anesthesia/Blood Transfusion Reactions: No Reported Reaction Past Psychological History: No Psychological Hx Reported Smoking Status: Current every day smoker Past Alcohol Use History: None Reported Additional Past Alcohol Use History / Comment(s): Patient is a smoker of 1/2 pack per day since she was 14 years of age. She denies any medical marijuana, marijuana or street drug use. She denies any alcohol use. Patient has no pets in the home and she denies any recent travel. Past Drug Use History: None Reported - Past Family History Mother Family Medical History: Dementia Medications and Allergies Home Medications Medication Instructions Recorded Confirmed Type Albuterol Sulfate [Ventolin HFA] 2 puff INHALATION RT-DAILY PRN 01/08/21 01/08/21 History Atorvastatin Calcium [Lipitor] 40 mg PO DAILY 01/08/21 01/08/21 History Carvedilol [Coreg] 12.5 mg PO BID 01/08/21 01/08/21 History FLUoxetine HCL [Sarafem] 20 mg PO DAILY 01/08/21 01/08/21 History Furosemide [Lasix] 40 mg PO DAILY 01/08/21 01/08/21 History Ibuprofen [Advil] 400 mg PO Q8HR PRN 01/08/21 01/08/21 History Omeprazole 20 mg PO DAILY 01/08/21 01/08/21 History Ticagrelor [Brilinta] 90 mg PO BID 01/08/21 01/08/21 History Zzzquil 1 tab PO HS PRN 01/08/21 01/08/21 History amLODIPine [Norvasc] 10 mg PO DAILY 01/08/21 01/08/21 History lisinopriL 40 mg PO DAILY 01/08/21 01/08/21 History metFORMIN HCL ER [Glucophage Xr] 500 mg PO DAILY 01/08/21 01/08/21 History Gabapentin [Neurontin] 400 mg PO TID 01/09/21 01/09/21 History Allergies Allergy/AdvReac Type Severity Reaction Status Date / Time aspirin AdvReac nose bleeds Verified 01/08/21 22:06 Physical Exam Vitals: Vital Signs Temp Pulse Pulse Resp BP BP Pulse Ox 01/09/21 19:59 70 01/09/21 19:47 68 01/09/21 18:47 98.3 F 61 18 174/74 95 01/09/21 14:41 97.9 F 68 17 175/76 97 01/09/21 14:00 22 01/09/21 13:50 71 01/09/21 13:43 70 01/09/21 08:00 69 20 01/09/21 07:53 67 01/09/21 07:00 97.9 F 70 16 178/75 94 L 01/09/21 05:45 65 18 97 01/09/21 05:35 64 20 01/09/21 01:05 97.9 F 60 16 167/69 95 01/09/21 00:32 97.9 F 67 18 185/69 96 01/08/21 23:26 71 01/08/21 23:14 65 18 168/58 97 01/08/21 23:07 63 23 Intake and Output 01/09/21 01/09/21 01/09/21 06:59 14:59 22:59 Intake Total 236 Balance 236 Intake: Oral 236 Other: # Voids 1 4 Weight 81.647 kg General: well nourished, well developed, NAD. Vitals reviewed Eyes: PERRL, EOMI, conjunctiva normal HENT: normocephalic, mucus membranes moist Neck: supple, no JVD Lungs: normal respiratory effort, no wheezes or rales CV: Regular rate and rhythm, no murmur. Peripheral pulses 2+ Abdomen: soft, nondistended, no organomegaly Lymph: no cervical or axillary LAD Skin: warm and dry. Neuro: A&Ox3, normal mood and affect Results CBC & Chem 7: 01/08/21 21:36 01/09/21 08:57 Labs: Abnormal Lab Results - Last 24 Hours (Table) 01/09/21 01/09/21 01/09/21 Range/Units 07:27 11:52 17:04 POC Glucose (mg/dL) 210 H 210 H 186 H (75-99) mg/dL 01/09/21 Range/Units 20:32 POC Glucose (mg/dL) 176 H (75-99) mg/dL Thrombosis Risk Factor Assmnt - Choose All That Apply Each Risk Factor Represents 2 Points: Age 61-74 years Thrombosis Risk Factor Assessment Total Risk Factor Score: 2 Thrombosis Risk Factor Assessment Level: Low Risk Assessment and Plan (1) Chest pain Current Visit: Yes Status: Acute Code(s): R07.9 - CHEST PAIN, UNSPECIFIED SNOMED Code(s): 39325072 (2) COPD (chronic obstructive pulmonary disease) Current Visit: Yes Status: Acute Code(s): J44.9 - CHRONIC OBSTRUCTIVE PULMONARY DISEASE, UNSPECIFIED SNOMED Code(s): 59680722 (3) Lower extremity weakness Current Visit: Yes Status: Acute Code(s): R29.898 - OTH SYMPTOMS AND SIGNS INVOLVING THE MUSCULOSKELETAL SYSTEM SNOMED Code(s): 237365206 Plan: 1. Chest pain. ACS ruled out. Cardiology consulted for further evaluation. Continue home antihyertensives 2. Possible interstitial pneumonia. Continue empiric antibiotics at this time. Check procalcitonin 3. Lower extremity weakness and neuropathy. Consult to PT and OT 3. HTN. Continue norvasc, lisinopril, coreg 4. Tobacco abuse
[2021-01-10] MEDS: methylPREDNISolone SOD SUCCI 125 MG/2 ML VIAL IV SCH ×2 (01:15→05:53)
[2021-01-10] MEDS: SODIUM CHLORIDE 0.9% 1,000 ML IV SCH ×2 (06:04→19:16)
[2021-01-10 07:08] LABS: Glucose,Whole Blood 194 mg/dL (75-99)
[2021-01-10] MEDS: PANTOPRAZOLE 40 MG TABLET PO SCH (08:03)
[2021-01-10] MEDS: ATORVASTATIN 40 MG TAB PO SCH (08:03)
[2021-01-10] MEDS: amLODIPine 10 MG TAB PO SCH (08:03)
[2021-01-10] MEDS: INSULIN ASPART (NovoLOG) 100 UNIT/ML VIAL SQ SCH ×4 (08:04→21:41)
[2021-01-10] MEDS: FUROSEMIDE 40 MG TAB PO SCH (08:04)
[2021-01-10] MEDS: INSULIN DETEMIR (LEVEMIR) 100 UNIT/ML SYR SQ SCH (08:04)
[2021-01-10] MEDS: lisinopriL 20 MG TAB PO SCH (08:04)
[2021-01-10] MEDS: carvediloL 12.5 MG TAB PO SCH ×2 (08:05→18:00)
[2021-01-10] MEDS: TICAGRELOR 90 MG TAB PO SCH ×2 (08:05→20:47)
[2021-01-10] MEDS: FLUoxetine HCL 20 MG CAP PO SCH (08:05)
[2021-01-10] MEDS: ALBUTEROL NEBULIZED 2.5 MG/3 ML INHALATION SCH ×2 (08:35→11:57)
--- NOTE | 2021-01-10 11:48 | P.CRDCN ---
History of Present Illness History of present illness: HISTORY OF PRESENTING ILLNESS This is a pleasant 65-year-old female past medical history significant for hypertension, diabetes mellitus, CVA, COPD and chronic nicotine dependence. 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 We have been asked to see in consultation for chest pain. She states on Friday evening she noticed worsening shortness of breath that was not improving with home oxygen for updraft treatments. She also was having a burning sensation in the midsternal region exacerbated by deep breathing and panting. The chest discomfort only lasted for a couple of minutes. She had no radiation to the arm, back, neck or jaw. She has been coughing significantly. She is currently being treated for pneumonia. She has had no further symptoms of chest discomfort. Blood pressure was elevated last night and she was given a one-time dose of clonidine per the primary care team. DIAGNOSTICS EKG reveals sinus mechanism with sinus arrhythmia. Chest xray increased interstitial markings with some mild interstitial pneumonia, no evidence of heart failure. Laboratory reviewed, pro-calcitonin 0.23, cardiac enzymes negative 2, WBC 6.6, hemoglobin 12.3, platelets 341, sodium 138, potassium 3.4, creatinine 0.72 and magnesium 1.5. Current cardiac medications include atorvastatin 40 mg daily, amlodipine 10 mg daily, Correctol 0.5 mg twice a day, Lasix 40 mg daily and lisinopril 40 mg daily. She is also on Brilinta 90 mg twice a day that she states she's been on for the past 5 years secondary to a CVA. Most recent echocardiogram obtained in 2019 reveals preserved LV systolic function with ejection fraction 55-60% and mildly enlarged right ventricle. REVIEW OF SYSTEMS At the time of my exam: CONSTITUTIONAL: Denies fever or chills. CARDIOVASCULAR: Denies chest pain, shortness of breath, orthopnea, PND or palpitations. RESPIRATORY: Denies cough. GASTROINTESTINAL: Denies abdominal pain, diarrhea, constipation, nausea or vomiting. MUSCULOSKELETAL: Denies myalgias. NEUROLOGIC: Denies numbness, tingling, headacbe or weakness. ENDOCRINE: Denies fatigue, weight change, polydipsia or polyurina. GENITOURINARY: Denies burning, hematuria or urgency with micturation. HEMATOLOGIC: Denies history of anemia or bleeding. PHYSICAL EXAMINATION Blood pressure 126/61 heart rate 49 afebrile and maintaining oxygen saturation on nasal cannula. CONSTITUTIONAL: No apparent distress. HEENT: Head is normocephalic. Pupils are equal, round. Sclerae anicteric. Mucous membranes of the mouth are moist. No JVD. No carotid bruit. CHEST EXAMINATION: Expiratory wheezes, scattered rhonchi and diminished bilat erally. No rales. No chest wall tenderness is noted on palpation or with deep breathing. HEART EXAMINATION: Regular rate and rhythm. S1, S2 heard. No murmurs, gallops or rub. ABDOMEN: Soft, nontender. Positive bowel sounds. EXTREMITIES: 2+ peripheral pulses, no lower extremity edema and no calf t enderness. NEUROLOGIC EXAMINATION: Patient is awake, alert and oriented x3. ASSESSMENT Chest pain, atypical COPD Pneumonia Hypokalemia Hypomagnesemia Hypertension CVA Diabetes mellitus Chronic nicotine dependence PLAN Replace magnesium and potassium per protocol. Obtain 2D echocardiogram and doppler study to assess cardiac structure and function. Pain is atypical for angina likely related to underlying pulmonary illness. Ongoing medical management and treatment of pneumonia and COPD. Thank you kindly for this consultation. Nurse Practitioner note has been reviewed, I agree with a documented findings and plan of care. Patient was seen and examined. Past Medical History Past Medical History: Coronary Artery Disease (CAD), Diabetes Mellitus, KAYLA D/Reflux, Hyperlipidemia, Hypertension Additional Past Medical History / Comment(s): Diabetic neuropathy to bilateral upper and lower extremities, postmenopausal vaginal bleeding, necrotizing fasciitis the right thigh status post skin grafts at [facility] in 2017 History of Any Multi-Drug Resistant Organisms: MRSA Date of last positivie culture/infection: 03/07/19 MDRO Source:: ESBL URINE Past Surgical History: Hysterectomy, Tubal Ligation Additional Past Surgical History / Comment(s): recent skin grafts in nida groin/thigh areas Past Anesthesia/Blood Transfusion Reactions: No Reported Reaction Past Psychological History: No Psychological Hx Reported Smoking Status: Current every day smoker Past Alcohol Use History: None Reported Additional Past Alcohol Use History / Comment(s): Patient is a smoker of 1/2 pac k per day since she was 14 years of age. She denies any medical marijuana, marijuana or street drug use. She denies any alcohol use. Patient has no pets in the home and she denies any recent travel. Past Drug Use History: None Reported - Past Family History Mother Family Medical History: Dementia Medications and Allergies Home Medications Medication Instructions Recorded Confirmed Type Albuterol Sulfate [Ventolin HFA] 2 puff INHALATION RT-DAILY PRN 01/08/21 History Atorvastatin Calcium [Lipitor] 40 mg PO DAILY 01/08/21 01/08/21 History Carvedilol [Coreg] 12.5 mg PO BID 01/08/21 01/08/21 History FLUoxetine HCL [Sarafem] 20 mg PO DAILY 01/08/21 01/08/21 History Furosemide [Lasix] 40 mg PO DAILY 01/08/21 01/08/21 History Ibuprofen [Advil] 400 mg PO Q8HR PRN 01/08/21 01/08/21 History Omeprazole 20 mg PO DAILY 01/08/21 01/08/21 History Ticagrelor [Brilinta] 90 mg PO BID 01/08/21 01/08/21 History Zzzquil 1 tab PO HS PRN 01/08/21 01/08/21 History amLODIPine [Norvasc] 10 mg PO DAILY 01/08/21 01/08/21 History lisinopriL 40 mg PO DAILY 01/08/21 01/08/21 History metFORMIN HCL ER [Glucophage Xr] 500 mg PO DAILY 01/08/21 01/08/21 History Gabapentin [Neurontin] 400 mg PO TID 01/09/21 01/09/21 History Allergies Allergy/AdvReac Type Severity Reaction Status Date / Time aspirin AdvReac nose bleeds Verified 01/08/21 22:06 Physical Exam Vitals: Vital Signs Temp Pulse Pulse Resp BP Pulse Ox 01/10/21 08:35 47 L 01/10/21 07:00 98.2 F 53 L 16 126/61 97 01/10/21 03:00 98.1 F 54 L 16 162/73 96 01/10/21 02:00 22 01/09/21 23:29 89 22 01/09/21 23:18 84 22 01/09/21 20:00 22 01/09/21 19:59 70 01/09/21 19:47 68 01/09/21 18:47 98.3 F 61 18 174/74 95 01/09/21 14:41 97.9 F 68 17 175/76 97 01/09/21 14:00 22 01/09/21 13:50 71 01/09/21 13:43 70 Results 01/08/21 21:36 01/09/21 08:57 Comprehensive Metabolic Panel 01/09/21 Range/Units 08:57 Potassium 3.7 (3.5-5.1) mmol/L Current Medications Generic Name Dose Route Start Last Admin Trade Name Freq PRN Reason Stop Dose Admin Albuterol Sulfate 2.5 mg 01/09/21 08:00 01/10/21 08:35 Albuterol Nebulized 2.5 Mg/3 Ml INHALATION 2.5 mg RT-QID TILA Administration Albuterol/Ipratropium 3 ml 01/08/21 23:38 01/09/21 23:18 Ipratropium-Albuterol 3 Ml Neb INHALATION 3 ml RT-Q4H PRN Administration Shortness Of Breath Or Wheezing Amlodipine Besylate 10 mg 01/09/21 09:00 01/10/21 08:03 Amlodipine 10 Mg Tab PO 10 mg DAILY TILA Administration Atorvastatin Calcium 40 mg 01/09/21 09:00 01/10/21 08:03 Atorvastatin 40 Mg Tab PO 40 mg DAILY TILA Administration Carvedilol 12.5 mg 01/09/21 09:00 01/10/21 08:05 Carvedilol 12.5 Mg Tab PO Not Given BID-W/MEALS TILA Fluoxetine HCl 20 mg 01/09/21 09:00 01/10/21 08:05 Fluoxetine Hcl 20 Mg Cap PO 20 mg DAILY TILA Administration Furosemide 40 mg 01/09/21 09:00 01/10/21 08:04 Furosemide 40 Mg Tab PO 40 mg DAILY TILA Administration Sodium Chloride 1,000 mls @ 100 mls/hr 01/08/21 23:45 01/10/21 06:04 Saline 0.9% IV Not Given .Q10H TILA Ceftriaxone Sodium 1 gm/ 50 mls @ 100 mls/hr 01/09/21 14:00 01/10/21 01:25 Sodium Chloride IVPB 100 mls/hr Q12H TILA Administration Insulin Aspart 0 unit 01/09/21 17:30 01/10/21 08:04 Insulin Aspart (Novolog) 100 Unit/Ml Vial SQ 5 unit ACHS TILA Administration Protocol Insulin Detemir 20 unit 01/10/21 07:00 01/10/21 08:04 Insulin Detemir (Levemir) 100 Unit/Ml Syr SQ 20 unit DAILY@0700 TILA Administration Lisinopril 40 mg 01/09/21 09:00 01/10/21 08:04 Lisinopril 20 Mg Tab PO 40 mg DAILY TILA Administration Methylprednisolone Sodium Succinate 60 mg 01/09/21 00:00 01/10/21 05:53 Methylprednisolone Sod Succi 125 Mg/2 Ml Vial IV 60 mg Q6HR TILA Administration Miscellaneous Information 1 each 01/09/21 11:02 Potassium Replacement Protocol 1 Each Misc MISCELLANE DAILY PRN Per Protocol Protocol Miscellaneous Information 1 each 01/09/21 11:02 Magnesium Replacement Protocol 1 Each Misc MISCELLANE DAILY PRN Per Protocol Protocol Morphine Sulfate 2 mg 01/08/21 22:34 01/09/21 09:51 Morphine Sulfate 2 Mg/Ml Syringe IVP 2 mg Q4H PRN Administration Pain/Discomfort Pantoprazole Sodium 40 mg 01/09/21 09:00 01/10/21 08:03 Pantoprazole 40 Mg Tablet PO 40 mg DAILY TILA Administration Ticagrelor 90 mg 01/09/21 09:00 01/10/21 08:05 Ticagrelor 90 Mg Tab PO 90 mg BID TILA Administration 01/08/21 21:36 01/09/21 08:57
[2021-01-10 11:56] LABS: Glucose,Whole Blood 160 mg/dL (75-99)
--- NOTE | 2021-01-10 13:01 | ECHOF ---
Referral Reason:cp, copd MEASUREMENTS -------- HEIGHT: 162.6 cm WEIGHT: 81.6 kg BP: 126/81 RVIDd: 3.9 cm (< 3.3) IVSd: 1.3 cm (0.6 - 1.1) LVIDd: 4.3 cm (3.9 - 5.3) LVPWd: 1.4 cm (0.6 - 1.1) IVSs: 1.9 cm LVIDs: 2.4 cm LVPWs: 1.8 cm LAESV Index (A-L): 50.26 ml/m Ao Diam: 3.2 cm (2.0 - 3.7) AV Cusp: 1.8 cm (1.5 - 2.6) LA Diam: 4.7 cm (2.7 - 3.8) MV E Twan: 1.44 m/s MV DecT: 264 ms MV A Twan: 1.07 m/s MV E/A Ratio: 1.35 RAP: 5.00 mmHg RVSP: 14.66 mmHg FINDINGS -------- Resting bradycardia (HR<60bpm). This was a technically difficult study with suboptimal views. The left ventricular size is normal. There is mild concentric left ventricular hypertrophy. Overa ll left ventricular systolic function is normal with, an EF between 55 - 60 %. The right ventricle is moderately enlarged. LA is severely dilated >40 ml/m2 The right atrial size is normal. 5.0mg of Lumason was utilized for enhancement of images Interatrial and interventricular septum intact. The aortic valve was not well visualized. There is no evidence of aortic regurgitation. There is no evidence of aortic stenosis. The mitral valve was not well visualized. Mild mitral regurgitation is present. The tricuspid valve was not well visualized. Mild tricuspid regurgitation present. There is no ev idence of pulmonary hypertension. The right ventricular systolic pressure, as measured by Doppler, is 14.66mmHg. The pulmonic valve was not well visualized. There is no pulmonic regurgitation present. The aortic root size is normal. IVC Not well visulized. There is no pericardial effusion. CONCLUSIONS -------- 1. The left ventricular size is normal. 2. There is mild concentric left ventricular hypertrophy. 3. Overall left ventricular systolic function is normal with, an EF between 55 - 60 %. 4. The right ventricle is moderately enlarged. 5. LA is severely dilated >40 ml/m2 6. Mild mitral regurgitation is present. 7. Mild tricuspid regurgitation present. REGISTERED PHLEBOTOMIST PART TIME: Geovanna Purvis RDCS
--- NOTE | 2021-01-10 15:02 | P.PN ---
Subjective Progress Note Date: 01/10/21 Melany Desir is a 65 yo F with PMH of COPD, HTN, HLD, neuropathy and leg weakness who presented to the ED with chest tightness and pain. She states that she has been very weak and trying to see her PCP to discuss options for her rehab. She complains that over the past few days she has developed a cough and then the day of admission she tripped and fell and subsequently had chest pain. Thus she came to the ED. On presentation BP 177/68, labs unremarkable, trop negative, EKG NSR. CXR with increased interstitial markings. 01/10/2021 Procalcitonin elevated. Maintained on nebulized bronchodilators, IV a ntibiotics, IV steroids. Maintaining O2 sats in the high 90s on 2 L nasal cannula. Blood sugars controlled. Hypertensive during the night, received a dose of clonidine, blood pressure better controlled this morning. Asymptomatic bradycardia. Afebrile. Evaluated by Cardiology. Echo completed, suboptimal, reporting normal LV function, EF 55-60%, severely dilated LA. Objective - Vital Signs Vital signs: Vital Signs Temp 98.2 F 01/10/21 07:00 Pulse 52 L 01/10/21 12:08 Resp 16 01/10/21 08:00 BP 126/61 01/10/21 07:00 Pulse Ox 97 01/10/21 07:00 Intake & Output 01/09/21 01/10/21 01/10/21 18:59 06:59 18:59 Intake Total 236 Balance 236 Intake: Oral 236 Other: Voiding Method External Catheter # Voids 4 - Exam General: Sitting up in bed, NAD.Vitals reviewed. Eyes: PERRL, EOMI, conjunctiva normal. HENT: normocephalic, mucus membranes moist. Neck: supple, no JVD Lungs: normal respiratory effort, bilateral bases diminished, expiratory wheezing CV: Regular rate and rhythm, no murmur. Peripheral pulses 2+ Abdomen: soft, nondistended, no organomegaly, positive bowel sounds Skin: warm and dry. Neuro: A&Ox3, normal mood and affect. - Labs CBC & Chem 7: 01/08/21 21:36 01/09/21 08:57 Labs: Abnormal Lab Results - Last 24 Hours (Table) 07/20/21 07/20/21 07/20/21 Range/Units 08:57 17:04 20:32 POC Glucose (mg/dL) 186 H 176 H (75-99) mg/dL Procalcitonin 0.23 H (0.02-0.09) ng/mL 01/10/21 01/10/21 Range/Units 07:07 11:55 POC Glucose (mg/dL) 194 H 160 H (75-99) mg/dL Procalcitonin (0.02-0.09) ng/mL Assessment and Plan Assessment: Chest pain, atypical, suspect related to pulmonary infection, cardiology following Possible acute interstitial pneumonia, secondary to Acute COPD exacerbation Hypoxic respiratory failure secondary to the above Lower extremity weakness with diabetic neuropathy Diabetes mellitus Hypertension Nicotine dependence Plan: Continue on current medication regime ,monitoring and symptomatic treatment. ProCalcitonin elevated, maintain IV antibiotics, nebulized bronchodilators with tapering of IV steroids. Follow-up chest x-ray in a.m. evaluated by PT, recommending subacute rehab. Discharge planning in progress for [facility] subacute rehab tomorrow. The impression and plan of care has been dictated as directed. : I performed a history and examination of this patient, discussed the same with the dictator. I agree with the dictator's note ,documented as a scribe. Any additional findings or plans will be noted.
[2021-01-10] MEDS: methylPREDNISolone SOD SUCCI 40 MG/ML 1 ML VIAL IV SCH ×2 (15:28→20:47)
[2021-01-10] MEDS: IPRATROPIUM-ALBUTEROL 3 ML NEB INHALATION SCH ×2 (16:15→20:38)
[2021-01-10 17:16] LABS: Glucose,Whole Blood 138 mg/dL (75-99)
[2021-01-10 21:12] LABS: Glucose,Whole Blood 167 mg/dL (75-99)
[2021-01-11] MEDS: SODIUM CHLORIDE 0.9% 1,000 ML IV SCH ×2 (02:14→13:38)
[2021-01-11] MEDS: methylPREDNISolone SOD SUCCI 40 MG/ML 1 ML VIAL IV SCH ×2 (05:33→15:39)
--- NOTE | 2021-01-11 07:31 | XR ---
EXAMINATION TYPE: XR chest 2V DATE OF EXAM: 01/11/2021 COMPARISON: 01/08/2021 HISTORY: Short of breath TECHNIQUE: Frontal and lateral views of the chest are obtained. FINDINGS: Examination is underpenetrated due to body habitus. No obvious airspace disease or pneumothorax is seen. Cardiac silhouette is unchanged in size. IMPRESSION: No acute cardiopulmonary process.
[2021-01-11 07:45] LABS: Glucose,Whole Blood 178 mg/dL (75-99)
[2021-01-11 08:07] VITALS: BP 165/84; RESP 14; TEMP 98
[2021-01-11] MEDS: IPRATROPIUM-ALBUTEROL 3 ML NEB INHALATION SCH ×2 (08:40→12:19)
[2021-01-11] MEDS: INSULIN ASPART (NovoLOG) 100 UNIT/ML VIAL SQ SCH ×2 (09:22→13:38)
[2021-01-11] MEDS: INSULIN DETEMIR (LEVEMIR) 100 UNIT/ML SYR SQ SCH (09:22)
[2021-01-11] MEDS: TICAGRELOR 90 MG TAB PO SCH (09:22)
[2021-01-11] MEDS: lisinopriL 20 MG TAB PO SCH (09:22)
[2021-01-11] MEDS: amLODIPine 10 MG TAB PO SCH (09:22)
[2021-01-11] MEDS: ATORVASTATIN 40 MG TAB PO SCH (09:23)
[2021-01-11] MEDS: PANTOPRAZOLE 40 MG TABLET PO SCH (09:23)
[2021-01-11] MEDS: FLUoxetine HCL 20 MG CAP PO SCH (09:23)
[2021-01-11] MEDS: FUROSEMIDE 40 MG TAB PO SCH (09:23)
[2021-01-11] MEDS: carvediloL 12.5 MG TAB PO SCH (09:23)
--- NOTE | 2021-01-11 11:16 | P.DS ---
Providers Date of admission: 01/10/21 08:18 Expected date of discharge: 01/11/21 Attending physician: Dom Singh MD Consults: 01/09/21 14:50 Consult Physician Routine Consulting Provider: Bryon Lopez Consult Reason/Comments: chest pain Do you want consulting provider notified?: Yes Primary care physician: Briana Mcgrath Procedures: Final Diagnoses: Acute interstitial pneumonia, secondary to Acute COPD exacerbation Chest pain, suspect related to the above ,atypical per cardiology Hypoxic respiratory failure secondary to the above Lower extremity weakness with diabetic neuropathy Diabetes mellitus Hypertension Nicotine dependence Hospital course:Melany Desir is a 65 yo F with PMH of COPD, HTN, HLD, neuropathy and leg weakness who presented to the ED with chest tightness and pain. She states that she has been very weak and trying to see her PCP to discuss options for her rehab. She complains that over the past few days she has developed a cough and then the day of admission she tripped and fell and subsequently had chest pain. Thus she came to the ED. On presentation BP 177/68, labs unremarkable, trop negative, EKG NSR. CXR with increased interstitial markings. 01/10/2021 Procalcitonin elevated. Maintained on nebulized bronchodilators, IV antibiotics, IV steroids. Maintaining O2 sats in the high 90s on 2 L nasal cannula. Blood sugars controlled. Hypertensive during the night, received a dose of clonidine, blood pressure better controlled this morning. Asymptomatic bradycardia. Afebrile. Evaluated by Cardiology. Echo completed, suboptimal, reporting normal LV function, EF 55-60%, severely dilated LA. Maintained on IV antibiotics, nebulized bronchodilators, steroids . Afebrile. Blood sugars controlled. Significant clinical improvement. Patient will be discharged to [facility] subacute rehab. today in a stable condition with guarded prognosis pending labs. The impression and plan of care has been dictated as directed. : I performed a history and examination of this patient, discussed the same with the dictator. I agree with the dictator's note ,documented as a scribe. Any additional findings or plans will be noted. Patient Condition at Discharge: Stable Plan - Discharge Summary Discharge Rx Participant: No New Discharge Prescriptions: New Ipratropium-Albuterol Nebulize [Duoneb 0.5 mg-3 mg/3 ml Soln] 3 ml INHALATION RT-QID ml predniSONE 10 mg PO DIRECTED #30 tab Amoxic-Pot Clav 875-125Mg [Augmentin 875-125] 1 tab PO Q12HR 2 Days #4 tab Ipratropium-Albuterol Nebulize [Duoneb 0.5 mg-3 mg/3 ml Soln] 3 ml INHALATION RT-Q4H PRN ml PRN Reason: Shortness Of Breath Or Wheezing Continue Omeprazole 20 mg PO DAILY metFORMIN HCL ER [Glucophage XR] 500 mg PO DAILY Furosemide [Lasix] 40 mg PO DAILY Carvedilol [Coreg] 12.5 mg PO BID Ticagrelor [Brilinta] 90 mg PO BID Gabapentin [Neurontin] 400 mg PO TID #9 cap lisinopriL 40 mg PO DAILY FLUoxetine HCL [Sarafem] 20 mg PO DAILY amLODIPine [Norvasc] 10 mg PO DAILY Atorvastatin Calcium [Lipitor] 40 mg PO DAILY Zzzquil 1 tab PO HS PRN PRN Reason: SLEEP Discontinued Albuterol Sulfate [Ventolin HFA] 2 puff INHALATION RT-DAILY PRN PRN Reason: Shortness Of Breath Ibuprofen [Advil] 400 mg PO Q8HR PRN PRN Reason: Pain Discharge Medication List Atorvastatin Calcium [Lipitor] 40 mg PO DAILY 01/08/21 [History] Carvedilol [Coreg] 12.5 mg PO BID 01/08/21 [History] FLUoxetine HCL [Sarafem] 20 mg PO DAILY 01/08/21 [History] Furosemide [Lasix] 40 mg PO DAILY 01/08/21 [History] Omeprazole 20 mg PO DAILY 01/08/21 [History] Ticagrelor [Brilinta] 90 mg PO BID 01/08/21 [History] Zzzquil 1 tab PO HS PRN 01/08/21 [History] amLODIPine [Norvasc] 10 mg PO DAILY 01/08/21 [History] lisinopriL 40 mg PO DAILY 01/08/21 [History] metFORMIN HCL ER [Glucophage XR] 500 mg PO DAILY 01/08/21 [History] Amoxic-Pot Clav 875-125Mg [Augmentin 875-125] 1 tab PO Q12HR 2 Days #4 tab 01/11/21 [Rx] Gabapentin [Neurontin] 400 mg PO TID #9 cap 01/11/21 [Rx] Ipratropium-Albuterol Nebulize [Duoneb 0.5 mg-3 mg/3 ml Soln] 3 ml INHALATION RT-Q4H PRN ml 01/11/21 [Rx] Ipratropium-Albuterol Nebulize [Duoneb 0.5 mg-3 mg/3 ml Soln] 3 ml INHALATION RT-QID ml 01/11/21 [Rx] predniSONE 10 mg PO DIRECTED #30 tab 01/11/21 [Rx] Follow up Appointment(s)/Referral(s): Briana Mcgrath DO [Primary Care Provider] - 1 Week (After discharge from subacute rehab) Activity/Diet/Wound Care/Special Instructions: [facility] subacute rehab CBC, BMP in 3 days
[2021-01-11 11:43] LABS: Glucose,Whole Blood 174 mg/dL (75-99)
[2021-01-11 12:00] LABS: African American GFR (CKD) 103.9 (60.0-200.0); Anion Gap 9.5 mmol/L (4.00-12.00); BUN/Creat Ratio 15.71 Ratio (12.00-20.00); Calcium 8.7 mg/dL (8.7-10.3); Carbon Dioxide 28.5 mmol/L (21.6-31.8); Magnesium 1.9 mg/dL (1.5-2.4); Non-African American GFR(CKD) 89.7 (60.0-200.0); Potassium 3.5 mmol/L (3.5-5.5)
[2021-01-11 12:28] VITALS: PULSE 65
--- NOTE | 2021-01-11 14:02 | CDI ---
Documentation Clarification Form Date: 01/11/2021 01:52:09 PM From: Ada Boyd CCS, CCDS Admit Date: 01/10/2021 08:18:00 AM Patient Name: Melany Desir Visit Number: [id number] Discharge Date: ATTENTION: The Clinical Documentation Specialists (CDI) and [facility] Coding Staff appreciate your assistance in clarifying documentation. Please respond to the clarification below the line at the bottom and electronically sign. The CDI & [facility] Coding staff will review the response and follow-up if needed. Please note: Queries are made part of the Legal Health Record. If you have any questions, please contact the author of this message via ITS. Dr. Dom Singh: Hypoxic Respiratory Failure is documented in the 01/10 Attending Progress Note & the 01/11 Discharge Summary without the acuity. Additional clarification regarding the acuity of the documented Hypoxic Respiratory Failure is requested. History/Risk Factors per the 01/09 H/P: COPD, Hypertension, Hyperlipidemia, Diabetes Mellitus with bilateral neuropathy, Smoker. Clinical Indicators: Presented to the ED on 12/30 with Chest Pain and SOB. Has COPD & continues to smoke. ED Clinical Impression: COPD with Exacerbation, Lower extremity weakness, Community Acquired Pneumonia. Home Meds: INH Ventolin, Lipitor, Coreg, Sarafem, Lasix, Advil, Omeprazole, Brillinta, Zzzquil, Norvasc, Lisinopril & Metformin 01/08 VS: T 98.0, P 63, R 17, BP 177/68, PO 95 RA - 2Lnc, BMI: 30.9 01/08 LAB: APTT 20.6, K 3.4, CO2 25, Glucose 126, Magnesium 1.5, Alkaline Phos 134 01/08 CXR: Increased interstitial markings compared to old exam could be mild interstitial pneumonia, no heart failure. Treatment: O2 2Lnc, INH Duoneb, IV Solumedrol, IV Morphine, po K Bicarb, IV Mag Sulfate, IV Rocephin, INH Ventolin Is there an additional diagnosis that is clinically appropriate for this patient? [ ] Acute Hypoxic Respiratory Failure [ ] Acute on Chronic Hypoxic Respiratory Failure [ ] Chronic Hypoxic Respiratory Failure [ ] Other Diagnosis, please specify [ ] Unable to determine (Template Last Revised: August 2020) Acute Hypoxic Respiratory Failure MTDD
== END 2021-01-11 15:07 | DRG 190 ==
LOC: EC 20:32 → 6NMEDSUR 23:39 → OBSVTOIN 01-10 08:18
PROVIDERS: ADMIT Family Medicine; ATTEND Family Medicine
DX: J44.1 Chronic obstructive pulmonary disease with (acute) exacerbation (principal); J96.01 Acute respiratory failure with hypoxia; J84.9 Interstitial pulmonary disease, unspecified; J44.0 Chronic obstructive pulmonary disease with (acute) lower respiratory infection; Z20.822 Contact with and (suspected) exposure to COVID-19; R29.6 Repeated falls; Z91.81 History of falling; E11.40 Type 2 diabetes mellitus with diabetic neuropathy, unspecified; E78.5 Hyperlipidemia, unspecified; E83.42 Hypomagnesemia; E87.6 Hypokalemia; F17.210 Nicotine dependence, cigarettes, uncomplicated; I10 Essential (primary) hypertension; I25.10 Atherosclerotic heart disease of native coronary artery without angina pectoris; Z79.02 Long term (current) use of antithrombotics/antiplatelets; Z79.84 Long term (current) use of oral hypoglycemic drugs; Z79.899 Other long term (current) drug therapy; Z86.73 Personal history of transient ischemic attack (TIA), and cerebral infarction without residual deficits; Z90.710 Acquired absence of both cervix and uterus; Z98.51 Tubal ligation status; Z86.19 Personal history of other infectious and parasitic diseases; Z98.890 Other specified postprocedural states; Z88.6 Allergy status to analgesic agent
CPT/HCPCS: 36415; 71046; 80048; 80053; 83735; 83880; 84132; 84145; 84484; 85025; 85610; 85730; 87635; 93005; 93306; 94640; 94760; 96374; 96375; 99285

== ENCOUNTER 2021-01-15 19:27 | Inpatient (IN) | payer MEDICARE, OTHER ==
--- NOTE | 2021-01-15 19:57 | ED ---
Recheck HPI - General Chief Complaint: Recheck/Abnormal Lab/Rx Stated Complaint: change in EKG Time Seen by Provider: 01/15/21 19:31 Source: patient, EMS Mode of arrival: EMS - History of Present Illness Initial Comments: Melany 65-year-old female is presents to ER via ambulance for evaluation of tachycardia. Patient was recently admitted to this hospital for chest pain and was discharged back to [facility]. Apparently patient has had an elevated heart rate over the weekend. Today they did an EKG and were concerned that it may show atrial fibrillation so she was sent here for further evaluation. Patient denies any complaints. - Related Data Home Medications Medication Instructions Recorded Confirmed Atorvastatin Calcium [Lipitor] 40 mg PO DAILY 01/08/21 01/08/21 FLUoxetine HCL [Sarafem] 20 mg PO DAILY 01/08/21 01/08/21 Furosemide [Lasix] 40 mg PO DAILY 01/08/21 01/08/21 Omeprazole 20 mg PO DAILY 01/08/21 01/08/21 Ticagrelor [Brilinta] 90 mg PO BID 01/08/21 01/08/21 amLODIPine [Norvasc] 10 mg PO DAILY 01/08/21 01/08/21 lisinopriL 40 mg PO DAILY 01/08/21 01/08/21 Aspirin EC [Ecotrin Low Dose] 81 mg PO DAILY@1300 01/15/21 01/15/21 Carvedilol [Coreg] 25 mg PO BID@0900,2100 01/15/21 01/15/21 Diclofenac Sodium Gel [Voltaren 1 applic TOPICAL TID@0900,1300,209901/15/21 01/15/21 Gel] Ergocalciferol (Vitamin D2) 1,250 mcg PO SHI 01/15/21 01/15/21 [Drisdol (50,000 Iu)] Gabapentin [Neurontin] 400 mg PO TID@0900,1300,2100 01/15/21 01/15/21 Ipratropium-Albuterol Nebulize 3 ml INHALATION RT-TID 01/15/21 01/15/21 [Duoneb 0.5 mg-3 mg/3 ml Soln] Menthol [Biofreeze] 1 applic TOPICAL BID@0900,2100 01/15/21 01/15/21 Menthol [Biofreeze] 1 applic TOPICAL Q6H PRN 01/15/21 01/15/21 Nicotine 21Mg/24Hr Patch [Habitrol] 1 patch TRANSDERM DAILY 01/15/21 01/15/21 Potassium Chloride [Klor-Con 20] 20 meq PO DAILY@0900 01/15/21 01/15/21 metFORMIN HCL [Glucophage] 500 mg PO DAILY 01/15/21 01/15/21 predniSONE See Taper PO DIRECTED 01/15/21 01/15/21 Previous Rx's Medication Instructions Recorded Ipratropium-Albuterol Nebulize 3 ml INHALATION RT-Q4H PRN ml 01/11/21 [Duoneb 0.5 mg-3 mg/3 ml Soln] Allergies Allergy/AdvReac Type Severity Reaction Status Date / Time aspirin AdvReac nose bleeds Verified 01/15/21 19:31 Review of Systems ROS Statement: Those systems with pertinent positive or pertinent negative responses have been documented in the HPI. ROS Other: All systems not noted in ROS Statement are negative. Past Medical History Past Medical History: Coronary Artery Disease (CAD), Diabetes Mellitus, GERD/Reflux, Hyperlipidemia, Hypertension Additional Past Medical History / Comment(s): Diabetic neuropathy to bilateral upper and lower extremities, postmenopausal vaginal bleeding, necrotizing fasciitis the right thigh status post skin grafts at [facility] in 2017 History of Any Multi-Drug Resistant Organisms: MRSA Date of last positivie culture/infection: 03/07/19 MDRO Source:: ESBL URINE Past Surgical History: Hysterectomy, Tubal Ligation Additional Past Surgical History / Comment(s): recent skin grafts in nida groin/thigh areas Past Anesthesia/Blood Transfusion Reactions: No Reported Reaction Past Psychological History: No Psychological Hx Reported Smoking Status: Current every day smoker Past Alcohol Use History: None Reported Past Drug Use History: None Reported - Past Family History Mother Family Medical History: Dementia General Exam - General Exam Comments Initial Comments: Physical Exam GENERAL: Chronically ill-appearing, no acute distress HENT: Normocephalic, Atraumatic. EYES: PERRL, EOMI PULMONARY: Unlabored respirations. No audible rales rhonchi or wheezing was noted. CARDIOVASCULAR: Tachycardic, no murmurs rubs or gallops ABDOMEN: Soft and nontender with normal bowel sounds. SKIN: Well-healed skin graft in the inguinal folds : Deferred NEUROLOGIC: Patient is alert and oriented x3. Moving all extremities spontaneously MUSCULOSKELETAL: Normal extremities with adequate strength and full range of motion. No lower extremity swelling or edema. No calf tenderness. PSYCHIATRIC: Normal psychiatric evaluation. Course Vital Signs 01/15/21 01/15/21 19:28 19:45 Temperature 98.2 F Pulse Rate 132 H Pulse Rate [ 133 H Neurology Director ] Respiratory 18 Rate Blood Pressure 113/81 O2 Sat by Pulse 97 Oximetry Medical Decision Making - Medical Decision Making The patient was seen and evaluated history is obtained from patient EKG shows sinus tachycardia with a short AL, rhythm is narrow complex and regular I do not believe this is atrial fibrillation Labs and imaging were obtained Chest x-ray unremarkable Labs of multiple changes from previous, patient has hyponatremia, hyperglycemia, even when corrected for hyperglycemia patient remains hyponatremic with a corrected sodium of less than 130 Patient care was discussed with Dr. Mosquera who agrees with plan for admission and requests long-acting insulin be ordered for nighttime sliding scale for daytime. Request a consult to cardiology and a urine drug screen for tachycardia - Lab Data Result diagrams: 01/15/21 20:00 01/15/21 20:00 Lab Results 01/15/21 01/15/21 01/15/21 Range/Units 20:00 20:00 20:00 WBC 11.1 H (3.8-10.6) k/uL RBC 4.64 (3.80-5.40) m/uL Hgb 12.1 (11.4-16.0) gm/dL Hct 37.1 (34.0-46.0) % MCV 79.9 L (80.0-100.0) fL MCH 26.0 (25.0-35.0) pg MCHC 32.6 (31.0-37.0) g/dL RDW 16.6 H (11.5-15.5) % Plt Count 345 (150-450) k/uL MPV 7.4 Neutrophils % 86 % Lymphocytes % 4 % Monocytes % 4 % Eosinophils % 0 % Basophils % 3 % Neutrophils # 9.6 H (1.3-7.7) k/uL Lymphocytes # 0.5 L (1.0-4.8) k/uL Monocytes # 0.4 (0-1.0) k/uL Eosinophils # 0.0 (0-0.7) k/uL Basophils # 0.3 H (0-0.2) k/uL Anisocytosis Slight Microcytosis Slight PT 10.8 (9.0-12.0) sec INR 1.0 (<1.2) APTT 22.6 (22.0-30.0) sec Sodium 125 L (137-145) mmol/L Potassium 4.8 (3.5-5.1) mmol/L Chloride 88 L (98-107) mmol/L Carbon Dioxide 26 (22-30) mmol/L Anion Gap 11 mmol/L BUN 25 H (7-17) mg/dL Creatinine 0.83 (0.52-1.04) mg/dL Est GFR (CKD-EPI)AfAm 85 (>60 ml/min/1.73 sqM) Est GFR (CKD-EPI)NonAf 74 (>60 ml/min/1.73 sqM) Glucose 452 H (74-99) mg/dL Calcium 9.7 (8.4-10.2) mg/dL Magnesium 1.6 (1.6-2.3) mg/dL Total Bilirubin 0.2 (0.2-1.3) mg/dL AST 15 (14-36) U/L ALT 17 (4-34) U/L Alkaline Phosphatase 92 (38-126) U/L Troponin I (0.000-0.034) ng/mL NT-Pro-B Natriuret Pep pg/mL Total Protein 6.4 (6.3-8.2) g/dL Albumin 3.9 (3.5-5.0) g/dL TSH 2.290 (0.465-4.680) mIU/L 01/15/21 01/15/21 Range/Units 20:00 20:00 WBC (3.8-10.6) k/uL RBC (3.80-5.40) m/uL Hgb (11.4-16.0) gm/dL Hct (34.0-46.0) % MCV (80.0-100.0) fL MCH (25.0-35.0) pg MCHC (31.0-37.0) g/dL RDW (11.5-15.5) % Plt Count (150-450) k/uL MPV Neutrophils % % Lymphocytes % % Monocytes % % Eosinophils % % Basophils % % Neutrophils # (1.3-7.7) k/uL Lymphocytes # (1.0-4.8) k/uL Monocytes # (0-1.0) k/uL Eosinophils # (0-0.7) k/uL Basophils # (0-0.2) k/uL Anisocytosis Microcytosis PT (9.0-12.0) sec INR (<1.2) APTT (22.0-30.0) sec Sodium (137-145) mmol/L Potassium (3.5-5.1) mmol/L Chloride (98-107) mmol/L Carbon Dioxide (22-30) mmol/L Anion Gap mmol/L BUN (7-17) mg/dL Creatinine (0.52-1.04) mg/dL Est GFR (CKD-EPI)AfAm (>60 ml/min/1.73 sqM) Est GFR (CKD-EPI)NonAf (>60 ml/min/1.73 sqM) Glucose (74-99) mg/dL Calcium (8.4-10.2) mg/dL Magnesium (1.6-2.3) mg/dL Total Bilirubin (0.2-1.3) mg/dL AST (14-36) U/L ALT (4-34) U/L Alkaline Phosphatase (38-126) U/L Troponin I <0.012 (0.000-0.034) ng/mL NT-Pro-B Natriuret Pep 3880 pg/mL Total Protein (6.3-8.2) g/dL Albumin (3.5-5.0) g/dL TSH (0.465-4.680) mIU/L Disposition Clinical Impression: Hyponatremia, Hyperglycemia, Diabetes, Coronary artery disease, Tachycardia Disposition: ADMITTED IP TO THIS HOSP Condition: Serious Referrals: Jayla Mosquera MD [Primary Care Provider] - 1-2 days
[2021-01-15 20:18] LABS: Anisocytosis Slight; Basophils # (A) 0.3 k/uL (0-0.2); Basophils % (A) 3 %; Eosinophils % (A) 0 %; HCT 37.1 % (34.0-46.0); HGB 12.1 gm/dL (11.4-16.0); Lymphocytes # (A) 0.5 k/uL (1.0-4.8); Lymphocytes % (A) 4 %; MCHC 32.6 g/dL (31.0-37.0); MCV 79.9 fL (80.0-100.0); Mean Platelet Volume 7.4; Microcytosis Slight; Monocytes # (A) 0.4 k/uL (0-1.0); Monocytes % (A) 4 %; Neutrophils # (A) 9.6 k/uL (1.3-7.7); Neutrophils % (A) 86 %; Platelet Count 345 k/uL (150-450); RBC 4.64 m/uL (3.80-5.40); RDW 16.6 % (11.5-15.5); WBC 11.1 k/uL (3.8-10.6)
--- NOTE | 2021-01-15 20:27 | XR ---
EXAMINATION TYPE: XR chest 2V DATE OF EXAM: 01/15/2021 COMPARISON: 01/12/2020 HISTORY: Chest pain TECHNIQUE: 2 views FINDINGS: Heart and mediastinum are normal. Lungs are clear of infiltrate. There is no heart failure. There are no hilar masses. There are chest leads. IMPRESSION: No active cardiopulmonary disease. No change.
[2021-01-15 20:49] LABS: Albumin 3.9 g/dL (3.5-5.0); Calcium 9.7 mg/dL (8.4-10.2); Magnesium 1.6 mg/dL (1.6-2.3); Potassium 4.8 mmol/L (3.5-5.1); Total Bilirubin 0.2 mg/dL (0.2-1.3); Total Protein 6.4 g/dL (6.3-8.2)
[2021-01-15 21:01] LABS: Partial Thromboplastin Time 22.6 sec (22.0-30.0); Prothrombin Time 10.8 sec (9.0-12.0)
[2021-01-15] MEDS ORDERED: NALOXONE 0.4 MG/ML 1 ML VIAL IV PRN (21:37)
[2021-01-15 22:20] LABS: Glucose,Whole Blood 376 mg/dL (75-99)
[2021-01-15] MEDS: INSULIN DETEMIR (LEVEMIR) 100 UNIT/ML SYR SQ SCH (22:35)
[2021-01-15 22:52] LABS: Glucose,Whole Blood 320 mg/dL (75-99)
[2021-01-15] MEDS ORDERED: IPRATROPIUM-ALBUTEROL 3 ML NEB INHALATION PRN (23:21)
[2021-01-15] MEDS ORDERED: INSULIN ASPART (NovoLOG) 100 UNIT/ML VIAL SQ ONE (23:32)
[2021-01-15] MEDS: ATORVASTATIN 40 MG TAB PO SCH (23:52)
[2021-01-15] MEDS: GABAPENTIN 400 MG CAP PO SCH (23:52)
[2021-01-16] MEDS: DICLOFENAC SODIUM GEL 100 GM TUBE TOPICAL SCH ×4 (00:51→20:47)
[2021-01-16 06:13] LABS: Glucose,Whole Blood 149 mg/dL (75-99)
[2021-01-16] MEDS: INSULIN ASPART (NovoLOG) 100 UNIT/ML VIAL SQ SCH ×4 (06:25→20:47)
[2021-01-16] MEDS ORDERED: amLODIPine 10 MG TAB PO SCH (09:00)
[2021-01-16] MEDS ORDERED: TICAGRELOR 90 MG TAB PO SCH (09:00)
[2021-01-16] MEDS: predniSONE 10 MG TAB PO SCH (09:06)
[2021-01-16] MEDS: carvediloL 12.5 MG TAB PO SCH ×2 (09:06→20:46)
[2021-01-16] MEDS: metFORMIN 500 MG TAB PO SCH (09:06)
[2021-01-16] MEDS: PANTOPRAZOLE 40 MG TABLET PO SCH (09:07)
[2021-01-16] MEDS: FLUoxetine HCL 20 MG CAP PO SCH (09:07)
[2021-01-16] MEDS: FUROSEMIDE 40 MG TAB PO SCH (09:07)
[2021-01-16] MEDS: lisinopriL 20 MG TAB PO SCH (09:07)
[2021-01-16] MEDS: POTASSIUM CHLORIDE ER 20 MEQ TAB.ER PO SCH (09:07)
[2021-01-16] MEDS: GABAPENTIN 400 MG CAP PO SCH ×3 (09:09→20:46)
[2021-01-16] MEDS: NICOTINE 21MG/24HR PATCH TRANSDERM SCH (09:09)
[2021-01-16] MEDS: DILTIAZEM ORAL 30 MG TAB PO SCH ×3 (10:30→20:46)
[2021-01-16] MEDS: APIXABAN 5 MG TAB PO SCH ×2 (10:30→20:47)
[2021-01-16 11:57] LABS: Glucose,Whole Blood 188 mg/dL (75-99)
--- NOTE | 2021-01-16 12:47 | P.CRDCN ---
History of Present Illness History of present illness: HISTORY OF PRESENTING ILLNESS This is a pleasant 65-year-old female past medical history significant for hypertension, diabetes mellitus, CVA, COPD and chronic nicotine dependence. She denies prior history of coronary artery disease and does not follow in the office with a risk compliance manager. We have been asked to see in consultation for tachycardia. She was here and treated for exacerbation of COPD last week. During routine vital sign evaluation at [facility] she was found to tachycardic and irregular. She was sent to ER for further evaluation. On arrival EKG revealed atrial fibrillation with heart rate of 132. Possible flutter waves appreciated when P-waves mapped out. Difficulty to discern when her rates are this fast. Telemetry tracings further reviewed. She is going in and out of atrial fibrillation with mostly controlled rates. She denies chest pain, shortness of breath, dizziness or palpitations. She does not feel afib at all. Echocardiogram obtained last week revealed preserved LV systolic with EF 55-60%, severely dilated LA and no significant valvular heart disease. Current daily cardiac medications include aspirin 81 mg daily, atorvastatin 40 mg daily, lasix 40 mmg daily, lisinopril 40 mg daily, amlodipine 10 mg daily, brilinta 90 mg BID and coreg 25 mg BID. REVIEW OF SYSTEMS At the time of my exam: CONSTITUTIONAL: Denies fever or chills. CARDIOVASCULAR: Denies chest pain, shortness of breath, orthopnea, PND or palpitations. RESPIRATORY: Denies cough. GASTROINTESTINAL: Denies abdominal pain, diarrhea, constipation, nausea or vomiting. MUSCULOSKELETAL: Denies myalgias. NEUROLOGIC: Denies numbness, tingling, headacbe or weakness. ENDOCRINE: Denies fatigue, weight change, polydipsia or polyurina. GENITOURINARY: Denies burning, hematuria or urgency with micturation. HEMATOLOGIC: Denies history of anemia or bleeding. PHYSICAL EXAMINATION Blood pressure 133/60 heart rate 65 afebrile and maintaining oxygen saturation on nasal cannula. CONSTITUTIONAL: No apparent distress. HEENT: Head is normocephalic. Pupils are equal, round. Sclerae anicteric. Mucous membranes of the mouth are moist. No JVD. No carotid bruit. CHEST EXAMINATION: Clear to auscultation. No chest wall tenderness is noted on palpation or with deep breathing. Diminished bilaterally. HEART EXAMINATION: Irregular rate and rhythm. S1, S2 heard. No murmurs, gallops or rub. ABDOMEN: Soft, nontender. Positive bowel sounds. EXTREMITIES: 2+ peripheral pulses, no lower extremity edema and no calf tenderness. NEUROLOGIC EXAMINATION: Patient is awake, alert and oriented x3. ASSESSMENT New onset paroxysmal atrial fibrillation with variable ventricular rates COPD Pneumonia Hypokalemia Hypomagnesemia Hypertension CVA Diabetes mellitus Chronic nicotine dependence PLAN Initiate eliquis 5 mg BID for thromboembolic protection. Discontinue brilinta and aspirin. Add small dose of cardizem 30 mg TID and continue coreg 25 mg BID. Discontinue amlodipine. Thank you kindly for this consultation. Nurse Practitioner note has been reviewed, I agree with a documented findings and plan of care. Patient was seen and examined. Past Medical History Past Medical History: Coronary Artery Disease (CAD), Diabetes Mellitus, GERD/Reflux, Hyperlipidemia, Hypertension Additional Past Medical History / Comment(s): Diabetic neuropathy to bilateral upper and lower extremities, postmenopausal vaginal bleeding, necrotizing fasciitis the right thigh status post skin grafts at [facility] in 2017 History of Any Multi-Drug Resistant Organisms: MRSA Date of last positivie culture/infection: 03/07/19 MDRO Source:: ESBL URINE Past Surgical History: Hysterectomy, Tubal Ligation Additional Past Surgical History / Comment(s): recent skin grafts in nida groin/thigh areas Past Anesthesia/Blood Transfusion Reactions: No Reported Reaction Past Psychological History: No Psychological Hx Reported Smoking Status: Current every day smoker Past Alcohol Use History: None Reported Additional Past Alcohol Use History / Comment(s): Patient is a smoker of 1/2 pack per day since she was 14 years of age. She denies any medical marijuana, marijuana or street drug use. She denies any alcohol use. Patient has no pets in the home and she denies any recent travel. Past Drug Use History: None Reported - Past Family History Mother Family Medical History: Dementia Medications and Allergies Home Medications Medication Instructions Recorded Confirmed Type Atorvastatin Calcium [Lipitor] 40 mg PO HS@2100 01/08/21 01/15/21 History FLUoxetine HCL [Sarafem] 20 mg PO DAILY@89901/08/21 01/15/21 History Furosemide [Lasix] 40 mg PO DAILY@89901/08/21 01/15/21 History Omeprazole 20 mg PO DAILY@89901/08/21 01/15/21 History Ticagrelor [Brilinta] 90 mg PO BID@0900,2100 01/08/21 01/15/21 History amLODIPine [Norvasc] 10 mg PO DAILY@0900 01/08/21 01/15/21 History lisinopriL 40 mg PO DAILY@0900 01/08/21 01/15/21 History Ipratropium-Albuterol Nebulize 3 ml INHALATION RT-Q4H PRN ml 01/11/21 01/15/21 Rx [Duoneb 0.5 mg-3 mg/3 ml Soln] Aspirin EC [Ecotrin Low Dose] 81 mg PO DAILY@1300 01/15/21 01/15/21 History Carvedilol [Coreg] 25 mg PO BID@0900,209901/15/21 01/15/21 History Diclofenac Sodium Gel [Voltaren 1 applic TOPICAL TID@0900,1300,209901/15/21 01/15/21 History Gel] Ergocalciferol (Vitamin D2) 1,250 mcg PO SHI 01/15/21 01/15/21 History [Drisdol (50,000 Iu)] Gabapentin [Neurontin] 400 mg PO TID@0900,1300,209901/15/21 01/15/21 History Ipratropium-Albuterol Nebulize 3 ml INHALATION RT-TID 01/15/21 01/15/21 History [Duoneb 0.5 mg-3 mg/3 ml Soln] Menthol [Biofreeze] 1 applic TOPICAL BID@0900,2100 01/15/21 01/15/21 History Menthol [Biofreeze] 1 applic TOPICAL Q6H PRN 01/15/21 01/15/21 History Nicotine 21Mg/24Hr Patch [Habitrol] 1 patch TRANSDERM DAILY 01/15/21 01/15/21 History Potassium Chloride [Klor-Con 20] 20 meq PO DAILY@0900 01/15/21 01/15/21 History metFORMIN HCL [Glucophage] 500 mg PO DAILY 01/15/21 01/15/21 History predniSONE See Taper PO DIRECTED 01/15/21 01/15/21 History Allergies Allergy/AdvReac Type Severity Reaction Status Date / Time aspirin AdvReac nose bleeds Verified 01/15/21 19:31 Physical Exam Vitals: Vital Signs Temp Pulse Pulse Resp BP BP Pulse Ox 01/16/21 04:00 98.8 F 79 18 133/84 95 01/15/21 23:57 98.2 F 70 16 146/67 98 01/15/21 22:44 98.2 F 110 H 18 122/80 98 01/15/21 22:00 97.8 F 121 H 18 112/95 97 01/15/21 21:00 123 H 18 136/86 98 01/15/21 20:00 130 H 18 131/80 97 01/15/21 19:45 133 H 01/15/21 19:28 98.2 F 132 H 18 113/81 97 Intake and Output 01/15/21 01/16/21 01/16/21 22:59 06:59 14:59 Output Total 1300 Balance -1300 Output: Urine 1300 Other: Voiding Method Bedside Commode # Voids 3 Weight 81.647 kg 92.3 kg Results 01/15/21 20:00 01/15/21 20:00 Cardiac Enzymes 01/15/21 01/15/21 Range/Units 20:00 20:00 AST 15 (14-36) U/L Troponin I <0.012 (0.000-0.034) ng/mL Coagulation 01/15/21 Range/Units 20:00 PT 10.8 (9.0-12.0) sec APTT 22.6 (22.0-30.0) sec CBC 01/15/21 Range/Units 20:00 WBC 11.1 H (3.8-10.6) k/uL RBC 4.64 (3.80-5.40) m/uL Hgb 12.1 (11.4-16.0) gm/dL Hct 37.1 (34.0-46.0) % Plt Count 345 (150-450) k/uL Comprehensive Metabolic Panel 01/15/21 Range/Units 20:00 Sodium 125 L (137-145) mmol/L Potassium 4.8 (3.5-5.1) mmol/L Chloride 88 L (98-107) mmol/L Carbon Dioxide 26 (22-30) mmol/L BUN 25 H (7-17) mg/dL Creatinine 0.83 (0.52-1.04) mg/dL Glucose 452 H (74-99) mg/dL Calcium 9.7 (8.4-10.2) mg/dL AST 15 (14-36) U/L ALT 17 (4-34) U/L Alkaline Phosphatase 92 (38-126) U/L Total Protein 6.4 (6.3-8.2) g/dL Albumin 3.9 (3.5-5.0) g/dL Current Medications Generic Name Dose Route Start Last Admin Trade Name Freq PRN Reason Stop Dose Admin Albuterol/Ipratropium 3 ml 01/15/21 23:21 Ipratropium-Albuterol 3 Ml Neb INHALATION RT-Q4H PRN Shortness Of Breath Or Wheezing Amlodipine Besylate 10 mg 01/16/21 09:00 01/16/21 09:06 Amlodipine 10 Mg Tab PO 10 mg DAILY@0900 [facility] Administration Apixaban 5 mg 01/16/21 09:30 Apixaban 5 Mg Tab PO BID TILA Protocol Aspirin 81 mg 01/16/21 13:00 Aspirin 81 Mg PO DAILY@1300 [facility] Atorvastatin Calcium 40 mg 01/15/21 23:29 01/15/21 23:52 Atorvastatin 40 Mg Tab PO 40 mg HS@2100 [facility] Administration Carvedilol 25 mg 01/16/21 09:00 01/16/21 09:06 Carvedilol 12.5 Mg Tab PO 25 mg BID@0900,2100 [facility] Administration Diclofenac Sodium 4 gm 01/15/21 23:28 01/16/21 09:08 Diclofenac Sodium Gel 100 Gm Tube TOPICAL 4 gm TID@0900,1300,2100 [facility] Administration Protocol Fluoxetine HCl 20 mg 01/16/21 09:00 01/16/21 09:07 Fluoxetine Hcl 20 Mg Cap PO 20 mg DAILY@0900 [facility] Administration Furosemide 40 mg 01/16/21 09:00 01/16/21 09:07 Furosemide 40 Mg Tab PO 40 mg DAILY@0900 [facility] Administration Gabapentin 400 mg 01/15/21 23:30 01/16/21 09:09 Gabapentin 400 Mg Cap PO 400 mg TID@0900,1300,2100 [facility] Administration Insulin Aspart 0 unit 01/16/21 07:30 01/16/21 06:25 Insulin Aspart (Novolog) 100 Unit/Ml Vial SQ 1 unit ACHS [facility]ILA Administration Protocol Insulin Detemir 15 unit 01/15/21 21:45 01/15/21 22:35 Insulin Detemir (Levemir) 100 Unit/Ml Syr SQ 15 unit HS TILA Administration Lisinopril 40 mg 01/16/21 09:00 01/16/21 09:07 Lisinopril 20 Mg Tab PO 40 mg DAILY@0900 [facility] Administration Metformin HCl 500 mg 01/16/21 09:00 01/16/21 09:06 Metformin 500 Mg Tab PO 500 mg DAILY [facility] Administration Naloxone HCl 0.2 mg 01/15/21 21:37 Naloxone 0.4 Mg/Ml 1 Ml Vial IV Q2M PRN Opioid Reversal Nicotine 1 patch 01/16/21 09:00 01/16/21 09:09 Nicotine 21mg/24hr Patch TRANSDERM 1 patch DAILY [facility] Administration Pantoprazole Sodium 40 mg 01/16/21 09:00 01/16/21 09:07 Pantoprazole 40 Mg Tablet PO 40 mg DAILY@0900 [facility] Administration Potassium Chloride 20 meq 01/16/21 09:00 01/16/21 09:07 Potassium Chloride Er 20 Meq Tab.Er PO 20 meq DAILY@0900 [facility] Administration Prednisone 30 mg 01/16/21 09:00 01/16/21 09:06 Prednisone 10 Mg Tab PO 30 mg DAILY [facility] Administration Intake and Output 01/15/21 01/16/21 01/16/21 22:59 06:59 14:59 Output Total 1300 Balance -1300 Output: Urine 1300 Other: Voiding Method Bedside Commode # Voids 3 Weight 81.647 kg 92.3 kg 01/15/21 20:00 01/15/21 20:00
[2021-01-16] MEDS ORDERED: ASPIRIN 81 MG PO SCH (13:00)
[2021-01-16 16:57] LABS: Glucose,Whole Blood 283 mg/dL (75-99)
[2021-01-16 17:01] LABS: Calcium 9.7 mg/dL (8.4-10.2); Potassium 5.4 mmol/L (3.5-5.1)
[2021-01-16 19:29] LABS: Urine Alcohol Negative (Negative); Urine Barbiturate Negative (Negative); Urine Cocaine Negative (Negative); Urine Methadone Negative (Negative); Urine Opiates Negative (Negative); Urine Phencyclidine Negative (Negative)
[2021-01-16 19:53] LABS: Glucose,Whole Blood 263 mg/dL (75-99)
[2021-01-16] MEDS: ATORVASTATIN 40 MG TAB PO SCH (20:47)
[2021-01-16] MEDS: INSULIN DETEMIR (LEVEMIR) 100 UNIT/ML SYR SQ SCH (20:47)
--- NOTE | 2021-01-16 22:54 | P.HPIM ---
History of Present Illness H&P Date: 01/16/21 Chief Complaint: tachycardia Melany Desir is a 65 yo F with PMH of COPD, CVA, HTN who was recently treated last week for COPD exacerbation and discharged at that time to subacute rehab. She states she had been overall feeling well at rehab but during a routine vitals check she was found to be tachycardic and irregular so was sent to the ED. She denies palpitations, chest pain, shortness of breath. On presentation pt tachycardic with initial HR 130, labs significant for hyponatremia to 125, glucose 400, chloride 85. Telemetry tracings showing paroxysmal atrial fibrillat ion. Review of Systems All systems: negative Constitutional: Denies chills, Denies fever Eyes: denies blurred vision, denies pain Ears, nose, mouth and throat: Denies headache, Denies sore throat Cardiovascular: Denies chest pain, Denies shortness of breath Respiratory: Denies cough Gastrointestinal: Denies abdominal pain, Denies diarrhea, Denies nausea, Denies vomiting Genitourinary: Denies dysuria, Denies hematuria Musculoskeletal: Denies myalgias Integumentary: Denies pruritus, Denies rash Neurological: Denies numbness, Denies weakness Psychiatric: Denies anxiety, Denies depression Endocrine: Denies fatigue, Denies weight change Past Medical History Past Medical History: Coronary Artery Disease (CAD), Diabetes Mellitus, GERD/Reflux, Hyperlipidemia, Hypertension Additional Past Medical History / Comment(s): Diabetic neuropathy to bilateral upper and lower extremities, postmenopausal vaginal bleeding, necrotizing fasciitis the right thigh status post skin grafts at [facility] in 2017 History of Any Multi-Drug Resistant Organisms: MRSA Date of last positivie culture/infection: 03/07/19 MDRO Source:: ESBL URINE Past Surgical History: Hysterectomy, Tubal Ligation Additional Past Surgical History / Comment(s): recent skin grafts in nida groin/thigh areas Past Anesthesia/Blood Transfusion Reactions: No Reported Reaction Past Psychological History: No Psychological Hx Reported Smoking Status: Current every day smoker Past Alcohol Use History: None Reported Additional Past Alcohol Use History / Comment(s): Patient is a smoker of 1/2 pack per day since she was 14 years of age. She denies any medical marijuana, marijuana or street drug use. She denies any alcohol use. Patient has no pets in the home and she denies any recent travel. Past Drug Use History: None Reported - Past Family History Mother Family Medical History: Dementia Medications and Allergies Home Medications Medication Instructions Recorded Confirmed Type Atorvastatin Calcium [Lipitor] 40 mg PO HS@209901/08/21 01/15/21 History FLUoxetine HCL [Sarafem] 20 mg PO DAILY@0900 01/08/21 01/15/21 History Furosemide [Lasix] 40 mg PO DAILY@89901/08/21 01/15/21 History Omeprazole 20 mg PO DAILY@89901/08/21 01/15/21 History Ticagrelor [Brilinta] 90 mg PO BID@0900,209901/08/21 01/15/21 History amLODIPine [Norvasc] 10 mg PO DAILY@89901/08/21 01/15/21 History lisinopriL 40 mg PO DAILY@89901/08/21 01/15/21 History Ipratropium-Albuterol Nebulize 3 ml INHALATION RT-Q4H PRN ml 01/11/21 01/15/21 Rx [Duoneb 0.5 mg-3 mg/3 ml Soln] Aspirin EC [Ecotrin Low Dose] 81 mg PO DAILY@1300 01/15/21 01/15/21 History Carvedilol [Coreg] 25 mg PO BID@0900,209901/15/21 01/15/21 History Diclofenac Sodium Gel [Voltaren 1 applic TOPICAL TID@0900,1300,209901/15/21 01/15/21 History Gel] Ergocalciferol (Vitamin D2) 1,250 mcg PO SHI 01/15/21 01/15/21 History [Drisdol (50,000 Iu)] Gabapentin [Neurontin] 400 mg PO TID@0900,1300,209901/15/21 01/15/21 History Ipratropium-Albuterol Nebulize 3 ml INHALATION RT-TID 01/15/21 01/15/21 History [Duoneb 0.5 mg-3 mg/3 ml Soln] Menthol [Biofreeze] 1 applic TOPICAL BID@0900,209901/15/21 01/15/21 History Menthol [Biofreeze] 1 applic TOPICAL Q6H PRN 01/15/21 01/15/21 History Nicotine 21Mg/24Hr Patch [Habitrol] 1 patch TRANSDERM DAILY 01/15/21 01/15/21 History Potassium Chloride [Klor-Con 20] 20 meq PO DAILY@0900 01/15/21 01/15/21 History metFORMIN HCL [Glucophage] 500 mg PO DAILY 01/15/21 01/15/21 History predniSONE See Taper PO DIRECTED 01/15/21 01/15/21 History Allergies Allergy/AdvReac Type Severity Reaction Status Date / Time aspirin AdvReac nose bleeds Verified 01/15/21 19:31 Physical Exam Vitals: Vital Signs Temp Pulse Resp BP Pulse Ox 01/16/21 20:00 97.9 F 75 18 133/61 97 01/16/21 16:00 98.3 F 61 18 135/65 97 01/16/21 12:00 98.5 F 86 20 112/64 01/16/21 08:00 98.0 F 65 18 133/60 95 01/16/21 04:00 98.8 F 79 18 133/84 95 01/15/21 23:57 98.2 F 70 16 146/67 98 Intake and Output 01/16/21 01/16/21 01/16/21 06:59 14:59 22:59 Intake Total 490 240 Output Total 7170 923 7938 Balance -1300 90 -1950 Intake: Oral 490 240 Output: Urine 1101 277 6582 Other: Voiding Method Bedside Commode Bedside Commode # Voids 3 1 # Bowel Movements 1 Weight 92.3 kg General: well nourished, well developed, NAD. Vitals reviewed Eyes: PERRL, EOMI, conjunctiva normal HENT: normocephalic, mucus membranes moist Neck: supple, no JVD Lungs: normal respiratory effort, no wheezes or rales CV: tachycardic rate, irregular, no murmur. Peripheral pulses 2+ Abdomen: soft, nondistended, no organomegaly Lymph: no cervical or axillary LAD Skin: warm and dry. Neuro: A&Ox3, normal mood and affect Results CBC & Chem 7: 01/15/21 20:00 01/16/21 15:56 Labs: Abnormal Lab Results - Last 24 Hours (Table) 01/15/21 01/16/21 01/16/21 Range/Units 22:51 06:11 11:49 Sodium (137-145) mmol/L Potassium (3.5-5.1) mmol/L Chloride (98-107) mmol/L Carbon Dioxide (22-30) mmol/L BUN (7-17) mg/dL Glucose (74-99) mg/dL POC Glucose (mg/dL) 320 H 149 H 188 H (75-99) mg/dL 01/16/21 01/16/21 01/16/21 Range/Units 15:56 16:44 19:52 Sodium 128 L (137-145) mmol/L Potassium 5.4 H (3.5-5.1) mmol/L Chloride 86 L (98-107) mmol/L Carbon Dioxide 31 H (22-30) mmol/L BUN 28 H (7-17) mg/dL Glucose 272 H (74-99) mg/dL POC Glucose (mg/dL) 283 H 263 H (75-99) mg/dL Thrombosis Risk Factor Assmnt - Choose All That Apply Any of the Below Risk Factors Present?: Yes Each Factor Represents 1 point: Obesity (BMI >25) Other Risk Factors: Yes Each Risk Factor Represents 2 Points: Age 61-74 years Thrombosis Risk Factor Assessment Total Risk Factor Score: 3 Thrombosis Risk Factor Assessment Level: Moderate Risk Assessment and Plan Plan: 1. Atrial fibrillation with RVR/paroxysmal atrial fibrillation. Cardiology consulted, pt started on eliquis. Start oral cardizem 2. Hyponatremia. Start IV fluids at 75 ml/hr, control glucose, continue lasix at current dosage 3. COPD exacerbation, resolving. Continue pred taper 4. T2DM. Continue metformin, lantus. Accuchecks and sliding scale
[2021-01-17 06:04] LABS: Glucose,Whole Blood 186 mg/dL (75-99)
[2021-01-17 06:09] VITALS: RESP 20
[2021-01-17] MEDS: INSULIN ASPART (NovoLOG) 100 UNIT/ML VIAL SQ SCH (06:26)
[2021-01-17 06:47] LABS: Anisocytosis Slight; Basophils # (A) 0.1 k/uL (0-0.2); Basophils % (A) 1 %; Eosinophils % (A) 0 %; HCT 32.8 % (34.0-46.0); HGB 10.9 gm/dL (11.4-16.0); Lymphocytes % (A) 20 %; MCH 26.1 pg (25.0-35.0); MCHC 33.3 g/dL (31.0-37.0); MCV 78.1 fL (80.0-100.0); Mean Platelet Volume 6.7; Microcytosis Slight; Monocytes # (A) 0.6 k/uL (0-1.0); Monocytes % (A) 6 %; Neutrophils # (A) 7.2 k/uL (1.3-7.7); Neutrophils % (A) 70 %; Platelet Count 294 k/uL (150-450); RDW 17.1 % (11.5-15.5); WBC 10.2 k/uL (3.8-10.6)
[2021-01-17 06:52] LABS: Calcium 9.2 mg/dL (8.4-10.2); Potassium 4.6 mmol/L (3.5-5.1)
[2021-01-17] MEDS: GABAPENTIN 400 MG CAP PO SCH (08:35)
[2021-01-17] MEDS: NICOTINE 21MG/24HR PATCH TRANSDERM SCH (08:35)
[2021-01-17] MEDS: FLUoxetine HCL 20 MG CAP PO SCH (08:35)
[2021-01-17] MEDS: metFORMIN 500 MG TAB PO SCH (08:35)
[2021-01-17] MEDS: predniSONE 10 MG TAB PO SCH (08:36)
[2021-01-17] MEDS: DILTIAZEM ORAL 30 MG TAB PO SCH (08:36)
[2021-01-17] MEDS: lisinopriL 20 MG TAB PO SCH (08:36)
[2021-01-17] MEDS: FUROSEMIDE 40 MG TAB PO SCH (08:36)
[2021-01-17] MEDS: carvediloL 12.5 MG TAB PO SCH (08:36)
[2021-01-17] MEDS: APIXABAN 5 MG TAB PO SCH (08:36)
[2021-01-17] MEDS: PANTOPRAZOLE 40 MG TABLET PO SCH (08:36)
[2021-01-17] MEDS: POTASSIUM CHLORIDE ER 20 MEQ TAB.ER PO SCH (08:36)
[2021-01-17] MEDS: DICLOFENAC SODIUM GEL 100 GM TUBE TOPICAL SCH (08:42)
[2021-01-17 09:43] VITALS: BP 129/73; PULSE 70; TEMP 98.2
[2021-01-17] MEDS ORDERED: SODIUM CHLORIDE TAB 1 GM TAB PO STA (09:47)
--- NOTE | 2021-01-17 09:50 | P.PN ---
Subjective HISTORY OF PRESENTING ILLNESS This is a pleasant 65-year-old female past medical history significant for hypertension, diabetes mellitus, CVA, COPD and chronic nicotine dependence. She denies prior history of coronary artery disease and does not follow in the office with a personal injury paralegal. We have been asked to see in consultation for preeti leggett. She was here and treated for exacerbation of COPD last week. During routine vital sign evaluation at [facility] she was found to tachycardic and irregular. She was sent to ER for further evaluation. On arrival EKG revealed atrial fibrillation with heart rate of 132. Possible flutter waves appreciated when P-waves mapped out. Difficulty to discern when her rates are this fast. Telemetry tracings further reviewed. She is going in and out of atrial fibrillation with mostly controlled rates. She denies chest pain, shortness of breath, dizziness or palpitations. She does not feel afib at all. Echocardiogram obtained last week revealed preserved LV systolic with EF 55-60%, severely dilated LA and no significant valvular heart disease. Current daily cardiac medications include aspirin 81 mg daily, atorvastatin 40 mg daily, lasix 40 mmg daily, lisinopril 40 mg daily, amlodipine 10 mg daily, brilinta 90 mg BID and coreg 25 mg BID. 01/17/2021 Pt seen and examined sitting up in recliner in no acute distress. She denies chest pain, shortness of breath, dizziness or palpitations. She remains in afib with controlled rates. Blood pressure 129/73 heart rate 70 afebrile maintaining oxygen saturation on room air. Laboratory data reviewed, WBC 10.2, hemoglobin 10.9, platelets 294, sodium 126, potassium 4.6 and creatinine 0.98. PHYSICAL EXAMINATION CONSTITUTIONAL: No apparent distress. HEENT: Head is normocephalic. Pupils are equal, round. Sclerae anicteric. Mucous membranes of the mouth are moist. No JVD. No carotid bruit. CHEST EXAMINATION: Clear to auscultation. No chest wall tenderness is noted on palpation or with deep breathing. Diminished bilaterally. HEART EXAMINATION: Irregular rate and rhythm. S1, S2 heard. No murmurs, gallops or rub. EXTREMITIES: 2+ peripheral pulses, no lower extremity edema and no calf tenderness. ASSESSMENT New onset paroxysmal atrial fibrillation with variable ventricular rates COPD Pneumonia Hypokalemia Hypomagnesemia Hypertension CVA Diabetes mellitus Chronic nicotine dependence PLAN Stable on current medical regimen. Continue Eliquis, beta blockers and Cardizem on discharge. Follow-up with Dr. Lopez in the office in 2 weeks. Nurse Practitioner note has been reviewed, I agree with a documented findings and plan of care. Patient was seen and examined. Objective - Vital Signs Vital signs: Vital Signs Temp 98.2 F 01/17/21 08:00 Pulse 70 01/17/21 08:00 Resp 20 01/17/21 08:00 BP 129/73 01/17/21 08:00 Pulse Ox 99 01/17/21 08:00 Intake & Output 01/16/21 01/17/21 01/17/21 18:59 06:59 18:59 Intake Total 730 400 Output Total 1949 1979 150 Balance -1219 -1979 250 Weight 93 kg Intake: Oral 730 400 Output: Urine 1949 1979 150 Other: Voiding Method Bedside Commode # Voids 2 3 1 # Bowel Movements 1 1 - Labs CBC & Chem 7: 01/17/21 05:56 01/17/21 05:56 Labs: Abnormal Lab Results - Last 24 Hours (Table) 01/16/21 01/16/21 01/16/21 Range/Units 11:49 15:56 16:44 Hgb (11.4-16.0) gm/dL Hct (34.0-46.0) % MCV (80.0-100.0) fL RDW (11.5-15.5) % Sodium 128 L (137-145) mmol/L Potassium 5.4 H (3.5-5.1) mmol/L Chloride 86 L (98-107) mmol/L Carbon Dioxide 31 H (22-30) mmol/L BUN 28 H (7-17) mg/dL Glucose 272 H (74-99) mg/dL POC Glucose (mg/dL) 188 H 283 H (75-99) mg/dL 01/16/21 01/17/21 01/17/21 Range/Units 19:52 05:56 05:56 Hgb 10.9 L (11.4-16.0) gm/dL Hct 32.8 L (34.0-46.0) % MCV 78.1 L (80.0-100.0) fL RDW 17.1 H (11.5-15.5) % Sodium 126 L (137-145) mmol/L Potassium (3.5-5.1) mmol/L Chloride 88 L (98-107) mmol/L Carbon Dioxide 31 H (22-30) mmol/L BUN 33 H (7-17) mg/dL Glucose 168 H (74-99) mg/dL POC Glucose (mg/dL) 263 H (75-99) mg/dL 01/17/21 Range/Units 06:03 Hgb (11.4-16.0) gm/dL Hct (34.0-46.0) % MCV (80.0-100.0) fL RDW (11.5-15.5) % Sodium (137-145) mmol/L Potassium (3.5-5.1) mmol/L Chloride (98-107) mmol/L Carbon Dioxide (22-30) mmol/L BUN (7-17) mg/dL Glucose (74-99) mg/dL POC Glucose (mg/dL) 186 H (75-99) mg/dL
--- NOTE | 2021-01-17 10:40 | P.DS ---
Providers Date of admission: 01/15/21 21:39 Expected date of discharge: 01/17/21 Attending physician: Dom Singh MD Consults: 01/15/21 21:38 Consult Physician Routine Consulting Provider: [facility] Consult Reason/Comments: tachycardia Do you want consulting provider notified?: Yes Primary care physician: Dom Singh MD Hospital Course: Final Diagnoses: Paroximal atrial fibrillation with RVR, now controlled Hyponatremia Hypomagnesemia Acute COPD exacerbation, improved Diabetes mellitus type 2, uncontrolled, hyperglycemic -steroid-induced Melany Desir is a 65 yo F with PMH of COPD, CVA, HTN who was recently treated last week for COPD exacerbation and discharged at that time to subacute rehab. She states she had been overall feeling well at rehab but during a routine vitals check she was found to be tachycardic and irregular so was sent to the ED. She denies palpitations, chest pain, shortness of breath. On presentation pt tachycardic with initial HR 130, labs significant for hyponatremia to 125, glucose 400, chloride 85. Telemetry tracings showing paroxysmal atrial fibrillation. Maintained on IV fluid hydration of 0.9 sodium chloride. Sodium currently 126, received sodium chloride 1 g po x 1, with recheck of sodium tomorrow at subacute rehab. Evaluated by cardiology, maintained on beta roxana and Cardizem,anticoagulated on Eliquis. Cleared by cardiology for discharge. Denies chest pain, palpitations or shortness of breath. Vital signs stable, maintaining O2 sats in the 90s on room air. Denies lightheadedness, dizziness or focal deficits. Denies headache. Denies cramping or increased weakness. Good diet intake with no nausea or vomiting. No seizure activity. Afebrile, normal WBC. Patient will be discharged to [facility] subacute rehab today in a stable condition with guarded prognosis. The impression and plan of care has been dictated as directed. : I performed a history and examination of this patient, discussed the same with the dictator. I agree with the dictator's note ,documented as a scribe. Any additional findings or plans will be noted. Patient Condition at Discharge: Stable Plan - Discharge Summary Discharge Rx Participant: No New Discharge Prescriptions: New INSULIN LISPRO (HumaLOG) [humaLOG] 0 unit SQ ACHS #1 vial Diltiazem Oral [Cardizem*] 30 mg PO TID tab Apixaban [Eliquis] 5 mg PO BID tab Insulin Detemir (Levemir) [Levemir] 15 unit SQ HS syr predniSONE 10 mg PO DIRECTED #9 tab Continue Omeprazole 20 mg PO DAILY@0900 Furosemide [Lasix] 40 mg PO DAILY@0900 Menthol [Biofreeze] 1 applic TOPICAL Q6H PRN PRN Reason: UPPER ARM/SHOULDER PAIN Diclofenac Sodium Gel [Voltaren Gel] 1 applic TOPICAL TID@0900,1299,2099 Carvedilol [Coreg] 25 mg PO BID@899,2099 Menthol [Biofreeze] 1 applic TOPICAL BID@899,2099 Potassium Chloride [Klor-Con 20] 20 meq PO DAILY@0900 Ergocalciferol (Vitamin D2) [Drisdol (50,000 Iu)] 1,250 mcg PO SHI lisinopriL 40 mg PO DAILY@0900 FLUoxetine HCL [Sarafem] 20 mg PO DAILY@0900 Atorvastatin Calcium [Lipitor] 40 mg PO HS@2099 Ipratropium-Albuterol Nebulize [Duoneb 0.5 mg-3 mg/3 ml Soln] 3 ml INHALATION RT-Q4H PRN ml PRN Reason: Shortness Of Breath Or Wheezing Ipratropium-Albuterol Nebulize [Duoneb 0.5 mg-3 mg/3 ml Soln] 3 ml INHALATION RT-TID Gabapentin [Neurontin] 400 mg PO TID@0900,1300,2100 metFORMIN HCL [Glucophage] 500 mg PO DAILY Nicotine 21Mg/24Hr Patch [Habitrol] 1 patch TRANSDERM DAILY Aspirin EC [Ecotrin Low Dose] 81 mg PO DAILY@1300 Discontinued Ticagrelor [Brilinta] 90 mg PO BID@0900,2099 amLODIPine [Norvasc] 10 mg PO DAILY@0900 predniSONE See Taper PO DIRECTED Discharge Medication List Atorvastatin Calcium [Lipitor] 40 mg PO HS@209901/08/21 [History] FLUoxetine HCL [Sarafem] 20 mg PO DAILY@89901/08/21 [History] Furosemide [Lasix] 40 mg PO DAILY@89901/08/21 [History] Omeprazole 20 mg PO DAILY@89901/08/21 [History] lisinopriL 40 mg PO DAILY@89901/08/21 [History] Ipratropium-Albuterol Nebulize [Duoneb 0.5 mg-3 mg/3 ml Soln] 3 ml INHALATION RT-Q4H PRN ml 01/11/21 [Rx] Aspirin EC [Ecotrin Low Dose] 81 mg PO DAILY@1300 01/15/21 [History] Carvedilol [Coreg] 25 mg PO BID@0900,209901/15/21 [History] Diclofenac Sodium Gel [Voltaren Gel] 1 applic TOPICAL TID@0900,1300,209901/15/21 [History] Ergocalciferol (Vitamin D2) [Drisdol (50,000 Iu)] 1,250 mcg PO SHI 01/15/21 [History] Gabapentin [Neurontin] 400 mg PO TID@0900,1300,209901/15/21 [History] Ipratropium-Albuterol Nebulize [Duoneb 0.5 mg-3 mg/3 ml Soln] 3 ml INHALATION RT-TID 01/15/21 [History] Menthol [Biofreeze] 1 applic TOPICAL BID@00,209901/15/21 [History] Menthol [Biofreeze] 1 applic TOPICAL Q6H PRN 01/15/21 [History] Nicotine 21Mg/24Hr Patch [Habitrol] 1 patch TRANSDERM DAILY 01/15/21 [History] Potassium Chloride [Klor-Con 20] 20 meq PO DAILY@0900 01/15/21 [History] metFORMIN HCL [Glucophage] 500 mg PO DAILY 01/15/21 [History] Apixaban [Eliquis] 5 mg PO BID tab 01/17/21 [Rx] Diltiazem Oral [Cardizem*] 30 mg PO TID tab 01/17/21 [Rx] INSULIN LISPRO (HumaLOG) [humaLOG] 0 unit SQ ACHS #1 vial 01/17/21 [Rx] Insulin Detemir (Levemir) [Levemir] 15 unit SQ HS syr 01/17/21 [Rx] predniSONE 10 mg PO DIRECTED #9 tab 01/17/21 [Rx] Follow up Appointment(s)/Referral(s): Jayla Mosquear MD [STAFF PHYSICIAN] - 3 Days Dom Singh MD [Primary Care Provider] - 1 Week (After DC from subacute rehab) Bryon Lopez MD [STAFF PHYSICIAN] - 2 Weeks Activity/Diet/Wound Care/Special Instructions: Kateryna MEJIA in a.m. 01/18/2021 ROBERTO FERNÁNDEZ in 3 days
[2021-01-17 12:21] LABS: Glucose,Whole Blood 210 mg/dL (75-99)
--- NOTE | 2021-01-19 14:21 | CDI ---
Documentation Clarification Form Date: 01/19/2021 From: CARMEN Delgado Admit Date: 01/15/2021 09:39:00 PM Patient Name: Melany Desir Visit Number: [id number] Discharge Date: 01/17/2021 11:53:00 AM ATTENTION: The Clinical Documentation Specialists (CDI) and [facility] Coding Staff appreciate your assistance in clarifying documentation. Please respond to the clarification below the line at the bottom and electronically sign. The CDI & [facility] Coding staff will review the response and follow-up if needed. Please note: Queries are made part of the Legal Health Record. If you have any questions, please contact the author of this message via ITS. Dr. Dom Singh Pneumonia is documented 01/16 Consultation, as well as the 01/17 Progress Note, which may lack sufficient clinical evidence/support in the medical record. Additional clarification is requested. History/Risk Factors: Patient is admitted with paroxysmal atrial fibrillation, hyponatremia and COPD exacerbation Clinical Indicators: The 01/15 Chest X-Ray indicates the lungs are clear of infiltrate. Treatment: No antibiotics Please clarify if pneumonia is a valid diagnosis? [ ] Yes, pneumonia is present as evidence by (additional clinical support): [ ] No, pneumonia is ruled out [ ] Other (please specify diagnosis) [ ] Unable to determine No, pneumonia ruled out MTDD
== END 2021-01-17 11:53 | DRG 309 ==
LOC: EC 19:27 → 3SCARD 21:39
PROVIDERS: ADMIT Family Medicine; ATTEND Family Medicine
DX: I48.0 Paroxysmal atrial fibrillation (principal); E87.1 Hypo-osmolality and hyponatremia; J44.1 Chronic obstructive pulmonary disease with (acute) exacerbation; I25.10 Atherosclerotic heart disease of native coronary artery without angina pectoris; E87.6 Hypokalemia; F17.210 Nicotine dependence, cigarettes, uncomplicated; K21.9 Gastro-esophageal reflux disease without esophagitis; E78.5 Hyperlipidemia, unspecified; E83.42 Hypomagnesemia; T38.0X5A Adverse effect of glucocorticoids and synthetic analogues, initial encounter; E11.65 Type 2 diabetes mellitus with hyperglycemia; E11.40 Type 2 diabetes mellitus with diabetic neuropathy, unspecified; Z79.84 Long term (current) use of oral hypoglycemic drugs; Z79.02 Long term (current) use of antithrombotics/antiplatelets; Z79.82 Long term (current) use of aspirin; Z79.52 Long term (current) use of systemic steroids; Z79.899 Other long term (current) drug therapy; Z88.6 Allergy status to analgesic agent; Z86.14 Personal history of Methicillin resistant Staphylococcus aureus infection; Z90.710 Acquired absence of both cervix and uterus; Z98.51 Tubal ligation status
CPT/HCPCS: 36415; 71046; 80048; 80053; 80306; 82306; 82607; 83036; 83735; 83880; 84443; 84484; 84550; 85025; 85610; 85730; 93005; 96360; 99285; 99291

== ENCOUNTER 2022-01-24 16:57 | Inpatient (IN) | payer MEDICARE, OTHER ==
--- NOTE | 2022-01-24 17:19 | ED ---
General Adult HPI - General Chief complaint: Recheck/Abnormal Lab/Rx Stated complaint: bowel obstruction Time Seen by Provider: 01/24/22 16:59 Source: EMS Mode of arrival: EMS Limitations: no limitations, physical limitation - History of Present Illness Initial comments: Dictation was produced using [employer] dictation software. please excuse any gram matical, word or spelling errors. Chief Complaint: 66-year-old female sent here for abnormal x-ray History of Present Illness: 66-year-old female she is brought in by EMS from [facility]. Patient has been having watery diarrhea for the last 4 days. Patient had x-ray performed at [facility] that showed possible ileus. Patient has any abdominal pain. Patient states that she is having 4-5 episodes of watery diarrhea daily. Her constitutional symptoms. Patient is a sympto matically at the bedside. Patient had blood work drawn from 01/11/2022. Blood work at that time was unremarkable. The ROS documented in this emergency department record has been reviewed and confirmed by me. Those systems with pertinent positive or negative responses have been documented in the HPI. All other systems are other negative and/or noncontributory. PHYSICAL EXAM: General Impression: Alert and oriented x3, not in acute distress HEENT: Normocephalic atraumatic, extra-ocular movements intact, pupils equal and reactive to light bilaterally, mucous membranes moist. Cardiovascular: Heart regular rate and rhythm Chest: Able to complete full sentences, no retractions, no tachypnea Abdomen: abdomen soft, non-tender, non-distended, no organomegaly Musculoskeletal: Pulses present and equal in all extremities, no peripheral edema Motor: no focal deficits noted Neurological: CN II-XII grossly intact, no focal motor or sensory deficits noted Skin: Intact with no visualized rashes Psych: Normal affect and mood ED course: 66-year-old female sent into the emergency department for abnormal outpatient x-ray. X-ray results were with the patient's transfer packet showing possible ileus. Vital Signs upon arrival are all within acceptable limits. Patient's well-appearing at the bedside. Abdominal examination is benign. Patient denies any active symptoms. It's unclear if patient was tested for C. diff recently. Laboratory evaluation obtained. Leukocytosis of 26.9. Unclear cause. metabolic panel was obtained showing sodium 1:30. Glucose of 34. Elevated BUN to 33. C. diff EIA is negative. Patient was given dextrose with improvement of 143. Repeat [id number] blood glucose was 73. Repeat 30 minutes later was 54. Patient started on dextrose drip. At this point is unclear what is causing patient's eye black female. Could be drug related or infection related. Patient given Zosyn for concerns of infection given leukocytosis. No obvious source of infection. Patient will be admitted. Consultation made to infectious disease. - Related Data Home Medications Medication Instructions Recorded Confirmed Atorvastatin Calcium [Lipitor] 40 mg PO HS 01/08/21 01/24/22 Aspirin EC [Ecotrin Low Dose] 81 mg PO DAILY 01/15/21 01/24/22 Diclofenac Sodium Gel [Voltaren 1 applic TOPICAL QID 01/15/21 01/24/22 Gel] Ergocalciferol (Vitamin D2) 1,250 mcg PO MO 01/15/21 01/24/22 [Drisdol (50,000 Iu)] Menthol [Biofreeze] 1 applic TOPICAL TID@0600,1400,2200 01/15/21 01/24/22 Nicotine 21Mg/24Hr Patch [Habitrol] 1 patch TRANSDERM DAILY 01/15/21 01/24/22 Potassium Chloride [Klor-Con 20] 20 meq PO DAILY@1200 01/15/21 01/24/22 metFORMIN HCL [Glucophage] 500 mg PO BID@0900,1700 01/15/21 01/24/22 Acetaminophen [Tylenol] 650 mg PO Q4H PRN 01/24/22 01/24/22 Benzocaine/Menthol [Cepacol Sore 1 lozenge MM Q2H PRN 01/24/22 01/24/22 Throat Lozenge] Cholestyramine/Aspartame 4 gm PO TID@0900,1300,2100 01/24/22 01/24/22 [Cholestyramine Light Packet] Cyclobenzaprine [Flexeril] 10 mg PO HS 01/24/22 01/24/22 Doxycycline Hyclate 100 mg PO BID 01/24/22 01/24/22 Epoetin Ralf [Procrit] 10,000 unit SQ HS 01/24/22 01/24/22 FLUoxetine HCL 20 mg PO DAILY 01/24/22 01/24/22 Ferrous Sulfate [Iron] 325 mg PO DAILY 01/24/22 01/24/22 Fluticasone Propion/Salmeterol 1 puff PO RT-BID 01/24/22 01/24/22 [Wixela 250-50 Inhub] Gabapentin [Neurontin] 400 mg PO TID@0600,1400,2200 01/24/22 01/24/22 Glimepiride [Amaryl] 0.5 mg PO DAILY@1700 01/24/22 01/24/22 Glimepiride [Amaryl] 2 mg PO DAILY 01/24/22 01/24/22 HYDROcodone/APAP 7.5-325MG [[place] 1 tab PO Q4H PRN 01/24/22 01/24/22 7.5-325] Loperamide HCl [Imodium A-D] 2 - 4 mg PO BID PRN 01/24/22 01/24/22 Metoprolol Tartrate [Lopressor] 25 mg PO TID@0600,1400,2200 01/24/22 01/24/22 Omeprazole 20 mg PO DAILY 01/24/22 01/24/22 Ondansetron [Zofran] 4 mg PO Q6H PRN 01/24/22 01/24/22 Torsemide [Demadex] 30 mg PO DAILY 01/24/22 01/24/22 lisinopriL [Zestril] 10 mg PO DAILY 01/24/22 01/24/22 tiZANidine [Zanaflex] 4 mg PO HS 01/24/22 01/24/22 Previous Rx's Medication Instructions Recorded Ipratropium-Albuterol Nebulize 3 ml INHALATION RT-Q4H PRN ml 01/11/21 [Duoneb 0.5 mg-3 mg/3 ml Soln] Apixaban [Eliquis] 5 mg PO BID tab 01/17/21 Magnesium Oxide [Magox 400] 400 mg PO DAILY #1 tablet 01/17/21 Allergies Allergy/AdvReac Type Severity Reaction Status Date / Time aspirin AdvReac nose bleeds Verified 01/24/22 17:49 Review of Systems ROS Statement: Those systems with pertinent positive or pertinent negative responses have been documented in the HPI. ROS Other: All systems not noted in ROS Statement are negative. Past Medical History Past Medical History: Coronary Artery Disease (CAD), Diabetes Mellitus, GERD/Reflux, Hyperlipidemia, Hypertension Additional Past Medical History / Comment(s): Diabetic neuropathy to bilateral upper and lower extremities, postmenopausal vaginal bleeding, necrotizing fasciitis the right thigh status post skin grafts at [facility] in 2017 History of Any Multi-Drug Resistant Organisms: MRSA Date of last positivie culture/infection: 03/07/19 MDRO Source:: ESBL URINE Past Surgical History: Hysterectomy, Tubal Ligation Additional Past Surgical History / Comment(s): recent skin grafts in nida groin/thigh areas Past Anesthesia/Blood Transfusion Reactions: No Reported Reaction Past Psychological History: No Psychological Hx Reported Smoking Status: Former smoker Past Alcohol Use History: None Reported Past Drug Use History: None Reported - Past Family History Mother Family Medical History: Dementia General Exam Limitations: no limitations, physical limitation Course Vital Signs 01/24/22 01/24/22 17:05 18:13 Temperature 97.8 F Pulse Rate 62 58 L Respiratory 16 16 Rate Blood Pressure 146/69 107/51 O2 Sat by Pulse 98 94 L Oximetry Medical Decision Making - Lab Data Result diagrams: 01/24/22 17:30 01/24/22 17:30 Lab Results 01/24/22 01/24/22 01/24/22 Range/Units 17:30 17:30 17:30 WBC 26.9 H (3.8-10.6) k/uL RBC 3.93 (3.80-5.40) m/uL Hgb 8.4 L (11.4-16.0) gm/dL Hct 29.5 L (34.0-46.0) % MCV 75.1 L (80.0-100.0) fL MCH 21.3 L (25.0-35.0) pg MCHC 28.3 L (31.0-37.0) g/dL RDW 19.2 H (11.5-15.5) % Plt Count 414 (150-450) k/uL MPV 7.8 Neutrophils % 76 % Lymphocytes % 8 % Monocytes % 10 % Eosinophils % 0 % Basophils % 2 % Neutrophils # 20.3 H (1.3-7.7) k/uL Lymphocytes # 2.2 (1.0-4.8) k/uL Monocytes # 2.7 H (0-1.0) k/uL Eosinophils # 0.1 (0-0.7) k/uL Basophils # 0.5 H (0-0.2) k/uL Hypochromasia Marked Poikilocytosis Slight Anisocytosis Slight Microcytosis Moderate Sodium 130 L (137-145) mmol/L Potassium 5.1 (3.5-5.1) mmol/L Chloride 96 L (98-107) mmol/L Carbon Dioxide 22 (22-30) mmol/L Anion Gap 12 mmol/L BUN 33 H (7-17) mg/dL Creatinine 0.92 (0.52-1.04) mg/dL Est GFR (CKD-EPI)AfAm 74 (>60 ml/min/1.73 sqM) Est GFR (CKD-EPI)NonAf 64 (>60 ml/min/1.73 sqM) Glucose 34 L* (74-99) mg/dL POC Glucose (mg/dL) (70-110) mg/dL POC Glu Dicer Operator ID Calcium 9.3 (8.4-10.2) mg/dL Total Bilirubin 0.3 (0.2-1.3) mg/dL AST 11 L (14-36) U/L ALT 10 (4-34) U/L Alkaline Phosphatase 85 (38-126) U/L Total Protein 7.1 (6.3-8.2) g/dL Albumin 4.2 (3.5-5.0) g/dL C. difficile (EIA) Intrp Negative (Negative) 01/24/22 01/24/22 01/24/22 Range/Units 18:27 19:53 20:28 WBC (3.8-10.6) k/uL RBC (3.80-5.40) m/uL Hgb (11.4-16.0) gm/dL Hct (34.0-46.0) % MCV (80.0-100.0) fL MCH (25.0-35.0) pg MCHC (31.0-37.0) g/dL RDW (11.5-15.5) % Plt Count (150-450) k/uL MPV Neutrophils % % Lymphocytes % % Monocytes % % Eosinophils % % Basophils % % Neutrophils # (1.3-7.7) k/uL Lymphocytes # (1.0-4.8) k/uL Monocytes # (0-1.0) k/uL Eosinophils # (0-0.7) k/uL Basophils # (0-0.2) k/uL Hypochromasia Poikilocytosis Anisocytosis Microcytosis Sodium (137-145) mmol/L Potassium (3.5-5.1) mmol/L Chloride (98-107) mmol/L Carbon Dioxide (22-30) mmol/L Anion Gap mmol/L BUN (7-17) mg/dL Creatinine (0.52-1.04) mg/dL Est GFR (CKD-EPI)AfAm (>60 ml/min/1.73 sqM) Est GFR (CKD-EPI)NonAf (>60 ml/min/1.73 sqM) Glucose (74-99) mg/dL POC Glucose (mg/dL) 143 H 73 54 L (70-110) mg/dL POC Glu Dicer Operator ID Willing, Kinsey Calcium (8.4-10.2) mg/dL Total Bilirubin (0.2-1.3) mg/dL AST (14-36) U/L ALT (4-34) U/L Alkaline Phosphatase (38-126) U/L Total Protein (6.3-8.2) g/dL Albumin (3.5-5.0) g/dL C. difficile (EIA) Intrp (Negative) Critical Care Time Critical Care Time: Yes Total Critical Care Time: 33 Disposition Clinical Impression: Hypoglycemia, Dehydration, SIRS (systemic inflammatory response syndrome) Disposition: ADMITTED IP TO THIS [facility] Condition: Serious Is patient prescribed a controlled substance at d/c from ED?: No Referrals: Jayla Mosquera MD [Primary Care Provider] - 1-2 days Decision Time: 20:38
[2022-01-24 17:49] LABS: Anisocytosis Slight; Basophils # (A) 0.5 k/uL (0-0.2); Basophils % (A) 2 %; Eosinophils # (A) 0.1 k/uL (0-0.7); Eosinophils % (A) 0 %; HCT 29.5 % (34.0-46.0); HGB 8.4 gm/dL (11.4-16.0); Hypochromasia Marked; Lymphocytes # (A) 2.2 k/uL (1.0-4.8); Lymphocytes % (A) 8 %; MCH 21.3 pg (25.0-35.0); MCHC 28.3 g/dL (31.0-37.0); MCV 75.1 fL (80.0-100.0); Mean Platelet Volume 7.8; Microcytosis Moderate; Monocytes # (A) 2.7 k/uL (0-1.0); Monocytes % (A) 10 %; Neutrophils # (A) 20.3 k/uL (1.3-7.7); Neutrophils % (A) 76 %; Platelet Count 414 k/uL (150-450); Poikilocytosis Slight; RBC 3.93 m/uL (3.80-5.40); RDW 19.2 % (11.5-15.5); WBC 26.9 k/uL (3.8-10.6)
[2022-01-24 17:59] LABS: Albumin 4.2 g/dL (3.5-5.0); Calcium 9.3 mg/dL (8.4-10.2); Potassium 5.1 mmol/L (3.5-5.1); Total Bilirubin 0.3 mg/dL (0.2-1.3); Total Protein 7.1 g/dL (6.3-8.2)
[2022-01-24] MEDS ORDERED: DEXTROSE 50% SYRINGE 50 ML IVP STA ×2 (18:01→20:42)
[2022-01-24 18:29] LABS: Glucose,Whole Blood 143 mg/dL (70-110)
--- NOTE | 2022-01-24 19:31 | CT ---
EXAMINATION TYPE: CT abdomen pelvis w con DATE OF EXAM: 01/24/2022 COMPARISON: None available HISTORY: abdominal pain and diarrhea CT DLP: 1882.2 mGycm Automated exposure control for dose reduction was used. TECHNIQUE: Helical acquisition of images was performed from the lung bases through the pelvis. CONTRAST: Performed without Oral Contrast and with IV Contrast, patient injected with 100 mL of Isovue 300. FINDINGS: LUNG BASES: Moderate right lower lobe consolidation. Scattered multiple right basilar nodules measuri ng up to 7 mm. LIVER/GB: No significant abnormality is appreciated. PANCREAS: No significant abnormality is seen. SPLEEN: No significant abnormality is seen. ADRENALS: No significant abnormality is seen. KIDNEYS: No acute abnormality is seen. Few simple appearing bilateral renal cysts measuring up to 1.2 cm. FREE AIR: No free air is visualized. RETROPERITONEAL ADENOPATHY: None visualized REPRODUCTIVE ORGANS: No significant abnormality is seen URINARY BLADDER: Urinary bladder distention. PELVIC ADENOPATHY: None visualized. OSSEOUS STRUCTURES: 1.5 cm posterior L1 vertebral body lytic lesion. Additional similar T8 vertebral body lytic lesion seen. Chronic appearing moderate L3 compression fracture . Also right fifth rib an d pelvic bone lytic lesions. BOWEL: Moderate amount of stool throughout the colon. There is also fluid distention of the left col on with wall thickening. No bowel obstruction. No acute appendicitis. Small fat-containing ventral he rnia. Small amount of fluid is seen within the hernia sac. OTHER: Scattered multiple omental nodules notable on the right and adjacent to the mid transverse col on. The nodules measure up to 1.1 cm. IMPRESSION: Scattered pulmonary and omental nodules as well as osseous lytic lesions as above. Findings are sandie rning for metastatic disease. Obvious primary malignancy is not seen. Colonic stool burden with fluid distention and mild wall thickening of the left colon. Findings may r elate to colitis and compatible with history of diarrhea. Other etiologies not excluded. Right lower lobe consolidation and partial collapse. There appears to be occlusion of the right lower lobe bronchi. Urinary bladder distention. Small ventral hernia. Nonobstructive bowel gas pattern.
[2022-01-24 19:55] LABS: Glucose,Whole Blood 73 mg/dL (70-110)
[2022-01-24] MEDS ORDERED: PIPERACILLIN-TAZOBACTAM 3.375 GM in SODIUM CHLORIDE 0.9% 100 ML IVPB STA ×2 (19:58→20:52)
[2022-01-24 20:30] LABS: Glucose,Whole Blood 54 mg/dL (70-110)
[2022-01-24] MEDS ORDERED: NALOXONE 0.4 MG/ML 1 ML VIAL IV PRN (20:35)
[2022-01-24] MEDS: DEXTROSE 10% IN WATER 1,000 ML with SODIUM CHLORIDE 4MEQ/ML VIAL 153.8 MEQ IV SCH (20:45)
[2022-01-24] MEDS: SODIUM CHLORIDE 0.9% 1,000 ML IV SCH (20:51)
[2022-01-24 23:35] LABS: Glucose,Whole Blood 164 mg/dL (70-110)
[2022-01-25] MEDS: DEXTROSE 10% IN WATER 1,000 ML with SODIUM CHLORIDE 4MEQ/ML VIAL 153.8 MEQ IV SCH ×2 (03:17→09:31)
[2022-01-25] MEDS ORDERED: ACETAMINOPHEN TAB 325 MG TAB PO STA (03:59)
[2022-01-25 06:05] LABS: Glucose,Whole Blood 143 mg/dL (70-110)
[2022-01-25 08:14] LABS: Glucose,Whole Blood 95 mg/dL (70-110)
[2022-01-25] MEDS: SODIUM CHLORIDE 0.9% 1,000 ML IV SCH (09:30)
[2022-01-25 10:38] LABS: Anisocytosis Slight; Basophils # (A) 0.1 k/uL (0-0.2); Basophils % (A) 1 %; Eosinophils # (A) 0.1 k/uL (0-0.7); Eosinophils % (A) 0 %; HCT 25.4 % (34.0-46.0); HGB 7.2 gm/dL (11.4-16.0); Hypochromasia Marked; Lymphocytes # (A) 0.6 k/uL (1.0-4.8); Lymphocytes % (A) 5 %; MCH 21.2 pg (25.0-35.0); MCHC 28.2 g/dL (31.0-37.0); MCV 75.3 fL (80.0-100.0); Mean Platelet Volume 7.4; Microcytosis Moderate; Monocytes # (A) 0.9 k/uL (0-1.0); Monocytes % (A) 8 %; Neutrophils # (A) 9.3 k/uL (1.3-7.7); Neutrophils % (A) 82 %; Platelet Count 281 k/uL (150-450); Poikilocytosis Slight; RBC 3.38 m/uL (3.80-5.40); RDW 19.2 % (11.5-15.5); WBC 11.4 k/uL (3.8-10.6)
[2022-01-25] MEDS: HYDROcodone/APAP 5-325MG 1 EACH TAB PO PRN ×3 (10:40→22:17)
--- NOTE | 2022-01-25 10:44 | P.CONS ---
History of Present Illness - Reason for Consult Consult date: 01/25/22 wound care - History of Present Illness This is a 66 y/o female being seen by the wound care center for nonhealing ulceration to the right groin. Patient is a resident at [facility]. Patient states that the ulceration has been there for one week however upon further questioning patient stated that she sees the wound care doctor at [facility] has been having a salve applied to the site. Patient has significant amount of pain and discomfort to the ulceration site. The ulceration consists of multiple clusters of Limited to skin breakdown ulcerations with redness and significant amount of serous drainage to the site. Review Of Systems: Constitutional: No fever, no chills, no night sweats. No weight change. No weakness, fatigue or lethargy. No daytime sleepiness. Integumentary:reports wounds, no lesions. No rash or pruritus. No unusual bruising. No change in hair or nails. Physical exam: General Appearance: Alert, cooperative, no distress, appears stated age. Skin: See HPI all other Skin color, texture, tugor normal, no rashes or lesions. Neurologic: Alert oriented x3 Assessment: 1. Nonhealing ulceration right groin Limited to skin breakdown Plan: 1. Apply dry absorptive silver to the site changing Friday. Thank you for the consultation any questions please contact the wound care center DNP note has been reviewed and discussed with Dr. Marshall and the impression and plan of care has been directed as dictated. Past Medical History Past Medical History: Atrial Fibrillation, COPD, CVA/TIA, Diabetes Mellitus, GERD/Reflux, Hyperlipidemia, Hypertension, Pneumonia Additional Past Medical History / Comment(s): NIDDM type II, neuropathy bilateral upper and lower extremities, CVA/pt states able to stand and pivot but cannot walk and L arm weak/contracture, paroxysmal afib, past necrotizing fascitis/surgery to repair, L/S stenosis with severe radiculopathy/chronic back pain, UTIs, UTI with sepsis, anemia, electrolyte abnormalities. History of Any Multi-Drug Resistant Organisms: MRSA Year Discovered:: 03/07/19 MDRO Source:: ESBL URINE Past Surgical History: Hysterectomy, Tubal Ligation Additional Past Surgical History / Comment(s): Bilateral thigh/groin skin graftings, D&C, lumbar epidural injection. Past Anesthesia/Blood Transfusion Reactions: No Reported Reaction Smoking Status: Former smoker - Past Family History Mother Family Medical History: Dementia Medications and Allergies Home Medications Medication Instructions Recorded Confirmed Type Atorvastatin Calcium [Lipitor] 40 mg PO HS 01/08/21 01/24/22 History Ipratropium-Albuterol Nebulize 3 ml INHALATION RT-Q4H PRN ml 01/11/21 01/24/22 Rx [Duoneb 0.5 mg-3 mg/3 ml Soln] Aspirin EC [Ecotrin Low Dose] 81 mg PO DAILY 01/15/21 01/24/22 History Diclofenac Sodium Gel [Voltaren 1 applic TOPICAL QID 01/15/21 01/24/22 History Gel] Ergocalciferol (Vitamin D2) 1,250 mcg PO MO 01/15/21 01/24/22 History [Drisdol (50,000 Iu)] Menthol [Biofreeze] 1 applic TOPICAL TID@0600,1400,2200 01/15/21 01/24/22 History Nicotine 21Mg/24Hr Patch [Habitrol] 1 patch TRANSDERM DAILY 01/15/21 01/24/22 History Potassium Chloride [Klor-Con 20] 20 meq PO DAILY@1200 01/15/21 01/24/22 History metFORMIN HCL [Glucophage] 500 mg PO BID@0900,1700 01/15/21 01/24/22 History Apixaban [Eliquis] 5 mg PO BID tab 01/17/21 01/24/22 Rx Magnesium Oxide [Magox 400] 400 mg PO DAILY #1 tablet 01/17/21 01/24/22 Rx Acetaminophen [Tylenol] 650 mg PO Q4H PRN 01/24/22 01/24/22 History Benzocaine/Menthol [Cepacol Sore 1 lozenge MM Q2H PRN 01/24/22 01/24/22 History Throat Lozenge] Cholestyramine/Aspartame 4 gm PO TID@0900,1300,2100 01/24/22 01/24/22 History [Cholestyramine Light Packet] Cyclobenzaprine [Flexeril] 10 mg PO HS 01/24/22 01/24/22 History Doxycycline Hyclate 100 mg PO BID 01/24/22 01/24/22 History Epoetin Ralf [Procrit] 10,000 unit SQ HS 01/24/22 01/24/22 History FLUoxetine HCL 20 mg PO DAILY 01/24/22 01/24/22 History Ferrous Sulfate [Iron] 325 mg PO DAILY 01/24/22 01/24/22 History Fluticasone Propion/Salmeterol 1 puff PO RT-BID 01/24/22 01/24/22 History [Wixela 250-50 Inhub] Gabapentin [Neurontin] 400 mg PO TID@0600,1400,2200 01/24/22 01/24/22 History Glimepiride [Amaryl] 0.5 mg PO DAILY@1700 01/24/22 01/24/22 History Glimepiride [Amaryl] 2 mg PO DAILY 01/24/22 01/24/22 History HYDROcodone/APAP 7.5-325MG [[place] 1 tab PO Q4H PRN 01/24/22 01/24/22 History 7.5-325] Loperamide HCl [Imodium A-D] 2 - 4 mg PO BID PRN 01/24/22 01/24/22 History Metoprolol Tartrate [Lopressor] 25 mg PO TID@0600,1400,2200 01/24/22 01/24/22 History Omeprazole 20 mg PO DAILY 01/24/22 01/24/22 History Ondansetron [Zofran] 4 mg PO Q6H PRN 01/24/22 01/24/22 History Torsemide [Demadex] 30 mg PO DAILY 01/24/22 01/24/22 History lisinopriL [Zestril] 10 mg PO DAILY 01/24/22 01/24/22 History tiZANidine [Zanaflex] 4 mg PO HS 01/24/22 01/24/22 History Allergies Allergy/AdvReac Type Severity Reaction Status Date / Time aspirin AdvReac nose bleeds Verified 01/24/22 17:49 Physical Exam Vitals: Vital Signs Temp Pulse Pulse Resp BP BP Pulse Ox 01/25/22 08:00 98.1 F 64 18 126/61 97 01/25/22 03:54 82 20 127/60 97 01/24/22 18:13 58 L 16 107/51 94 L 01/24/22 17:05 97.8 F 62 16 146/69 98 Intake and Output 01/24/22 01/25/22 01/25/22 22:59 06:59 14:59 Other: # Voids 1 Weight 81.647 kg 81.647 kg Results CBC & Chem 7: 01/24/22 17:30 01/24/22 17:30 Labs: Abnormal Lab Results - Last 24 Hours (Table) 01/24/22 01/24/22 01/24/22 Range/Units 17:30 17:30 18:27 WBC 26.9 H (3.8-10.6) k/uL Hgb 8.4 L (11.4-16.0) gm/dL Hct 29.5 L (34.0-46.0) % MCV 75.1 L (80.0-100.0) fL MCH 21.3 L (25.0-35.0) pg MCHC 28.3 L (31.0-37.0) g/dL RDW 19.2 H (11.5-15.5) % Neutrophils # 20.3 H (1.3-7.7) k/uL Monocytes # 2.7 H (0-1.0) k/uL Basophils # 0.5 H (0-0.2) k/uL Sodium 130 L (137-145) mmol/L Chloride 96 L (98-107) mmol/L BUN 33 H (7-17) mg/dL Glucose 34 L* (74-99) mg/dL POC Glucose (mg/dL) 143 H (70-110) mg/dL AST 11 L (14-36) U/L 01/24/22 01/24/22 01/25/22 Range/Units 20:28 23:34 06:04 WBC (3.8-10.6) k/uL Hgb (11.4-16.0) gm/dL Hct (34.0-46.0) % MCV (80.0-100.0) fL MCH (25.0-35.0) pg MCHC (31.0-37.0) g/dL RDW (11.5-15.5) % Neutrophils # (1.3-7.7) k/uL Monocytes # (0-1.0) k/uL Basophils # (0-0.2) k/uL Sodium (137-145) mmol/L Chloride (98-107) mmol/L BUN (7-17) mg/dL Glucose (74-99) mg/dL POC Glucose (mg/dL) 54 L 164 H 143 H (70-110) mg/dL AST (14-36) U/L Assessment and Plan (1) Non-pressure chronic ulcer of skin of other sites limited to breakdown of skin Current Visit: Yes Status: Acute Code(s): L98.491 - NON-PRS CHRONIC ULCER SKIN/ SITES LIMITED TO BRKDWN SKIN SNOMED Code(s): 43372145
[2022-01-25 12:34] LABS: Glucose,Whole Blood 209 mg/dL (70-110)
[2022-01-25] MEDS: LORazepam 0.5 MG TAB PO PRN ×2 (16:29→22:17)
[2022-01-25 17:33] LABS: Glucose,Whole Blood 178 mg/dL (70-110)
--- NOTE | 2022-01-25 18:32 | P.HPIM ---
History of Present Illness H&P Date: 01/25/22 Chief Complaint: Intractable diarrhea 66 y/o female being seen by the wound care center for nonhealing ulceration to the right groin. Patient is a resident at [facility]. Patient states that the ulceration has been there for one week however upon further questioning patient stated that she sees the wound care doctor at [facility] has been having a salve applied to the site. Patient has significant amount of pain and discomfort to the ulceration site. The ulceration consists of multiple clusters of Limited to skin breakdown ulcerations with redness and significant amount of serous drainage to the site. According to nursing staff patient has been having watery diarrhea for last 4 days and had another abdominal x-ray done at the senior living which showed possible ileus and was sent to ER for further evaluation; in the ED patient's abdominal examination was benign but lab review revealed leukocytosis of 26.9 with sodium of 130, glucose 34, BUN 33; C. diff was negati ve Patient was placed on IV fluids in form of D10 and is admitted for further evaluation Review of Systems REVIEW OF SYSTEMS: CONSTITUTIONAL: No fever, no malaise, no fatigue. HEENT: No recent visual problems or hearing problems. Denied any sore throat. CARDIOVASCULAR: No chest pain, orthopnea, PND, no palpitations, no syncope. PULMONARY: No shortness of breath, no cough, no hemoptysis. GASTROINTESTINAL: No diarrhea, no nausea, no vomiting, no abdominal pain. NEUROLOGICAL: No headaches, no weakness, no numbness. HEMATOLOGICAL: Denies any bleeding or petechiae. GENITOURINARY: Denies any burning micturition, frequency, or urgency. MUSCULOSKELETAL/RHEUMATOLOGICAL: Denies any joint pain, swelling, or any muscle pain. ENDOCRINE: Denies any polyuria or polydipsia. The rest of the 14-point review of systems is negative. Past Medical History Past Medical History: Atrial Fibrillation, COPD, CVA/TIA, Diabetes Mellitus, GERD/Reflux, Hyperlipidemia, Hypertension, Pneumonia Additional Past Medical History / Comment(s): NIDDM type II, neuropathy bilateral upper and lower extremities, CVA/pt states able to stand and pivot but cannot walk and L arm weak/contracture, paroxysmal afib, past necrotizing fascitis/surgery to repair, L/S stenosis with severe radiculopathy/chronic back pain, UTIs, UTI with sepsis, anemia, electrolyte abnormalities. History of Any Multi-Drug Resistant Organisms: MRSA Date of last positivie culture/infection: 03/07/19 MDRO Source:: ESBL URINE Past Surgical History: Hysterectomy, Tubal Ligation Additional Past Surgical History / Comment(s): Bilateral thigh/groin skin graftings, D&C, lumbar epidural injection. Past Anesthesia/Blood Transfusion Reactions: No Reported Reaction Smoking Status: Former smoker - Past Family History Mother Family Medical History: Dementia Medications and Allergies Home Medications Medication Instructions Recorded Confirmed Type Atorvastatin Calcium [Lipitor] 40 mg PO HS 01/08/21 01/24/22 History Ipratropium-Albuterol Nebulize 3 ml INHALATION RT-Q4H PRN ml 01/11/21 01/24/22 Rx [Duoneb 0.5 mg-3 mg/3 ml Soln] Aspirin EC [Ecotrin Low Dose] 81 mg PO DAILY 01/15/21 01/24/22 History Diclofenac Sodium Gel [Voltaren 1 applic TOPICAL QID 01/15/21 01/24/22 History Gel] Ergocalciferol (Vitamin D2) 1,250 mcg PO MO 01/15/21 01/24/22 History [Drisdol (50,000 Iu)] Menthol [Biofreeze] 1 applic TOPICAL TID@0600,1400,2200 01/15/21 01/24/22 History Nicotine 21Mg/24Hr Patch [Habitrol] 1 patch TRANSDERM DAILY 01/15/21 01/24/22 History Potassium Chloride [Klor-Con 20] 20 meq PO DAILY@1200 01/15/21 01/24/22 History metFORMIN HCL [Glucophage] 500 mg PO BID@0900,1700 01/15/21 01/24/22 History Apixaban [Eliquis] 5 mg PO BID tab 01/17/21 01/24/22 Rx Magnesium Oxide [Magox 400] 400 mg PO DAILY #1 tablet 01/17/21 01/24/22 Rx Acetaminophen [Tylenol] 650 mg PO Q4H PRN 01/24/22 01/24/22 History Benzocaine/Menthol [Cepacol Sore 1 lozenge MM Q2H PRN 01/24/22 01/24/22 History Throat Lozenge] Cholestyramine/Aspartame 4 gm PO TID@0900,1300,2100 01/24/22 01/24/22 History [Cholestyramine Light Packet] Cyclobenzaprine [Flexeril] 10 mg PO HS 01/24/22 01/24/22 History Doxycycline Hyclate 100 mg PO BID 01/24/22 01/24/22 History Epoetin Ralf [Procrit] 10,000 unit SQ HS 01/24/22 01/24/22 History FLUoxetine HCL 20 mg PO DAILY 01/24/22 01/24/22 History Ferrous Sulfate [Iron] 325 mg PO DAILY 01/24/22 01/24/22 History Fluticasone Propion/Salmeterol 1 puff PO RT-BID 01/24/22 01/24/22 History [Wixela 250-50 Inhub] Gabapentin [Neurontin] 400 mg PO TID@0600,1400,2200 01/24/22 01/24/22 History Glimepiride [Amaryl] 0.5 mg PO DAILY@1700 01/24/22 01/24/22 History Glimepiride [Amaryl] 2 mg PO DAILY 01/24/22 01/24/22 History HYDROcodone/APAP 7.5-325MG [Salvo 1 tab PO Q4H PRN 01/24/22 01/24/22 History 7.5-325] Loperamide HCl [Imodium A-D] 2 - 4 mg PO BID PRN 01/24/22 01/24/22 History Metoprolol Tartrate [Lopressor] 25 mg PO TID@0600,1400,2200 01/24/22 01/24/22 History Omeprazole 20 mg PO DAILY 01/24/22 01/24/22 History Ondansetron [Zofran] 4 mg PO Q6H PRN 01/24/22 01/24/22 History Torsemide [Demadex] 30 mg PO DAILY 01/24/22 01/24/22 History lisinopriL [Zestril] 10 mg PO DAILY 01/24/22 01/24/22 History tiZANidine [Zanaflex] 4 mg PO HS 01/24/22 01/24/22 History Allergies Allergy/AdvReac Type Severity Reaction Status Date / Time aspirin AdvReac nose bleeds Verified 01/24/22 17:49 Physical Exam Vitals: Vital Signs Temp Pulse Pulse Resp BP BP Pulse Ox 01/25/22 13:05 98.2 F 82 15 113/68 96 01/25/22 08:00 98.1 F 64 18 126/61 97 01/25/22 03:54 82 20 127/60 97 01/24/22 18:13 58 L 16 107/51 94 L 01/24/22 17:05 97.8 F 62 16 146/69 98 Intake and Output 01/24/22 01/25/22 01/25/22 22:59 06:59 14:59 Other: # Voids 1 Weight 81.647 kg 81.647 kg PHYSICAL EXAMINATION: GENERAL: The patient is alert and oriented x3, not in any acute distress. Well developed, well nourished. HEENT: Pupils are round and equally reacting to light. EOMI. No scleral icterus. No conjunctival pallor. Normocephalic, atraumatic. No pharyngeal erythema. No thyromegaly. CARDIOVASCULAR: S1 and S2 present. No murmurs, rubs, or gallops. PULMONARY: Chest is clear to auscultation, no wheezing or crackles. ABDOMEN: Soft, nontender, nondistended, normoactive bowel sounds. No palpable organomegaly. MUSCULOSKELETAL: No joint swelling or deformity. EXTREMITIES: No cyanosis, clubbing, or pedal edema. NEUROLOGICAL: Gross neurological examination did not reveal any focal deficits. SKIN: No rashes. Results CBC & Chem 7: 01/25/22 10:01 01/24/22 17:30 Labs: Abnormal Lab Results - Last 24 Hours (Table) 01/24/22 01/24/22 01/24/22 Range/Units 17:30 17:30 18:27 WBC 26.9 H (3.8-10.6) k/uL RBC (3.80-5.40) m/uL Hgb 8.4 L (11.4-16.0) gm/dL Hct 29.5 L (34.0-46.0) % MCV 75.1 L (80.0-100.0) fL MCH 21.3 L (25.0-35.0) pg MCHC 28.3 L (31.0-37.0) g/dL RDW 19.2 H (11.5-15.5) % Neutrophils # 20.3 H (1.3-7.7) k/uL Lymphocytes # (1.0-4.8) k/uL Monocytes # 2.7 H (0-1.0) k/uL Basophils # 0.5 H (0-0.2) k/uL Sodium 130 L (137-145) mmol/L Chloride 96 L (98-107) mmol/L BUN 33 H (7-17) mg/dL Glucose 34 L* (74-99) mg/dL POC Glucose (mg/dL) 143 H (70-110) mg/dL AST 11 L (14-36) U/L 01/24/22 01/24/22 01/25/22 Range/Units 20:28 23:34 06:04 WBC (3.8-10.6) k/uL RBC (3.80-5.40) m/uL Hgb (11.4-16.0) gm/dL Hct (34.0-46.0) % MCV (80.0-100.0) fL MCH (25.0-35.0) pg MCHC (31.0-37.0) g/dL RDW (11.5-15.5) % Neutrophils # (1.3-7.7) k/uL Lymphocytes # (1.0-4.8) k/uL Monocytes # (0-1.0) k/uL Basophils # (0-0.2) k/uL Sodium (137-145) mmol/L Chloride (98-107) mmol/L BUN (7-17) mg/dL Glucose (74-99) mg/dL POC Glucose (mg/dL) 54 L 164 H 143 H (70-110) mg/dL AST (14-36) U/L 01/25/22 01/25/22 Range/Units 10:01 12:31 WBC 11.4 H (3.8-10.6) k/uL RBC 3.38 L (3.80-5.40) m/uL Hgb 7.2 L (11.4-16.0) gm/dL Hct 25.4 L (34.0-46.0) % MCV 75.3 L (80.0-100.0) fL MCH 21.2 L (25.0-35.0) pg MCHC 28.2 L (31.0-37.0) g/dL RDW 19.2 H (11.5-15.5) % Neutrophils # 9.3 H (1.3-7.7) k/uL Lymphocytes # 0.6 L (1.0-4.8) k/uL Monocytes # (0-1.0) k/uL Basophils # (0-0.2) k/uL Sodium (137-145) mmol/L Chloride (98-107) mmol/L BUN (7-17) mg/dL Glucose (74-99) mg/dL POC Glucose (mg/dL) 209 H (70-110) mg/dL AST (14-36) U/L Thrombosis Risk Factor Assmnt - Choose All That Apply Any of the Below Risk Factors Present?: Yes Each Factor Represents 1 point: Abnormal pulmonary function (COPD), Obesity (BMI >25) Other Risk Factors: Yes Each Risk Factor Represents 2 Points: Age 61-74 years Other congenital or acquired thrombophilia - If yes, enter type in comment: No Thrombosis Risk Factor Assessment Total Risk Factor Score: 4 Thrombosis Risk Factor Assessment Level: Moderate Risk Assessment and Plan Assessment: 1. Leukocytosis/sepsis; patient has been placed on IV antibiotics in form of Zosyn; IDs consulted and recommendations are pending; monitor CBC, CRP and pro-c alcitonin 2. Possible vaginal bleed; patient is very resistant to any examination; did have substantial bleeding in the briefs; we will monitor CBC; consult [facility] for further evaluation 3. Rectal bleed/history of hemorrhoids; unable to determine if it's rectal bleed versus vaginal bleed; GI is not available; we will consult general surgery 4. Nonhealing ulceration right groin; wound care is consulted and recommending to apply dry and so gave silver and to change dressing every Friday and Friday 5. History of atrial fibrillation, COPD, diabetes mellitus, hyperlipidemia, hypertension - Home medications are reviewed and ordered
[2022-01-25 20:36] LABS: Glucose,Whole Blood 214 mg/dL (70-110)
--- NOTE | 2022-01-25 21:07 | P.OBCN ---
History of Present Illness Consult date: 01/25/22 Reason for consult: other (Watery diarrhea and perineal bleeding) Chief complaint: Bloody diarrhea History of present illness: This patient is a 66-year-old female who presented to the emergency department with complaints of 4 days of watery stool and some bleeding. Patient's history is such that she was initially saw by Dr. Moreno in 2014 and diagnosed at that time with endometrial cancer. Patient was seen at [facility] gynecologic oncology and subsequently underwent a robotic-assisted total hysterectomy with bilateral salpingo-oophorectomy, lysis of adhesions, partial omentectomy, bilateral lymph node dissection and umbilical hernia repair. This diagnosis was in July 2015. Patient underwent vaginal cuff brachytherapy in October 2015 as well. She indicates to me that she is not seen Dr. Moreno since that time and has not really followed up with [facility]. She is uncertain where her bleeding is coming from. Review of Systems Genitourinary: Reports as per HPI Past Medical History Past Medical History: Atrial Fibrillation, COPD, CVA/TIA, Diabetes Mellitus, GERD/Reflux, Hyperlipidemia, Hypertension, Pneumonia Additional Past Medical History / Comment(s): NIDDM type II, neuropathy bilateral upper and lower extremities, CVA/pt states able to stand and pivot but cannot walk and L arm weak/contracture, paroxysmal afib, past necrotizing fascitis/surgery to repair, L/S stenosis with severe radiculopathy/chronic back pain, UTIs, UTI with sepsis, anemia, electrolyte abnormalities. History of Any Multi-Drug Resistant Organisms: MRSA Year Discovered:: 03/07/19 MDRO Source:: ESBL URINE Past Surgical History: Hysterectomy, Tubal Ligation Additional Past Surgical History / Comment(s): Bilateral thigh/groin skin graftings, D&C, lumbar epidural injection. Past Anesthesia/Blood Transfusion Reactions: No Reported Reaction Smoking Status: Former smoker - Past Family History Mother Family Medical History: Dementia Medications and Allergies Home Medications Medication Instructions Recorded Confirmed Type Atorvastatin Calcium [Lipitor] 40 mg PO HS 01/08/21 01/24/22 History Ipratropium-Albuterol Nebulize 3 ml INHALATION RT-Q4H PRN ml 01/11/21 01/24/22 Rx [Duoneb 0.5 mg-3 mg/3 ml Soln] Aspirin EC [Ecotrin Low Dose] 81 mg PO DAILY 01/15/21 01/24/22 History Diclofenac Sodium Gel [Voltaren 1 applic TOPICAL QID 01/15/21 01/24/22 History Gel] Ergocalciferol (Vitamin D2) 1,250 mcg PO MO 01/15/21 01/24/22 History [Drisdol (50,000 Iu)] Menthol [Biofreeze] 1 applic TOPICAL TID@0600,1400,2200 01/15/21 01/24/22 History Nicotine 21Mg/24Hr Patch [Habitrol] 1 patch TRANSDERM DAILY 01/15/21 01/24/22 History Potassium Chloride [Klor-Con 20] 20 meq PO DAILY@1200 01/15/21 01/24/22 History metFORMIN HCL [Glucophage] 500 mg PO BID@0900,1700 01/15/21 01/24/22 History Apixaban [Eliquis] 5 mg PO BID tab 01/17/21 01/24/22 Rx Magnesium Oxide [Magox 400] 400 mg PO DAILY #1 tablet 01/17/21 01/24/22 Rx Acetaminophen [Tylenol] 650 mg PO Q4H PRN 01/24/22 01/24/22 History Benzocaine/Menthol [Cepacol Sore 1 lozenge MM Q2H PRN 01/24/22 01/24/22 History Throat Lozenge] Cholestyramine/Aspartame 4 gm PO TID@0900,1300,2100 01/24/22 01/24/22 History [Cholestyramine Light Packet] Cyclobenzaprine [Flexeril] 10 mg PO HS 01/24/22 01/24/22 History Doxycycline Hyclate 100 mg PO BID 01/24/22 01/24/22 History Epoetin Ralf [Procrit] 10,000 unit SQ HS 01/24/22 01/24/22 History FLUoxetine HCL 20 mg PO DAILY 01/24/22 01/24/22 History Ferrous Sulfate [Iron] 325 mg PO DAILY 01/24/22 01/24/22 History Fluticasone Propion/Salmeterol 1 puff PO RT-BID 01/24/22 01/24/22 History [Wixela 250-50 Inhub] Gabapentin [Neurontin] 400 mg PO TID@0600,1400,2200 01/24/22 01/24/22 History Glimepiride [Amaryl] 0.5 mg PO DAILY@1700 01/24/22 01/24/22 History Glimepiride [Amaryl] 2 mg PO DAILY 01/24/22 01/24/22 History HYDROcodone/APAP 7.5-325MG [[place]inckley 1 tab PO Q4H PRN 01/24/22 01/24/22 History 7.5-325] Loperamide HCl [Imodium A-D] 2 - 4 mg PO BID PRN 01/24/22 01/24/22 History Metoprolol Tartrate [Lopressor] 25 mg PO TID@0600,1400,2200 01/24/22 01/24/22 History Omeprazole 20 mg PO DAILY 01/24/22 01/24/22 History Ondansetron [Zofran] 4 mg PO Q6H PRN 01/24/22 01/24/22 History Torsemide [Demadex] 30 mg PO DAILY 01/24/22 01/24/22 History lisinopriL [Zestril] 10 mg PO DAILY 01/24/22 01/24/22 History tiZANidine [Zanaflex] 4 mg PO HS 01/24/22 01/24/22 History Allergies Allergy/AdvReac Type Severity Reaction Status Date / Time aspirin AdvReac nose bleeds Verified 01/24/22 17:49 Exam Vital Signs Temp Pulse Pulse Resp BP BP Pulse Ox 01/25/22 18:39 99.9 F H 111 H 19 112/69 96 01/25/22 13:05 98.2 F 82 15 113/68 96 01/25/22 08:00 98.1 F 64 18 126/61 97 01/25/22 03:54 82 20 127/60 97 Intake and Output 01/25/22 01/25/22 01/25/22 06:59 14:59 22:59 Intake Total 1740 Balance 1740 Intake: Intake, IV Titration 1740 Amount Dextrose 10% in Water 1, 840 000 ml @ 120 mls/hr IV . Q8H40M TILA with Sodium Chloride 4Meq/ml Vial 153 .8 meq Rx#:[id number] Sodium Chloride 0.9% 1, 900 000 ml @ 75 mls/hr IV . [id number] TILA Rx#:[id number] Other: # Voids 1 Weight 81.647 kg Results Result Diagrams: 01/25/22 10:01 01/24/22 17:30 Abnormal Lab Results - Last 24 Hours (Table) 01/24/22 01/25/22 01/25/22 Range/Units 23:34 06:04 10:01 WBC 11.4 H (3.8-10.6) k/uL RBC 3.38 L (3.80-5.40) m/uL Hgb 7.2 L (11.4-16.0) gm/dL Hct 25.4 L (34.0-46.0) % MCV 75.3 L (80.0-100.0) fL MCH 21.2 L (25.0-35.0) pg MCHC 28.2 L (31.0-37.0) g/dL RDW 19.2 H (11.5-15.5) % Neutrophils # 9.3 H (1.3-7.7) k/uL Lymphocytes # 0.6 L (1.0-4.8) k/uL POC Glucose (mg/dL) 164 H 143 H (70-110) mg/dL 01/25/22 01/25/22 01/25/22 Range/Units 12:31 17:19 20:35 WBC (3.8-10.6) k/uL RBC (3.80-5.40) m/uL Hgb (11.4-16.0) gm/dL Hct (34.0-46.0) % MCV (80.0-100.0) fL MCH (25.0-35.0) pg MCHC (31.0-37.0) g/dL RDW (11.5-15.5) % Neutrophils # (1.3-7.7) k/uL Lymphocytes # (1.0-4.8) k/uL POC Glucose (mg/dL) 209 H 178 H 214 H (70-110) mg/dL Assessment and Plan Assessment: This is a 60-year-old female with known stage Ib grade 2 endometrioid adenocarcinoma status post surgical resection with staging and post surgical brachytherapy in 2016. Adequate pelvic exam can not be done at this time due to patient's habitus and bed. Bleeding in the perineal area certainly could be from recurrence of her endometrial cancer versus colon. At this time there is no need for surgical intervention. My recommendations that she follow up with [facility] as an outpatient for a thorough exam and evaluation since these are the physicians who treated her. Any further gynecologic evaluation should be done at a tertiary facility since we do not have a [facility] oncologist at this f acility.. The CAT scan is suggestive of possible metastatic disease therefore this should be evaluated as well. (1) Adenocarcinoma of endometrium, stage 2 Current Visit: Yes Status: Acute Code(s): C54.1 - MALIGNANT NEOPLASM OF ENDOMETRIUM SNOMED Code(s): 081178796
--- NOTE | 2022-01-25 22:25 | P.CONS ---
History of Present Illness - Reason for Consult Consult date: 01/25/22 SIRS Requesting physician: Praneeth Gastelum - Chief Complaint Diarrhea and abnormal x-ray x one day - History of Present Illness Patient is a 66-year-old female who is a care home resident apparently the patient did develop diarrhea for the last 4 days and the patient did have abdominal x-ray done at care home with concern for possible ileus for the patient had been sent to the ER for further evaluation, the patient also have a painful sore in bilateral groin area however the patient elevated good historian for [employer] she has been complaining of some sharp pain, however the patient has not been able to qualify it any further patient will presentation to the hospital was afebrile and no fever had been recorded, patient did have white count of 26.9 with a left shift repeat is down to 11.4 did have elevated BUN and creatinine has been normal liver enzymes are normal stool for C. difficile was negative patient did have a CT of abdominal pelvis schedule pulmonary and omental nodules as well as osseous lytic lesion concerning for metastatic diseas e colonic stool burden with fluid distention and mild wall thickening of the left colon findings may relate to colitis right lower lobe consolidation and partial collapse patient has been admitted to the hospital infectious disease was consulted for further management of antibiotic therapy most information has been obtained from review the chart and talking to nursing staff Review of Systems Positive point has been mentioned in the HPI rest of the systems are negative Past Medical History Past Medical History: Atrial Fibrillation, COPD, CVA/TIA, Diabetes Mellitus, GERD/Reflux, Hyperlipidemia, Hypertension, Pneumonia Additional Past Medical History / Comment(s): NIDDM type II, neuropathy bilater al upper and lower extremities, CVA/pt states able to stand and pivot but cannot walk and L arm weak/contracture, paroxysmal afib, past necrotizing fascitis/surgery to repair, L/S stenosis with severe radiculopathy/chronic back pain, UTIs, UTI with sepsis, anemia, electrolyte abnormalities. History of Any Multi-Drug Resistant Organisms: MRSA Year Discovered:: 03/07/19 MDRO Source:: ESBL URINE Past Surgical History: Hysterectomy, Tubal Ligation Additional Past Surgical History / Comment(s): Bilateral thigh/groin skin graftings, D&C, lumbar epidural injection. Past Anesthesia/Blood Transfusion Reactions: No Reported Reaction Smoking Status: Former smoker - Past Family History Mother Family Medical History: Dementia Medications and Allergies Home Medications Medication Instructions Recorded Confirmed Type Atorvastatin Calcium [Lipitor] 40 mg PO HS 01/08/21 01/24/22 History Ipratropium-Albuterol Nebulize 3 ml INHALATION RT-Q4H PRN ml 01/11/21 01/24/22 Rx [Duoneb 0.5 mg-3 mg/3 ml Soln] Aspirin EC [Ecotrin Low Dose] 81 mg PO DAILY 01/15/21 01/24/22 History Diclofenac Sodium Gel [Voltaren 1 applic TOPICAL QID 01/15/21 01/24/22 History Gel] Ergocalciferol (Vitamin D2) 1,250 mcg PO MO 01/15/21 01/24/22 History [Drisdol (50,000 Iu)] Menthol [Biofreeze] 1 applic TOPICAL TID@0600,1400,2200 01/15/21 01/24/22 History Nicotine 21Mg/24Hr Patch [Habitrol] 1 patch TRANSDERM DAILY 01/15/21 01/24/22 History Potassium Chloride [Klor-Con 20] 20 meq PO DAILY@1200 01/15/21 01/24/22 History metFORMIN HCL [Glucophage] 500 mg PO BID@0900,1700 01/15/21 01/24/22 History Apixaban [Eliquis] 5 mg PO BID tab 01/17/21 01/24/22 Rx Magnesium Oxide [Magox 400] 400 mg PO DAILY #1 tablet 01/17/21 01/24/22 Rx Acetaminophen [Tylenol] 650 mg PO Q4H PRN 01/24/22 01/24/22 History Benzocaine/Menthol [Cepacol Sore 1 lozenge MM Q2H PRN 01/24/22 01/24/22 History Throat Lozenge] Cholestyramine/Aspartame 4 gm PO TID@0900,1300,2100 01/24/22 01/24/22 History [Cholestyramine Light Packet] Cyclobenzaprine [Flexeril] 10 mg PO HS 01/24/22 01/24/22 History Doxycycline Hyclate 100 mg PO BID 01/24/22 01/24/22 History Epoetin Ralf [Procrit] 10,000 unit SQ SA 01/24/22 01/26/22 History FLUoxetine HCL 20 mg PO DAILY 01/24/22 01/24/22 History Ferrous Sulfate [Iron] 325 mg PO DAILY 01/24/22 01/24/22 History Fluticasone Propion/Salmeterol 1 puff PO RT-BID 01/24/22 01/24/22 History [Wixela 250-50 Inhub] Gabapentin [Neurontin] 400 mg PO TID@0600,1400,2200 01/24/22 01/24/22 History Glimepiride [Amaryl] 0.5 mg PO DAILY@1700 01/24/22 01/24/22 History Glimepiride [Amaryl] 2 mg PO DAILY 01/24/22 01/24/22 History HYDROcodone/APAP 7.5-325MG [[place] 1 tab PO Q4H PRN 01/24/22 01/24/22 History 7.5-325] Loperamide HCl [Imodium A-D] 2 - 4 mg PO BID PRN 01/24/22 01/24/22 History Metoprolol Tartrate [Lopressor] 25 mg PO TID@0600,1400,2200 01/24/22 01/24/22 History Omeprazole 20 mg PO DAILY 01/24/22 01/24/22 History Ondansetron [Zofran] 4 mg PO Q6H PRN 01/24/22 01/24/22 History Torsemide [Demadex] 30 mg PO DAILY 01/24/22 01/24/22 History lisinopriL [Zestril] 10 mg PO DAILY 01/24/22 01/24/22 History tiZANidine [Zanaflex] 4 mg PO HS 01/24/22 01/24/22 History Allergies Allergy/AdvReac Type Severity Reaction Status Date / Time aspirin AdvReac nose bleeds Verified 01/24/22 17:49 Physical Exam Vitals: Vital Signs Temp Pulse Pulse Resp BP BP Pulse Ox 01/25/22 08:00 98.1 F 64 18 126/61 97 01/25/22 03:54 82 20 127/60 97 01/24/22 18:13 58 L 16 107/51 94 L 01/24/22 17:05 97.8 F 62 16 146/69 98 Intake and Output 01/24/22 01/25/22 01/25/22 22:59 06:59 14:59 Other: # Voids 1 Weight 81.647 kg 81.647 kg GENERAL DESCRIPTION: Elderly female lying in bed, no distress. No tachypnea or accessory muscle of respiration use. HEENT: Shows Pallor , no scleral icterus. Oral mucous membrane is dry. No pharyngeal erythema or thrush NECK: Trachea central, no thyromegaly. LUNGS: Unlabored breathing. Decreased breath sound at the base. No wheeze or crackle. HEART: S1, S2, regular rate and rhythm. No loud murmur ABDOMEN: Soft, mild distention but no tenderness EXTREMITIES: Bilateral groin area did have a superficial ulceration medially with surrounding redness and drainage SKIN: No rash, no masses palpable. NEUROLOGICAL: The patient is awake, alert, oriented x3, mood and affect normal. Results CBC & Chem 7: 01/26/22 08:39 01/26/22 08:39 Labs: Abnormal Lab Results - Last 24 Hours (Table) 01/24/22 01/24/22 01/24/22 Range/Units 17:30 17:30 18:27 WBC 26.9 H (3.8-10.6) k/uL RBC (3.80-5.40) m/uL Hgb 8.4 L (11.4-16.0) gm/dL Hct 29.5 L (34.0-46.0) % MCV 75.1 L (80.0-100.0) fL MCH 21.3 L (25.0-35.0) pg MCHC 28.3 L (31.0-37.0) g/dL RDW 19.2 H (11.5-15.5) % Neutrophils # 20.3 H (1.3-7.7) k/uL Lymphocytes # (1.0-4.8) k/uL Monocytes # 2.7 H (0-1.0) k/uL Basophils # 0.5 H (0-0.2) k/uL Sodium 130 L (137-145) mmol/L Chloride 96 L (98-107) mmol/L BUN 33 H (7-17) mg/dL Glucose 34 L* (74-99) mg/dL POC Glucose (mg/dL) 143 H (70-110) mg/dL AST 11 L (14-36) U/L 08/04/22 08/04/22 08/05/22 Range/Units 20:28 23:34 06:04 WBC (3.8-10.6) k/uL RBC (3.80-5.40) m/uL Hgb (11.4-16.0) gm/dL Hct (34.0-46.0) % MCV (80.0-100.0) fL MCH (25.0-35.0) pg MCHC (31.0-37.0) g/dL RDW (11.5-15.5) % Neutrophils # (1.3-7.7) k/uL Lymphocytes # (1.0-4.8) k/uL Monocytes # (0-1.0) k/uL Basophils # (0-0.2) k/uL Sodium (137-145) mmol/L Chloride (98-107) mmol/L BUN (7-17) mg/dL Glucose (74-99) mg/dL POC Glucose (mg/dL) 54 L 164 H 143 H (70-110) mg/dL AST (14-36) U/L 01/25/22 Range/Units 10:01 WBC 11.4 H (3.8-10.6) k/uL RBC 3.38 L (3.80-5.40) m/uL Hgb 7.2 L (11.4-16.0) gm/dL Hct 25.4 L (34.0-46.0) % MCV 75.3 L (80.0-100.0) fL MCH 21.2 L (25.0-35.0) pg MCHC 28.2 L (31.0-37.0) g/dL RDW 19.2 H (11.5-15.5) % Neutrophils # 9.3 H (1.3-7.7) k/uL Lymphocytes # 0.6 L (1.0-4.8) k/uL Monocytes # (0-1.0) k/uL Basophils # (0-0.2) k/uL Sodium (137-145) mmol/L Chloride (98-107) mmol/L BUN (7-17) mg/dL Glucose (74-99) mg/dL POC Glucose (mg/dL) (70-110) mg/dL AST (14-36) U/L Assessment and Plan (1) SIRS (systemic inflammatory response syndrome) Current Visit: Yes Status: Acute Code(s): R65.10 - SIRS OF NON-INFECTIOUS ORIGIN W/O ACUTE ORGAN DYSFUNCTION SNOMED Code(s): 581843199 Plan: 1patient presented to hospital with diarrhea and this patient did have a abnormal x-ray at the care home with a CT abdominal pelvis concerning for possible lytic lesion concerning for malignancy also evidence of right lower lobe collapse and colitis possible infectious etiology stool for C. difficile has been negative. 2bilateral groin area ulcerated lesion with high clinic suspicious for cutaneous candidiasis. 3we will obtain stool culture. 4empirically start the patient on Zosyn 3.375 g every 8 hours. 5nystatin powder to bilateral groin area twice a day. 6patient benefit from oncology evaluation for possible work-up for the nodule seen on the CT. We will follow on clinical condition and cultures to further adjust medication if needed Thank you for this consultation will follow this patient along with you Time with Patient: Greater than 30
[2022-01-25 22:39] LABS: Glucose,Whole Blood 230 mg/dL (70-110)
[2022-01-25] MEDS ORDERED: DILTIAZEM 125 MG in SODIUM CHLORIDE 0.9% 100 ML IV SCH (23:30)
[2022-01-25] MEDS: NYSTATIN 100,000 UNIT/GM POWD 15 GM TOPICAL SCH (23:41)
[2022-01-26] MEDS: SODIUM CHLORIDE 0.9% 1,000 ML IV SCH ×2 (00:01→10:14)
[2022-01-26] MEDS: HYDROcodone/APAP 5-325MG 1 EACH TAB PO PRN (03:25)
[2022-01-26] MEDS: LORazepam 0.5 MG TAB PO PRN (05:23)
[2022-01-26] MEDS: PIPERACILLIN-TAZOBACTAM 3.375 GM in SODIUM CHLORIDE 0.9% 100 ML IVPB SCH ×3 (05:43→20:19)
[2022-01-26 06:00] LABS: Glucose,Whole Blood 133 mg/dL (70-110)
[2022-01-26] MEDS ORDERED: IPRATROPIUM-ALBUTEROL 3 ML NEB INHALATION PRN (07:50)
[2022-01-26] MEDS ORDERED: BENZOCAINE/MENTHOL LOZENG 1 EACH LOZENGE MUCOUS MEM PRN (07:50)
[2022-01-26] MEDS ORDERED: LOPERAMIDE 2 MG CAP PO PRN (07:50)
[2022-01-26] MEDS ORDERED: ONDANSETRON 4 MG TAB PO PRN (07:50)
--- NOTE | 2022-01-26 07:56 | P.CRDCN ---
History of Present Illness Consult date: 01/26/22 Chief complaint: Paroxysmal atrial fibrillation History of present illness: The patient is a 66-year-old female patient with a past medical history significant for history of stroke as well as diabetes and hypertension and dyslipidemia and paroxysmal atrial fibrillation. We requested to see the patient as a consult for further evaluation of atrial fibrillation with a rapid ventricular response. The patient somewhat is a poor historian. She was brought from extended care facility to the hospital for further evaluation off abdominal discomfort. She underwent overly an x-ray which revealed possible ileus. For that reason the patient was brought for further evaluation. Here in the hospital she underwent a computed tomography scan of the abdomen and pelvis and that revealed colonic thickening. She was admitted initially into the fo urth floor but subsequently yesterday she was tachycardic an EKG was performed and showed atrial fibrillation with rapid ventricular response. When the patient was admitted to the hospital her home medication including metoprolol was not started probably because she wasn't nothing by mouth status. The patient subsequently after she was found to be in A. fib was transferred to the third floor where she was started on Cardizem IV and subsequently she converted to normal sinus mechanism. When she was seen this morning she was in normal sinus mechanism. She is somewhat poor historian. She was in mild distress. She reports no heart racing or fluttering and no dizziness or lightheadedness an d no symptoms of chest pain or chest discomfort. Her hemoglobin is above 7 this morning. No evidence of active bleeding at this point. I am going to DC the Cardizem IV and start the patient on beta roxana. The patient had history of stroke before. She underwent an echo in 2020 and that revealed normal left ventricular systolic function was no significant valvular abnormalities. Past Medical History Past Medical History: Atrial Fibrillation, COPD, CVA/TIA, Diabetes Mellitus, GERD/Reflux, Hyperlipidemia, Hypertension, Pneumonia Additional Past Medical History / Comment(s): NIDDM type II, neuropathy bilateral upper and lower extremities, CVA/pt states able to stand and pivot but cannot walk and L arm weak/contracture, paroxysmal afib, past necrotizing fascitis/surgery to repair, L/S stenosis with severe radiculopathy/chronic back pain, UTIs, UTI with sepsis, anemia, electrolyte abnormalities. History of Any Multi-Drug Resistant Organisms: MRSA Date of last positivie culture/infection: 03/07/19 MDRO Source:: ESBL URINE Past Surgical History: Hysterectomy, Tubal Ligation Additional Past Surgical History / Comment(s): Bilateral thigh/groin skin graftings, D&C, lumbar epidural injection. Past Anesthesia/Blood Transfusion Reactions: No Reported Reaction Smoking Status: Former smoker - Past Family History Mother Family Medical History: Dementia Medications and Allergies Home Medications Medication Instructions Recorded Confirmed Type Atorvastatin Calcium [Lipitor] 40 mg PO HS 01/08/21 01/24/22 History Ipratropium-Albuterol Nebulize 3 ml INHALATION RT-Q4H PRN ml 01/11/21 01/24/22 Rx [Duoneb 0.5 mg-3 mg/3 ml Soln] Aspirin EC [Ecotrin Low Dose] 81 mg PO DAILY 01/15/21 01/24/22 History Diclofenac Sodium Gel [Voltaren 1 applic TOPICAL QID 01/15/21 01/24/22 History Gel] Ergocalciferol (Vitamin D2) 1,250 mcg PO MO 01/15/21 01/24/22 History [Drisdol (50,000 Iu)] Menthol [Biofreeze] 1 applic TOPICAL TID@0600,1400,2200 01/15/21 01/24/22 History Nicotine 21Mg/24Hr Patch [Habitrol] 1 patch TRANSDERM DAILY 01/15/21 01/24/22 History Potassium Chloride [Klor-Con 20] 20 meq PO DAILY@1200 01/15/21 01/24/22 History metFORMIN HCL [Glucophage] 500 mg PO BID@0900,1700 01/15/21 01/24/22 History Apixaban [Eliquis] 5 mg PO BID tab 01/17/21 01/24/22 Rx Magnesium Oxide [Magox 400] 400 mg PO DAILY #1 tablet 01/17/21 01/24/22 Rx Acetaminophen [Tylenol] 650 mg PO Q4H PRN 01/24/22 01/24/22 History Benzocaine/Menthol [Cepacol Sore 1 lozenge MM Q2H PRN 01/24/22 01/24/22 History Throat Lozenge] Cholestyramine/Aspartame 4 gm PO TID@0900,1300,2100 01/24/22 01/24/22 History [Cholestyramine Light Packet] Cyclobenzaprine [Flexeril] 10 mg PO HS 01/24/22 01/24/22 History Doxycycline Hyclate 100 mg PO BID 01/24/22 01/24/22 History Epoetin Ralf [Procrit] 10,000 unit SQ HS 01/24/22 01/24/22 History FLUoxetine HCL 20 mg PO DAILY 01/24/22 01/24/22 History Ferrous Sulfate [Iron] 325 mg PO DAILY 01/24/22 01/24/22 History Fluticasone Propion/Salmeterol 1 puff PO RT-BID 01/24/22 01/24/22 History [Wixela 250-50 Inhub] Gabapentin [Neurontin] 400 mg PO TID@0600,1400,2200 01/24/22 01/24/22 History Glimepiride [Amaryl] 0.5 mg PO DAILY@1700 01/24/22 01/24/22 History Glimepiride [Amaryl] 2 mg PO DAILY 01/24/22 01/24/22 History HYDROcodone/APAP 7.5-325MG [[place] 1 tab PO Q4H PRN 01/24/22 01/24/22 History 7.5-325] Loperamide HCl [Imodium A-D] 2 - 4 mg PO BID PRN 01/24/22 01/24/22 History Metoprolol Tartrate [Lopressor] 25 mg PO TID@0600,1400,2200 01/24/22 01/24/22 History Omeprazole 20 mg PO DAILY 01/24/22 01/24/22 History Ondansetron [Zofran] 4 mg PO Q6H PRN 01/24/22 01/24/22 History Torsemide [Demadex] 30 mg PO DAILY 01/24/22 01/24/22 History lisinopriL [Zestril] 10 mg PO DAILY 01/24/22 01/24/22 History tiZANidine [Zanaflex] 4 mg PO HS 01/24/22 01/24/22 History Allergies Allergy/AdvReac Type Severity Reaction Status Date / Time aspirin AdvReac nose bleeds Verified 01/24/22 17:49 Physical Exam Vitals: Vital Signs Temp Pulse Resp BP Pulse Ox 01/26/22 04:00 98.2 F 110 H 18 127/72 100 01/26/22 00:00 98.1 F 70 17 133/60 100 01/25/22 22:50 98.3 F 69 20 150/57 97 01/25/22 21:52 98.3 F 89 18 118/67 96 01/25/22 20:00 20 01/25/22 18:39 99.9 F H 111 H 19 112/69 96 01/25/22 13:05 98.2 F 82 15 113/68 96 01/25/22 08:00 98.1 F 64 18 126/61 97 Intake and Output 01/25/22 01/26/22 01/26/22 22:59 06:59 14:59 Intake Total 1979 Balance 1979 Intake: Intake, IV Titration 1740 Amount Dextrose 10% in Water 1, 840 000 ml @ 120 mls/hr IV . Q8H40M TILA with Sodium Chloride 4Meq/ml Vial 153 .8 meq Rx#:[id number] Sodium Chloride 0.9% 1, 900 000 ml @ 75 mls/hr IV . [id number] TILA Rx#:[id number] Oral 240 Other: Voiding Method Toilet Bedside Commode Diaper # Voids 2 1 - Constitutional General appearance: no acute distress - Respiratory Respiratory: bilateral: diminished - Cardiovascular Rhythm: regular Heart sounds: normal: S1, S2 Results 01/25/22 10:01 01/24/22 17:30 CBC 01/25/22 Range/Units 10:01 WBC 11.4 H (3.8-10.6) k/uL RBC 3.38 L (3.80-5.40) m/uL Hgb 7.2 L (11.4-16.0) gm/dL Hct 25.4 L (34.0-46.0) % Plt Count 281 (150-450) k/uL Current Medications Generic Name Dose Route Start Last Admin Trade Name Freq PRN Reason Stop Dose Admin Hydrocodone Bitart/Acetaminophen 1 each 01/25/22 09:55 01/26/22 03:25 Hydrocodone/Apap 5-325mg 1 Each Tab PO 1 each Q6HR PRN Administration Pain Apixaban 2.5 mg 01/26/22 09:00 Apixaban 5 Mg Tab PO BID TILA Protocol Sodium Chloride 1,000 mls @ 75 mls/hr 01/24/22 20:45 08/06/22 00:01 Saline 0.9% IV 75 mls/hr .[id number] TILA Administration Piperacillin Sod/Tazobactam 100 mls @ 25 mls/hr 01/26/22 05:00 01/26/22 05:43 Sod 3.375 gm/ Sodium Chloride IVPB 25 mls/hr Q8H TILA Administration Protocol Lorazepam 0.5 mg 01/25/22 15:47 01/26/22 05:23 Lorazepam 0.5 Mg Tab PO 0.5 mg Q6HR PRN Administration Anxiety Metoprolol Succinate 50 mg 01/26/22 09:00 Metoprolol Succinate (Er) 50 Mg Tab.Er.24h PO DAILY TILA Naloxone HCl 0.2 mg 01/24/22 20:35 Naloxone 0.4 Mg/Ml 1 Ml Vial IV Q2M PRN Opioid Reversal Nystatin 1 applic 01/25/22 22:30 01/25/22 23:41 Nystatin 100,000 Unit/Gm Powd 15 Gm TOPICAL Not Given BID TILA Protocol Intake and Output 01/25/22 01/26/22 01/26/22 22:59 06:59 14:59 Intake Total 1979 Balance 1979 Intake: Intake, IV Titration 1740 Amount Dextrose 10% in Water 1, 840 000 ml @ 120 mls/hr IV . Q8H40M TILA with Sodium Chloride 4Meq/ml Vial 153 .8 meq Rx#:[id number] Sodium Chloride 0.9% 1, 900 000 ml @ 75 mls/hr IV . [id number] TILA Rx#:[id number] Oral 240 Other: Voiding Method Toilet Bedside Commode Diaper # Voids 2 1 01/25/22 10:01 01/24/22 17:30 Assessment and Plan Assessment: Assessment #1 atrial fibrillation with rapid ventricular response. The patient was converted to normal sinus mechanism #2 history of paroxysmal atrial fibrillation on oral anticoagulation #3 history of stroke #4 hypertension #5 dyslipidemia Plan #1 DC Cardizem IV and start the patient on beta roxana #2 she was converted to normal sinus mechanism #3 hold on any anticoagulation at this point. #4 reconsider starting the patient on oral anticoagulation if there is no evidence of active bleeding and the hemoglobin continues to be stable #5 recent echo from 2020 revealed normal left ventricular systolic function
[2022-01-26] MEDS ORDERED: lisinopriL 10 MG TAB PO SCH (09:00)
[2022-01-26] MEDS ORDERED: ASPIRIN 81 MG PO SCH (09:00)
[2022-01-26] MEDS ORDERED: METOPROLOL SUCCINATE (ER) 50 MG TAB.ER.24H PO SCH (09:00)
[2022-01-26] MEDS ORDERED: APIXABAN 2.5 MG TABLET PO SCH (09:00)
[2022-01-26] MEDS ORDERED: APIXABAN 5 MG TAB PO SCH (09:00)
[2022-01-26 09:26] LABS: Anisocytosis Slight; Basophils # (A) 0.1 k/uL (0-0.2); Basophils % (A) 1 %; Eosinophils # (A) 0.1 k/uL (0-0.7); Eosinophils % (A) 1 %; HCT 24.2 % (34.0-46.0); Hypochromasia Marked; Lymphocytes # (A) 0.5 k/uL (1.0-4.8); Lymphocytes % (A) 5 %; MCH 21.8 pg (25.0-35.0); MCHC 28.5 g/dL (31.0-37.0); MCV 76.4 fL (80.0-100.0); Mean Platelet Volume 6.7; Microcytosis Moderate; Monocytes # (A) 0.7 k/uL (0-1.0); Monocytes % (A) 7 %; Neutrophils # (A) 7.8 k/uL (1.3-7.7); Neutrophils % (A) 82 %; Platelet Count 255 k/uL (150-450); Poikilocytosis Slight; RBC 3.17 m/uL (3.80-5.40); WBC 9.5 k/uL (3.8-10.6)
[2022-01-26 09:33] LABS: African American GFR (CKD) >90 (>60 ml/min/1.73 sqM); Anion Gap 7 mmol/L; Blood Urea Nitrogen 16 mg/dL (7-17); Calcium 8.4 mg/dL (8.4-10.2); Carbon Dioxide 21 mmol/L (22-30); Chloride 101 mmol/L (98-107); Glucose 112 mg/dL (74-99); Non-African American GFR(CKD) >90 (>60 ml/min/1.73 sqM); Potassium 4.1 mmol/L (3.5-5.1); Sodium 129 mmol/L (137-145)
[2022-01-26 09:53] LABS: C Reactive Protein 15.6 mg/dL (<1.0)
[2022-01-26 10:02] LABS: HGB 6.9 gm/dL (11.4-16.0)
[2022-01-26 10:18] LABS: Glucose,Whole Blood 141 mg/dL (70-110)
[2022-01-26] MEDS: PANTOPRAZOLE 40 MG TABLET PO SCH (11:21)
[2022-01-26] MEDS: CHOLESTYRAMINE (WITH SUGAR) 4 GM PACKET PO SCH ×3 (11:21→20:17)
[2022-01-26] MEDS: TORSEMIDE 20 MG TAB PO SCH (11:21)
[2022-01-26] MEDS: NYSTATIN 100,000 UNIT/GM POWD 15 GM TOPICAL SCH ×2 (11:22→20:18)
[2022-01-26] MEDS: DOXYCYCLINE 100 MG CAP PO SCH ×2 (11:22→18:59)
[2022-01-26] MEDS: MAGNESIUM OXIDE 400 MG TAB PO SCH (11:23)
[2022-01-26] MEDS: FLUoxetine HCL 20 MG CAP PO SCH (11:23)
[2022-01-26] MEDS: metFORMIN 500 MG TAB PO SCH ×2 (11:23→18:59)
[2022-01-26] MEDS: GLIMEPIRIDE 2 MG TAB PO SCH (11:24)
[2022-01-26] MEDS: NICOTINE 21MG/24HR PATCH TRANSDERM SCH (11:24)
[2022-01-26] MEDS: FERROUS SULFATE 325 MG TAB PO SCH (11:24)
[2022-01-26] MEDS: SYMBICORT 80-4.5 MCG INHALER INHALATION SCH ×2 (11:29→20:21)
[2022-01-26] MEDS ORDERED: POTASSIUM CHLORIDE ER 20 MEQ TAB.ER PO SCH (12:00)
[2022-01-26 12:08] LABS: Appearance,Urine Turbid (Clear); Bacteria,Urine Rare /hpf; Bilirubin,Urine Negative (Negative); Blood,Urine Moderate (Negative); Color,Urine Yellow; Glucose,Urine (UA) Negative (Negative); Ketones,Urine Negative (Negative); Leukocyte Esterase,Urine Large (Negative); Nitrite,Urine Negative (Negative); Protein,Urine 2+ (Negative); RBC,Urine 9 /hpf (0-5); Specific Gravity,Urine 1.019 (1.001-1.035); Squamous Epithelial Cell,Urine 11 /hpf (0-4); Urobilinogen,Urine <2.0 mg/dL (<2.0); WBC,Urine >182 /hpf (0-5)
[2022-01-26 12:21] LABS: Glucose,Whole Blood 150 mg/dL (70-110)
[2022-01-26] MEDS ORDERED: METOPROLOL TARTRATE 25 MG TAB PO SCH (14:00)
[2022-01-26] MEDS ORDERED: NON FORMULARY DRUG (Menthol [Biofreeze] 89 ML Gel..Ml.) TOPICAL SCH (14:00)
[2022-01-26] MEDS: HYDROcodone/APAP 7.5-325MG 1 EACH TAB PO PRN ×2 (15:19→22:09)
[2022-01-26] MEDS: GABAPENTIN 400 MG CAP PO SCH ×2 (15:19→22:10)
--- NOTE | 2022-01-26 15:43 | P.PN ---
Subjective Progress Note Date: 01/26/22 Principal diagnosis: Paroxysmal atrial fibrillation Vaginal bleeding/history of endometrial cancer; status post robotic-assisted total hysterectomy with bilateral salpingo-oophorectomy, lysis of adhesions, partial omentectomy, bilateral lymph node dissection and umbilical hernia repair. Bilateral groin area ulcerated lesion with high clinic suspicious for cutaneous candidiasis Lytic lesions L1 vertebral body, T8 vertebral body and L3 compression fracture with pulmonary and omental nodules; suspicious for malignancy 66 y/o female being seen by the wound care center for nonhealing ulceration to the right groin. Patient is a resident at [facility]. Patient states that the ulceration has been there for one week however upon further questioning patient stated that she sees the wound care doctor at [facility] has been having a salve applied to the site. Patient has significant amount of pain and discomfort to the ulceration site. The ulceration consists of multiple clusters of Limited to skin breakdown ulcerations with redness and significant amount of serous drainage to the site. According to nursing staff patient has been having watery diarrhea for last 4 days and had another abdominal x-ray done at the [facility] which showed possible ileus and was sent to ER for further evaluation; in the ED patient's abdominal examination was benign but lab review revealed leukocytosis of 26.9 with sodium of 130, glucose 34, BUN 33; C. diff was negative Patient was placed on IV fluids in form of D10 and is admitted for further evaluation Objective - Vital Signs Vital signs: Vital Signs Temp 98.0 F 01/26/22 09:57 Pulse 105 H 01/26/22 09:57 Resp 18 01/26/22 09:57 BP 169/79 01/26/22 09:57 Pulse Ox 98 01/26/22 09:57 FiO2 Intake & Output 01/25/22 01/26/22 01/26/22 18:59 06:59 18:59 Intake Total 1740 240 Balance 1740 240 Weight 81.647 kg Intake: Intake, IV Titration 1740 Amount Dextrose 10% in Water 1, 840 000 ml @ 120 mls/hr IV . Q8H40M TILA with Sodium Chloride 4Meq/ml Vial 153 .8 meq Rx#:[id number] Sodium Chloride 0.9% 1, 900 000 ml @ 75 mls/hr IV . [id number] TILA Rx#:[id number] Oral 240 Other: Voiding Method Toilet Bedside Commode Diaper # Voids 1 1 - Exam PHYSICAL EXAMINATION: GENERAL: The patient is alert and oriented x3, not in any acute distress. Well developed, well nourished. HEENT: Pupils are round and equally reacting to light. EOMI. No scleral icterus. No conjunctival pallor. Normocephalic, atraumatic. No pharyngeal erythema. No thyromegaly. CARDIOVASCULAR: S1 and S2 present. No murmurs, rubs, or gallops. PULMONARY: Chest is clear to auscultation, no wheezing or crackles. ABDOMEN: Soft, nontender, nondistended, normoactive bowel sounds. No palpable organomegaly. MUSCULOSKELETAL: No joint swelling or deformity. EXTREMITIES: No cyanosis, clubbing, or pedal edema. NEUROLOGICAL: Gross neurological examination did not reveal any focal deficits. SKIN: No rashes. - Labs CBC & Chem 7: 01/26/22 08:39 01/26/22 08:39 Labs: Abnormal Lab Results - Last 24 Hours (Table) 01/25/22 01/25/22 01/25/22 Range/Units 10:01 12:31 17:19 WBC 11.4 H (3.8-10.6) k/uL RBC 3.38 L (3.80-5.40) m/uL Hgb 7.2 L (11.4-16.0) gm/dL Hct 25.4 L (34.0-46.0) % MCV 75.3 L (80.0-100.0) fL MCH 21.2 L (25.0-35.0) pg MCHC 28.2 L (31.0-37.0) g/dL RDW 19.2 H (11.5-15.5) % Neutrophils # 9.3 H (1.3-7.7) k/uL Lymphocytes # 0.6 L (1.0-4.8) k/uL Sodium (137-145) mmol/L Carbon Dioxide (22-30) mmol/L Glucose (74-99) mg/dL POC Glucose (mg/dL) 209 H 178 H (70-110) mg/dL C-Reactive Protein (<1.0) mg/dL 01/25/22 01/25/22 01/26/22 Range/Units 20:35 22:38 05:56 WBC (3.8-10.6) k/uL RBC (3.80-5.40) m/uL Hgb (11.4-16.0) gm/dL Hct (34.0-46.0) % MCV (80.0-100.0) fL MCH (25.0-35.0) pg MCHC (31.0-37.0) g/dL RDW (11.5-15.5) % Neutrophils # (1.3-7.7) k/uL Lymphocytes # (1.0-4.8) k/uL Sodium (137-145) mmol/L Carbon Dioxide (22-30) mmol/L Glucose (74-99) mg/dL POC Glucose (mg/dL) 214 H 230 H 133 H (70-110) mg/dL C-Reactive Protein (<1.0) mg/dL 01/26/22 01/26/22 Range/Units 08:39 08:39 WBC (3.8-10.6) k/uL RBC 3.17 L (3.80-5.40) m/uL Hgb 6.9 L* (11.4-16.0) gm/dL Hct 24.2 L (34.0-46.0) % MCV 76.4 L (80.0-100.0) fL MCH 21.8 L (25.0-35.0) pg MCHC 28.5 L (31.0-37.0) g/dL RDW 19.0 H (11.5-15.5) % Neutrophils # 7.8 H (1.3-7.7) k/uL Lymphocytes # 0.5 L (1.0-4.8) k/uL Sodium 129 L (137-145) mmol/L Carbon Dioxide 21 L (22-30) mmol/L Glucose 112 H (74-99) mg/dL POC Glucose (mg/dL) (70-110) mg/dL C-Reactive Protein 15.6 H (<1.0) mg/dL Assessment and Plan Assessment: 1. Leukocytosis/sepsis; patient has been placed on IV antibiotics in form of Zosyn; IDs consulted and recommendations are pending; monitor CBC, CRP and pro- calcitonin 2. Possible vaginal bleed; patient is very resistant to any examination; did have substantial bleeding in the briefs; we will monitor CBC; consult LEGAL SERVICES PROFESSIONAL for further evaluation 3. Rectal bleed/history of hemorrhoids; unable to determine if it's rectal bleed versus vaginal bleed; GI is not available; we will consult general surgery 4. Nonhealing ulceration right groin; wound care is consulted and recommending to apply dry and so gave silver and to change dressing every Friday and Friday 5. History of atrial fibrillation, COPD, diabetes mellitus, hyperlipidemia, hypertension - Home medications are reviewed and ordered
[2022-01-26] MEDS ORDERED: ONDANSETRON 4 MG/2 ML VIAL IVP PRN (16:10)
--- NOTE | 2022-01-26 18:05 | P.PN ---
Subjective Progress Note Date: 01/26/22 Principal diagnosis: SIRS Patient is a 66 year old male presenting to the hospital in mental status changes and multiple falls did have a low-grade fever and elevated white count now with evidence of bacteremia. On today's evaluation that is 01/24/2022, the patient did have a low-grade fever 100.2 on her last night the patient is afebrile this morning the patient is more awake and alert breathing comfortably on nasal cannula oxygen denies any chest painand cough no abdominal pain or diarrhea Objective - Vital Signs Vital signs: Vital Signs Temp 98.0 F 01/26/22 09:57 Pulse 105 H 01/26/22 09:57 Resp 18 01/26/22 09:57 BP 169/79 01/26/22 09:57 Pulse Ox 98 01/26/22 09:57 FiO2 Intake & Output 01/25/22 01/26/22 01/26/22 18:59 06:59 18:59 Intake Total 1740 240 Balance 1740 240 Weight 81.647 kg Intake: Intake, IV Titration 1740 Amount Dextrose 10% in Water 1, 840 000 ml @ 120 mls/hr IV . Q8H40M [facility] with Sodium Chloride 4Meq/ml Vial 153 .8 meq Rx#:[id number] Sodium Chloride 0.9% 1, 900 000 ml @ 75 mls/hr IV . [id number] [facility] Rx#:[id number] Oral 240 Other: Voiding Method Toilet Bedside Commode Diaper # Voids 1 1 - Exam GENERAL DESCRIPTION: An elderly female lying in bed in no distress RESPIRATORY SYSTEM: Unlabored breathing , decreased breath sounds at bases HEART: S1 S2 regular rate and rhythm , ABDOMEN: Soft , no tenderness EXTREMITIES: No edema feet - Labs CBC & Chem 7: 01/26/22 08:39 01/26/22 08:39 Labs: Abnormal Lab Results - Last 24 Hours (Table) 01/24/22 01/25/22 01/25/22 Range/Units 11:44 17:19 20:35 RBC (3.80-5.40) m/uL Hgb (11.4-16.0) gm/dL Hct (34.0-46.0) % MCV (80.0-100.0) fL MCH (25.0-35.0) pg MCHC (31.0-37.0) g/dL RDW (11.5-15.5) % Neutrophils # (1.3-7.7) k/uL Lymphocytes # (1.0-4.8) k/uL Sodium (137-145) mmol/L Carbon Dioxide (22-30) mmol/L Glucose (74-99) mg/dL POC Glucose (mg/dL) 178 H 214 H (70-110) mg/dL C-Reactive Protein (<1.0) mg/dL Procalcitonin (0.02-0.09) ng/mL Urine Appearance Turbid H (Clear) Urine Protein 2+ H (Negative) Urine Blood Moderate H (Negative) Ur Leukocyte Esterase Large H (Negative) Urine RBC 9 H (0-5) /hpf Urine WBC >182 H (0-5) /hpf Urine WBC Clumps Moderate H (None) /hpf Ur Squamous Epith Cells 11 H (0-4) /hpf Urine Bacteria Rare H (None) /hpf Crossmatch 01/25/22 01/26/22 01/26/22 Range/Units 22:38 05:56 08:39 RBC (3.80-5.40) m/uL Hgb (11.4-16.0) gm/dL Hct (34.0-46.0) % MCV (80.0-100.0) fL MCH (25.0-35.0) pg MCHC (31.0-37.0) g/dL RDW (11.5-15.5) % Neutrophils # (1.3-7.7) k/uL Lymphocytes # (1.0-4.8) k/uL Sodium (137-145) mmol/L Carbon Dioxide (22-30) mmol/L Glucose (74-99) mg/dL POC Glucose (mg/dL) 230 H 133 H (70-110) mg/dL C-Reactive Protein (<1.0) mg/dL Procalcitonin 0.60 H (0.02-0.09) ng/mL Urine Appearance (Clear) Urine Protein (Negative) Urine Blood (Negative) Ur Leukocyte Esterase (Negative) Urine RBC (0-5) /hpf Urine WBC (0-5) /hpf Urine WBC Clumps (None) /hpf Ur Squamous Epith Cells (0-4) /hpf Urine Bacteria (None) /hpf Crossmatch 01/26/22 01/26/22 01/26/22 Range/Units 08:39 08:39 10:17 RBC 3.17 L (3.80-5.40) m/uL Hgb 6.9 L* (11.4-16.0) gm/dL Hct 24.2 L (34.0-46.0) % MCV 76.4 L (80.0-100.0) fL MCH 21.8 L (25.0-35.0) pg MCHC 28.5 L (31.0-37.0) g/dL RDW 19.0 H (11.5-15.5) % Neutrophils # 7.8 H (1.3-7.7) k/uL Lymphocytes # 0.5 L (1.0-4.8) k/uL Sodium 129 L (137-145) mmol/L Carbon Dioxide 21 L (22-30) mmol/L Glucose 112 H (74-99) mg/dL POC Glucose (mg/dL) 141 H (70-110) mg/dL C-Reactive Protein 15.6 H (<1.0) mg/dL Procalcitonin (0.02-0.09) ng/mL Urine Appearance (Clear) Urine Protein (Negative) Urine Blood (Negative) Ur Leukocyte Esterase (Negative) Urine RBC (0-5) /hpf Urine WBC (0-5) /hpf Urine WBC Clumps (None) /hpf Ur Squamous Epith Cells (0-4) /hpf Urine Bacteria (None) /hpf Crossmatch 01/26/22 01/26/22 Range/Units 12:15 12:19 RBC (3.80-5.40) m/uL Hgb (11.4-16.0) gm/dL Hct (34.0-46.0) % MCV (80.0-100.0) fL MCH (25.0-35.0) pg MCHC (31.0-37.0) g/dL RDW (11.5-15.5) % Neutrophils # (1.3-7.7) k/uL Lymphocytes # (1.0-4.8) k/uL Sodium (137-145) mmol/L Carbon Dioxide (22-30) mmol/L Glucose (74-99) mg/dL POC Glucose (mg/dL) 150 H (70-110) mg/dL C-Reactive Protein (<1.0) mg/dL Procalcitonin (0.02-0.09) ng/mL Urine Appearance (Clear) Urine Protein (Negative) Urine Blood (Negative) Ur Leukocyte Esterase (Negative) Urine RBC (0-5) /hpf Urine WBC (0-5) /hpf Urine WBC Clumps (None) /hpf Ur Squamous Epith Cells (0-4) /hpf Urine Bacteria (None) /hpf Crossmatch See Detail Assessment and Plan (1) SIRS (systemic inflammatory response syndrome) Current Visit: Yes Status: Acute Code(s): R65.10 - SIRS OF NON-INFECTIOUS ORIGIN W/O ACUTE ORGAN DYSFUNCTION SNOMED Code(s): 870027608 Plan: 1patient presented to hospital with diarrhea and this patient did have a abnormal x-ray at the snf with a CT abdominal pelvis concerning for po ssible lytic lesion concerning for malignancy also evidence of right lower lobe collapse and colitis possible infectious etiology stool for C. difficile has been negative. 2bilateral groin area ulcerated lesion with high clinic suspicious for cutaneous candidiasis. 3patient to continue with Zosyn 3.375 g every 8 hours. 4nystatin powder to bilateral groin area twice a day.
[2022-01-26 18:07] LABS: Glucose,Whole Blood 134 mg/dL (70-110)
[2022-01-26] MEDS: METOCLOPRAMIDE 5 MG/ML 2 ML VIAL IVP SCH ×2 (18:59→22:10)
[2022-01-26] MEDS: GLIMEPIRIDE 0.5 MG TAB PO SCH (18:59)
[2022-01-26 20:13] LABS: Glucose,Whole Blood 104 mg/dL (70-110)
[2022-01-26] MEDS: tiZANidine 4 MG TAB PO SCH (20:18)
[2022-01-26] MEDS: CYCLOBENZAPRINE 10 MG TAB PO SCH (20:18)
[2022-01-26] MEDS: ATORVASTATIN 40 MG TAB PO SCH (20:18)
[2022-01-26] MEDS ORDERED: DARBEPOETIN ALFA 25 MCG/0.42 ML SYRINGE SQ SCH (21:00)
[2022-01-27] MEDS: SODIUM CHLORIDE 0.9% 1,000 ML IV SCH ×2 (02:36→13:49)
[2022-01-27] MEDS: PIPERACILLIN-TAZOBACTAM 3.375 GM in SODIUM CHLORIDE 0.9% 100 ML IVPB SCH ×3 (05:02→21:03)
[2022-01-27] MEDS: GABAPENTIN 400 MG CAP PO SCH ×3 (05:03→21:03)
[2022-01-27] MEDS: METOCLOPRAMIDE 5 MG/ML 2 ML VIAL IVP SCH ×4 (05:03→23:37)
[2022-01-27] MEDS: DOXYCYCLINE 100 MG CAP PO SCH ×2 (05:03→17:35)
--- NOTE | 2022-01-27 05:43 | P.PN ---
Subjective Progress Note Date: 01/27/22 Principal diagnosis: Paroxysmal atrial fibrillation The patient is a pleasant 66-year-old female patient with a past medical history significant for paroxysmal atrial fibrillation on oral anticoagulation as well as history of stroke and diabetes and hypertension and dyslipidemia and overweight. She presented to the hospital because she was feeling weak and tired and she was found to be anemic. Also she was experiencing symptoms of chest discomfort. Further workup was performed and the working diagnosis initially was colitis. Also because there was a concern about vagina repeating [employer] service was consulted and further investigation was advised to be done as an outpatient. The patient's hemoglobin yesterday was 6.9 and she received one unit of packed RBC. She was initially admitted to the fourth floor and subsequently she was transferred to the third floor because of A. fib with RVR which was converted to normal sinus mechanism. The patient was seen this morning. She has been in and out atrial fibrillation. Hemodynamically she is stable was marginally low blood pressure. Overall she is feeling better after she received one unit of packed RBC yesterday. We don't have hemoglobin on her this morning. I am going to decrease the dose of lisinopril and increase the dose of metoprolol. Continue holding any oral anticoagulation at this point until we have the exact etiology for her bleeding. Otherwise she reports no pain in the chest pain or chest discomfort. No shortness of breath at this point. No dizziness or lightheadedness and no feeling of heart racing or fluttering. Previous echo from December 2020 showed normal left ventricular systolic Objective - Vital Signs Vital signs: Vital Signs Temp 99.0 F 01/27/22 03:43 Pulse 66 01/27/22 03:43 Resp 16 01/27/22 03:43 BP 97/59 01/27/22 03:43 Pulse Ox 94 L 01/27/22 03:43 FiO2 Intake & Output 01/26/22 01/26/22 01/27/22 06:59 18:59 06:59 Intake Total 240 1250 1200 Output Total 1100 350 Balance 240 150 850 Intake: IV 740 1200 Invasive Line 2 20 Invasive Line 3 20 Piperacillin-Tazobactam 3 100 300 .375 gm In Sodium Chloride 0.9% 100 ml @ 25 mls/hr IVPB Q8H [facility] Rx#: [id number] Sodium Chloride 0.9% 1, 600 900 000 ml @ 75 mls/hr IV . [id number] [facility] Rx#:[id number] Oral 240 200 Blood Product 310 Rc As-1 Unit 310 [id number] Output: Urine 1100 350 Other: Voiding Method Toilet Indwelling Catheter Diaper Bedside Commode Indwelling Catheter Diaper # Voids 1 - Constitutional General appearance: Present: no acute distress - Respiratory Respiratory: bilateral: diminished - Cardiovascular Rhythm: regular Heart sounds: normal: S1, S2 Abnormal Heart Sounds: Present: systolic murmur - Labs CBC & Chem 7: 01/26/22 08:39 01/26/22 08:39 Labs: Abnormal Lab Results - Last 24 Hours (Table) 01/24/22 01/26/22 01/26/22 Range/Units 11:44 05:56 08:39 RBC (3.80-5.40) m/uL Hgb (11.4-16.0) gm/dL Hct (34.0-46.0) % MCV (80.0-100.0) fL MCH (25.0-35.0) pg MCHC (31.0-37.0) g/dL RDW (11.5-15.5) % Neutrophils # (1.3-7.7) k/uL Lymphocytes # (1.0-4.8) k/uL Sodium (137-145) mmol/L Carbon Dioxide (22-30) mmol/L Glucose (74-99) mg/dL POC Glucose (mg/dL) 133 H (70-110) mg/dL C-Reactive Protein (<1.0) mg/dL Procalcitonin 0.60 H (0.02-0.09) ng/mL Urine Appearance Turbid H (Clear) Urine Protein 2+ H (Negative) Urine Blood Moderate H (Negative) Ur Leukocyte Esterase Large H (Negative) Urine RBC 9 H (0-5) /hpf Urine WBC >182 H (0-5) /hpf Urine WBC Clumps Moderate H (None) /hpf Ur Squamous Epith Cells 11 H (0-4) /hpf Urine Bacteria Rare H (None) /hpf Crossmatch 01/26/22 01/26/22 01/26/22 Range/Units 08:39 08:39 10:17 RBC 3.17 L (3.80-5.40) m/uL Hgb 6.9 L* (11.4-16.0) gm/dL Hct 24.2 L (34.0-46.0) % MCV 76.4 L (80.0-100.0) fL MCH 21.8 L (25.0-35.0) pg MCHC 28.5 L (31.0-37.0) g/dL RDW 19.0 H (11.5-15.5) % Neutrophils # 7.8 H (1.3-7.7) k/uL Lymphocytes # 0.5 L (1.0-4.8) k/uL Sodium 129 L (137-145) mmol/L Carbon Dioxide 21 L (22-30) mmol/L Glucose 112 H (74-99) mg/dL POC Glucose (mg/dL) 141 H (70-110) mg/dL C-Reactive Protein 15.6 H (<1.0) mg/dL Procalcitonin (0.02-0.09) ng/mL Urine Appearance (Clear) Urine Protein (Negative) Urine Blood (Negative) Ur Leukocyte Esterase (Negative) Urine RBC (0-5) /hpf Urine WBC (0-5) /hpf Urine WBC Clumps (None) /hpf Ur Squamous Epith Cells (0-4) /hpf Urine Bacteria (None) /hpf Crossmatch 01/26/22 01/26/22 01/26/22 Range/Units 12:15 12:19 18:06 RBC (3.80-5.40) m/uL Hgb (11.4-16.0) gm/dL Hct (34.0-46.0) % MCV (80.0-100.0) fL MCH (25.0-35.0) pg MCHC (31.0-37.0) g/dL RDW (11.5-15.5) % Neutrophils # (1.3-7.7) k/uL Lymphocytes # (1.0-4.8) k/uL Sodium (137-145) mmol/L Carbon Dioxide (22-30) mmol/L Glucose (74-99) mg/dL POC Glucose (mg/dL) 150 H 134 H (70-110) mg/dL C-Reactive Protein (<1.0) mg/dL Procalcitonin (0.02-0.09) ng/mL Urine Appearance (Clear) Urine Protein (Negative) Urine Blood (Negative) Ur Leukocyte Esterase (Negative) Urine RBC (0-5) /hpf Urine WBC (0-5) /hpf Urine WBC Clumps (None) /hpf Ur Squamous Epith Cells (0-4) /hpf Urine Bacteria (None) /hpf Crossmatch See Detail Microbiology - Last 24 Hours (Table) 01/24/22 11:44 Urine Culture - Preliminary Urine,Voided Assessment and Plan Assessment: Assessment #1 atrial fibrillation with rapid ventricular response. The patient was converted to normal sinus mechanism. The A. fib likely to be triggered by hypovolemia #2 history of paroxysmal atrial fibrillation on oral anticoagulation #3 history of stroke #4 hypertension #5 dyslipidemia #6 diabetes Plan #1 decrease the dose of lisinopril #2 increase dose of beta roxana was metoprolol trying to keep her in sinus rhythm #3 monitor the hemoglobin. Consider blood transfusion for anemia: 07 #4 hold on any anticoagulation at this point to have more clear etiology for her low hemoglobin #5 recent echo from 2019 showed normal left ventricular systolic function
[2022-01-27 06:21] LABS: Glucose,Whole Blood 49 mg/dL (70-110)
[2022-01-27 06:37] LABS: Glucose,Whole Blood 51 mg/dL (70-110)
[2022-01-27 06:52] LABS: Glucose,Whole Blood 53 mg/dL (70-110)
[2022-01-27] MEDS ORDERED: DEXTROSE 50% SYRINGE 50 ML IVP ONE (06:57)
[2022-01-27 07:08] LABS: Glucose,Whole Blood 171 mg/dL (70-110)
[2022-01-27] MEDS: SYMBICORT 80-4.5 MCG INHALER INHALATION SCH ×2 (08:07→19:38)
[2022-01-27] MEDS: NICOTINE 21MG/24HR PATCH TRANSDERM SCH (08:42)
[2022-01-27] MEDS: TORSEMIDE 20 MG TAB PO SCH (08:42)
[2022-01-27] MEDS: FLUoxetine HCL 20 MG CAP PO SCH (08:43)
[2022-01-27] MEDS: PANTOPRAZOLE 40 MG TABLET PO SCH (08:44)
[2022-01-27] MEDS: CHOLESTYRAMINE (WITH SUGAR) 4 GM PACKET PO SCH ×3 (08:44→21:03)
[2022-01-27] MEDS: lisinopriL 5 MG TAB PO SCH (08:44)
[2022-01-27] MEDS: metFORMIN 500 MG TAB PO SCH ×2 (08:44→17:01)
[2022-01-27] MEDS: FERROUS SULFATE 325 MG TAB PO SCH (08:44)
[2022-01-27] MEDS: GLIMEPIRIDE 2 MG TAB PO SCH ×2 (08:44→11:18)
[2022-01-27] MEDS: METOPROLOL SUCCINATE (ER) 50 MG TAB.ER.24H PO SCH ×2 (08:44→21:03)
[2022-01-27] MEDS: MAGNESIUM OXIDE 400 MG TAB PO SCH (08:44)
[2022-01-27] MEDS: NYSTATIN 100,000 UNIT/GM POWD 15 GM TOPICAL SCH ×2 (08:45→21:03)
[2022-01-27] MEDS: HYDROcodone/APAP 7.5-325MG 1 EACH TAB PO PRN ×4 (08:45→21:09)
[2022-01-27 09:50] LABS: Potassium 4.5 mmol/L (3.5-5.1)
[2022-01-27 10:12] LABS: Anisocytosis Slight; Basophils % (A) 0 %; Eosinophils # (A) 0.1 k/uL (0-0.7); Eosinophils % (A) 1 %; HCT 26.8 % (34.0-46.0); HGB 7.5 gm/dL (11.4-16.0); Hypochromasia Marked; Lymphocytes # (A) 0.8 k/uL (1.0-4.8); Lymphocytes % (A) 8 %; MCH 22.1 pg (25.0-35.0); MCV 78.9 fL (80.0-100.0); Mean Platelet Volume 7.7; Microcytosis Slight; Monocytes # (A) 0.7 k/uL (0-1.0); Monocytes % (A) 7 %; Neutrophils # (A) 8.2 k/uL (1.3-7.7); Neutrophils % (A) 82 %; Platelet Count 279 k/uL (150-450); Poikilocytosis Slight; RDW 18.8 % (11.5-15.5)
[2022-01-27 12:00] LABS: Glucose,Whole Blood 98 mg/dL (70-110)
[2022-01-27 16:47] LABS: Anisocytosis Slight; HCT 28.6 % (34.0-46.0); HGB 8.4 gm/dL (11.4-16.0); Hypochromasia Marked; MCH 22.5 pg (25.0-35.0); MCHC 29.2 g/dL (31.0-37.0); MCV 77.1 fL (80.0-100.0); Mean Platelet Volume 8.1; Microcytosis Slight; Platelet Count 297 k/uL (150-450); Poikilocytosis Moderate; RBC 3.71 m/uL (3.80-5.40); WBC 12.5 k/uL (3.8-10.6)
[2022-01-27 16:53] LABS: Glucose,Whole Blood 105 mg/dL (70-110)
[2022-01-27] MEDS: GLIMEPIRIDE 0.5 MG TAB PO SCH (17:01)
[2022-01-27 19:54] LABS: Glucose,Whole Blood 156 mg/dL (70-110)
[2022-01-27] MEDS: ATORVASTATIN 40 MG TAB PO SCH (21:03)
[2022-01-27] MEDS: tiZANidine 4 MG TAB PO SCH (21:03)
[2022-01-27] MEDS: CYCLOBENZAPRINE 10 MG TAB PO SCH (21:03)
[2022-01-27] MEDS ORDERED: RX INFO: IV CONTRAST WAS GIVEN 1 EACH MISC MISCELLANE PRN (23:13)
--- NOTE | 2022-01-27 23:13 | P.CONS ---
History of Present Illness - Reason for Consult Consult date: 01/27/22 h/o endometrial cancer, omental, bone lesions - History of Present Illness The patient is a 66-year-old white female, admitted here from [facility]. The patient had been undergoing care for nonhealing wound in the right groin area, which was not responding. She then developed watery diarrhea with some bleeding noted over the past 3-4 days. It appears that the actual site of bleeding was not totally definite. She had an x-ray which showed several years leading to her coming to the emergency room. The patient had a CT of the abdomen and pelvis, that showed evidence of omental nodules the largest 1.1 cm on the right side, as well as metastatic-appearing bone lesions in the T-spine, L-spine and ribs as well as pelvis. The patient has a known history of endometrial cancer. She was initially seen by Dr. Moreno in 2014 and diagnosed at that time with endometrial cancer. Patient was seen at [facility] gynecologic oncology and subsequently underwent a robotic-assisted total hysterectomy with bilateral salpingo-oophorectomy, lysis of adhesions, partial omentectomy, bilateral lymph node dissection and umbilical hernia repair. This diagnosis was in July 2015. Patient underwent vaginal cuff brachytherapy in October 2015 as well. She has not seen Dr. Moreno since that time and has not followed up with [facility] oncology. The patient had an MRI of the #as well as CT of the lumbar spine done in late 2018, showing no evidence of malignancy. At that time chronic appearing compression fractures as well as spinal stenosis were noted. Most recent chest x-ray in 01/10 did not show any masses or adenopathy. the patient also reports development of an open wound in the right groin area over the past 2 weeks, for which she has been undergoing wound care. Review of Systems Constitutional: Reports chronic pain, Reports fatigue, Reports weakness Eyes: denies blurred vision, denies pain Ears: deny: decreased hearing, ear discharge, earache, tinnitus Ears, nose, mouth and throat: Denies headache, Denies sore throat Cardiovascular: Reports dyspnea on exertion, Reports rapid heart beat Respiratory: Denies cough Gastrointestinal: Reports abdominal pain, Reports diarrhea, Reports hematochezia Genitourinary: Reports as per HPI Menstruation: Reports postmenopausal Musculoskeletal: Reports low back pain, Reports muscle weakness Integumentary: Reports as per HPI, Reports wounds Neurological: Reports weakness Endocrine: Reports fatigue Hematologic/Lymphatic: Reports as per HPI Past Medical History Past Medical History: Atrial Fibrillation, COPD, CVA/TIA, Diabetes Mellitus, GERD/Reflux, Hyperlipidemia, Hypertension, Pneumonia Additional Past Medical History / Comment(s): NIDDM type II, neuropathy bilateral upper and lower extremities, CVA/pt states able to stand and pivot but cannot walk and L arm weak/contracture, paroxysmal afib, past necrotizing fascitis/surgery to repair, L/S stenosis with severe radiculopathy/chronic back pain, UTIs, UTI with sepsis, anemia, electrolyte abnormalities. History of Any Multi-Drug Resistant Organisms: MRSA Year Discovered:: 03/07/19 MDRO Source:: ESBL URINE Past Surgical History: Hysterectomy, Tubal Ligation Additional Past Surgical History / Comment(s): Bilateral thigh/groin skin graftings, D&C, lumbar epidural injection. Past Anesthesia/Blood Transfusion Reactions: No Reported Reaction Smoking Status: Former smoker - Past Family History Mother Family Medical History: Dementia Medications and Allergies Home Medications Medication Instructions Recorded Confirmed Type Atorvastatin Calcium [Lipitor] 40 mg PO HS 01/08/21 01/24/22 History Ipratropium-Albuterol Nebulize 3 ml INHALATION RT-Q4H PRN ml 01/11/21 01/24/22 Rx [Duoneb 0.5 mg-3 mg/3 ml Soln] Aspirin EC [Ecotrin Low Dose] 81 mg PO DAILY 01/15/21 01/24/22 History Diclofenac Sodium Gel [Voltaren 1 applic TOPICAL QID 01/15/21 01/24/22 History Gel] Ergocalciferol (Vitamin D2) 1,250 mcg PO MO 01/15/21 01/24/22 History [Drisdol (50,000 Iu)] Menthol [Biofreeze] 1 applic TOPICAL TID@0600,1400,2200 01/15/21 01/24/22 History Nicotine 21Mg/24Hr Patch [Habitrol] 1 patch TRANSDERM DAILY 01/15/21 01/24/22 History Potassium Chloride [Klor-Con 20] 20 meq PO DAILY@1200 01/15/21 01/24/22 History metFORMIN HCL [Glucophage] 500 mg PO BID@0900,1700 01/15/21 01/24/22 History Apixaban [Eliquis] 5 mg PO BID tab 01/17/21 01/24/22 Rx Magnesium Oxide [Magox 400] 400 mg PO DAILY #1 tablet 01/17/21 01/24/22 Rx Acetaminophen [Tylenol] 650 mg PO Q4H PRN 01/24/22 01/24/22 History Benzocaine/Menthol [Cepacol Sore 1 lozenge MM Q2H PRN 01/24/22 01/24/22 History Throat Lozenge] Cholestyramine/Aspartame 4 gm PO TID@0900,1300,2100 01/24/22 01/24/22 History [Cholestyramine Light Packet] Cyclobenzaprine [Flexeril] 10 mg PO HS 01/24/22 01/24/22 History Doxycycline Hyclate 100 mg PO BID 01/24/22 01/24/22 History Epoetin Ralf [Procrit] 10,000 unit SQ SA 01/24/22 01/26/22 History FLUoxetine HCL 20 mg PO DAILY 01/24/22 01/24/22 History Ferrous Sulfate [Iron] 325 mg PO DAILY 01/24/22 01/24/22 History Fluticasone Propion/Salmeterol 1 puff PO RT-BID 01/24/22 01/24/22 History [Wixela 250-50 Inhub] Gabapentin [Neurontin] 400 mg PO TID@0600,1400,2200 01/24/22 01/24/22 History Glimepiride [Amaryl] 0.5 mg PO DAILY@1700 01/24/22 01/24/22 History Glimepiride [Amaryl] 2 mg PO DAILY 01/24/22 01/24/22 History HYDROcodone/APAP 7.5-325MG [[place] 1 tab PO Q4H PRN 01/24/22 01/24/22 History 7.5-325] Loperamide HCl [Imodium A-D] 2 - 4 mg PO BID PRN 01/24/22 01/24/22 History Metoprolol Tartrate [Lopressor] 25 mg PO TID@0600,1400,2200 01/24/22 01/24/22 History Omeprazole 20 mg PO DAILY 01/24/22 01/24/22 History Ondansetron [Zofran] 4 mg PO Q6H PRN 01/24/22 01/24/22 History Torsemide [Demadex] 30 mg PO DAILY 01/24/22 01/24/22 History lisinopriL [Zestril] 10 mg PO DAILY 01/24/22 01/24/22 History tiZANidine [Zanaflex] 4 mg PO HS 01/24/22 01/24/22 History Allergies Allergy/AdvReac Type Severity Reaction Status Date / Time aspirin AdvReac nose bleeds Verified 01/24/22 17:49 Physical Exam Vitals: Vital Signs Temp Pulse Pulse Resp BP BP Pulse Ox 01/27/22 08:30 97.7 F 105 H 16 120/71 100 01/27/22 03:43 99.0 F 66 16 97/59 94 L 01/26/22 23:38 95.0 F L 71 15 110/63 96 01/26/22 20:00 98.1 F 109 H 16 132/81 97 01/26/22 17:27 98.0 F 107 H 18 130/81 97 01/26/22 15:59 98.0 F 109 H 18 136/90 98 01/26/22 15:19 98 F 106 H 18 136/78 97 01/26/22 15:09 97.8 F 106 H 18 131/79 98 01/26/22 12:00 98.3 F 103 H 18 119/77 93 L 01/26/22 09:57 98.0 F 105 H 18 169/79 94 L Intake and Output 01/26/22 01/27/22 01/27/22 22:59 06:59 14:59 Intake Total 410 1100 20 Output Total 1450 Balance -1040 1100 20 Intake: IV 100 1100 20 Invasive Line 2 10 Invasive Line 3 10 Piperacillin-Tazobactam 3 100 200 .375 gm In Sodium Chloride 0.9% 100 ml @ 25 mls/hr IVPB Q8H [facility] Rx#: [id number] Sodium Chloride 0.9% 1, 900 000 ml @ 75 mls/hr IV . [id number] [facility] Rx#:[id number] Blood Product 310 Rc As-1 Unit 310 [id number] Output: Urine 1450 Other: Voiding Method Diaper Diaper Diaper Indwelling Catheter Indwelling Catheter Indwelling Catheter - Constitutional General appearance: no acute distress - EENT Eyes: EOMI, PERRLA ENT: hearing grossly normal, normal oropharynx - Neck Neck: no lymphadenopathy Thyroid: bilateral: normal size - Respiratory Respiratory: bilateral: CTA - Cardiovascular Rhythm: regular Heart sounds: normal: S1, S2 - Gastrointestinal General gastrointestinal: normal bowel sounds, soft - Integumentary large open wound involving the right groin area with irregular edges, and yellowish eschar. Tissue at the base does however have the appearance of healthy, pink granulation tissue - Neurologic Neurologic: CNII-XII intact - Musculoskeletal Musculoskeletal: generalized weakness - Psychiatric Psychiatric: A&O x's 3, appropriate affect Results CBC & Chem 7: 01/27/22 16:35 01/27/22 08:28 Labs: Abnormal Lab Results - Last 24 Hours (Table) 01/24/22 01/26/22 01/26/22 Range/Units 11:44 08:39 08:39 RBC 3.17 L (3.80-5.40) m/uL Hgb 6.9 L* (11.4-16.0) gm/dL Hct 24.2 L (34.0-46.0) % MCV 76.4 L (80.0-100.0) fL MCH 21.8 L (25.0-35.0) pg MCHC 28.5 L (31.0-37.0) g/dL RDW 19.0 H (11.5-15.5) % Neutrophils # 7.8 H (1.3-7.7) k/uL Lymphocytes # 0.5 L (1.0-4.8) k/uL Sodium (137-145) mmol/L Carbon Dioxide (22-30) mmol/L Glucose (74-99) mg/dL POC Glucose (mg/dL) (70-110) mg/dL C-Reactive Protein (<1.0) mg/dL Procalcitonin 0.60 H (0.02-0.09) ng/mL Urine Appearance Turbid H (Clear) Urine Protein 2+ H (Negative) Urine Blood Moderate H (Negative) Ur Leukocyte Esterase Large H (Negative) Urine RBC 9 H (0-5) /hpf Urine WBC >182 H (0-5) /hpf Urine WBC Clumps Moderate H (None) /hpf Ur Squamous Epith Cells 11 H (0-4) /hpf Urine Bacteria Rare H (None) /hpf Crossmatch 01/26/22 01/26/22 01/26/22 Range/Units 08:39 10:17 12:15 RBC (3.80-5.40) m/uL Hgb (11.4-16.0) gm/dL Hct (34.0-46.0) % MCV (80.0-100.0) fL MCH (25.0-35.0) pg MCHC (31.0-37.0) g/dL RDW (11.5-15.5) % Neutrophils # (1.3-7.7) k/uL Lymphocytes # (1.0-4.8) k/uL Sodium 129 L (137-145) mmol/L Carbon Dioxide 21 L (22-30) mmol/L Glucose 112 H (74-99) mg/dL POC Glucose (mg/dL) 141 H (70-110) mg/dL C-Reactive Protein 15.6 H (<1.0) mg/dL Procalcitonin (0.02-0.09) ng/mL Urine Appearance (Clear) Urine Protein (Negative) Urine Blood (Negative) Ur Leukocyte Esterase (Negative) Urine RBC (0-5) /hpf Urine WBC (0-5) /hpf Urine WBC Clumps (None) /hpf Ur Squamous Epith Cells (0-4) /hpf Urine Bacteria (None) /hpf Crossmatch See Detail 01/26/22 01/26/22 01/27/22 Range/Units 12:19 18:06 06:19 RBC (3.80-5.40) m/uL Hgb (11.4-16.0) gm/dL Hct (34.0-46.0) % MCV (80.0-100.0) fL MCH (25.0-35.0) pg MCHC (31.0-37.0) g/dL RDW (11.5-15.5) % Neutrophils # (1.3-7.7) k/uL Lymphocytes # (1.0-4.8) k/uL Sodium (137-145) mmol/L Carbon Dioxide (22-30) mmol/L Glucose (74-99) mg/dL POC Glucose (mg/dL) 150 H 134 H 49 L (70-110) mg/dL C-Reactive Protein (<1.0) mg/dL Procalcitonin (0.02-0.09) ng/mL Urine Appearance (Clear) Urine Protein (Negative) Urine Blood (Negative) Ur Leukocyte Esterase (Negative) Urine RBC (0-5) /hpf Urine WBC (0-5) /hpf Urine WBC Clumps (None) /hpf Ur Squamous Epith Cells (0-4) /hpf Urine Bacteria (None) /hpf Crossmatch 01/27/22 01/27/22 01/27/22 Range/Units 06:35 06:51 07:06 RBC (3.80-5.40) m/uL Hgb (11.4-16.0) gm/dL Hct (34.0-46.0) % MCV (80.0-100.0) fL MCH (25.0-35.0) pg MCHC (31.0-37.0) g/dL RDW (11.5-15.5) % Neutrophils # (1.3-7.7) k/uL Lymphocytes # (1.0-4.8) k/uL Sodium (137-145) mmol/L Carbon Dioxide (22-30) mmol/L Glucose (74-99) mg/dL POC Glucose (mg/dL) 51 L 53 L 171 H (70-110) mg/dL C-Reactive Protein (<1.0) mg/dL Procalcitonin (0.02-0.09) ng/mL Urine Appearance (Clear) Urine Protein (Negative) Urine Blood (Negative) Ur Leukocyte Esterase (Negative) Urine RBC (0-5) /hpf Urine WBC (0-5) /hpf Urine WBC Clumps (None) /hpf Ur Squamous Epith Cells (0-4) /hpf Urine Bacteria (None) /hpf Crossmatch Microbiology - Last 24 Hours (Table) 01/24/22 11:44 Urine Culture - Preliminary Urine,Voided Comments: MRI spine report reviewed Chest x-ray: report reviewed CT scan - abdomen: report reviewed CT scan - pelvis: report reviewed Assessment and Plan (1) Metastatic cancer Narrative/Plan: the patient's CT scan is highly suspicious for metastatic cancer involving the omentum, as well as various areas in the skeletal system. The patient is actually asymptomatic in relation to these findings, as her admission was due to diarrhea and possible GI versus bleeding. She denied any abdominal pain. She does have chronic back pain but denied any change. - The results implications were discussed in detail with her. She was advised that the appearance is highly suspicious for metastatic malignancy. Given her prior history recurrence of endometrial cancer is the primary differential. However, with time lapse of more than 5 years, a new primary with metastasis is also possible. - Check CT of the chest and bone scan - The patient will need a tissue biopsy. One scans are complete, appropriate target will be identified. - Check tumor marker, specifically CA 125 at this time. Current Visit: Yes Status: Acute Code(s): C79.9 - SECONDARY MALIGNANT NEOPLASM OF UNSPECIFIED SITE SNOMED Code(s): 970572509 (2) Anemia Narrative/Plan: the blood loss anemia, given history of bleeding ( versus GI) is a major differential. However anemia of inflammation, is also possibility with CT appearance suggestive of metastatic malignancy. Check labs. Continue to monito r and transfuse to keep hemoglobin greater than 7. Current Visit: Yes Status: Acute Code(s): D64.9 - ANEMIA, UNSPECIFIED SNOMED Code(s): 261710027 (3) Non-pressure chronic ulcer of skin of other sites limited to breakdown of skin Narrative/Plan: the current area of the wound is quite extensive.underlying malignant involvement, or long-term postradiation effect are among the possibilities. Other benign causes are not ruled out, especially since the previous appears to be showing somewhat healthy-appearing granulation tissue. Continue wound care Current Visit: Yes Status: Acute Code(s): L98.491 - NON-PRS CHRONIC ULCER SKIN/ SITES LIMITED TO BRKDWN SKIN SNOMED Code(s): 13914882
[2022-01-28] MEDS: METOCLOPRAMIDE 5 MG/ML 2 ML VIAL IVP SCH ×3 (04:58→17:10)
[2022-01-28] MEDS: HYDROcodone/APAP 7.5-325MG 1 EACH TAB PO PRN ×4 (04:58→20:39)
[2022-01-28] MEDS: SODIUM CHLORIDE 0.9% 1,000 ML IV SCH ×2 (04:59→18:33)
[2022-01-28] MEDS: PIPERACILLIN-TAZOBACTAM 3.375 GM in SODIUM CHLORIDE 0.9% 100 ML IVPB SCH ×3 (04:59→20:38)
[2022-01-28] MEDS: GABAPENTIN 400 MG CAP PO SCH ×3 (05:00→20:37)
[2022-01-28] MEDS: DOXYCYCLINE 100 MG CAP PO SCH ×2 (05:39→17:01)
[2022-01-28 05:59] LABS: Glucose,Whole Blood 109 mg/dL (70-110)
[2022-01-28 07:11] LABS: Potassium 4.8 mmol/L (3.5-5.1)
[2022-01-28 07:20] LABS: Anisocytosis Slight; Basophils % (A) 1 %; Eosinophils # (A) 0.1 k/uL (0-0.7); Eosinophils % (A) 1 %; Hypochromasia Marked; Lymphocytes # (A) 0.9 k/uL (1.0-4.8); Lymphocytes % (A) 11 %; MCH 22.6 pg (25.0-35.0); MCHC 28.7 g/dL (31.0-37.0); MCV 78.6 fL (80.0-100.0); Microcytosis Slight; Monocytes # (A) 0.6 k/uL (0-1.0); Monocytes % (A) 7 %; Neutrophils # (A) 6.7 k/uL (1.3-7.7); Neutrophils % (A) 77 %; Platelet Count 272 k/uL (150-450); Poikilocytosis Moderate; RBC 3.56 m/uL (3.80-5.40); RDW 19.4 % (11.5-15.5); WBC 8.7 k/uL (3.8-10.6)
[2022-01-28] MEDS: SYMBICORT 80-4.5 MCG INHALER INHALATION SCH ×2 (07:40→19:52)
[2022-01-28 08:10] LABS: Poikilocytosis (M) Present
[2022-01-28] MEDS ORDERED: METOPROLOL SUCCINATE (ER) 50 MG TAB.ER.24H PO SCH (09:00)
[2022-01-28] MEDS ORDERED: ERGOCALCIFEROL 1,250 MCG (50,000 IU) CAPSULE PO SCH (09:00)
--- NOTE | 2022-01-28 09:37 | P.PN ---
Subjective Progress Note Date: 01/27/22 Principal diagnosis: Paroxysmal atrial fibrillation Vaginal bleeding/history of endometrial cancer; status post robotic-assisted total hysterectomy with bilateral salpingo-oophorectomy, lysis of adhesions, partial omentectomy, bilateral lymph node dissection and umbilical hernia repair. Bilateral groin area ulcerated lesion with high clinic suspicious for cutaneous candidiasis Lytic lesions L1 vertebral body, T8 vertebral body and L3 compression fracture with pulmonary and omental nodules; suspicious for malignancy 66 y/o female being seen by the wound care center for nonhealing ulceration to the right groin. Patient is a resident at [facility]. Patient states that the ulceration has been there for one week however upon further questioning patient stated that she sees the wound care doctor at [facility] has been having a salve applied to the site. Patient has significant amount of pain and discomfort to the ulceration site. The ulceration consists of multiple clusters of Limited to skin breakdown ulcerations with redness and significant amount of serous drainage to the site. According to nursing staff patient has been having watery diarrhea for last 4 days and had another abdominal x-ray done at the halfway which showed possible ileus and was sent to ER for further evaluation; in the ED patient's abdominal examination was benign but lab review revealed leukocytosis of 26.9 with sodium of 130, glucose 34, BUN 33; C. diff was negative Patient was placed on IV fluids in form of D10 and is admitted for further evaluation 01/27/2022 -- patient is seen and evaluated sitting up in bedside chair; wants to be discharged back to rehab Vital signs are reviewed and patient remains afebrile, heart rate 1:15 with blood pressure of 97/64 and O2 saturation of 93% on room air Lab review shows a WBC of 12.5, hemoglobin of 8.4, hematocrit of 28.6 and platelet count of 297 Patient has been evaluated by oncology; presentation remains highly suspicious for metastatic malignancy; patient does have history of endometrial cancer which remains primary differential for source of metastases; CT of the chest and bone scan as recommended; once imaging is completed tissue biopsy will be needed; tumor markers are ordered including CEA 125 Continue to monitor CBC closely with plans to transfuse if hemoglobin is less than 7 Patient remains on IV Zosyn and nystatin powder for growing lesion, but ID recommendations Objective - Vital Signs Vital signs: Vital Signs Temp 97.7 F 01/27/22 08:30 Pulse 105 H 01/27/22 08:30 Resp 16 01/27/22 08:30 BP 120/71 01/27/22 08:30 Pulse Ox 100 01/27/22 08:30 FiO2 Intake & Output 01/26/22 01/27/22 01/27/22 18:59 06:59 18:59 Intake Total 1250 1200 20 Output Total 1100 350 Balance 150 850 20 Intake: IV 740 1200 20 Invasive Line 2 20 10 Invasive Line 3 20 10 Piperacillin-Tazobactam 3 100 300 .375 gm In Sodium Chloride 0.9% 100 ml @ 25 mls/hr IVPB Q8H [facility] Rx#: [id number] Sodium Chloride 0.9% 1, 600 900 000 ml @ 75 mls/hr IV . [id number] [facility] Rx#:[id number] Oral 200 Blood Product 310 Rc As-1 Unit 310 [id number] Output: Urine 1100 350 Other: Voiding Method Indwelling Catheter Diaper Diaper Indwelling Catheter Indwelling Catheter - Exam PHYSICAL EXAMINATION: GENERAL: The patient is alert and oriented x3, not in any acute distress. Well developed, well nourished. HEENT: Pupils are round and equally reacting to light. EOMI. No scleral icterus. No conjunctival pallor. Normocephalic, atraumatic. No pharyngeal erythema. No thyromegaly. CARDIOVASCULAR: S1 and S2 present. No murmurs, rubs, or gallops. PULMONARY: Chest is clear to auscultation, no wheezing or crackles. ABDOMEN: Soft, nontender, nondistended, normoactive bowel sounds. No palpable organomegaly. MUSCULOSKELETAL: No joint swelling or deformity. EXTREMITIES: No cyanosis, clubbing, or pedal edema. NEUROLOGICAL: Gross neurological examination did not reveal any focal deficits. SKIN: No rashes. - Labs CBC & Chem 7: 01/28/22 06:26 01/28/22 06:26 Labs: Abnormal Lab Results - Last 24 Hours (Table) 01/24/22 01/26/22 01/26/22 Range/Units 11:44 08:39 12:15 RBC (3.80-5.40) m/uL Hgb (11.4-16.0) gm/dL Hct (34.0-46.0) % MCV (80.0-100.0) fL MCH (25.0-35.0) pg MCHC (31.0-37.0) g/dL RDW (11.5-15.5) % Neutrophils # (1.3-7.7) k/uL Lymphocytes # (1.0-4.8) k/uL Sodium (137-145) mmol/L Carbon Dioxide (22-30) mmol/L Glucose (74-99) mg/dL POC Glucose (mg/dL) (70-110) mg/dL Calcium (8.4-10.2) mg/dL Procalcitonin 0.60 H (0.02-0.09) ng/mL Urine Appearance Turbid H (Clear) Urine Protein 2+ H (Negative) Urine Blood Moderate H (Negative) Ur Leukocyte Esterase Large H (Negative) Urine RBC 9 H (0-5) /hpf Urine WBC >182 H (0-5) /hpf Urine WBC Clumps Moderate H (None) /hpf Ur Squamous Epith Cells 11 H (0-4) /hpf Urine Bacteria Rare H (None) /hpf Crossmatch See Detail 01/26/22 01/26/22 01/27/22 Range/Units 12:19 18:06 06:19 RBC (3.80-5.40) m/uL Hgb (11.4-16.0) gm/dL Hct (34.0-46.0) % MCV (80.0-100.0) fL MCH (25.0-35.0) pg MCHC (31.0-37.0) g/dL RDW (11.5-15.5) % Neutrophils # (1.3-7.7) k/uL Lymphocytes # (1.0-4.8) k/uL Sodium (137-145) mmol/L Carbon Dioxide (22-30) mmol/L Glucose (74-99) mg/dL POC Glucose (mg/dL) 150 H 134 H 49 L (70-110) mg/dL Calcium (8.4-10.2) mg/dL Procalcitonin (0.02-0.09) ng/mL Urine Appearance (Clear) Urine Protein (Negative) Urine Blood (Negative) Ur Leukocyte Esterase (Negative) Urine RBC (0-5) /hpf Urine WBC (0-5) /hpf Urine WBC Clumps (None) /hpf Ur Squamous Epith Cells (0-4) /hpf Urine Bacteria (None) /hpf Crossmatch 01/27/22 01/27/22 01/27/22 Range/Units 06:35 06:51 07:06 RBC (3.80-5.40) m/uL Hgb (11.4-16.0) gm/dL Hct (34.0-46.0) % MCV (80.0-100.0) fL MCH (25.0-35.0) pg MCHC (31.0-37.0) g/dL RDW (11.5-15.5) % Neutrophils # (1.3-7.7) k/uL Lymphocytes # (1.0-4.8) k/uL Sodium (137-145) mmol/L Carbon Dioxide (22-30) mmol/L Glucose (74-99) mg/dL POC Glucose (mg/dL) 51 L 53 L 171 H (70-110) mg/dL Calcium (8.4-10.2) mg/dL Procalcitonin (0.02-0.09) ng/mL Urine Appearance (Clear) Urine Protein (Negative) Urine Blood (Negative) Ur Leukocyte Esterase (Negative) Urine RBC (0-5) /hpf Urine WBC (0-5) /hpf Urine WBC Clumps (None) /hpf Ur Squamous Epith Cells (0-4) /hpf Urine Bacteria (None) /hpf Crossmatch 01/27/22 01/27/22 Range/Units 08:28 08:28 RBC 3.40 L (3.80-5.40) m/uL Hgb 7.5 L (11.4-16.0) gm/dL Hct 26.8 L (34.0-46.0) % MCV 78.9 L (80.0-100.0) fL MCH 22.1 L (25.0-35.0) pg MCHC 28.0 L (31.0-37.0) g/dL RDW 18.8 H (11.5-15.5) % Neutrophils # 8.2 H (1.3-7.7) k/uL Lymphocytes # 0.8 L (1.0-4.8) k/uL Sodium 130 L (137-145) mmol/L Carbon Dioxide 21 L (22-30) mmol/L Glucose 207 H (74-99) mg/dL POC Glucose (mg/dL) (70-110) mg/dL Calcium 8.0 L (8.4-10.2) mg/dL Procalcitonin (0.02-0.09) ng/mL Urine Appearance (Clear) Urine Protein (Negative) Urine Blood (Negative) Ur Leukocyte Esterase (Negative) Urine RBC (0-5) /hpf Urine WBC (0-5) /hpf Urine WBC Clumps (None) /hpf Ur Squamous Epith Cells (0-4) /hpf Urine Bacteria (None) /hpf Crossmatch Microbiology - Last 24 Hours (Table) 01/24/22 11:44 Urine Culture - Preliminary Urine,Voided Assessment and Plan Assessment: 1. Leukocytosis/sepsis; patient has been placed on IV antibiotics in form of Zosyn; IDs consulted and recommendations are pending; monitor CBC, CRP and pro- calcitonin 2. Possible vaginal bleed; patient is very resistant to any examination; did have substantial bleeding in the briefs; we will monitor CBC; consult METALLURGICAL INSPECTOR for further evaluation 3. Rectal bleed/history of hemorrhoids; unable to determine if it's rectal bleed versus vaginal bleed; GI is not available; we will consult general surgery 4. Nonhealing ulceration right groin; wound care is consulted and recommending to apply dry and so gave silver and to change dressing every Friday and Friday 5. History of atrial fibrillation, COPD, diabetes mellitus, hyperlipidemia, hypertension - Home medications are reviewed and ordered
[2022-01-28] MEDS: NICOTINE 21MG/24HR PATCH TRANSDERM SCH (10:00)
[2022-01-28] MEDS: FLUoxetine HCL 20 MG CAP PO SCH (10:00)
[2022-01-28] MEDS: MAGNESIUM OXIDE 400 MG TAB PO SCH (10:00)
[2022-01-28] MEDS: PANTOPRAZOLE 40 MG TABLET PO SCH (10:00)
[2022-01-28] MEDS: FERROUS SULFATE 325 MG TAB PO SCH (10:00)
[2022-01-28] MEDS: CHOLESTYRAMINE (WITH SUGAR) 4 GM PACKET PO SCH ×3 (10:00→20:40)
[2022-01-28] MEDS: NYSTATIN 100,000 UNIT/GM POWD 15 GM TOPICAL SCH ×2 (10:02→20:40)
[2022-01-28] MEDS: lisinopriL 5 MG TAB PO SCH (10:02)
[2022-01-28] MEDS: GLIMEPIRIDE 2 MG TAB PO SCH (10:02)
[2022-01-28] MEDS: TORSEMIDE 20 MG TAB PO SCH (10:03)
[2022-01-28 11:29] LABS: Glucose,Whole Blood 171 mg/dL (70-110)
[2022-01-28 12:00] LABS: Cancer Antigen 125 38.5 U/mL (0.0-30.1)
[2022-01-28 12:29] LABS: % Iron Saturation 6.18 (12.00-45.00); Ferritin 54.3 ng/mL (10.0-291.0)
--- NOTE | 2022-01-28 13:23 | P.PN ---
Subjective Progress Note Date: 01/28/22 Hemoglobin 8, Iron studies are low. No systemic infection iron ok as long s no concern of bacteremia. Awaitinf CT scan of chest and bone scan to ssess for area accessible for tissue biopsy as her last malignancy was over 6 years. Objective - Vital Signs Vital signs: Vital Signs Temp 97.6 F 01/28/22 08:15 Pulse 118 H 01/28/22 08:15 Resp 15 01/28/22 08:15 BP 110/74 01/28/22 08:15 Pulse Ox 100 01/28/22 08:15 FiO2 Intake & Output 01/27/22 01/28/22 01/28/22 18:59 06:59 18:59 Intake Total 2000 1100 118 Output Total 1800 325 Balance 200 775 118 Weight 83 kg Intake: IV 1140 1100 Invasive Line 2 20 Invasive Line 3 20 Piperacillin-Tazobactam 3 200 200 .375 gm In Sodium Chloride 0.9% 100 ml @ 25 mls/hr IVPB Q8H [facility] Rx#: [id number] Sodium Chloride 0.9% 1, 900 900 000 ml @ 75 mls/hr IV . [id number] [facility] Rx#:[id number] Oral 860 118 Output: Urine 1800 325 Straight 1800 325 Other: Voiding Method Indwelling Catheter Indwelling Catheter # Voids 0 # Bowel Movements 0 1 - Exam - Constitutional General appearance: no acute distress - EENT Eyes: EOMI, PERRLA ENT: hearing grossly normal, normal oropharynx - Neck Neck: no lymphadenopathy Thyroid: bilateral: normal size - Respiratory Respiratory: bilateral: CTA - Cardiovascular Rhythm: regular Heart sounds: normal: S1, S2 - Gastrointestinal General gastrointestinal: normal bowel sounds, soft - Integumentary large open wound involving the right groin area with irregular edges, and yellowish eschar. Tissue at the base does however have the appearance of healthy, pink granulation tissue - Neurologic Neurologic: CNII-XII intact - Musculoskeletal Musculoskeletal: generalized weakness - Psychiatric Psychiatric: A&O x's 3, appropriate affect - Labs CBC & Chem 7: 01/28/22 06:26 01/28/22 06:26 Labs: Abnormal Lab Results - Last 24 Hours (Table) 01/27/22 01/27/22 01/27/22 Range/Units 08:28 08:28 16:35 WBC 12.5 H (3.8-10.6) k/uL RBC 3.40 L 3.71 L (3.80-5.40) m/uL Hgb 7.5 L 8.4 L (11.4-16.0) gm/dL Hct 26.8 L 28.6 L (34.0-46.0) % MCV 78.9 L 77.1 L (80.0-100.0) fL MCH 22.1 L 22.5 L (25.0-35.0) pg MCHC 28.0 L 29.2 L (31.0-37.0) g/dL RDW 18.8 H 19.0 H (11.5-15.5) % Neutrophils # 8.2 H (1.3-7.7) k/uL Lymphocytes # 0.8 L (1.0-4.8) k/uL Sodium 130 L (137-145) mmol/L Carbon Dioxide 21 L (22-30) mmol/L Glucose 207 H (74-99) mg/dL POC Glucose (mg/dL) (70-110) mg/dL Calcium 8.0 L (8.4-10.2) mg/dL 01/27/22 01/28/22 01/28/22 Range/Units 19:50 06:26 06:26 WBC (3.8-10.6) k/uL RBC 3.56 L (3.80-5.40) m/uL Hgb 8.0 L (11.4-16.0) gm/dL Hct 28.0 L (34.0-46.0) % MCV 78.6 L (80.0-100.0) fL MCH 22.6 L (25.0-35.0) pg MCHC 28.7 L (31.0-37.0) g/dL RDW 19.4 H (11.5-15.5) % Neutrophils # (1.3-7.7) k/uL Lymphocytes # 0.9 L (1.0-4.8) k/uL Sodium 131 L (137-145) mmol/L Carbon Dioxide (22-30) mmol/L Glucose (74-99) mg/dL POC Glucose (mg/dL) 156 H (70-110) mg/dL Calcium 8.0 L (8.4-10.2) mg/dL Microbiology - Last 24 Hours (Table) 01/24/22 11:44 Urine Culture - Final Urine,Voided Assessment and Plan Plan: Comments: MRI spine report reviewed Chest x-ray: report reviewed CT scan - abdomen: report reviewed CT scan - pelvis: report reviewed Assessment and Plan (1) Metastatic cancer Narrative/Plan: the patient's CT scan is highly suspicious for metastatic cancer involving the omentum, as well as various areas in the skeletal system. The patient is actually asymptomatic in relation to these findings, as her admission was due to diarrhea and possible GI versus bleeding. She denied any abdominal pain. She does have chronic back pain but denied any change. - The results implications were discussed in detail with her. She was advised that the appearance is highly suspicious for metastatic malignancy. Given her prior history recurrence of endometrial cancer is the primary differential. However, with time lapse of more than 5 years, a new primary with metastasis is also possible. - Check CT of the chest and bone scan for accessible biopsy site - The patient will need a tissue biopsy. One scans are complete, appropriate target will be identified. - Ca12 5 with elevation 38 Current Visit: Yes Status: Acute Code(s): C79.9 - SECONDARY MALIGNANT NEOPLASM OF UNSPECIFIED SITE SNOMED Code(s): 836318363 (2) Anemia Narrative/Plan: - Evidence of Iron deficiency, order for IV Iron x3 as no active bacteria signs. Known history of .GI bleeding/blood loss. - However anemia of inflammation, is also possibility with CT appearance suggestive of metastatic malignancy. Check labs. Continue to monitor and transfuse to keep hemoglobin greater than 7. Current Visit: Yes Status: Acute Code(s): D64.9 - ANEMIA, UNSPECIFIED SNOMED Code(s): 299597548 (3) Non-pressure chronic ulcer of skin of other sites limited to breakdown of skin Narrative/Plan: Can not exclude possible underlying malignant involvement, or long-term postradiation effect are among the possibilities. - Other benign causes are not ruled out, especially since the previous appears to be showing somewhat healthy-appearing granulation tissue. Continue wound care Current Visit: Yes Status: Acute Code(s): L98.491 - NON-PRS CHRONIC ULCER SKIN/ SITES LIMITED TO BRKDWN SKIN SNOMED Code(s): 24960611 PLAN: Hemoglobin 8, Iron studies are low. No systemic infection iron ok as long s no concern of bacteremia. Awaitinf CT scan of chest and bone scan to ssess for area accessible for tissue biopsy as her last malignancy was over 6 years.
--- NOTE | 2022-01-28 13:26 | P.PN ---
Subjective HISTORY OF PRESENT ILLNESS: The patient is a pleasant 66-year-old female patient with a past medical history significant for paroxysmal atrial fibrillation on oral anticoagulation as well as history of stroke and diabetes and hypertension and dyslipidemia and overweight. She presented to the hospital because she was feeling weak and tired and she was found to be anemic. Also she was experiencing symptoms of chest discomfort. Further workup was performed and the working diagnosis initially was colitis. Also because there was a concern about vagina repeating DIRECTOR FRAUD service was consulted and further investigation was advised to be done as an outpatient. The patient's hemoglobin yesterday was 6.9 and she received one unit of packed RBC. She was initially admitted to the fourth floor and subsequently she was transferred to the third floor because of A. fib with RVR which was converted to normal sinus mechanism. 01/27/2022 The patient was seen this morning. She has been in and out atrial fibrillation. Hemodynamically she is stable was marginally low blood pressure. Overall she is feeling better after she received one unit of packed RBC yesterday. We don't have hemoglobin on her this morning. I am going to decrease the dose of lisinopril and increase the dose of metoprolol. Continue holding any oral anticoagulation at this point until we have the exact etiology for her bleeding. Otherwise she reports no pain in the chest pain or chest discomfort. No shortness of breath at this point. No dizziness or lightheadedness and no feeling of heart racing or fluttering. Previous echo from December 2020 showed normal left ventricular systolic 01/28/2022 Patient examined this morning at the bedside. Patient denies chest pain or pressure. Denies SOB. Telemetry reveals atrial fibrillation with heart rates in the 120s. PHYSICAL EXAM: VITAL SIGNS: Reviewed. GENERAL: Well-developed in no acute distress. NECK: Supple. No JVD or thyromegaly LUNGS: Respirations even and unlabored. Lungs essentially clear to auscultation bilaterally. HEART: Irregular rate and rhythm. S1 and S2 heard. EXTREMITIES: Normal range of motion. No clubbing or cyanosis. Peripheral pulses intact. No lower extremity edema ASSESSMENT: Anemia Paroxysmal atrial fibrillation with RVR Hypertension Hyperlipidemia History of CVA Diabetes PLAN: Echo ordered. Await results Oncology is following. Patient scheduled for body scan and chest CT Continue metoprolol. Increase dosing to 3 times a day Hold off on anticoagulation now secondary to anemia Continue telemetry monitoring Further recommendations pending patient's course Nurse practitioner note has been reviewed by physician. Signing provider agrees with the documented findings, assessment, and plan of care. Objective - Vital Signs Vital signs: Vital Signs Temp 97.6 F 01/28/22 08:15 Pulse 118 H 01/28/22 08:15 Resp 15 01/28/22 08:15 BP 110/74 01/28/22 08:15 Pulse Ox 100 01/28/22 08:15 FiO2 Intake & Output 01/27/22 01/28/22 01/28/22 18:59 06:59 18:59 Intake Total 2000 1100 118 Output Total 1800 325 Balance 200 775 118 Weight 83 kg Intake: IV 1140 1100 Invasive Line 2 20 Invasive Line 3 20 Piperacillin-Tazobactam 3 200 200 .375 gm In Sodium Chloride 0.9% 100 ml @ 25 mls/hr IVPB Q8H [facility] Rx#: [id number] Sodium Chloride 0.9% 1, 900 900 000 ml @ 75 mls/hr IV . [id number] [facility] Rx#:[id number] Oral 860 118 Output: Urine 1800 325 Straight 1800 325 Other: Voiding Method Indwelling Catheter Indwelling Catheter # Voids 0 # Bowel Movements 0 1 - Labs CBC & Chem 7: 01/28/22 06:26 01/28/22 06:26 Labs: Abnormal Lab Results - Last 24 Hours (Table) 01/27/22 01/27/22 01/27/22 Range/Units 08:28 08:28 16:35 WBC 12.5 H (3.8-10.6) k/uL RBC 3.40 L 3.71 L (3.80-5.40) m/uL Hgb 7.5 L 8.4 L (11.4-16.0) gm/dL Hct 26.8 L 28.6 L (34.0-46.0) % MCV 78.9 L 77.1 L (80.0-100.0) fL MCH 22.1 L 22.5 L (25.0-35.0) pg MCHC 28.0 L 29.2 L (31.0-37.0) g/dL RDW 18.8 H 19.0 H (11.5-15.5) % Neutrophils # 8.2 H (1.3-7.7) k/uL Lymphocytes # 0.8 L (1.0-4.8) k/uL Sodium 130 L (137-145) mmol/L Carbon Dioxide 21 L (22-30) mmol/L Glucose 207 H (74-99) mg/dL POC Glucose (mg/dL) (70-110) mg/dL Calcium 8.0 L (8.4-10.2) mg/dL 01/27/22 01/28/22 01/28/22 Range/Units 19:50 06:26 06:26 WBC (3.8-10.6) k/uL RBC 3.56 L (3.80-5.40) m/uL Hgb 8.0 L (11.4-16.0) gm/dL Hct 28.0 L (34.0-46.0) % MCV 78.6 L (80.0-100.0) fL MCH 22.6 L (25.0-35.0) pg MCHC 28.7 L (31.0-37.0) g/dL RDW 19.4 H (11.5-15.5) % Neutrophils # (1.3-7.7) k/uL Lymphocytes # 0.9 L (1.0-4.8) k/uL Sodium 131 L (137-145) mmol/L Carbon Dioxide (22-30) mmol/L Glucose (74-99) mg/dL POC Glucose (mg/dL) 156 H (70-110) mg/dL Calcium 8.0 L (8.4-10.2) mg/dL Microbiology - Last 24 Hours (Table) 01/24/22 11:44 Urine Culture - Final Urine,Voided
--- NOTE | 2022-01-28 14:03 | P.PN ---
Subjective Progress Note Date: 01/28/22 Principal diagnosis: Paroxysmal atrial fibrillation Vaginal bleeding/history of endometrial cancer; status post robotic-assisted total hysterectomy with bilateral salpingo-oophorectomy, lysis of adhesions, partial omentectomy, bilateral lymph node dissection and umbilical hernia repair. Bilateral groin area ulcerated lesion with high clinic suspicious for cutaneous candidiasis Lytic lesions L1 vertebral body, T8 vertebral body and L3 compression fracture with pulmonary and omental nodules; suspicious for malignancy 66 y/o female being seen by the wound care center for nonhealing ulceration to the right groin. Patient is a resident at [facility]. Patient states that the ulceration has been there for one week however upon further questioning patient stated that she sees the wound care doctor at [facility] has been having a salve applied to the site. Patient has significant amount of pain and discomfort to the ulceration site. The ulceration consists of multiple clusters of Limited to skin breakdown ulcerations with redness and significant amount of serous drainage to the site. According to nursing staff patient has been having watery diarrhea for last 4 days and had another abdominal x-ray done at the detention which showed possible ileus and was sent to ER for further evaluation; in the ED patient's abdominal examination was benign but lab review revealed leukocytosis of 26.9 with sodium of 130, glucose 34, BUN 33; C. diff was negative Patient was placed on IV fluids in form of D10 and is admitted for further evaluation 01/27/2022 -- patient is seen and evaluated sitting up in bedside chair; wants to be discharged back to rehab Vital signs are reviewed and patient remains afebrile, heart rate 1:15 with blood pressure of 97/64 and O2 saturation of 93% on room air Lab review shows a WBC of 12.5, hemoglobin of 8.4, hematocrit of 28.6 and platelet count of 297 Patient has been evaluated by oncology; presentation remains highly suspicious for metastatic malignancy; patient does have history of endometrial cancer which remains primary differential for source of metastases; CT of the chest and bone scan as recommended; once imaging is completed tissue biopsy will be needed; tumor markers are ordered including CEA 125 Continue to monitor CBC closely with plans to transfuse if hemoglobin is less than 7 Patient remains on IV Zosyn and nystatin powder for growing lesion, but ID recommendations 01/28/2022 Patient is seen and evaluated sitting up in chair and was is no specific complaints Vital signs are reviewed with temperature of 97.6, pulse 118, respiration 15 and blood pressure 110/74 with O2 saturation of 100% Labs are reviewed; CT of the chest and bone scan is ordered and pending to assess for accessible area for tissue biopsy Cardiology on board; recommending to continue to hold anticoagulation. Exact etiology for bleeding is determined; echocardiogram is ordered and pending; cardiology recommending to continue with metoprolol and doses increased to 3 times a day Objective - Vital Signs Vital signs: Vital Signs Temp 97.6 F 01/28/22 08:15 Pulse 118 H 01/28/22 08:15 Resp 15 01/28/22 08:15 BP 110/74 01/28/22 08:15 Pulse Ox 100 01/28/22 08:15 FiO2 Intake & Output 01/27/22 01/28/22 01/28/22 18:59 06:59 18:59 Intake Total 2000 1100 118 Output Total 1800 325 Balance 200 775 118 Weight 83 kg Intake: IV 1140 1100 Invasive Line 2 20 Invasive Line 3 20 Piperacillin-Tazobactam 3 200 200 .375 gm In Sodium Chloride 0.9% 100 ml @ 25 mls/hr IVPB Q8H [facility] Rx#: [id number] Sodium Chloride 0.9% 1, 900 900 000 ml @ 75 mls/hr IV . [id number] [facility] Rx#:[id number] Oral 860 118 Output: Urine 1800 325 Straight 1800 325 Other: Voiding Method Indwelling Catheter Indwelling Catheter # Voids 0 # Bowel Movements 0 1 - Exam PHYSICAL EXAMINATION: GENERAL: The patient is alert and oriented x3, not in any acute distress. Well developed, well nourished. HEENT: Pupils are round and equally reacting to light. EOMI. No scleral icterus. No conjunctival pallor. Normocephalic, atraumatic. No pharyngeal erythema. No thyromegaly. CARDIOVASCULAR: S1 and S2 present. No murmurs, rubs, or gallops. PULMONARY: Chest is clear to auscultation, no wheezing or crackles. ABDOMEN: Soft, nontender, nondistended, normoactive bowel sounds. No palpable organomegaly. MUSCULOSKELETAL: No joint swelling or deformity. EXTREMITIES: No cyanosis, clubbing, or pedal edema. NEUROLOGICAL: Gross neurological examination did not reveal any focal deficits. SKIN: No rashes. - Labs CBC & Chem 7: 08/08/22 06:26 01/28/22 06:26 Labs: Abnormal Lab Results - Last 24 Hours (Table) 01/27/22 01/27/22 01/27/22 Range/Units 08:28 08:28 16:35 WBC 12.5 H (3.8-10.6) k/uL RBC 3.40 L 3.71 L (3.80-5.40) m/uL Hgb 7.5 L 8.4 L (11.4-16.0) gm/dL Hct 26.8 L 28.6 L (34.0-46.0) % MCV 78.9 L 77.1 L (80.0-100.0) fL MCH 22.1 L 22.5 L (25.0-35.0) pg MCHC 28.0 L 29.2 L (31.0-37.0) g/dL RDW 18.8 H 19.0 H (11.5-15.5) % Neutrophils # 8.2 H (1.3-7.7) k/uL Lymphocytes # 0.8 L (1.0-4.8) k/uL Sodium 130 L (137-145) mmol/L Carbon Dioxide 21 L (22-30) mmol/L Glucose 207 H (74-99) mg/dL POC Glucose (mg/dL) (70-110) mg/dL Calcium 8.0 L (8.4-10.2) mg/dL 01/27/22 01/28/22 01/28/22 Range/Units 19:50 06:26 06:26 WBC (3.8-10.6) k/uL RBC 3.56 L (3.80-5.40) m/uL Hgb 8.0 L (11.4-16.0) gm/dL Hct 28.0 L (34.0-46.0) % MCV 78.6 L (80.0-100.0) fL MCH 22.6 L (25.0-35.0) pg MCHC 28.7 L (31.0-37.0) g/dL RDW 19.4 H (11.5-15.5) % Neutrophils # (1.3-7.7) k/uL Lymphocytes # 0.9 L (1.0-4.8) k/uL Sodium 131 L (137-145) mmol/L Carbon Dioxide (22-30) mmol/L Glucose (74-99) mg/dL POC Glucose (mg/dL) 156 H (70-110) mg/dL Calcium 8.0 L (8.4-10.2) mg/dL Microbiology - Last 24 Hours (Table) 01/24/22 11:44 Urine Culture - Final Urine,Voided Assessment and Plan Assessment: 1. Leukocytosis/sepsis; patient has been placed on IV antibiotics in form of Zosyn; IDs consulted and recommendations are pending; monitor CBC, CRP and pro-calcitonin 2. Possible vaginal bleed; patient is very resistant to any examination; did have substantial bleeding in the briefs; we will monitor CBC; consult RECEIVING AND PROCESSING SUPERVISOR for further evaluation 3. Rectal bleed/history of hemorrhoids; unable to determine if it's rectal bleed versus vaginal bleed; GI is not available; we will consult general surgery 4. Nonhealing ulceration right groin; wound care is consulted and recommending to apply dry and so gave silver and to change dressing every Friday a friday 5. History of atrial fibrillation, COPD, diabetes mellitus, hyperlipidemia, hypertension - Home medications are reviewed and ordered
--- NOTE | 2022-01-28 15:03 | CT ---
EXAMINATION TYPE: CT chest w con CT DLP: 794 mGycm, Automated exposure control for dose reduction was used. DATE OF EXAM: 01/28/2022 1:44 PM COMPARISON: CT abdomen pelvis 01/24/2022. CLINICAL INDICATION:Female, 66 years old with history of endometrial cancer; PHH, SOB, hx of endometr ial ca TECHNIQUE: Multiple axial images were obtained through the chest following the administration of 70 c c of Isovue 300. Coronal and sagittal reformats reviewed. FINDINGS: LUNGS/ PLEURA: No pleural effusion or pneumothorax. Right lower lobe masslike consolidation with hete rogenous enhancing nodule measuring up to 2.4 cm. Multiple scattered pulmonary nodules with largest in the right middle lobe measuring up to 1.0 cm (series 4, image 37). AIRWAY: There is occlusion of the right lower lobe bronchi with postobstructive atelectasis. HEART: Mildly enlarged heart. No pericardial effusion. Coronary artery calcifications. MEDIASTINUM: Prevascular space 1.1 cm nodule (series 3, image 20). Right infrahilar lymphadenopathy w ith encasement of the right lower lobe pulmonary arteries. VASCULATURE: No aortic aneurysm. MUSCULOSKELETAL: Multiple osseous metastatic lesions. Examples including the lower spine and sternum with expansile soft tissue lesion and destruction identified measuring up to 3.5 centers (series 7, i mage 69) additional expansile destructive osseous lesion of the right anterior lateral fifth rib herbert uring up to 2.0 cm (series 3, image 28). Pathologic fracture due to osseous destructive lesion involv ing the right T9 transverse process. Lytic osseous lesion involving the T8 vertebral body and L1 vert ebral body. Right infraspinatus lipoma. SOFT TISSUES/LYMPH NODES: Right axillary 1.0 cm nodule (series 3, image 7). Left anterior chest wall 1.7 cm heterogenous nodule with loss of fat plane with the pectoralis major (series 3, image 9). Left lower paraspinal musculature 1.6 cm nodule (series 3, image 55). LOWER NECK: No significant findings. UPPER ABDOMEN: Redemonstration of 1.7 cm omental nodule along the anterior aspect of the transverse c olon (series 3, image 62). Lateral limb of the right adrenal gland demonstrates a 1.1 cm nodule. Rodrigo tionally there is a nodule of the lateral limb of the left adrenal gland measuring 1.1 cm. 1.2 center nodule along the right hemidiaphragm (series 3, image 46). IMPRESSION: * Multiple metastatic lesions demonstrated throughout the chest and visualized abdomen. These includ e scattered pulmonary nodules with right lower lobe masslike consolidation, mediastinal/hilar adenopa thy, right axillary adenopathy, left chest wall/paraspinal metastasis, omental metastasis, and osseou s metastasis. * Bilateral adrenal gland lesions suspicious for metastasis.
[2022-01-28] MEDS: METOPROLOL SUCCINATE (ER) 50 MG TAB.ER.24H PO SCH ×2 (16:04→20:37)
[2022-01-28] MEDS: GLIMEPIRIDE 0.5 MG TAB PO SCH (16:05)
--- NOTE | 2022-01-28 16:14 | NM ---
EXAMINATION TYPE: NM bone scan whole body DATE OF EXAM: 01/28/2022 COMPARISON: NONE HISTORY: Bone metastases Delayed whole-body scanning was performed following the injection of 26.2 mCi Tc 99m MDP. Images wer e acquired 5 hours post injection. FINDINGS: Whole body bone scan imaging is performed. The procedure was terminated early due to patient discomfo rt and difficulty breathing There is a focus of radiotracer accumulation along the anterior frontal vertex. Increased uptake is a long the lateral parietal region on the left. Findings are suspicious for metastatic disease. There i s increased uptake within the lateral and inferior left orbit. Uptake within the end of both may be related to periodontal disease. Metastasis not excluded There is focal uptake within the anterior sixth and seventh ribs. This is nonspecific and posttraumat ic change could be considered There is some abnormal uptake within the left second rib right fifth anterior rib which are nonspecif ic and could be related to metastasis. Suspected metastasis on the posterior left 11th and seventh ri bs is present. Increased uptake is at T9 and L1 levels suspicious for metastatic disease. Some uptake is likely present within the L4 level suspicious for metastatic disease. Other may be extravasation of the radiotracer at the left antecubital fossa and forearm. A metastatic lesion within the forearm is not excluded over this area is partially out of the field of view. IMPRESSION: 1. Multiple scattered areas of uptake suspicious for metastatic disease including thoracic and lumbar spine and bilateral RIBS and calvarium
[2022-01-28 16:38] LABS: Glucose,Whole Blood 187 mg/dL (70-110)
[2022-01-28] MEDS: SODIUM FERRIC GLUCONAT-SUCROSE 125 MG in SODIUM CHLORIDE 0.9% 100 ML IVPB SCH (16:59)
--- NOTE | 2022-01-28 17:14 | CA ---
Transthoracic Echo Report Name: Melany Desir Age: 66 Gender: F : 1955 Exam Date: 01/28/2022 10:28 Exam Location: [facility] Ht (in): 64 Wt (lb): 182 Ordering Physician: Carol Walker Attending/Referring Phys: [id number], Aaron Vertical Punch Operator Mely Frazier RDCS Procedure CPT: Indications: LV function Cardiac Hx: Technical Quality: Technically difficult study Contrast 1: Lumason Total Dose (mL): 1 Contrast 2: Total Dose (mL): MEASUREMENTS (Male / Female) Normal Values 2D ECHO LV Diastolic Diameter PLAX 2.1 cm 4.2 - 5.9 / 3.9 - 5.3 cm LV Systolic Diameter PLAX 1.6 cm IVS Diastolic Thickness 2.0 cm 0.6 - 1.0 / 0.6 - 0.9 cm LVPW Diastolic Thickness 2.3 cm 0.6 - 1.0 / 0.6 - 0.9 cm LV Relative Wall Thickness 2.0 RV Internal Dim ED PLAX 3.1 cm M-MODE Aortic Root Diameter MM 3.1 cm LA Systolic Diameter MM 3.6 cm LA Ao Ratio MM 1.2 MV E Point Septal Separation 0.8 cm AV Cusp Separation MM 1.7 cm DOPPLER AV Peak Velocity 83.5 cm/s AV Peak Gradient 2.8 mmHg MV Area PHT 9.0 cm??? MR Peak Velocity 85.3 cm/s MR Peak Gradient 2.9 mmHg Mitral E Point Velocity 70.9 cm/s Mitral A Point Velocity 38.4 cm/s Mitral E to A Ratio 1.8 MV Deceleration Time 84.1 ms TR Peak Velocity 183.6 cm/s TR Peak Gradient 13.5 mmHg Right Ventricular Systolic Press 17.4 mmHg FINDINGS Left Ventricle Severely increased septal wall thickness. Severely increased posterior wall thickness. Left ventricular ejection fraction is estimated at 55-60_ %. Right Ventricle Mild right ventricular dilatation. Right Atrium The right atrium is normal in size. Left Atrium The left atrium is normal in size. Mitral Valve Structurally normal mitral valve without significant stenosis or prolapse. There is trace mitral regurgitation. Aortic Valve Structurally normal aortic valve without significant sclerosis or stenosis. There is no aortic regurgitation. Tricuspid Valve Structurally normal tricuspid valve without significant stenosis. Pulmonary artery systolic pressure is normal. Trace tricuspid regurgitation. Pulmonic Valve Structurally normal pulmonic valve without significant stenosis. There is no pulmonic regurgitation. Pericardium Minimal pericardial effusion Aorta Normal aortic root dimension. CONCLUSIONS Concentric left ventricular hypertrophy with normal LV systolic function Technically suboptimal study secondary to poor echo windows Previewed by: Dr. Bryon Lopez MD (Electronically Signed) Final Date: 28 January 2022 17:13
[2022-01-28 20:05] LABS: Glucose,Whole Blood 223 mg/dL (70-110)
[2022-01-28] MEDS: CYCLOBENZAPRINE 10 MG TAB PO SCH (20:37)
[2022-01-28] MEDS: ATORVASTATIN 40 MG TAB PO SCH (20:38)
[2022-01-28] MEDS: tiZANidine 4 MG TAB PO SCH (20:38)
--- NOTE | 2022-01-28 22:53 | P.PN ---
Subjective Progress Note Date: 01/27/22 Principal diagnosis: SIRS Patient is a 66 year old male presenting to the hospital in mental status changes and multiple falls did have a low-grade fever and elevated white count now with evidence of bacteremia. On today's evaluation that is 01/27/2022, the patient is afebrile today, the patient is breathing comfortably on nasal cannula oxygen, the patient denies any chest painand cough no abdominal pain or diarrhea Objective - Vital Signs Vital signs: Vital Signs Temp 98.4 F 01/27/22 16:59 Pulse 112 H 01/27/22 16:59 Resp 16 01/27/22 16:59 BP 116/76 01/27/22 16:59 Pulse Ox 99 01/27/22 16:59 FiO2 Intake & Output 01/27/22 01/27/22 01/28/22 06:59 18:59 06:59 Intake Total 1200 2000 Output Total 1550 1800 Balance -350 200 Weight 83 kg Intake: IV 1200 1140 Invasive Line 2 20 Invasive Line 3 20 Piperacillin-Tazobactam 3 300 200 .375 gm In Sodium Chloride 0.9% 100 ml @ 25 mls/hr IVPB Q8H [facility] Rx#: [id number] Sodium Chloride 0.9% 1, 900 900 000 ml @ 75 mls/hr IV . [id number] [facility] Rx#:[id number] Oral 860 Output: Urine 1550 1800 Straight 1200 1800 Other: Voiding Method Diaper Indwelling Catheter Indwelling Catheter # Voids 0 # Bowel Movements 0 - Exam GENERAL DESCRIPTION: An elderly female lying in bed in no distress RESPIRATORY SYSTEM: Unlabored breathing , decreased breath sounds at bases HEART: S1 S2 regular rate and rhythm , ABDOMEN: Soft , no tenderness EXTREMITIES: No edema feet - Labs CBC & Chem 7: 01/28/22 06:26 01/28/22 06:26 Labs: Abnormal Lab Results - Last 24 Hours (Table) 01/26/22 01/27/22 01/27/22 Range/Units 12:15 06:19 06:35 WBC (3.8-10.6) k/uL RBC (3.80-5.40) m/uL Hgb (11.4-16.0) gm/dL Hct (34.0-46.0) % MCV (80.0-100.0) fL MCH (25.0-35.0) pg MCHC (31.0-37.0) g/dL RDW (11.5-15.5) % Neutrophils # (1.3-7.7) k/uL Lymphocytes # (1.0-4.8) k/uL Sodium (137-145) mmol/L Carbon Dioxide (22-30) mmol/L Glucose (74-99) mg/dL POC Glucose (mg/dL) 49 L 51 L (70-110) mg/dL Calcium (8.4-10.2) mg/dL Crossmatch See Detail 01/27/22 01/27/22 01/27/22 Range/Units 06:51 07:06 08:28 WBC (3.8-10.6) k/uL RBC 3.40 L (3.80-5.40) m/uL Hgb 7.5 L (11.4-16.0) gm/dL Hct 26.8 L (34.0-46.0) % MCV 78.9 L (80.0-100.0) fL MCH 22.1 L (25.0-35.0) pg MCHC 28.0 L (31.0-37.0) g/dL RDW 18.8 H (11.5-15.5) % Neutrophils # 8.2 H (1.3-7.7) k/uL Lymphocytes # 0.8 L (1.0-4.8) k/uL Sodium (137-145) mmol/L Carbon Dioxide (22-30) mmol/L Glucose (74-99) mg/dL POC Glucose (mg/dL) 53 L 171 H (70-110) mg/dL Calcium (8.4-10.2) mg/dL Crossmatch 01/27/22 01/27/22 01/27/22 Range/Units 08:28 16:35 19:50 WBC 12.5 H (3.8-10.6) k/uL RBC 3.71 L (3.80-5.40) m/uL Hgb 8.4 L (11.4-16.0) gm/dL Hct 28.6 L (34.0-46.0) % MCV 77.1 L (80.0-100.0) fL MCH 22.5 L (25.0-35.0) pg MCHC 29.2 L (31.0-37.0) g/dL RDW 19.0 H (11.5-15.5) % Neutrophils # (1.3-7.7) k/uL Lymphocytes # (1.0-4.8) k/uL Sodium 130 L (137-145) mmol/L Carbon Dioxide 21 L (22-30) mmol/L Glucose 207 H (74-99) mg/dL POC Glucose (mg/dL) 156 H (70-110) mg/dL Calcium 8.0 L (8.4-10.2) mg/dL Crossmatch Microbiology - Last 24 Hours (Table) 01/24/22 11:44 Urine Culture - Final Urine,Voided Assessment and Plan (1) SIRS (systemic inflammatory response syndrome) Current Visit: Yes Status: Acute Code(s): R65.10 - SIRS OF NON-INFECTIOUS ORIGIN W/O ACUTE ORGAN DYSFUNCTION SNOMED Code(s): 256507011 Plan: 1patient presented to hospital with diarrhea and this patient did have a abnormal x-ray at the half-way with a CT abdominal pelvis concerning for possible lytic lesion concerning for malignancy also evidence of right lower lobe collapse and colitis possible infectious etiology stool for C. difficile has been negative. 2bilateral groin area ulcerated lesion with high clinic suspicious for cutaneo us candidiasis for which the patient continue nystatin powder to bilateral groin area twice a day.. 3patient seemed to have some improvement in the continue with Zosyn 3.375 g every 8 hours. Time with Patient: Less than 30
--- NOTE | 2022-01-28 22:55 | P.PN ---
Subjective Progress Note Date: 01/28/22 Principal diagnosis: SIRS Patient is a 66 year old male presenting to the hospital in mental status changes and multiple falls did have a low-grade fever and elevated white count now with evidence of bacteremia. On today's evaluation that is 01/28/2022, the patient remains to be afebrile, the patient is breathing comfortably on nasal cannula oxygen, the patient denie s chest, no significant cough or sputum production, no abdominal pain or diarrhea Objective - Vital Signs Vital signs: Vital Signs Temp 97.6 F 01/28/22 08:15 Pulse 116 H 01/28/22 11:39 Resp 15 01/28/22 08:15 BP 117/79 01/28/22 11:39 Pulse Ox 92 L 01/28/22 11:39 FiO2 Intake & Output 01/27/22 01/28/22 01/28/22 18:59 06:59 18:59 Intake Total 2000 1100 118 Output Total 1800 325 250 Balance 200 775 -132 Weight 83 kg Intake: IV 1140 1100 Invasive Line 2 20 Invasive Line 3 20 Piperacillin-Tazobactam 3 200 200 .375 gm In Sodium Chloride 0.9% 100 ml @ 25 mls/hr IVPB Q8H [facility] Rx#: [id number] Sodium Chloride 0.9% 1, 900 900 000 ml @ 75 mls/hr IV . [id number] [facility] Rx#:[id number] Oral 860 118 Output: Urine 1800 325 250 Straight 1800 325 250 Other: Voiding Method Indwelling Catheter Indwelling Catheter Indwelling Catheter # Voids 0 # Bowel Movements 0 1 - Exam GENERAL DESCRIPTION: An elderly female lying in bed in no distress RESPIRATORY SYSTEM: Unlabored breathing , decreased breath sounds at bases HEART: S1 S2 regular rate and rhythm , ABDOMEN: Soft , no tenderness EXTREMITIES: No edema feet - Labs CBC & Chem 7: 01/28/22 06:26 01/28/22 06:26 Labs: Abnormal Lab Results - Last 24 Hours (Table) 01/27/22 01/27/22 01/28/22 Range/Units 16:35 19:50 06:26 WBC 12.5 H (3.8-10.6) k/uL RBC 3.71 L (3.80-5.40) m/uL Hgb 8.4 L (11.4-16.0) gm/dL Hct 28.6 L (34.0-46.0) % MCV 77.1 L (80.0-100.0) fL MCH 22.5 L (25.0-35.0) pg MCHC 29.2 L (31.0-37.0) g/dL RDW 19.0 H (11.5-15.5) % Lymphocytes # (1.0-4.8) k/uL Sodium 131 L (137-145) mmol/L POC Glucose (mg/dL) 156 H (70-110) mg/dL Calcium 8.0 L (8.4-10.2) mg/dL Iron 17 L (50-170) ug/dL % Saturation 6.18 L (12.00-45.00) Transferrin 200.0 L (204.0-354.0) mg/dL CA 125 Antigen 38.5 H (0.0-30.1) U/mL 01/28/22 01/28/22 Range/Units 06:26 11:27 WBC (3.8-10.6) k/uL RBC 3.56 L (3.80-5.40) m/uL Hgb 8.0 L (11.4-16.0) gm/dL Hct 28.0 L (34.0-46.0) % MCV 78.6 L (80.0-100.0) fL MCH 22.6 L (25.0-35.0) pg MCHC 28.7 L (31.0-37.0) g/dL RDW 19.4 H (11.5-15.5) % Lymphocytes # 0.9 L (1.0-4.8) k/uL Sodium (137-145) mmol/L POC Glucose (mg/dL) 171 H (70-110) mg/dL Calcium (8.4-10.2) mg/dL Iron (50-170) ug/dL % Saturation (12.00-45.00) Transferrin (204.0-354.0) mg/dL CA 125 Antigen (0.0-30.1) U/mL Microbiology - Last 24 Hours (Table) 01/24/22 11:44 Urine Culture - Final Urine,Voided Assessment and Plan (1) SIRS (systemic inflammatory response syndrome) Current Visit: Yes Status: Acute Code(s): R65.10 - SIRS OF NON-INFECTIOUS ORIGIN W/O ACUTE ORGAN DYSFUNCTION SNOMED Code(s): 094775125 Plan: 1patient presented to hospital with diarrhea and this patient did have a abnormal x-ray at the detention with a CT abdominal pelvis concerning for possible lytic lesion concerning for malignancy also evidence of right lower lobe collapse and colitis possible infectious etiology stool for C. difficile has been negative. Patient is currently being worked up by oncology for malignancy 2bilateral groin area ulcerated lesion with high clinic suspicious for cutaneous candidiasis for which the patient continue nystatin powder to bilateral groin area twice a day.. 3patient white count has normalized culture had been negative patient will continue with Zosyn 3.375 g every 8 hours. Time with Patient: Less than 30
[2022-01-29] MEDS: METOCLOPRAMIDE 5 MG/ML 2 ML VIAL IVP SCH ×4 (00:04→17:30)
[2022-01-29] MEDS: PIPERACILLIN-TAZOBACTAM 3.375 GM in SODIUM CHLORIDE 0.9% 100 ML IVPB SCH ×3 (05:27→20:08)
[2022-01-29] MEDS: GABAPENTIN 400 MG CAP PO SCH ×3 (05:29→20:06)
[2022-01-29] MEDS: DOXYCYCLINE 100 MG CAP PO SCH ×2 (05:29→17:30)
[2022-01-29] MEDS: HYDROcodone/APAP 7.5-325MG 1 EACH TAB PO PRN ×3 (05:30→20:07)
[2022-01-29 05:59] LABS: Glucose,Whole Blood 93 mg/dL (70-110)
[2022-01-29] MEDS: SYMBICORT 80-4.5 MCG INHALER INHALATION SCH ×2 (08:22→20:37)
[2022-01-29 08:38] LABS: Anisocytosis Slight; HCT 28.3 % (34.0-46.0); HGB 8.1 gm/dL (11.4-16.0); Hypochromasia Marked; MCH 22.4 pg (25.0-35.0); MCHC 28.8 g/dL (31.0-37.0); MCV 77.9 fL (80.0-100.0); Mean Platelet Volume 7.4; Microcytosis Slight; Platelet Count 258 k/uL (150-450); Poikilocytosis Moderate; RBC 3.63 m/uL (3.80-5.40); RDW 19.8 % (11.5-15.5); WBC 8.3 k/uL (3.8-10.6)
[2022-01-29 08:51] LABS: Band Neutrophils % 3 %; Lymphocytes # (M) 1.25 k/uL (1.0-4.8); Metamyelocytes # (M) 0.08 k/uL (0); Metamyelocytes % 1 %; Monocytes # (M) 0.91 k/uL (0-1.0); Neutrophils % (M) 70 %; Nucleated Red Blood Cells 0 /100 WBC (0-0); Polychromasia Present; Stomatocytes Present; Total Cells Counted 100
[2022-01-29 08:52] LABS: Poikilocytosis (M) Present
[2022-01-29 09:01] LABS: Calcium 8.4 mg/dL (8.4-10.2); Potassium 4.2 mmol/L (3.5-5.1)
[2022-01-29] MEDS: FERROUS SULFATE 325 MG TAB PO SCH (09:31)
[2022-01-29] MEDS: PANTOPRAZOLE 40 MG TABLET PO SCH (09:31)
[2022-01-29] MEDS: NICOTINE 21MG/24HR PATCH TRANSDERM SCH (09:31)
[2022-01-29] MEDS: GLIMEPIRIDE 2 MG TAB PO SCH (09:31)
[2022-01-29] MEDS: FLUoxetine HCL 20 MG CAP PO SCH (09:31)
[2022-01-29] MEDS: lisinopriL 5 MG TAB PO SCH (09:32)
[2022-01-29] MEDS: CHOLESTYRAMINE (WITH SUGAR) 4 GM PACKET PO SCH ×3 (09:32→20:08)
[2022-01-29] MEDS: METOPROLOL SUCCINATE (ER) 50 MG TAB.ER.24H PO SCH ×2 (09:32→20:07)
[2022-01-29] MEDS: MAGNESIUM OXIDE 400 MG TAB PO SCH (09:32)
[2022-01-29] MEDS: SODIUM CHLORIDE 0.9% 1,000 ML IV SCH (09:37)
[2022-01-29] MEDS: TORSEMIDE 20 MG TAB PO SCH (09:41)
[2022-01-29] MEDS: SODIUM FERRIC GLUCONAT-SUCROSE 125 MG in SODIUM CHLORIDE 0.9% 100 ML IVPB SCH (10:37)
--- NOTE | 2022-01-29 11:31 | P.PN ---
Subjective Progress Note Date: 01/29/22 HISTORY OF PRESENT ILLNESS: The patient is a pleasant 66-year-old female patient with a past medical history significant for paroxysmal atrial fibrillation on oral anticoagulation as well as history of stroke and diabetes and hypertension and dyslipidemia and overweight. She presented to the hospital because she was feeling weak and tired and she was found to be anemic. Also she was experiencing symptoms of chest discomfort. Further workup was performed and the working diagnosis initially was colitis. Also because there was a concern about vagina repeating BUSINESS ANALYSIS ANALYST service was consulted and further investigation was advised to be done as an outpatient. The patient's hemoglobin yesterday was 6.9 and she received one unit of packed RBC. She was initially admitted to the fourth floor and subsequently she was transferred to the third floor because of A. fib with RVR which was converted to normal sinus mechanism. 01/27/2022 The patient was seen this morning. She has been in and out atrial fibrillation. Hemodynamically she is stable was marginally low blood pressure. Overall she is feeling better after she received one unit of packed RBC yesterday. We don't have hemoglobin on her this morning. I am going to decrease the dose of lisinopril and increase the dose of metoprolol. Continue holding any oral anticoagulation at this point until we have the exact etiology for her bleeding. Otherwise she reports no pain in the chest pain or chest discomfort. No shortness of breath at this point. No dizziness or lightheadedness and no feeling of heart racing or fluttering. Previous echo from December 2020 showed normal left ventricular systolic 01/28/2022 Patient examined this morning at the bedside. Patient denies chest pain or pressure. Denies SOB. Telemetry reveals atrial fibrillation with heart rates in the 120s. 01/29/2022 Patient examined this morning at the bedside. Patient denies any chest pain or pressure. She denies shortness of breath. Echocardiogram performed revealing ejection fraction 55-60%. Telemetry reveals atrial fibrillation with fairly controlled ventricular rate. Heart rate currently around 100. PHYSICAL EXAM: VITAL SIGNS: Reviewed. GENERAL: Well-developed in no acute distress. NECK: Supple. No JVD or thyromegaly LUNGS: Respirations even and unlabored. Lungs essentially clear to auscultation bilaterally. HEART: Irregular rate and rhythm. S1 and S2 heard. EXTREMITIES: Normal range of motion. No clubbing or cyanosis. Peripheral pulses intact. No lower extremity edema ASSESSMENT: Anemia Paroxysmal atrial fibrillation with RVR Hypertension Hyperlipidemia History of CVA Diabetes PLAN: Oncology is following for abnormal bone scan and CT of the chest. Await further recommendations Continue metoprolol Hold off on anticoagulation now secondary to anemia Continue telemetry monitoring Further recommendations pending patient's course Nurse practitioner note has been reviewed by physician. Signing provider agrees with the documented findings, assessment, and plan of care. Objective - Vital Signs Vital signs: Vital Signs Temp 98.0 F 01/29/22 08:21 Pulse 70 01/29/22 08:21 Resp 16 01/29/22 08:21 BP 136/74 01/29/22 08:21 Pulse Ox 97 01/29/22 08:22 FiO2 Intake & Output 01/28/22 01/29/22 01/29/22 18:59 06:59 18:59 Intake Total 236 Output Total 600 1500 Balance -364 -1500 Intake: Oral 236 Output: Urine 600 1500 Straight 500 Other: Voiding Method Indwelling Catheter Indwelling Catheter - Labs CBC & Chem 7: 01/29/22 08:08 01/29/22 08:08 Labs: Abnormal Lab Results - Last 24 Hours (Table) 01/28/22 01/28/22 01/28/22 Range/Units 06:26 16:36 20:04 RBC (3.80-5.40) m/uL Hgb (11.4-16.0) gm/dL Hct (34.0-46.0) % MCV (80.0-100.0) fL MCH (25.0-35.0) pg MCHC (31.0-37.0) g/dL RDW (11.5-15.5) % Metamyelocytes # (Man) (0) k/uL Sodium (137-145) mmol/L POC Glucose (mg/dL) 187 H 223 H (70-110) mg/dL Iron 17 L (50-170) ug/dL % Saturation 6.18 L (12.00-45.00) Transferrin 200.0 L (204.0-354.0) mg/dL CA 125 Antigen 38.5 H (0.0-30.1) U/mL 01/29/22 01/29/22 Range/Units 08:08 08:08 RBC 3.63 L (3.80-5.40) m/uL Hgb 8.1 L (11.4-16.0) gm/dL Hct 28.3 L (34.0-46.0) % MCV 77.9 L (80.0-100.0) fL MCH 22.4 L (25.0-35.0) pg MCHC 28.8 L (31.0-37.0) g/dL RDW 19.8 H (11.5-15.5) % Metamyelocytes # (Man) 0.08 H (0) k/uL Sodium 131 L (137-145) mmol/L POC Glucose (mg/dL) (70-110) mg/dL Iron (50-170) ug/dL % Saturation (12.00-45.00) Transferrin (204.0-354.0) mg/dL CA 125 Antigen (0.0-30.1) U/mL
[2022-01-29 11:45] LABS: Glucose,Whole Blood 107 mg/dL (70-110)
[2022-01-29] MEDS: NYSTATIN 100,000 UNIT/GM POWD 15 GM TOPICAL SCH ×2 (13:53→20:09)
[2022-01-29] MEDS: ACETAMINOPHEN TAB 325 MG TAB PO PRN (14:45)
--- NOTE | 2022-01-29 15:15 | P.PN ---
Subjective Progress Note Date: 01/29/22 Paroxysmal atrial fibrillation Vaginal bleeding/history of endometrial cancer; status post robotic-assisted total hysterectomy with bilateral salpingo-oophorectomy, lysis of adhesions, partial omentectomy, bilateral lymph node dissection and umbilical hernia repair. Bilateral groin area ulcerated lesion with high clinic suspicious for cutaneous candidiasis Lytic lesions L1 vertebral body, T8 vertebral body and L3 compression fracture with pulmonary and omental nodules; suspicious for malignancy 66 y/o female being seen by the wound care center for nonhealing ulceration to the right groin. Patient is a resident at [facility]. Patient states that the ulceration has been there for one week however upon further questioning patient stated that she sees the wound care doctor at [facility] has been having a salve applied to the site. Patient has significant amount of pain and discomfort to the ulceration site. The ulceration consists of multiple clusters of Limited to skin breakdown ulcerations with redness and significant amount of serous drainage to the site. According to nursing staff patient has been having watery diarrhea for last 4 days and had another abdominal x-ray done at the care home which showed possible ileus and was sent to ER for further evaluation; in the ED patient's abdominal examination was benign but lab review revealed leukocytosis of 26.9 with sodium of 130, glucose 34, BUN 33; C. diff was negative Patient was placed on IV fluids in form of D10 and is admitted for further evaluation 01/27/2022 -- patient is seen and evaluated sitting up in bedside chair; wants to be discharged back to rehab Vital signs are reviewed and patient remains afebrile, heart rate 1:15 with blood pressure of 97/64 and O2 saturation of 93% on room air Lab review shows a WBC of 12.5, hemoglobin of 8.4, hematocrit of 28.6 and platelet count of 297 Patient has been evaluated by oncology; presentation remains highly suspicious for metastatic malignancy; patient does have history of endometrial cancer which remains primary differential for source of metastases; CT of the chest and bone scan as recommended; once imaging is completed tissue biopsy will be needed; tumor markers are ordered including CEA 125 Continue to monitor CBC closely with plans to transfuse if hemoglobin is less than 7 Patient remains on IV Zosyn and nystatin powder for growing lesion, but ID recommendations 01/28/2022 Patient is seen and evaluated sitting up in chair and was is no specific complaints Vital signs are reviewed with temperature of 97.6, pulse 118, respiration 15 and blood pressure 110/74 with O2 saturation of 100% Labs are reviewed; CT of the chest and bone scan is ordered and pending to assess for accessible area for tissue biopsy Cardiology on board; recommending to continue to hold anticoagulation. Exact etiology for bleeding is determined; echocardiogram is ordered and pending; cardiology recommending to continue with metoprolol and doses increased to 3 times a day 01/29/2022 Patient is seen and evaluated in follow-up today currently sitting up in the chair and asking when she can go back to rehab. Multiple medical consultations including cardiology, infectious disease, oncology following along with [facility]. Patient continues to request if she can go back to rehab and when discussing with her about possible biopsy, patient reported she doesn't really want further treatment and was told that the biopsy could be done outpatient. Anticoagulation currently on hold as patient continues to be anemic with cardiology following. Infectious disease following and patient is continued on IV Zosyn and will discuss further about treatment plan once there is more un derstanding about oncological treatment. Involving today is 8.1, WBC is within normal limits at 8.3, sodium is 131 with a potassium of 4.2 and current creatinine is 0.88. Patient is continued on Accu-Cheks before meals and at bedtime and is being maintained on oral diabetic agents. Patient also continues on IV iron. Demadex being discontinued as well. Patient is afebrile denies chest pain or shortness of breath. Patient continues with indwelling Harris catheter. Bone scan done yesterday shows multiple scattered areas of uptake suspicious for metastatic disease including thoracic and lumbar spine and bilateral ribs and calvarium. Will discuss further with oncology along with infectious disease with treatment plan moving further Review of systems: Constitutional: No reports of fatigue, fever, or chills Cardiovascular: No reports of chest pain or palpitations Respiratory: No reports of shortness of breath or cough GI: No reports of nausea, vomiting, or diarrhea : No reports of dysuria or retention Neurovascular: reports of weakness All medications have been reviewed PHYSICAL EXAMINATION: GENERAL: The patient is alert and oriented x3, not in any acute distress. Well developed, well nourished. HEENT: Pupils are round and equally reacting to light. EOMI. No scleral icterus. No conjunctival pallor. Normocephalic, atraumatic. No pharyngeal erythema. No thyromegaly. CARDIOVASCULAR: S1 and S2 present. No murmurs, rubs, or gallops. PULMONARY: Chest is clear to auscultation, no wheezing or crackles. ABDOMEN: Soft, nontender, nondistended, normoactive bowel sounds. No palpable organomegaly. MUSCULOSKELETAL: No joint swelling or deformity. EXTREMITIES: No cyanosis, clubbing, or pedal edema. NEUROLOGICAL: Gross neurological examination did not reveal any focal deficits. SKIN: Candidal rash of the groin area. Assessment: -Leukocytosis/sepsis, present on admission -Possible vaginal bleed -Rectal bleed/history of hemorrhoids; unable to determine if it's rectal bleed versus vaginal bleed -Nonhealing ulceration right groin -History of atrial fibrillation, COPD, diabetes mellitus, hyperlipidemia, hypertension -GI prophylaxis -DVT prophylaxis -Full code Plan: Patient is continued on oral doxycycline along with IV Zosyn with infectious disease following as patient's abdominal wound was showing Morganella Proteus and enterococcus Recommend monitor vital signs and labs closely, hemoglobin was stable today with no reports of vaginal or rectal bleeding noted. Oncology following as well and patient underwent bone scan showing uptake most likely customer support representative of metastasis and oncology recommending possible IR consult and biopsy Recommend continuing to work with physical therapy Recommend continue with local wound care Will follow-up with repeat labs and discuss further with consultations about treatment plan moving forward and also social work and case management is patient will be returning to [facility]. Possible discharge in 24-48 hours. The impression and plan of care has been dictated by Mimi Koenig, Nurse Practitioner as directed. Dr. Hal MD I have performed a history and examination and MDM of this patient, discussed the same with the dictator, and agree with the dictator's assessment and plan as written ,documented as a scribe. Based on total visit time, I have performed more than 50% of the visit. Objective - Vital Signs Vital signs: Vital Signs Temp 98.2 F 01/29/22 04:00 Pulse 100 01/29/22 04:00 Resp 12 01/29/22 04:00 BP 120/75 01/29/22 04:00 Pulse Ox 94 L 01/29/22 04:00 FiO2 Intake & Output 01/28/22 01/29/22 01/29/22 18:59 06:59 18:59 Intake Total 236 Output Total 600 1500 Balance -364 -1500 Intake: Oral 236 Output: Urine 600 1500 Straight 500 Other: Voiding Method Indwelling Catheter Indwelling Catheter - Labs CBC & Chem 7: 01/29/22 08:08 01/29/22 08:08 Labs: Abnormal Lab Results - Last 24 Hours (Table) 01/28/22 01/28/22 01/28/22 Range/Units 06:26 11:27 16:36 RBC (3.80-5.40) m/uL Hgb (11.4-16.0) gm/dL Hct (34.0-46.0) % MCV (80.0-100.0) fL MCH (25.0-35.0) pg MCHC (31.0-37.0) g/dL RDW (11.5-15.5) % Metamyelocytes # (Man) (0) k/uL Sodium (137-145) mmol/L POC Glucose (mg/dL) 171 H 187 H (70-110) mg/dL Iron 17 L (50-170) ug/dL % Saturation 6.18 L (12.00-45.00) Transferrin 200.0 L (204.0-354.0) mg/dL CA 125 Antigen 38.5 H (0.0-30.1) U/mL 01/28/22 01/29/22 01/29/22 Range/Units 20:04 08:08 08:08 RBC 3.63 L (3.80-5.40) m/uL Hgb 8.1 L (11.4-16.0) gm/dL Hct 28.3 L (34.0-46.0) % MCV 77.9 L (80.0-100.0) fL MCH 22.4 L (25.0-35.0) pg MCHC 28.8 L (31.0-37.0) g/dL RDW 19.8 H (11.5-15.5) % Metamyelocytes # (Man) 0.08 H (0) k/uL Sodium 131 L (137-145) mmol/L POC Glucose (mg/dL) 223 H (70-110) mg/dL Iron (50-170) ug/dL % Saturation (12.00-45.00) Transferrin (204.0-354.0) mg/dL CA 125 Antigen (0.0-30.1) U/mL
--- NOTE | 2022-01-29 16:33 | P.PN ---
Subjective Progress Note Date: 01/29/22 Principal diagnosis: abnormal CT findings, Hx endometrial carcinoma In f/u today pt is irritated with being in the hospital, she is a permanent resident of [facility], and wants to go back. I discussed with her the abnormal findings on her CT and NM bone scan. Has c/o easy bruising, no current nausea, pain or abd pain to report. Objective - Vital Signs Vital signs: Vital Signs Temp 98.0 F 01/29/22 08:21 Pulse 99 01/29/22 15:16 Resp 16 01/29/22 08:21 BP 128/60 01/29/22 15:16 Pulse Ox 95 01/29/22 15:16 FiO2 Intake & Output 01/28/22 01/29/22 01/29/22 18:59 06:59 18:59 Intake Total 236 Output Total 600 1500 1000 Balance -364 -1500 -1000 Intake: Oral 236 Output: Urine 600 1500 1000 Straight 500 Other: Voiding Method Indwelling Catheter Indwelling Catheter Indwelling Catheter - Constitutional General appearance: Present: cooperative, no acute distress, obese - EENT Eyes: Present: anicteric sclerae, EOMI ENT: Present: hearing grossly normal - Respiratory Respiratory: bilateral: diminished - Cardiovascular Rhythm: regular Heart sounds: normal: S1, S2 Abnormal Heart Sounds: Absent: systolic murmur, diastolic murmur, rub, S3 Gallop, S4 Gallop, click, other - Peripheral edema leg Peripheral Edema: bilateral: Trace - Gastrointestinal General gastrointestinal: Present: normal bowel sounds, soft - Integumentary Integumentary Comment(s): thin skin on hands and arms, severe bruising of the hands Integumentary: Present: pale - Musculoskeletal Musculoskeletal: Present: generalized weakness - Psychiatric Psychiatric: Present: A&O x's 3, appropriate affect, intact judgment & insight - Labs CBC & Chem 7: 01/29/22 08:08 01/29/22 08:08 Labs: Abnormal Lab Results - Last 24 Hours (Table) 01/28/22 01/28/22 01/28/22 Range/Units 06:26 16:36 20:04 RBC (3.80-5.40) m/uL Hgb (11.4-16.0) gm/dL Hct (34.0-46.0) % MCV (80.0-100.0) fL MCH (25.0-35.0) pg MCHC (31.0-37.0) g/dL RDW (11.5-15.5) % Metamyelocytes # (Man) (0) k/uL Sodium (137-145) mmol/L POC Glucose (mg/dL) 187 H 223 H (70-110) mg/dL RBC Folate 1,583 H (280 - 791) ng/mL 01/29/22 01/29/22 Range/Units 08:08 08:08 RBC 3.63 L (3.80-5.40) m/uL Hgb 8.1 L (11.4-16.0) gm/dL Hct 28.3 L (34.0-46.0) % MCV 77.9 L (80.0-100.0) fL MCH 22.4 L (25.0-35.0) pg MCHC 28.8 L (31.0-37.0) g/dL RDW 19.8 H (11.5-15.5) % Metamyelocytes # (Man) 0.08 H (0) k/uL Sodium 131 L (137-145) mmol/L POC Glucose (mg/dL) (70-110) mg/dL RBC Folate (280 - 791) ng/mL - Imaging and Cardiology CT scan - chest: report reviewed NM bone scan report reviewed Assessment and Plan (1) Microcytic hypochromic anemia Current Visit: Yes Status: Acute Priority: Medium Code(s): D50.9 - IRON DEFICIENCY ANEMIA, UNSPECIFIED SNOMED Code(s): 58596608 (2) Adenocarcinoma of endometrium, stage 2 Current Visit: Yes Status: Chronic Priority: High Code(s): C54.1 - MALIGNANT NEOPLASM OF ENDOMETRIUM SNOMED Code(s): 234817101 Plan: Pt has received i unit of PRBCs and IV iron for iron def anemia, Hgb stable today Reviewed concerning findings on scans with pt, including pulm nodules, RUL mass, mediastinal LAD, omental abnormalities and nida adrenals, bone scan showed mult lesions. Core biopsy of one of the lesions is desirable. Pt reporting she would rather be discharged and come back for biopsy. It is up to pt how she would like to proceed. If she is going to be inpt for several more days then obtaining the biopsy now may be more reasonable. Will see what IM plans for pt are. Will put order in for IR to look at case.
[2022-01-29 16:50] LABS: Glucose,Whole Blood 89 mg/dL (70-110)
[2022-01-29] MEDS: GLIMEPIRIDE 0.5 MG TAB PO SCH (17:30)
[2022-01-29] MEDS: tiZANidine 4 MG TAB PO SCH (20:06)
[2022-01-29] MEDS: ATORVASTATIN 40 MG TAB PO SCH (20:07)
[2022-01-29] MEDS: CYCLOBENZAPRINE 10 MG TAB PO SCH (20:07)
[2022-01-29 20:09] LABS: Glucose,Whole Blood 187 mg/dL (70-110)
[2022-01-30] MEDS: METOCLOPRAMIDE 5 MG/ML 2 ML VIAL IVP SCH ×3 (00:15→14:42)
[2022-01-30] MEDS: GABAPENTIN 400 MG CAP PO SCH ×2 (05:12→16:14)
[2022-01-30] MEDS: ACETAMINOPHEN TAB 325 MG TAB PO PRN ×2 (05:13→16:30)
[2022-01-30] MEDS: PIPERACILLIN-TAZOBACTAM 3.375 GM in SODIUM CHLORIDE 0.9% 100 ML IVPB SCH ×2 (05:14→14:42)
[2022-01-30] MEDS: DOXYCYCLINE 100 MG CAP PO SCH ×2 (05:19→16:15)
[2022-01-30] MEDS: SODIUM CHLORIDE 0.9% 1,000 ML IV SCH ×2 (05:26→09:09)
[2022-01-30 06:07] LABS: Glucose,Whole Blood 76 mg/dL (70-110)
[2022-01-30 07:33] LABS: Methylmalonic Acid 0.24 umol/L (<0.40)
[2022-01-30] MEDS: SYMBICORT 80-4.5 MCG INHALER INHALATION SCH (08:22)
[2022-01-30] MEDS: CHOLESTYRAMINE (WITH SUGAR) 4 GM PACKET PO SCH ×2 (08:51→14:42)
[2022-01-30] MEDS: FERROUS SULFATE 325 MG TAB PO SCH (09:01)
[2022-01-30] MEDS: NICOTINE 21MG/24HR PATCH TRANSDERM SCH (09:01)
[2022-01-30] MEDS: lisinopriL 5 MG TAB PO SCH (09:01)
[2022-01-30] MEDS: MAGNESIUM OXIDE 400 MG TAB PO SCH (09:01)
[2022-01-30] MEDS: FLUoxetine HCL 20 MG CAP PO SCH (09:01)
[2022-01-30] MEDS: PANTOPRAZOLE 40 MG TABLET PO SCH (09:01)
[2022-01-30] MEDS: GLIMEPIRIDE 2 MG TAB PO SCH (09:01)
[2022-01-30] MEDS: METOPROLOL SUCCINATE (ER) 50 MG TAB.ER.24H PO SCH (09:01)
[2022-01-30] MEDS: metFORMIN 500 MG TAB PO SCH ×2 (09:02→16:14)
[2022-01-30] MEDS: HYDROcodone/APAP 7.5-325MG 1 EACH TAB PO PRN ×2 (09:02→14:28)
[2022-01-30] MEDS: NYSTATIN 100,000 UNIT/GM POWD 15 GM TOPICAL SCH (09:04)
[2022-01-30] MEDS: SODIUM FERRIC GLUCONAT-SUCROSE 125 MG in SODIUM CHLORIDE 0.9% 100 ML IVPB SCH (09:08)
--- NOTE | 2022-01-30 11:02 | P.PN ---
Subjective Progress Note Date: 01/30/22 HISTORY OF PRESENT ILLNESS: The patient is a pleasant 66-year-old female patient with a past medical history significant for paroxysmal atrial fibrillation on oral anticoagulation as well as history of stroke and diabetes and hypertension and dyslipidemia and overweight. She presented to the hospital because she was feeling weak and tired and she was found to be anemic. Also she was experiencing symptoms of chest discomfort. Further workup was performed and the working diagnosis initially was colitis. Also because there was a concern about vagina repeating ECHOCARDIOGRAPHY RADIOLOGY TECHNOLOGIST service was consulted and further investigation was advised to be done as an outpatient. The patient's hemoglobin yesterday was 6.9 and she received one unit of packed RBC. She was initially admitted to the fourth floor and subsequently she was transferred to the third floor because of A. fib with RVR which was converted to normal sinus mechanism. 01/27/2022 The patient was seen this morning. She has been in and out atrial fibrillation. Hemodynamically she is stable was marginally low blood pressure. Overall she is feeling better after she received one unit of packed RBC yesterday. We don't have hemoglobin on her this morning. I am going to decrease the dose of lisinopril and increase the dose of metoprolol. Continue holding any oral anticoagulation at this point until we have the exact etiology for her bleeding. Otherwise she reports no pain in the chest pain or chest discomfort. No shortness of breath at this point. No dizziness or lightheadedness and no feeling of heart racing or fluttering. Previous echo from December 2020 showed normal left ventricular systolic 01/28/2022 Patient examined this morning at the bedside. Patient denies chest pain or pressure. Denies SOB. Telemetry reveals atrial fibrillation with heart rates in the 120s. 01/29/2022 Patient examined this morning at the bedside. Patient denies any chest pain or pressure. She denies shortness of breath. Echocardiogram performed revealing ejection fraction 55-60%. Telemetry reveals atrial fibrillation with fairly controlled ventricular rate. Heart rate currently around 100. 01/30/2022 Patient examined this morning. Patient denies chest pain or pressure. Denies SOB. Telemetry reveals afib with controlled ventricular rates. PHYSICAL EXAM: VITAL SIGNS: Reviewed. GENERAL: Well-developed in no acute distress. NECK: Supple. No JVD or thyromegaly LUNGS: Respirations even and unlabored. Lungs essentially clear to auscultation bilaterally. HEART: Irregular rate and rhythm. S1 and S2 heard. EXTREMITIES: Normal range of motion. No clubbing or cyanosis. Peripheral pulses intact. No lower extremity edema ASSESSMENT: Anemia Paroxysmal atrial fibrillation with RVR Hypertension Hyperlipidemia History of CVA Diabetes PLAN: Continue metoprolol Hold off on anticoagulation now secondary to anemia Continue telemetry monitoring We will sign off. Please reconsult if needed. Nurse practitioner note has been reviewed by physician. Signing provider agrees with the documented findings, assessment, and plan of care. Objective - Vital Signs Vital signs: Vital Signs Temp 98.2 F 01/30/22 08:53 Pulse 89 01/30/22 08:53 Resp 16 01/30/22 08:53 BP 113/67 01/30/22 08:53 Pulse Ox 99 01/30/22 08:53 FiO2 Intake & Output 01/29/22 01/30/22 01/30/22 18:59 06:59 18:59 Intake Total 118 Output Total 1850 400 Balance -1850 -400 118 Intake: Oral 118 Output: Urine 1850 400 Other: Voiding Method Indwelling Catheter Indwelling Catheter - Labs CBC & Chem 7: 01/29/22 08:08 01/29/22 08:08 Labs: Abnormal Lab Results - Last 24 Hours (Table) 01/28/22 01/29/22 Range/Units 06:26 20:07 POC Glucose (mg/dL) 187 H (70-110) mg/dL RBC Folate 1,583 H (280 - 791) ng/mL
[2022-01-30 11:42] LABS: Glucose,Whole Blood 138 mg/dL (70-110)
--- NOTE | 2022-01-30 13:15 | P.DS ---
Providers Date of admission: 01/24/22 20:35 Expected date of discharge: 01/30/22 Attending physician: Casey Martinez MD Consults: 01/24/22 20:35 Consult Physician Routine Consulting Provider: Veronica Rodriguez Consult Reason/Comments: SIRS Do you want consulting provider notified?: Yes 01/25/22 15:43 Consult Physician Routine Consulting Provider: Janice Woo Consult Reason/Comments: bleeding Do you want consulting provider notified?: Yes 01/25/22 23:05 Consult Physician Stat Consulting Provider: Tk Garcia Consult Reason/Comments: Afib RVR Do you want consulting provider notified?: Yes 01/26/22 10:14 Consult Physician Routine Consulting Provider: Jeffery Ferris Consult Reason/Comments: Lytic lesions/pulmonary/omental nodules Do you want consulting provider notified?: Yes Primary care physician: Jayla Mosquera Hospital Course: Final diagnosis -Leukocytosis/sepsis, present on admission -Possible vaginal bleed with history of endometrial cancer -Rectal bleed/history of hemorrhoids; unable to determine if it's rectal bleed versus vaginal bleed -Nonhealing ulceration right groin -History of atrial fibrillation, COPD, diabetes mellitus, hyperlipidemia, hypertension -GI prophylaxis -DVT prophylaxis -Full code Discharge disposition Patient is being discharged in a stable condition with guarded prognosis to [facility] where she is a resident. Patient will follow-up with Dr. Henning in the outpatient setting upon discharge. Patient is to also follow-up with cardiology, hematology/oncology, infectious disease outpatient. Patient will be continued on nystatin twice daily for the next 1 week along with oral Augmentin twice daily for 1 week. Total time taken is greater than 35 minutes. Hospital course This is a 66-year-old female who was recently admitted with increasing weakness along with some nonhealing ulcerations to the groin area and was found to be anemic. Patient also with history of endometrial cancer and has undergone bone scans were positive with multiple lesions and positive findings most likely cancer progression with metastasis and oncology following recommending biopsy to confirm. Patient is refusing biopsy at this time and reports she wants to do it outpatient. Patient also to follow-up with gynecology in regards to vaginal bleeding. Patient having no further vaginal bleeding at this time and Eliquis is currently on hold given her anemia. Patient does have history of atrial fibrillation along with past strokes and is high risk given no anticoagulation. Patient will need follow-up with multiple medical consultations to discuss her treatment plan and actions of if she wants to proceed with treatments moving forward. Patient continues to be extremely anxious to want to return to [facility] and has been asking daily when she can go home. Patient will continue on oral Augmentin twice daily for the next 1 week along with nystatin powder to the groin area and recommend close outpatient follow-up with wound center with Dr. Rodriguez. Hemoglobin is stable at 8.1 and currently no bleeding noted. Patient is a diabetic and recommend consistent carb diet and continuing to monitor Accu- Cheks before meals and at bedtime. Patient also to follow-up with repeat labs of CBC, BMP in the next 2-3 days. Currently no reports of chest pain, shortness of breath, or palpitations. Patient is afebrile. No reports of nausea or vomiting and patient is tolerating diet. Patient will be discharged to [facility] [place] today. Guarded prognosis. Patient is high risk for readmissions. Physical exam: Gen: This is a 66-year-old female awake, alert and oriented 3, well-developed, well-nourished, obese. HEENT: Head is atraumatic, normocephalic. Pupils equal, round. Sclerae is anict janice. NECK: Supple. No JVD. No lymphadenopathy. No thyromegaly. LUNGS: Diminished breath sounds bilaterally with some scattered rhonchi noted. No intercostal retractions. HEART: S1, S2 are muffled ABDOMEN: Soft. Bowel sounds are present. No masses. No tenderness. EXTREMITIES: No pedal edema. No calf tenderness. NEUROLOGICAL: Patient is awake, alert and oriented x3. Cranial nerves 2 through 12 are grossly intact. Diffusely weak. Please refer to medication reconciliation sheet for a list of medications. The impression and plan of care has been dictated by Mimi Koenig, Nurse Practitioner as directed. Dr. Jack MD I have performed a history and examination and MDM of this patient, discussed the same with the dictator, and agree with the dictator's assessment and plan as written ,documented as a scribe. Based on total visit time, I have performed more than 50% of the visit. Patient Condition at Discharge: Fair Plan - Discharge Summary Discharge Rx Participant: No New Discharge Prescriptions: New Nystatin 100,000 Unit/gm Powd [Mycostatin Powder] 1 applic TOPICAL BID 7 Days #14 each lisinopriL [Zestril] 5 mg PO DAILY tab Amoxic-Pot Clav 875-125Mg [Augmentin 875-125] 1 tab PO Q12HR 7 Days #14 tab Ipratropium-Albuterol Nebulize [Duoneb 0.5 mg-3 mg/3 ml Soln] 3 ml INHALATION RT-Q4H each Metoprolol Succinate (ER) [Toprol XL] 100 mg PO BID tab Continue Diclofenac Sodium Gel [Voltaren Gel] 1 applic TOPICAL QID Menthol [Biofreeze] 1 applic TOPICAL TID@0600,1400,2200 Ergocalciferol (Vitamin D2) [Drisdol (50,000 Iu)] 1,250 mcg PO MO Loperamide HCl [Imodium A-D] 2 - 4 mg PO BID PRN PRN Reason: Diarrhea Benzocaine/Menthol [Cepacol Sore Throat Lozenge] 1 lozenge MM Q2H PRN PRN Reason: Sore Throat Cholestyramine/Aspartame [Cholestyramine Light Packet] 4 gm PO TID@0900,1300,2100 Fluticasone Propion/Salmeterol [Wixela 250-50 Inhub] 1 puff PO RT-BID Epoetin Ralf [Procrit] 10,000 unit SQ SA Omeprazole 20 mg PO DAILY FLUoxetine HCL 20 mg PO DAILY Atorvastatin Calcium [Lipitor] 40 mg PO HS Ipratropium-Albuterol Nebulize [Duoneb 0.5 mg-3 mg/3 ml Soln] 3 ml INHALATION RT-Q4H PRN ml PRN Reason: Shortness Of Breath Or Wheezing metFORMIN HCL [Glucophage] 500 mg PO BID@0900,1700 Nicotine 21Mg/24Hr Patch [Habitrol] 1 patch TRANSDERM DAILY Aspirin EC [Ecotrin Low Dose] 81 mg PO DAILY Magnesium Oxide [Magox 400] 400 mg PO DAILY #1 tablet Ondansetron [Zofran] 4 mg PO Q6H PRN PRN Reason: Nausea Acetaminophen [Tylenol] 650 mg PO Q4H PRN PRN Reason: GENERAL DISCOMFORT tiZANidine [Zanaflex] 4 mg PO HS Glimepiride [Amaryl] 0.5 mg PO DAILY@1700 Glimepiride [Amaryl] 2 mg PO DAILY Ferrous Sulfate [Iron] 325 mg PO DAILY Cyclobenzaprine [Flexeril] 10 mg PO HS HYDROcodone/APAP 7.5-325MG [Varnell 7.5-325] 1 tab PO Q4H PRN #4 tab PRN Reason: Pain Changed Gabapentin [Neurontin] 400 mg PO TID@0600,1400,2200 #6 cap Discontinued Potassium Chloride [Klor-Con 20] 20 meq PO DAILY@1200 Torsemide [Demadex] 30 mg PO DAILY lisinopriL [Zestril] 10 mg PO DAILY Apixaban [Eliquis] 5 mg PO BID tab Metoprolol Tartrate [Lopressor] 25 mg PO TID@0600,1400,2200 Doxycycline Hyclate 100 mg PO BID Discharge Medication List Atorvastatin Calcium [Lipitor] 40 mg PO HS 01/08/21 [History] Ipratropium-Albuterol Nebulize [Duoneb 0.5 mg-3 mg/3 ml Soln] 3 ml INHALATION RT-Q4H PRN ml 01/11/21 [Rx] Aspirin EC [Ecotrin Low Dose] 81 mg PO DAILY 01/15/21 [History] Diclofenac Sodium Gel [Voltaren Gel] 1 applic TOPICAL QID 01/15/21 [History] Ergocalciferol (Vitamin D2) [Drisdol (50,000 Iu)] 1,250 mcg PO MO 01/15/21 [History] Menthol [Biofreeze] 1 applic TOPICAL TID@0600,1400,2200 01/15/21 [History] Nicotine 21Mg/24Hr Patch [Habitrol] 1 patch TRANSDERM DAILY 01/15/21 [History] metFORMIN HCL [Glucophage] 500 mg PO BID@0900,1700 01/15/21 [History] Magnesium Oxide [Magox 400] 400 mg PO DAILY #1 tablet 01/17/21 [Rx] Acetaminophen [Tylenol] 650 mg PO Q4H PRN 01/24/22 [History] Benzocaine/Menthol [Cepacol Sore Throat Lozenge] 1 lozenge MM Q2H PRN 01/24/22 [History] Cholestyramine/Aspartame [Cholestyramine Light Packet] 4 gm PO TID@0900,1300,2100 01/24/22 [History] Cyclobenzaprine [Flexeril] 10 mg PO HS 01/24/22 [History] Epoetin Ralf [Procrit] 10,000 unit SQ SA 01/24/22 [History] FLUoxetine HCL 20 mg PO DAILY 01/24/22 [History] Ferrous Sulfate [Iron] 325 mg PO DAILY 01/24/22 [History] Fluticasone Propion/Salmeterol [Wixela 250-50 Inhub] 1 puff PO RT-BID 01/24/22 [History] Glimepiride [Amaryl] 0.5 mg PO DAILY@1700 01/24/22 [History] Glimepiride [Amaryl] 2 mg PO DAILY 01/24/22 [History] Loperamide HCl [Imodium A-D] 2 - 4 mg PO BID PRN 01/24/22 [History] Omeprazole 20 mg PO DAILY 01/24/22 [History] Ondansetron [Zofran] 4 mg PO Q6H PRN 01/24/22 [History] tiZANidine [Zanaflex] 4 mg PO HS 01/24/22 [History] Amoxic-Pot Clav 875-125Mg [Augmentin 875-125] 1 tab PO Q12HR 7 Days #14 tab 01/30/22 [Rx] Gabapentin [Neurontin] 400 mg PO TID@0600,1400,2200 #6 cap 01/30/22 [Rx] HYDROcodone/APAP 7.5-325MG [Varnell 7.5-325] 1 tab PO Q4H PRN #4 tab 01/30/22 [Rx] Ipratropium-Albuterol Nebulize [Duoneb 0.5 mg-3 mg/3 ml Soln] 3 ml INHALATION RT-Q4H each 01/30/22 [Rx] Metoprolol Succinate (ER) [Toprol XL] 100 mg PO BID tab 01/30/22 [Rx] Nystatin 100,000 Unit/gm Powd [Mycostatin Powder] 1 applic TOPICAL BID 7 Days #14 each 01/30/22 [Rx] lisinopriL [Zestril] 5 mg PO DAILY tab 01/30/22 [Rx] Follow up Appointment(s)/Referral(s): Jayla Mosquera MD [Primary Care Provider] - 1-2 days [facility] [place], [NON-STAFF] - As Needed Veronica Rodriguez MD [STAFF PHYSICIAN] - 1 Week Jeffery Ferris MD [STAFF PHYSICIAN] - 1 Week Ambulatory/Diagnostic Orders: Complete Blood Count w/diff [LAB.AMB] Time Frame: 3 Days, Location: None Selected Activity/Diet/Wound Care/Special Instructions: Patient is returning to [facility] [place] Activity as tolerated Recommend following up with primary care provider on discharge Recommend continuing with consistent carb diet and monitoring Accu-Cheks before meals and at bedtime Recommend resume oral diabetic agents Recommend to continue with oral Augmentin twice daily for the next 1 week Recommend follow-up with [facility] outpatient along with oncology to discuss further options Recommend to continue holding anticoagulant due to anemia until follow-up appointments Per oncology patient needs biopsies although patient refusing and patient is to follow-up with oncology outpatient Continue with nystatin to the groin area twice daily for 1 week and also continue with local wound care daily ORIF becoming soiled and continue to apply dry absorptive to the right lower extremity area Discharge Disposition: TRANSFER TO SNF/ECF
[2022-01-30] MEDS ORDERED: bisacodyL 10 MG SUPP RECTAL STA (14:32)
[2022-01-30 14:52] VITALS: BP 112/63; PULSE 85; RESP 18; TEMP 98.3
--- NOTE | 2022-01-30 15:50 | P.PN ---
Subjective Progress Note Date: 01/29/22 Principal diagnosis: SIRS Patient is a 66 year old male presenting to the hospital in mental status changes and multiple falls did have a low-grade fever and elevated white count now with evidence of bacteremia. On today's evaluation that is 01/29/2022, the patient continues to be afebrile, the patient is breathing comfortably on nasal cannula oxygen, the patient den ies chest pain shortness of breath or cough , the patient denies abdominal pain or diarrhea Objective - Vital Signs Vital signs: Vital Signs Temp 98.0 F 01/29/22 08:21 Pulse 111 H 01/29/22 12:11 Resp 16 01/29/22 08:21 BP 105/58 01/29/22 12:11 Pulse Ox 95 01/29/22 12:11 FiO2 Intake & Output 01/28/22 01/29/22 01/29/22 18:59 06:59 18:59 Intake Total 236 Output Total 600 1500 Balance -364 -1500 Intake: Oral 236 Output: Urine 600 1500 Straight 500 Other: Voiding Method Indwelling Catheter Indwelling Catheter Indwelling Catheter - Exam GENERAL DESCRIPTION: An elderly female lying in bed in no distress RESPIRATORY SYSTEM: Unlabored breathing , decreased breath sounds at bases HEART: S1 S2 regular rate and rhythm , ABDOMEN: Soft , no tenderness EXTREMITIES: No edema feet - Labs CBC & Chem 7: 01/29/22 08:08 01/29/22 08:08 Labs: Abnormal Lab Results - Last 24 Hours (Table) 01/28/22 01/28/22 01/29/22 Range/Units 16:36 20:04 08:08 RBC 3.63 L (3.80-5.40) m/uL Hgb 8.1 L (11.4-16.0) gm/dL Hct 28.3 L (34.0-46.0) % MCV 77.9 L (80.0-100.0) fL MCH 22.4 L (25.0-35.0) pg MCHC 28.8 L (31.0-37.0) g/dL RDW 19.8 H (11.5-15.5) % Metamyelocytes # (Man) 0.08 H (0) k/uL Sodium (137-145) mmol/L POC Glucose (mg/dL) 187 H 223 H (70-110) mg/dL 01/29/22 Range/Units 08:08 RBC (3.80-5.40) m/uL Hgb (11.4-16.0) gm/dL Hct (34.0-46.0) % MCV (80.0-100.0) fL MCH (25.0-35.0) pg MCHC (31.0-37.0) g/dL RDW (11.5-15.5) % Metamyelocytes # (Man) (0) k/uL Sodium 131 L (137-145) mmol/L POC Glucose (mg/dL) (70-110) mg/dL Assessment and Plan (1) SIRS (systemic inflammatory response syndrome) Current Visit: Yes Status: Acute Code(s): R65.10 - SIRS OF NON-INFECTIOUS ORIGIN W/O ACUTE ORGAN DYSFUNCTION SNOMED Code(s): 169949298 Plan: 1patient presented to hospital with diarrhea and this patient did have a abnormal x-ray at the [facility] with a CT abdominal pelvis concerning for possible lytic lesion concerning for malignancy also evidence of right lower lobe collapse and colitis possible infectious etiology stool for C. difficile has been negative. Patient is currently being worked up by oncology for malignancy as there is evidence of possible metastatic disease 2bilateral groin area ulcerated lesion with high clinic suspicious for cutaneous candidiasis for which the patient continue nystatin powder to bilateral groin area twice a day.. 3patient white count has normalized culture had been negative so far patient will continue with Zosyn 3.375 g every 8 hours with the plan to finish therapy with oral antibiotics. Time with Patient: Less than 30
--- NOTE | 2022-01-30 15:53 | P.PN ---
Subjective Progress Note Date: 01/30/22 Principal diagnosis: SIRS Patient is a 66 year old female presenting to the hospital in mental status changes and patient did have a bilateral groin area cutaneous candidiasis and abnormal CT suspicious for colitis and possible right lower lung collapse, subsequent workup suspicious for metastatic disease On today's evaluation that is 01/30/2022, the patient denies any fever or any chills, the patient is breathing comfortably on room air, the patient denies chest pain shortness of breath or cough , the patient denies abdominal pain or diarrhea Objective - Vital Signs Vital signs: Vital Signs Temp 98.2 F 01/30/22 08:53 Pulse 89 01/30/22 08:53 Resp 16 01/30/22 08:53 BP 113/67 01/30/22 08:53 Pulse Ox 99 01/30/22 08:53 FiO2 Intake & Output 01/29/22 01/30/22 01/30/22 18:59 06:59 18:59 Intake Total 118 Output Total 1850 400 Balance -1850 -400 118 Intake: Oral 118 Output: Urine 1850 400 Other: Voiding Method Indwelling Catheter Indwelling Catheter - Exam GENERAL DESCRIPTION: An elderly female lying in bed in no distress RESPIRATORY SYSTEM: Unlabored breathing , decreased breath sounds at bases HEART: S1 S2 regular rate and rhythm , ABDOMEN: Soft , no tenderness EXTREMITIES: No edema feet - Labs CBC & Chem 7: 01/29/22 08:08 01/29/22 08:08 Labs: Abnormal Lab Results - Last 24 Hours (Table) 01/28/22 01/29/22 01/30/22 Range/Units 06:26 20:07 11:37 POC Glucose (mg/dL) 187 H 138 H (70-110) mg/dL RBC Folate 1,583 H (280 - 791) ng/mL Assessment and Plan (1) SIRS (systemic inflammatory response syndrome) Current Visit: Yes Status: Acute Code(s): R65.10 - SIRS OF NON-INFECTIOUS ORIGIN W/O ACUTE ORGAN DYSFUNCTION SNOMED Code(s): 520916224 Plan: 1patient presented to hospital with diarrhea and this patient did have a [facility] with [facility] CT abdominal pelvis concerning for possible lytic lesion concerning for malignancy also evidence of right lower lobe collapse and colitis possible infectious etiology stool for C. difficile has been negative. Patient is currently being worked up by oncology for malignancy as there is evidence of possible metastatic disease 2bilateral groin area ulcerated lesion with high clinic suspicious for cutaneous candidiasis for which the patient continue nystatin powder to bilateral groin area twice a day.. 3patient white count has normalized culture had been negative so far patient will continue with Zosyn 3.375 g every 8 hours , however the patient apparently has been refusing biopsy and plan is to [facility] the [facility] we will consider Augmentin and oral Cipro on discharge
[2022-01-30] MEDS: GLIMEPIRIDE 0.5 MG TAB PO SCH (16:15)
[2022-01-30 17:10] LABS: Glucose,Whole Blood 84 mg/dL (70-110)
--- NOTE | 2022-01-30 21:53 | P.PN ---
Subjective Progress Note Date: 01/30/22 Discussed with primary team, planning discharge today. Biopsy per primary patient has refused at this time. We can offer a follow-up outpatient for her if further discussion of options for treatment are wanted Objective - Vital Signs Vital signs: Vital Signs Temp 98.2 F 01/30/22 08:53 Pulse 89 01/30/22 08:53 Resp 16 01/30/22 08:53 BP 113/67 01/30/22 08:53 Pulse Ox 99 01/30/22 08:53 FiO2 Intake & Output 01/29/22 01/30/22 01/30/22 18:59 06:59 18:59 Intake Total 118 Output Total 1850 400 Balance -1850 -400 118 Intake: Oral 118 Output: Urine 1850 400 Other: Voiding Method Indwelling Catheter Indwelling Catheter - Exam - Constitutional General appearance: no acute distress - EENT Eyes: EOMI, PERRLA ENT: hearing grossly normal, normal oropharynx - Neck Neck: no lymphadenopathy Thyroid: bilateral: normal size - Respiratory Respiratory: bilateral: CTA - Cardiovascular Rhythm: regular Heart sounds: normal: S1, S2 - Gastrointestinal General gastrointestinal: normal bowel sounds, soft - Integumentary large open wound involving the right groin area with irregular edges, and yellowish eschar. Tissue at the base does however have the appearance of healthy, pink granulation tissue - Neurologic Neurologic: CNII-XII intact - Musculoskeletal Musculoskeletal: generalized weakness - Psychiatric Psychiatric: A&O x's 3, appropriate affect - Labs CBC & Chem 7: 01/29/22 08:08 01/29/22 08:08 Labs: Abnormal Lab Results - Last 24 Hours (Table) 01/28/22 01/29/22 01/30/22 Range/Units 06:26 20:07 11:37 POC Glucose (mg/dL) 187 H 138 H (70-110) mg/dL RBC Folate 1,583 H (280 - 791) ng/mL Assessment and Plan Plan: Comments: MRI spine report reviewed Chest x-ray: report reviewed CT scan - abdomen: report reviewed CT scan - pelvis: report reviewed Assessment and Plan (1) Metastatic cancer Narrative/Plan: the patient's CT scan is highly suspicious for metastatic cancer involving the omentum, as well as various areas in the skeletal system. The patient is actually asymptomatic in relation to these findings, as her admission was due to diarrhea and possible GI versus bleeding. She denied any abdominal pain. She does have chronic back pain but denied any change. - The results implications were discussed in detail with her. She was advised that the appearance is highly suspicious for metastatic malignancy. Given her prior history recurrence of endometrial cancer is the primary differential. However, with time lapse of more than 5 years, a new primary with metastasis is also possible. - Reviewed CT chest and bone scan - The patient will need a tissue biopsy. per primary refusing further diagnostics,will offer follow-up - Ca12 5 with elevation 38 Current Visit: Yes Status: Acute Code(s): C79.9 - SECONDARY MALIGNANT NEOPLASM OF UNSPECIFIED SITE SNOMED Code(s): 787168203 (2) Anemia Narrative/Plan: -Status post IV Iron x3 as no active bacteria signs. Continue to monitor and transfuse to keep hemoglobin greater than 7. Current Visit: Yes Status: Acute Code(s): D64.9 - ANEMIA, UNSPECIFIED SNOMED Code(s): 230797333 (3) Non-pressure chronic ulcer of skin of other sites limited to breakdown of skin Narrative/Plan: Continue wound care Current Visit: Yes Status: Acute Code(s): L98.491 - NON-PRS CHRONIC ULCER SKIN/ SITES LIMITED TO BRKDWN SKIN SNOMED Code(s): 88446935 PLAN: Discussed with primary team, planning discharge today. Biopsy per primary patient has refused at this time. We can offer a follow-up outpatient for her if further discussion of options for treatment are wanted
== END 2022-01-30 18:03 | DRG 872 ==
LOC: EC 16:57 → 4SSUR 20:35 → 5NMEDONC 01-25 02:24 → 3SCARD 01-25 23:54
PROVIDERS: ADMIT Internal Medicine; ATTEND Internal Medicine
PROC: 30233N1 Transfusion of Nonautologous Red Blood Cells into Peripheral Vein, Percutaneous Approach (ICD-10-PCS; principal; 2022-01-28)
DX: A41.9 Sepsis, unspecified organism (principal); L97.111 Non-pressure chronic ulcer of right thigh limited to breakdown of skin; C78.6 Secondary malignant neoplasm of retroperitoneum and peritoneum; M48.56XA Collapsed vertebra, not elsewhere classified, lumbar region, initial encounter for fracture; I10 Essential (primary) hypertension; I25.10 Atherosclerotic heart disease of native coronary artery without angina pectoris; I48.0 Paroxysmal atrial fibrillation; J44.9 Chronic obstructive pulmonary disease, unspecified; D50.0 Iron deficiency anemia secondary to blood loss (chronic); E78.5 Hyperlipidemia, unspecified; E86.0 Dehydration; E86.1 Hypovolemia; C54.1 Malignant neoplasm of endometrium; K21.9 Gastro-esophageal reflux disease without esophagitis; E11.40 Type 2 diabetes mellitus with diabetic neuropathy, unspecified; G89.29 Other chronic pain; M54.9 Dorsalgia, unspecified; E66.9 Obesity, unspecified; K64.9 Unspecified hemorrhoids; R29.6 Repeated falls; Z20.822 Contact with and (suspected) exposure to COVID-19; Z68.31 Body mass index [BMI] 31.0-31.9, adult; K42.9 Umbilical hernia without obstruction or gangrene; B37.2 Candidiasis of skin and nail; M89.9 Disorder of bone, unspecified; R91.8 Other nonspecific abnormal finding of lung field; R19.07 Generalized intra-abdominal and pelvic swelling, mass and lump; K52.9 Noninfective gastroenteritis and colitis, unspecified; D64.89 Other specified anemias; M48.00 Spinal stenosis, site unspecified; Z87.01 Personal history of pneumonia (recurrent); Z87.440 Personal history of urinary (tract) infections; Z86.19 Personal history of other infectious and parasitic diseases; Z98.890 Other specified postprocedural states; Z86.14 Personal history of Methicillin resistant Staphylococcus aureus infection; Z88.6 Allergy status to analgesic agent; Z87.891 Personal history of nicotine dependence; Z86.73 Personal history of transient ischemic attack (TIA), and cerebral infarction without residual deficits; Z79.899 Other long term (current) drug therapy; Z79.84 Long term (current) use of oral hypoglycemic drugs; Z79.01 Long term (current) use of anticoagulants; Z90.710 Acquired absence of both cervix and uterus; Z90.722 Acquired absence of ovaries, bilateral
CPT/HCPCS: 36415; 71260; 74177; 78306; 80048; 80053; 81001; 82607; 82728; 82747; 83540; 83550; 83921; 84145; 84443; 85025; 85027; 85610; 86140; 86304; 86850; 86900; 86901; 86920; 87086; 87324; 87635; 93005; 93306; 94640; 94760; 96365; 96366; 96368; 99291